=== PATIENT | female | born 1930 | race Caucasian/White ===

== ENCOUNTER 2019-06-24 04:43 | Inpatient (IN) ==
[2019-06-24 05:28] LABS: Appearance Urine Clear (Clear); Bacteria Urine Automated Negative (Negative); Bilirubin Urine Negative (Negative); Blood Urine Trace (Negative); Color Urine Yellow; Glucose Urine UA Negative (Negative); Ketones Urine Negative (Negative); Leukocyte Esterase Urine Negative (Negative); Nitrite Urine Negative (Negative); Protein Urine Negative (Negative); RBC Urine Automated 0-4 /hpf (0-4); Specific Gravity Urine 1.011 (1.000-1.030); Urobilinogen Urine Negative (Negative); pH Urine 6.5 (4.5-7.5)
[2019-06-24 06:07] LABS: Basophils # (auto) 0.01 K/uL (0-0.2); Basophils % (auto) 0.1 %; Hematocrit (blood only) 38.4 % (37-47); Hemoglobin 12.8 g/dL (12.0-16.0); Immature Granulocytes # (auto) 0.05 K/uL (0.00-0.02); Immature Granulocytes % (auto) 0.4 %; Lymphocytes # (auto) 1.08 K/uL (1.2-3.4); Lymphocytes % (auto) 8.1 %; Mean Corpuscular Hemoglobin 29.5 pg (25-34); Mean Corpuscular Hgb Conc 33.3 g/dL (32-36); Mean Corpuscular Volume 88.5 fL (80-100); Mean Platelet Volume 10.9 fL (7.4-10.4); Monocytes # (auto) 0.66 K/uL (0.11-0.59); Monocytes % (auto) 4.9 %; Neutrophils # (auto) 11.59 K/uL (1.4-6.5); Neutrophils % (auto) 86.5 %; Platelet Count 145 K/uL (130-400); RDW Coefficient of Variation 13.4 % (11.5-14.5); Red Blood Count 4.34 M/uL (4.2-5.4); White Blood Count 13.39 K/uL (4.8-10.8)
[2019-06-24 06:19] LABS: INR 1.1 (0.9-1.1); Partial Thromboplastin Ratio 0.8; Partial Thromboplastin Time 22.3 Seconds (21.0-31.0); Prothrombin Time 11.4 Seconds (9.0-12.0)
[2019-06-24 06:32] LABS: Albumin Level 2.9 gm/dl (3.4-5.0); BUN Creatinine Ratio 19.2 (10-20); Calcium 8.9 mg/dl (8.5-10.1); Creatinine Clr Calc Pharmacy 30.7 ml/min; Est GFR (African American) 84.4; Est GFR (Non-African American) 72.8; Potassium 3.6 mmol/L (3.5-5.1)
[2019-06-24 06:35] LABS: Albumin Globulin Ratio 0.8 (0.9-2); Bilirubin,Total 0.9 mg/dl (0.2-1); Globulin 3.6 gm/dl (2.5-4.0); Total Protein 6.5 gm/dl (6.4-8.2)
--- NOTE | 2019-06-24 06:38 | XRay Report ---
XR chest 1V portable CLINICAL HISTORY: Sepsis dyspnea COMPARISON STUDY: 07/05/2015 FINDINGS: Emphysematous change. A 2 parenchymal infiltrate right base. Diaphragms are smooth. No sign ificant cardiac enlargement. Severe degenerative change of the shoulders. IMPRESSION: 1. Small patchy parenchymal infiltrate right base. 2. Stable baseline emphysematous change. The above report was generated using voice recognition software. It may contain grammatical, syntax or spelling errors. Electronically signed by: Farshad Art M.D. 06/24/2019 6:36 AM
[2019-06-24] MEDS ORDERED: cefTRIAXone SODIUM 500 MG in DEXTROSE 5% 50 ML IV STA (06:39)
[2019-06-24] MEDS ORDERED: AZITHROMYCIN 250 MG in DEXTROSE 5% 250 ML IV ONE (06:44)
[2019-06-24] MEDS ORDERED: SODIUM CHLORIDE 0.9% 500 ML IV ONE (07:27)
--- NOTE | 2019-06-24 07:28 | Emergency Department Note ---
Entered by Diane Bolton acting as a scribe for History of Present Illness General Chief complaint: Altered Mental Status Stated complaint: altered mental status, fever Time Seen by Provider: 06/24/19 04:47 Source: family (son; daughter) History of Present Illness Onset (ago): hour(s) 2 Location: head (general) Pain Consistency: + other (episode) Quality: + other (fever and chills) Associated symptoms: + other (positive shivering; positive incontinent of urine); no confusion The patient is a 88 year old female who presents to the Emergency Room with complaints of an episode of fever and chills that began 2 hours prior to arrival, per the patient's son. The patient's son states that he arrived home from work and found the patient shivering and her temperature to be 102.7 degrees. The patient's son states that the patient was also incontinent of urine at this time. Per the patient's son, the patient was unable to communicate with him which is not normal for her. The patient's son states that the patient was last seen at her baseline at 1500 by him. The patient's daughter states that the patient is answering questions currently and is not confused. The patient's son states that the patient was able to eat upon his arrival at home, but states that recently the patient has been eating less. The patient's son denies that the patient was around anyone else that was sick recently. Per the patient's son, the patient gave a urine sample to [facility] one week ago and has not heard anything back. Home Medications Home Medications Medication Instructions Recorded Confirmed Type Calcium Citrate With Vitamin D 1 tab PO DAILY 06/24/19 06/24/19 History acetaminophen [Tylenol Arthritis 650 mg PO Q12H PRN 06/24/19 06/24/19 History Pain] docusate sodium [Stool Softener] 100 mg PO BID 06/24/19 06/24/19 History Allergies Allergy/AdvReac Type Severity Reaction Status Date / Time No Known Allergies Allergy Unverified 06/24/19 05:08 Past Med/Surg History Medical History Constipation (Chronic) Osteoarthritis (Chronic) Surgical History Cholecystitis with cholelithiasis (Chronic) Family History Mother No problems noted. Father No problems noted. Other No pertinent family history in first degree relatives Social History Preferred Language: Kandy Communication Ability: Effective Communication Ability Comment: designated broker ipad does not have this language Communication Tools: Other Counsellors Required: Yes Beliefs That Will Affect Care: Yazidi Current Living Situation: Family Current Living Situation Comment: lives with son Other Information That Helps Us Care for You: No Feels Safe at Home: Yes Safety Concerns: Feels Safe At This Time Smoking Status: Never smoker Hx Alcohol Use: No Hx Substance Use: No Review of Systems See HPI for pertinent positives & negatives. and A total of 10 systems reviewed and were otherwise negative Physical Exam Vital Signs Vital Signs - 24 hr 06/24/19 07:24 06/24/19 08:02 06/24/19 08:28 Pulse Rate [Right Finger] 93 H 88 87 Respiratory Rate 16 18 16 Respiratory Effort / Characteristics Non-Labored Respiratory Depth Normal Blood Pressure [Right Arm] 82/52 L 70/48 L 96/54 L Blood Pressure Mean [Right Arm] 62 55 68 Pulse Oximetry 98 97 100 Oxygen Delivery Method Room Air Room Air Room Air 06/24/19 08:36 06/24/19 09:21 Pulse Rate [Right Finger] 90 86 Respiratory Rate 16 16 Respiratory Effort / Characteristics Respiratory Depth Blood Pressure [Right Arm] 103/59 L 94/53 L Blood Pressure Mean [Right Arm] 73 66 Pulse Oximetry 100 100 Oxygen Delivery Method Room Air Room Air HEENT: Head - normocephalic and atraumatic Pupils are equal, round, and reactive to light. Extraocular eye muscles are intact, and sclera are anicteric. Nose - moist nasal mucosa without discharge. Mouth - moist buccal mucosa. Oropharynx is nonerythematous and there is no tonsillar exudate or edema noted. Neck: Supple; no JVD, nuchal rigidity, cervical lymphadenopathy. Heart: Regular rate and rhythm. There is a normal S1 and S2 with no murmurs, clicks, or gallops appreciated. Lungs: Clear to auscultation bilaterally with no wheezes, rales, or rhonchi. Abdomen: Soft, completely nontender, nondistended, with good bowel sounds. There are no palpable pulsatile masses or hepatosplenomegaly. There is no guarding, rigidity, or rebound noted. Extremities: No evidence of cyanosis, clubbing, or edema. There are easily palpable peripheral pulses. Skin: warm and dry with good turgor and no rashes. Course 0451: Past medical records reviewed. The patient was evaluated in room B2. A complete history and physical exam was performed. A septic protocol was performed. A urinalysis was obtained through catheterization. The patient had a chest x-ray done. 0643: [facility] patient for further evaluation. 0649: I updated the patient's family on all results. Administered Medications Guaifenesin (Mucinex) 600 mg PO Q12 WERNER Stop: 07/24/19 20:59 Last Admin: 06/24/19 20:45 Dose: 600 mg Documented by: [id number] Piperacillin Sod/Tazobactam (Sod 3.375 gm/ Dextrose) 115 mls @ 28.75 mls/hr IV Q8H WERNER; Protocol Stop: 07/01/19 19:59 Last Admin: 06/25/19 04:08 Dose: 28.8 mls/hr Documented by: [id number] Infusion: 06/25/19 00:19 Dose: 0 mls/hr Documented by: [id number] Admin: 06/24/19 20:44 Dose: 28.8 mls/hr Documented by: [id number] Senna/Docusate Sodium (Senokot S) 1 tab PO BID WERNER Stop: 07/24/19 22:59 Last Admin: 06/24/19 23:40 Dose: 1 tab Documented by: [id number] Discontinued Medications Docusate Sodium (Colace) 100 mg PO BID WERNER Stop: 07/24/19 20:59 Last Admin: 06/24/19 20:45 Dose: 100 mg Documented by: [id number] Ceftriaxone Sodium 500 mg/ (Dextrose) 55 mls @ 100 mls/hr IV NOW STA Stop: 06/24/19 07:11 Last Infusion: 06/24/19 08:04 Dose: 0 mls/hr Documented by: [id number] Admin: 06/24/19 07:24 Dose: 100 mls/hr Documented by: [id number] Azithromycin 250 mg/ Dextrose 252.5 mls @ 125 mls/hr IV ONE ONE Stop: 06/24/19 08:45 Last Infusion: 06/24/19 10:07 Dose: 0 mls/hr Documented by: [id number] Admin: 06/24/19 07:58 Dose: 125 mls/hr Documented by: [id number] Sodium Chloride (Nss) 500 mls @ 999 mls/hr IV .Q31M ONE Stop: 06/24/19 07:57 Last Infusion: 06/24/19 08:37 Dose: 0 mls/hr Documented by: [id number] Admin: 06/24/19 08:01 Dose: 999 mls/hr Documented by: [id number] Sodium Chloride (Nss) 500 mls @ 125 mls/hr IV .Q4H WERNER Stop: 07/24/19 07:29 Last Infusion: 06/24/19 21:29 Dose: 0 mls/hr Documented by: [id number] Admin: 06/24/19 20:59 Dose: Not Given Documented by: [id number] Admin: 06/24/19 17:55 Dose: Not Given Documented by: [id number] Admin: 06/24/19 16:14 Dose: 125 mls/hr Documented by: [id number] Infusion: 06/24/19 14:07 Dose: 0 mls/hr Documented by: [id number] Admin: 06/24/19 10:07 Dose: 125 mls/hr Documented by: [id number] Piperacillin Sod/Tazobactam (Sod 3.375 gm/ Dextrose) 115 mls @ 230 mls/hr IV TODAY@1500 WERNER; Protocol Stop: 06/24/19 15:29 Last Infusion: 06/24/19 15:59 Dose: 0 mls/hr Documented by: [id number] Admin: 06/24/19 15:29 Dose: 230 mls/hr Documented by: [id number] Lactulose (Chronulac) 30 gm PO ONE ONE Stop: 06/24/19 23:01 Last Admin: 06/24/19 23:39 Dose: 30 gm Documented by: [id number] Medical Decision Making Differential Diagnosis Differential diagnoses include sepsis, UTI, pneumonia, stroke, and others were considered. Medical Records Attestation: I reviewed the patient's medical records. Home Medications Current Medication List: was personally reviewed by me Laboratory Data Attestation: I reviewed the patient's lab results. Result diagrams: 06/24/19 05:45 06/24/19 06:03 Lab Results 06/24/19 06/24/19 06/24/19 Range/Units 05:15 05:45 05:45 WBC 13.39 H (4.8-10.8) K/uL RBC 4.34 (4.2-5.4) M/uL Hgb 12.8 (12.0-16.0) g/dL Hct 38.4 (37-47) % MCV 88.5 (80-100) fL MCH 29.5 (25-34) pg MCHC 33.3 (32-36) g/dL RDW Std Deviation 44.0 (36.4-46.3) fL RDW Coeff of Candice 13.4 (11.5-14.5) % Plt Count 145 (130-400) K/uL MPV 10.9 H (7.4-10.4) fL Immature Gran % (Auto) 0.4 % Neut % (Auto) 86.5 % Lymph % (Auto) 8.1 % Hitchcock % (Auto) 4.9 % Eos % (Auto) 0.0 % Baso % (Auto) 0.1 % Immature Gran # (Auto) 0.05 H (0.00-0.02) K/uL Neut # (Auto) 11.59 H (1.4-6.5) K/uL Lymph # (Auto) 1.08 L (1.2-3.4) K/uL Hitchcock # (Auto) 0.66 H (0.11-0.59) K/uL Eos # (Auto) 0.00 (0-0.5) K/uL Baso # (Auto) 0.01 (0-0.2) K/uL PT 11.4 (9.0-12.0) Seconds INR 1.1 (0.9-1.1) APTT 22.3 (21.0-31.0) Seconds PTT Ratio 0.8 Sodium (136-145) mmol/L Potassium (3.5-5.1) mmol/L Chloride (98-107) mmol/L Carbon Dioxide (21-32) mmol/L Anion Gap (3-11) BUN (7-18) mg/dl Creatinine (0.6-1.2) mg/dl Est Cr Clr Drug Dosing ml/min Est GFR ( Amer) Est GFR (Non-Af Amer) BUN/Creatinine Ratio (10-20) Glucose (70-99) mg/dl Lactate (0.4-2.0) mmol/L Calcium (8.5-10.1) mg/dl Total Bilirubin (0.2-1) mg/dl AST (15-37) U/L ALT (12-78) U/L Alkaline Phosphatase (45-117) U/L Total Protein (6.4-8.2) gm/dl Albumin (3.4-5.0) gm/dl Globulin (2.5-4.0) gm/dl Albumin/Globulin Ratio (0.9-2) Urine Color Yellow Urine Appearance Clear (Clear) Urine pH 6.5 (4.5-7.5) Ur Specific Williamson 1.011 (1.000-1.030) Urine Protein Negative (Negative) Urine Glucose (UA) Negative (Negative) Urine Ketones Negative (Negative) Urine Blood Trace H (Negative) Urine Nitrite Negative (Negative) Urine Bilirubin Negative (Negative) Urine Urobilinogen Negative (Negative) Ur Leukocyte Esterase Negative (Negative) Urine WBC (Auto) 1-5 (0-5) /hpf Urine RBC (Auto) 0-4 (0-4) /hpf U Hyaline Cast (Auto) 1-5 (0-5) /lpf U Epithel Cells (Auto) 10-20 H (0-5) /lpf Urine Bacteria (Auto) Negative (Negative) 06/24/19 06/24/19 Range/Units 05:52 06:03 WBC (4.8-10.8) K/uL RBC (4.2-5.4) M/uL Hgb (12.0-16.0) g/dL Hct (37-47) % MCV (80-100) fL MCH (25-34) pg MCHC (32-36) g/dL RDW Std Deviation (36.4-46.3) fL RDW Coeff of Candice (11.5-14.5) % Plt Count (130-400) K/uL MPV (7.4-10.4) fL Immature Gran % (Auto) % Neut % (Auto) % Lymph % (Auto) % Hitchcock % (Auto) % Eos % (Auto) % Baso % (Auto) % Immature Gran # (Auto) (0.00-0.02) K/uL Neut # (Auto) (1.4-6.5) K/uL Lymph # (Auto) (1.2-3.4) K/uL Hitchcock # (Auto) (0.11-0.59) K/uL Eos # (Auto) (0-0.5) K/uL Baso # (Auto) (0-0.2) K/uL PT (9.0-12.0) Seconds INR (0.9-1.1) APTT (21.0-31.0) Seconds PTT Ratio Sodium 137 (136-145) mmol/L Potassium 3.6 (3.5-5.1) mmol/L Chloride 105 (98-107) mmol/L Carbon Dioxide 28 (21-32) mmol/L Anion Gap 4.0 (3-11) BUN 14 (7-18) mg/dl Creatinine 0.74 (0.6-1.2) mg/dl Est Cr Clr Drug Dosing 30.7 ml/min Est GFR ( Amer) 84.4 Est GFR (Non-Af Amer) 72.8 BUN/Creatinine Ratio 19.2 (10-20) Glucose 101 H (70-99) mg/dl Lactate 1.8 (0.4-2.0) mmol/L Calcium 8.9 (8.5-10.1) mg/dl Total Bilirubin 0.9 (0.2-1) mg/dl AST 35 (15-37) U/L ALT 20 (12-78) U/L Alkaline Phosphatase 108 (45-117) U/L Total Protein 6.5 (6.4-8.2) gm/dl Albumin 2.9 L (3.4-5.0) gm/dl Globulin 3.6 (2.5-4.0) gm/dl Albumin/Globulin Ratio 0.8 L (0.9-2) Urine Color Urine Appearance (Clear) Urine pH (4.5-7.5) Ur Specific Williamson (1.000-1.030) Urine Protein (Negative) Urine Glucose (UA) (Negative) Urine Ketones (Negative) Urine Blood (Negative) Urine Nitrite (Negative) Urine Bilirubin (Negative) Urine Urobilinogen (Negative) Ur Leukocyte Esterase (Negative) Urine WBC (Auto) (0-5) /hpf Urine RBC (Auto) (0-4) /hpf U Hyaline Cast (Auto) (0-5) /lpf U Epithel Cells (Auto) (0-5) /lpf Urine Bacteria (Auto) (Negative) Imaging Data Radiologist's Impression: Radiology results as stated below per my review and the radiologist's interpretation: XR chest 1V portable CLINICAL HISTORY: Sepsis dyspnea COMPARISON STUDY: 07/05/2015 FINDINGS: Emphysematous change. A 2 parenchymal infiltrate right base. Diaphragms are smooth. No significant cardiac enlargement. Severe degenerative change of the shoulders. IMPRESSION: 1. Small patchy parenchymal infiltrate right base. 2. Stable baseline emphysematous change. The above report was generated using voice recognition software. It may contain grammatical, syntax or spelling errors. Electronically signed by: Farshad Art M.D. 06/24/2019 6:36 AM ECG Data Attestation: I personally reviewed and interpreted this ECG as follows: Indication: tachycardia Rate (beats per minute): 101 Rhythm: sinus tachycardia Findings: no PAC, no PVC, no ST depression, no ST elevation, no acute ischemic change and no ectopy Blood Pressure Blood Pressure Findings: Elevated blood pressure Blood Pressure Disposition: further management by hospitalist [facility] Narrative The patient is a 88 year old female who presents to the Emergency Room with complaints of an episode of fever and chills that began 2 hours prior to arrival, per the patient's son. The patient was incontinent of urine and seemed slightly confused. Upon arrival here in the emergency department, the patient had no altered mental status. She was afebrile. A septic protocol was performed and there was no obvious urinary tract infection. However, there was evidence of a pneumonia. The patient was treated with IV antibiotics. The patient is extremely weak and will require further inpatient care for antibioti cs. Impression & Plan Pneumonia Discharge Plan Visit Data *Final* Discharge Date/Time: 06/24/19 10:08 Chief Complaint: Altered Mental Status Stated Complaint: altered mental status, fever ED Provider: Dipti Cano Discharge Problem: Pneumonia Patient Disposition: Admitted As Inpatient Discharge Instructions Interventions: ED Discharge Assessment Last Done: 06/24/19 10:08 Discharge Problem: Pneumonia Qualifiers: Pneumonia type: due to unspecified organism Laterality: right Lung location: lower lobe of lung Qualified Code(s): J18.1 - Lobar pneumonia, unspecified org anism The scribe's documentation has been prepared under my direction and personally reviewed by me in its entirety. I confirm that the note above accurately reflects all work, treatment, procedures, and medical decision making performed by me.
[2019-06-24] MEDS: SODIUM CHLORIDE 0.9% 500 ML IV SCH ×4 (10:07→20:59)
--- NOTE | 2019-06-24 10:39 | History & Physical Report ---
Date of Service June 24, 2019 Assessment & Plan (1) Sepsis: Met SIRS criteria, due to fever, tachycardia, hypotension, elevated white blood cell count at 13.4K, mental status change, also procalcitonin elevated at 2.07 Fever was not recorded in the ED, however at home it was recorded to be 102.7F Lactate was normal at 1.8 Source is likely pulmonary, as chest x-ray shows patchy opacity at the right base, UA is negative, blood cultures are pending Influenza negative Received IVF and ceftriaxone plus azithromycin in the ED for community-acquired pneumonia coverage Concern for possible aspiration pneumonia, will switch to Zosyn We will have her evaluated by speech therapist, and will take aspiration precautions We will start her on guaifenesin, and pulmonary treatments with ISB We will closely monitor on telemetry in PCU unit Osteoarthritis Patient may need pain meds for osteoarthritis, at home she takes Tylenol, will provide as needed Constipation We will continue her regimen of Dulcolax CODE STATUS: Full code at this time, will discuss further with her son when he is available (daughter mentioned that patient previously stated that she would not want intubation however she did not want to speak for the patient and without the son present) History of Present Illness Chief Complaint: Fever, confusion Primary Care Provider: Alia Orozco MD 88-year-old female with no significant past medical history, besides severe osteoarthritis especially in her shoulders who presents in the ED after being found by her family members confused, and having fever of 102.7F. Patient's daughter is at the bedside, she is a rehabilitation tech, and provides most of the history as patient speaks Kandy. Patient however lives with her son, who found her at home son was confused and feverish. Daughter mentions that patient has been having some urinary incontinence, she was evaluated about a week ago at her outpatient physician, UA and culture were negative at that time. When daughter came patient's mental status was back to baseline and she did not see her confused. She also noticed that patient has been having poor oral intake lately. Patient lives with her son, his and their son, nobody was sick at the household and she denies any sick contacts. In the ED UA was obtained as well as chest x-ray. UA was unrevealing, negative for bacteria, leukoesterase or nitrites. White blood cell count elevated, 13.4K. Blood cultures were obtained. Patient denies any cough or difficulty breathing. However she was found hypotensive in the ED and required fluid resuscitation (received IV NS bolus and then continuous IV NS). EKG showed sinus tachycardia. Chest x-ray was concerning for patchy opacity at the right base. She received IV ceftriaxone and azithromycin in the ED to cover for community-acquired pneumonia. Internal medicine/hospitalist service was contacted for admission. Allergies Allergy/AdvReac Type Severity Reaction Status Date / Time No Known Allergies Allergy Unverified 06/24/19 05:08 Home Medications Home Medications Medication Instructions Recorded Confirmed Type Calcium Citrate With Vitamin D 1 tab PO DAILY 06/24/19 06/24/19 History acetaminophen [Tylenol Arthritis 650 mg PO Q12H PRN 06/24/19 06/24/19 History Pain] docusate sodium [Stool Softener] 100 mg PO BID 06/24/19 06/24/19 History Past Med/Surg History Medical History Constipation (Chronic) Osteoarthritis (Chronic) Surgical History Cholecystitis with cholelithiasis (Chronic) Family History Mother No problems noted. Father No problems noted. Other No pertinent family history in first degree relatives Social History Preferred Language: Kandy Communication Ability: Effective Communication Ability Comment: spring clipper ipad does not have this language Communication Tools: Other Night Auditor Required: Yes Beliefs That Will Affect Care: Denominational Current Living Situation: Family Current Living Situation Comment: lives with son Other Information That Helps Us Care for You: No Feels Safe at Home: Yes Safety Concerns: Feels Safe At This Time Smoking Status: Never smoker Hx Alcohol Use: No Hx Substance Use: No Review of Systems Constitutional: + fever and + weakness Eyes: no eye pain Ear, Nose, Mouth, Throat: + hearing loss; no ear pain, no nasal discharge and no pain with swallowing Respiratory: no cough and no dyspnea Cardiovascular: no chest pain, no palpitations and no edema Gastrointestinal: no abdominal pain, no nausea and no vomiting Genitourinary: + urinary incontinence Musculoskeletal: + back pain (chronic) and + joint pain (chronic) Integumentary: no rash and no erythema Neurologic: + confusion; no abnormal speech Psychiatric: no anhedonia Endocrine: no polydipsia and no polyuria Hematologic / Lymphatic: no easy bleeding and no easy bruising Allergy / Immunological: no urticaria and no rash Physical Exam Physical Exam: Elderly, thin female lying in bed, in no acute distress Eyes: PERRL, conjunctivae normal, anicteric sclerae ENMT: external ear and nose normal, oropharynx normal Neck: Supple Respiratory: normal respiratory effort; no respiratory distress, no labored breathing and no retractions Auscultation: + rhonchi (at R mid lobe/base) Cardiovascular: RRR, no murmur, no edema Vessels: no JVD Chest (Breasts): Chest: normal inspection of chest Gastrointestinal (Abdomen): Inspection/Auscultation: abdomen normal to inspection and normal bowel sounds; abdomen not distended Percussion/Palpation: abdomen soft; abdomen nontender and no guarding Musculoskeletal: Head/Neck/Chest: normocephalic, head atraumatic and neck supple Extremities: extremities normal to inspection Skin: no rashes, warm and dry Neurologic: PERRL, EOMI, accommodation nl, no face palsy, no dysarthria No sensory loss noted Psychiatric: A+Ox3, euthymic affect Lymphatic: no lymphedema and no cervical lymphadenopathy Results & Data Vital Signs (Past 12 Hours) Vital Signs Temp Pulse Pulse Resp BP BP Pulse Ox 06/24/19 10:05 83 16 95/55 L 100 06/24/19 09:21 86 16 94/53 L 100 06/24/19 08:36 90 16 103/59 L 100 06/24/19 08:28 87 16 96/54 L 100 06/24/19 08:02 88 18 70/48 L 97 06/24/19 07:24 93 H 16 82/52 L 98 06/24/19 05:31 99 H 18 129/77 98 06/24/19 05:17 97 06/24/19 04:48 37.3 C 98 H 18 159/107 H 97 Laboratory Results 06/24/19 06/24/19 06/24/19 Range/Units 06:03 05:52 05:45 WBC (4.8-10.8) K/uL RBC (4.2-5.4) M/uL Hgb (12.0-16.0) g/dL Hct (37-47) % MCV (80-100) fL MCH (25-34) pg MCHC (32-36) g/dL RDW Std Deviation (36.4-46.3) fL RDW Coeff of Candice (11.5-14.5) % Plt Count (130-400) K/uL MPV (7.4-10.4) fL Immature Gran % (Auto) % Neut % (Auto) % Lymph % (Auto) % [place] % (Auto) % Eos % (Auto) % Baso % (Auto) % Immature Gran # (Auto) (0.00-0.02) K/uL Neut # (Auto) (1.4-6.5) K/uL Lymph # (Auto) (1.2-3.4) K/uL [place] # (Auto) (0.11-0.59) K/uL Eos # (Auto) (0-0.5) K/uL Baso # (Auto) (0-0.2) K/uL PT 11.4 (9.0-12.0) Seconds INR 1.1 (0.9-1.1) APTT 22.3 (21.0-31.0) Seconds PTT Ratio 0.8 Sodium 137 (136-145) mmol/L Potassium 3.6 (3.5-5.1) mmol/L Chloride 105 (98-107) mmol/L Carbon Dioxide 28 (21-32) mmol/L Anion Gap 4.0 (3-11) BUN 14 (7-18) mg/dl Creatinine 0.74 (0.6-1.2) mg/dl Est Cr Clr Drug Dosing 30.7 ml/min Est GFR ( Amer) 84.4 Est GFR (Non-Af Amer) 72.8 BUN/Creatinine Ratio 19.2 (10-20) Glucose 101 H (70-99) mg/dl Lactate 1.8 (0.4-2.0) mmol/L Calcium 8.9 (8.5-10.1) mg/dl Total Bilirubin 0.9 (0.2-1) mg/dl AST 35 (15-37) U/L ALT 20 (12-78) U/L Alkaline Phosphatase 108 (45-117) U/L Total Protein 6.5 (6.4-8.2) gm/dl Albumin 2.9 L (3.4-5.0) gm/dl Globulin 3.6 (2.5-4.0) gm/dl Albumin/Globulin Ratio 0.8 L (0.9-2) Urine Color Urine Appearance (Clear) Urine pH (4.5-7.5) Ur Specific Union (1.000-1.030) Urine Protein (Negative) Urine Glucose (UA) (Negative) Urine Ketones (Negative) Urine Blood (Negative) Urine Nitrite (Negative) Urine Bilirubin (Negative) Urine Urobilinogen (Negative) Ur Leukocyte Esterase (Negative) Urine WBC (Auto) (0-5) /hpf Urine RBC (Auto) (0-4) /hpf U Hyaline Cast (Auto) (0-5) /lpf U Epithel Cells (Auto) (0-5) /lpf Urine Bacteria (Auto) (Negative) 06/24/19 06/24/19 Range/Units 05:45 05:15 WBC 13.39 H (4.8-10.8) K/uL RBC 4.34 (4.2-5.4) M/uL Hgb 12.8 (12.0-16.0) g/dL Hct 38.4 (37-47) % MCV 88.5 (80-100) fL MCH 29.5 (25-34) pg MCHC 33.3 (32-36) g/dL RDW Std Deviation 44.0 (36.4-46.3) fL RDW Coeff of Candice 13.4 (11.5-14.5) % Plt Count 145 (130-400) K/uL MPV 10.9 H (7.4-10.4) fL Immature Gran % (Auto) 0.4 % Neut % (Auto) 86.5 % Lymph % (Auto) 8.1 % [place] % (Auto) 4.9 % Eos % (Auto) 0.0 % Baso % (Auto) 0.1 % Immature Gran # (Auto) 0.05 H (0.00-0.02) K/uL Neut # (Auto) 11.59 H (1.4-6.5) K/uL Lymph # (Auto) 1.08 L (1.2-3.4) K/uL [place] # (Auto) 0.66 H (0.11-0.59) K/uL Eos # (Auto) 0.00 (0-0.5) K/uL Baso # (Auto) 0.01 (0-0.2) K/uL PT (9.0-12.0) Seconds INR (0.9-1.1) APTT (21.0-31.0) Seconds PTT Ratio Sodium (136-145) mmol/L Potassium (3.5-5.1) mmol/L Chloride (98-107) mmol/L Carbon Dioxide (21-32) mmol/L Anion Gap (3-11) BUN (7-18) mg/dl Creatinine (0.6-1.2) mg/dl Est Cr Clr Drug Dosing ml/min Est GFR ( Amer) Est GFR (Non-Af Amer) BUN/Creatinine Ratio (10-20) Glucose (70-99) mg/dl Lactate (0.4-2.0) mmol/L Calcium (8.5-10.1) mg/dl Total Bilirubin (0.2-1) mg/dl AST (15-37) U/L ALT (12-78) U/L Alkaline Phosphatase (45-117) U/L Total Protein (6.4-8.2) gm/dl Albumin (3.4-5.0) gm/dl Globulin (2.5-4.0) gm/dl Albumin/Globulin Ratio (0.9-2) Urine Color Yellow Urine Appearance Clear (Clear) Urine pH 6.5 (4.5-7.5) Ur Specific Union 1.011 (1.000-1.030) Urine Protein Negative (Negative) Urine Glucose (UA) Negative (Negative) Urine Ketones Negative (Negative) Urine Blood Trace H (Negative) Urine Nitrite Negative (Negative) Urine Bilirubin Negative (Negative) Urine Urobilinogen Negative (Negative) Ur Leukocyte Esterase Negative (Negative) Urine WBC (Auto) 1-5 (0-5) /hpf Urine RBC (Auto) 0-4 (0-4) /hpf U Hyaline Cast (Auto) 1-5 (0-5) /lpf U Epithel Cells (Auto) 10-20 H (0-5) /lpf Urine Bacteria (Auto) Negative (Negative) Diagnostic Findings CXR (06/24/2019) FINDINGS: Emphysematous change. A 2 parenchymal infiltrate right base. Diaphragms are smooth. No significant cardiac enlargement. Severe degenerative change of the shoulders. IMPRESSION: 1. Small patchy parenchymal infiltrate right base. 2. Stable baseline emphysematous change. Medications Administered Home Medications Medication Instructions Recorded Confirmed Calcium Citrate With Vitamin D 1 tab PO DAILY 06/24/19 06/24/19 acetaminophen [Tylenol Arthritis 650 mg PO Q12H PRN 06/24/19 06/24/19 Pain] docusate sodium [Stool Softener] 100 mg PO BID 06/24/19 06/24/19 Code Status & VTE Plan Code Status Full code - will further discuss w/ pt's son when available VTE Prophylaxis Plan VTE Prophylaxis will be ordered: Yes Reason for no VTE drug order: Treatment not indicated
[2019-06-24] MEDS ORDERED: ONDANSETRON INJ 2 MG/ML 2 ML VIAL IV PRN (11:07)
[2019-06-24] MEDS ORDERED: POLYETHYLENE (MIRALAX) 17 GM PACK PO PRN (11:07)
[2019-06-24] MEDS ORDERED: ACETAMINOPHEN 325 MG TAB PO PRN (11:24)
[2019-06-24] MEDS ORDERED: CONSULT PHARMACY STA (14:41)
[2019-06-24] MEDS ORDERED: PIPERACILL/TAZOBAC CONSULT ACTIVE PRN (14:57)
[2019-06-24] MEDS ORDERED: PIPERACILLIN/TAZOBACTAM 3.375 GM in DEXTROSE 5% 100 ML IV SCH (15:00)
[2019-06-24 16:02] LABS: Influenza A virus by PCR Neg for Influ A (Neg); Influenza B virus by PCR Neg for Influ B (Neg)
[2019-06-24] MEDS: PIPERACILLIN/TAZOBACTAM 3.375 GM in DEXTROSE 5% 100 ML IV SCH (20:44)
[2019-06-24] MEDS: guaiFENesin 600 MG TABCR PO SCH (20:45)
[2019-06-24] MEDS ORDERED: DOCUSATE SODIUM 100 MG CAP PO SCH (21:00)
[2019-06-24] MEDS ORDERED: LACTULOSE SYRUP 30 GM/45 ML UDP PO ONE (23:00)
[2019-06-24] MEDS: DOCUSATE SODIUM/SENNA 50/8.6MG TAB PO SCH (23:40)
[2019-06-25] MEDS: PIPERACILLIN/TAZOBACTAM 3.375 GM in DEXTROSE 5% 100 ML IV SCH ×2 (04:08→14:00)
[2019-06-25 07:11] LABS: Basophils # (auto) 0.02 K/uL (0-0.2); Basophils % (auto) 0.2 %; Eosinophils # (auto) 0.08 K/uL (0-0.5); Eosinophils % (auto) 0.7 %; Hematocrit (blood only) 36.2 % (37-47); Hemoglobin 12.4 g/dL (12.0-16.0); Immature Granulocytes # (auto) 0.01 K/uL (0.00-0.02); Immature Granulocytes % (auto) 0.1 %; Lymphocytes # (auto) 2.21 K/uL (1.2-3.4); Lymphocytes % (auto) 20.6 %; Mean Corpuscular Hgb Conc 34.3 g/dL (32-36); Mean Corpuscular Volume 87.4 fL (80-100); Mean Platelet Volume 9.1 fL (7.4-10.4); Monocytes % (auto) 5.6 %; Neutrophils # (auto) 7.83 K/uL (1.4-6.5); Neutrophils % (auto) 72.8 %; Platelet Count 127 K/uL (130-400); RDW Coefficient of Variation 13.8 % (11.5-14.5); RDW Standard Deviation 44.4 fL (36.4-46.3); Red Blood Count 4.14 M/uL (4.2-5.4); White Blood Count 10.75 K/uL (4.8-10.8)
[2019-06-25 07:43] LABS: BUN Creatinine Ratio 14.6 (10-20); Calcium 8.8 mg/dl (8.5-10.1); Creatinine Clr Calc Pharmacy 25.2 ml/min; Est GFR (African American) 66.6; Est GFR (Non-African American) 57.5; Magnesium 2.2 mg/dl (1.8-2.4); Potassium 3.9 mmol/L (3.5-5.1)
--- NOTE | 2019-06-25 07:45 | Hospitalist Progress Note ---
Date of Service June 25, 2019 Assessment & Plan (1) Sepsis: Met SIRS criteria, due to fever, tachycardia, hypotension, elevated white blood cell count at 13.4K, mental status change, also procalcitonin elevated at 2.07 Metabolic encephalopathy in setting of sepsis and pneumonia - now seems resolved Fever was not recorded in the ED, however at home it was recorded to be 102.7F Lactate was normal at 1.8 Source is likely pulmonary, as chest x-ray shows patchy opacity at the right base, UA is negative, blood cultures are pending Influenza negative Received IVF and ceftriaxone plus azithromycin in the ED for community-acquired pneumonia coverage Concern for possible aspiration pneumonia, started Zosyn, pt much improved clinically and WBC decr. to 10k, will switch to Unasyn Evaluated by speech therapist, will take aspiration precautions Cont. guaifenesin, and pulmonary treatments with ISB We will closely monitor on telemetry in PCU unit, plan to downgrade to Med/Surg if cont. to improve Osteoarthritis Patient may need pain meds for osteoarthritis, at home she takes Tylenol, will provide as needed Constipation We will continue her regimen of Dulcolax CODE STATUS: Full code at this time, will discuss further with her son when he is available (daughter mentioned that patient previously stated that she would not want intubation however she did not want to speak for the patient and without the son present) Subjective No acute events overnight, patient is lying in bed, sleepy but easily arousable. Seems comfortable. Difficulty assessing full review of system as patient does not speak Nepali, does not seem that we have her language translating on iPad in the hospital and unfortunately family is not at the bedside at the moment. Tried to call patient's son twice but was unable to reach him, will try again later. Review of Systems Ear, Nose, Mouth, Throat: + hearing loss; no pain with swallowing Musculoskeletal: + back pain (chronic) and + joint pain (chronic) Neurologic: no abnormal speech Unable to fully assess as patient has fluent speech but does not speak Nepali Physical Exam Physical Exam: Thin elderly female lying in bed, appears comfortable, in no acute distress Eyes: PERRL, conjunctivae normal, anicteric sclerae ENMT: external ear and nose normal, oropharynx normal Respiratory: normal respiratory effort; no respiratory distress, no labored breathing and no retractions Auscultation: + rhonchi (at R mid lobe/base) Cardiovascular: RRR, no murmur, no edema Vessels: no JVD Chest (Breasts): Chest: normal inspection of chest Gastrointestinal (Abdomen): Inspection/Auscultation: abdomen normal to inspection and normal bowel sounds; abdomen not distended Percussion/Palpa tion: abdomen soft; abdomen nontender and no guarding Musculoskeletal: Head/Neck/Chest: normocephalic, head atraumatic and neck supple Extremities: extremities normal to inspection Skin: no rashes, warm and dry Neurologic: PERRL, EOMI, accommodation nl, no face palsy, no dysarthria Psychiatric: A+Ox3, euthymic affect Lymphatic: no lymphedema and no cervical lymphadenopathy Results & Data Vital Signs (Past 12 Hours) Vital Signs Temp Pulse Resp BP Pulse Ox 06/25/19 07:21 36.5 C 74 16 158/77 H 99 06/25/19 03:30 36.6 C 72 17 150/80 H 95 06/24/19 23:40 36.6 C 76 17 145/67 H 98 Laboratory Results 06/25/19 06/25/19 06/24/19 Range/Units 07:00 07:00 14:50 WBC 10.75 (4.8-10.8) K/uL RBC 4.14 L (4.2-5.4) M/uL Hgb 12.4 (12.0-16.0) g/dL Hct 36.2 L (37-47) % MCV 87.4 (80-100) fL MCH 30.0 (25-34) pg MCHC 34.3 (32-36) g/dL RDW Std Deviation 44.4 (36.4-46.3) fL RDW Coeff of Candice 13.8 (11.5-14.5) % Plt Count 127 L (130-400) K/uL MPV 9.1 (7.4-10.4) fL Immature Gran % (Auto) 0.1 % Neut % (Auto) 72.8 % Lymph % (Auto) 20.6 % [place] % (Auto) 5.6 % Eos % (Auto) 0.7 % Baso % (Auto) 0.2 % Immature Gran # (Auto) 0.01 (0.00-0.02) K/uL Neut # (Auto) 7.83 H (1.4-6.5) K/uL Lymph # (Auto) 2.21 (1.2-3.4) K/uL [place] # (Auto) 0.60 H (0.11-0.59) K/uL Eos # (Auto) 0.08 (0-0.5) K/uL Baso # (Auto) 0.02 (0-0.2) K/uL Sodium Pending Potassium Pending Chloride Pending Carbon Dioxide Pending Anion Gap Pending BUN Pending Creatinine Pending Est Cr Clr Drug Dosing Pending Est GFR ( Amer) Pending Est GFR (Non-Af Amer) Pending BUN/Creatinine Ratio Pending Glucose Pending Calcium Pending Phosphorus Pending Magnesium Pending Procalcitonin (0-0.5) ng/ml Influenza Type A (PCR) Neg for Influ A (Neg) Influenza Type B (PCR) Neg for Influ B (Neg) 06/24/19 Range/Units 11:13 WBC (4.8-10.8) K/uL RBC (4.2-5.4) M/uL Hgb (12.0-16.0) g/dL Hct (37-47) % MCV (80-100) fL MCH (25-34) pg MCHC (32-36) g/dL RDW Std Deviation (36.4-46.3) fL RDW Coeff of Candice (11.5-14.5) % Plt Count (130-400) K/uL MPV (7.4-10.4) fL Immature Gran % (Auto) % Neut % (Auto) % Lymph % (Auto) % [place] % (Auto) % Eos % (Auto) % Baso % (Auto) % Immature Gran # (Auto) (0.00-0.02) K/uL Neut # (Auto) (1.4-6.5) K/uL Lymph # (Auto) (1.2-3.4) K/uL [place] # (Auto) (0.11-0.59) K/uL Eos # (Auto) (0-0.5) K/uL Baso # (Auto) (0-0.2) K/uL Sodium Potassium Chloride Carbon Dioxide Anion Gap BUN Creatinine Est Cr Clr Drug Dosing Est GFR ( Amer) Est GFR (Non-Af Amer) BUN/Creatinine Ratio Glucose Calcium Phosphorus Magnesium Procalcitonin 2.07 H (0-0.5) ng/ml Influenza Type A (PCR) (Neg) Influenza Type B (PCR) (Neg) Medications Administered Current Inpatient Medications Acetaminophen (Tylenol) 650 mg PO Q12H PRN PRN Reason: ARTHRITIS PAIN Stop: 07/24/19 11:23 Guaifenesin (Mucinex) 600 mg PO Q12 [facility]ER Stop: 07/24/19 20:59 Last Admin: 06/24/19 20:45 Dose: 600 mg Documented by: Piperacillin Sod/Tazobactam (Sod 3.375 gm/ Dextrose) 115 mls @ 28.75 mls/hr IV Q8H [facility]; Protocol Stop: 07/01/19 19:59 Last Admin: 06/25/19 04:08 Dose: 28.8 mls/hr Documented by: Miscellaneous Information (Consult) 1 ea N/A UD PRN PRN Reason: Consult Stop: 07/24/19 14:56 Multivitamins/Minerals (Caltrate Plus) 1 tab PO DAILY [facility] Stop: 07/25/19 08:59 Ondansetron HCl (Zofran) 4 mg IV Q6H PRN PRN Reason: Nausea Stop: 07/24/19 11:06 Polyethylene Glycol (Miralax Powder Packet) 17 gm PO DAILY PRN PRN Reason: Constipation Stop: 07/24/19 11:06 Senna/Docusate Sodium (Senokot S) 1 tab PO BID [facility] Stop: 07/24/19 22:59 Last Admin: 06/24/19 23:40 Dose: 1 tab Documented by:
[2019-06-25] MEDS: guaiFENesin 600 MG TABCR PO SCH ×2 (08:50→20:40)
[2019-06-25] MEDS: DOCUSATE SODIUM/SENNA 50/8.6MG TAB PO SCH ×2 (08:50→20:41)
[2019-06-25] MEDS: CALCIUM 600MG + VIT D 400 IU TAB PO SCH (08:50)
[2019-06-25] MEDS: AMPICILLIN/SULBACTAM SOD 3,000 MG in 0.9 % SODIUM CHLORIDE 100 ML IV SCH (20:41)
[2019-06-26] MEDS ORDERED: FUROSEMIDE 20 MG TAB PO STA (03:47)
[2019-06-26 06:18] LABS: Basophils # (auto) 0.01 K/uL (0-0.2); Basophils % (auto) 0.1 %; Eosinophils # (auto) 0.11 K/uL (0-0.5); Eosinophils % (auto) 1.5 %; Hematocrit (blood only) 38.9 % (37-47); Hemoglobin 13.2 g/dL (12.0-16.0); Immature Granulocytes # (auto) 0.01 K/uL (0.00-0.02); Immature Granulocytes % (auto) 0.1 %; Lymphocytes # (auto) 1.57 K/uL (1.2-3.4); Lymphocytes % (auto) 21.1 %; Mean Corpuscular Hemoglobin 29.9 pg (25-34); Mean Corpuscular Hgb Conc 33.9 g/dL (32-36); Mean Corpuscular Volume 88.2 fL (80-100); Mean Platelet Volume 9.9 fL (7.4-10.4); Monocytes # (auto) 0.37 K/uL (0.11-0.59); Neutrophils # (auto) 5.37 K/uL (1.4-6.5); Neutrophils % (auto) 72.2 %; Platelet Count 141 K/uL (130-400); RDW Coefficient of Variation 13.6 % (11.5-14.5); RDW Standard Deviation 44.4 fL (36.4-46.3); Red Blood Count 4.41 M/uL (4.2-5.4); White Blood Count 7.44 K/uL (4.8-10.8)
[2019-06-26 06:44] LABS: BUN Creatinine Ratio 13.1 (10-20); Calcium 9.4 mg/dl (8.5-10.1); Creatinine Clr Calc Pharmacy 27.4 ml/min; Est GFR (African American) 73.5; Est GFR (Non-African American) 63.4; Phosphorus 3.2 mg/dl (2.5-4.9); Potassium 3.5 mmol/L (3.5-5.1)
--- NOTE | 2019-06-26 07:12 | Hospitalist Progress Note ---
Date of Service June 26, 2019 Assessment & Plan (1) Sepsis: Met SIRS criteria, due to fever, tachycardia, hypotension, elevated white blood cell count at 13.4K, mental status change, also procalcitonin elevated at 2.07 Metabolic encephalopathy in setting of sepsis and pneumonia - now seems resolved Fever was not recorded in the ED, however home Tmax (axillary) reported to be 102.7F Lactate was normal at 1.8 Source is likely pulmonary, as chest x-ray shows patchy opacity at the right b ase, UA is negative, blood cultures - negative Influenza negative Received IVF and ceftriaxone plus azithromycin in the ED for community-acquired pneumonia coverage Concern for possible aspiration pneumonia, started Zosyn, pt much improved clinically and WBC decr. to 10k, switched to Unasyn WBC down to 7k, overall seems to be much improved but still frail/which seems to be her baseline, plan to downgrade care to medical unit and switch to p.o. antibiotics in anticipation of possible discharge tomorrow Evaluated by speech therapist, will take aspiration precautions Cont. guaifenesin, and pulmonary treatments with ISB Ambulatory dysfunction Patient has difficulty ambulating from bed to bathroom, which often results in urinary incontinence Ordered PT/ OT Per son he has difficulty to take her to physical therapy as outpatient, as patient has difficulty ambulating overall and often during the session she needs to use the bathroom which takes about 30 to 45 minutes with his help, would very much prefer home PT/OT Case management following Osteoarthritis Patient may need pain meds for osteoarthritis, at home she takes Tylenol, will provide as needed Constipation We will continue her regimen of Dulcolax CODE STATUS: Full code at this time, will discuss further with her son when he is available (daughter mentioned that patient previously stated that she would not want intubation however she did not want to speak for the patient and without the son present) Subjective Patient was hypertensive overnight, was given 20 mg of Lasix (as per outpatient note it was recently prescribed), otherwise no acute events overnight. Patient is lying in bed, and appears comfortable. Patient's son is present at the bedside, and prefers to translate (translating services found, and offered). He says that patient is not confused and overall seems to be at her baseline. Patient denies any fevers, chills, chest pain, shortness of breath, abdominal pain, nausea or vomiting . Pt's son admits that she has difficulty ambulating and she has therefore troubles getting to the bathroom on her own. She lives with her son, his and their child. They all have bedrooms upstairs and she has difficulty getting down stairs even with his help. She usually has to yell for help and if nobody is around she has to try to get to the bathroom by herself. He admits that they could use more help at home. Also discussed that his mother is at risk for aspiration, plan to reinforce aspiration precautions prior to discharge. I also contacted patient's daughter, Merritt Gallegos, discussed the patient's clinical course and living situation at home. Agreed that patient will need more help at home and plan to take aspiration precautions. Review of Systems Constitutional: + fever and + weakness Ear, Nose, Mouth, Throat: + hearing loss; no pain with swallowing Genitourinary: no urinary incontinence (While in the hospital, patient did not have urinary incontinence) Musculoskeletal: + back pain (chronic) and + joint pain (chronic) Neurologic: + unsteadiness Physical Exam Physical Exam: Thin elderly female, laying in bed, in no acute distress Eyes: PERRL, conjunctivae normal, anicteric sclerae ENMT: external ear and nose normal, oropharynx normal Neck: Supple, no JVD Respiratory: normal respiratory effort; no respiratory distress, no labored breathing and no retractions Auscultation: + rhonchi (at R mid lobe/base) Cardiovascular: RRR, no murmur, no edema Vessels: no JVD Chest (Breasts): Chest: normal inspection of chest Gastrointestinal (Abdomen): Inspection/Auscultation: abdomen normal to inspection and normal bowel sounds; abdomen not distended Percussion/Palpati on: abdomen soft; abdomen nontender and no guarding Musculoskeletal: Head/Neck/Chest: normocephalic, head atraumatic and neck supple Extremities: extremities normal to inspection Skin: no rashes, warm and dry Neurologic: PERRL, EOMI, accommodation nl, no face palsy, no dysarthria Psychiatric: A+Ox3, euthymic affect Lymphatic: no lymphedema and no cervical lymphadenopathy Results & Data Vital Signs (Past 12 Hours) Vital Signs Temp Pulse Pulse Resp BP Pulse Ox 06/26/19 02:59 36.4 C L 78 17 176/91 H 97 06/26/19 00:00 68 06/25/19 23:30 36.5 C 75 17 175/77 H 98 06/25/19 19:31 36.3 C L 79 16 157/91 H 99 Laboratory Results 06/26/19 06/26/19 06/25/19 Range/Units 06:02 06:02 07:00 WBC 7.44 (4.8-10.8) K/uL RBC 4.41 (4.2-5.4) M/uL Hgb 13.2 (12.0-16.0) g/dL Hct 38.9 (37-47) % MCV 88.2 (80-100) fL MCH 29.9 (25-34) pg MCHC 33.9 (32-36) g/dL RDW Std Deviation 44.4 (36.4-46.3) fL RDW Coeff of Candice 13.6 (11.5-14.5) % Plt Count 141 (130-400) K/uL MPV 9.9 (7.4-10.4) fL Immature Gran % (Auto) 0.1 % Neut % (Auto) 72.2 % Lymph % (Auto) 21.1 % [place] % (Auto) 5.0 % Eos % (Auto) 1.5 % Baso % (Auto) 0.1 % Immature Gran # (Auto) 0.01 (0.00-0.02) K/uL Neut # (Auto) 5.37 (1.4-6.5) K/uL Lymph # (Auto) 1.57 (1.2-3.4) K/uL [place] # (Auto) 0.37 (0.11-0.59) K/uL Eos # (Auto) 0.11 (0-0.5) K/uL Baso # (Auto) 0.01 (0-0.2) K/uL Sodium 139 139 (136-145) mmol/L Potassium 3.5 3.9 (3.5-5.1) mmol/L Chloride 103 107 (98-107) mmol/L Carbon Dioxide 30 29 (21-32) mmol/L Anion Gap 6.0 3.0 (3-11) BUN 11 13 (7-18) mg/dl Creatinine 0.83 0.90 (0.6-1.2) mg/dl Est Cr Clr Drug Dosing 27.4 25.2 ml/min Est GFR ( Amer) 73.5 66.6 Est GFR (Non-Af Amer) 63.4 57.5 BUN/Creatinine Ratio 13.1 14.6 (10-20) Glucose 94 93 (70-99) mg/dl Calcium 9.4 8.8 (8.5-10.1) mg/dl Phosphorus 3.2 3.0 (2.5-4.9) mg/dl Magnesium 2.2 (1.8-2.4) mg/dl 06/25/19 Range/Units 07:00 WBC 10.75 (4.8-10.8) K/uL RBC 4.14 L (4.2-5.4) M/uL Hgb 12.4 (12.0-16.0) g/dL Hct 36.2 L (37-47) % MCV 87.4 (80-100) fL MCH 30.0 (25-34) pg MCHC 34.3 (32-36) g/dL RDW Std Deviation 44.4 (36.4-46.3) fL RDW Coeff of Candice 13.8 (11.5-14.5) % Plt Count 127 L (130-400) K/uL MPV 9.1 (7.4-10.4) fL Immature Gran % (Auto) 0.1 % Neut % (Auto) 72.8 % Lymph % (Auto) 20.6 % [place] % (Auto) 5.6 % Eos % (Auto) 0.7 % Baso % (Auto) 0.2 % Immature Gran # (Auto) 0.01 (0.00-0.02) K/uL Neut # (Auto) 7.83 H (1.4-6.5) K/uL Lymph # (Auto) 2.21 (1.2-3.4) K/uL [place] # (Auto) 0.60 H (0.11-0.59) K/uL Eos # (Auto) 0.08 (0-0.5) K/uL Baso # (Auto) 0.02 (0-0.2) K/uL Sodium (136-145) mmol/L Potassium (3.5-5.1) mmol/L Chloride (98-107) mmol/L Carbon Dioxide (21-32) mmol/L Anion Gap (3-11) BUN (7-18) mg/dl Creatinine (0.6-1.2) mg/dl Est Cr Clr Drug Dosing ml/min Est GFR ( Amer) Est GFR (Non-Af Amer) BUN/Creatinine Ratio (10-20) Glucose (70-99) mg/dl Calcium (8.5-10.1) mg/dl Phosphorus (2.5-4.9) mg/dl Magnesium (1.8-2.4) mg/dl Medications Administered Current Inpatient Medications Acetaminophen (Tylenol) 650 mg PO Q12H PRN PRN Reason: ARTHRITIS PAIN Stop: 07/24/19 11:23 Guaifenesin (Mucinex) 600 mg PO Q12 WERNER Stop: 07/24/19 20:59 Last Admin: 06/25/19 20:40 Dose: 600 mg Documented by: Ampicillin Sodium/Sulbactam Sodium 3,000 mg/ Sodium Chloride 108 mls @ 200 mls/hr IV Q12 WERNER; Protocol Stop: 07/02/19 20:59 Last Infusion: 06/25/19 21:15 Dose: Infused Documented by: Multivitamins/Minerals (Caltrate Plus) 1 tab PO DAILY WERNER Stop: 07/25/19 08:59 Last Admin: 06/25/19 08:50 Dose: 1 tab Documented by: Polyethylene Glycol (Miralax Powder Packet) 17 gm PO DAILY PRN PRN Reason: Constipation Stop: 07/24/19 11:06 Senna/Docusate Sodium (Senokot S) 1 tab PO BID WERNER Stop: 07/24/19 22:59 Last Admin: 06/25/19 20:41 Dose: Not Given Documented by:
[2019-06-26] MEDS: guaiFENesin 600 MG TABCR PO SCH ×2 (09:07→20:50)
[2019-06-26] MEDS: DOCUSATE SODIUM/SENNA 50/8.6MG TAB PO SCH ×2 (09:07→20:49)
[2019-06-26] MEDS: AMPICILLIN/SULBACTAM SOD 3,000 MG in 0.9 % SODIUM CHLORIDE 100 ML IV SCH (09:07)
[2019-06-26] MEDS: CALCIUM 600MG + VIT D 400 IU TAB PO SCH (09:07)
[2019-06-26] MEDS ORDERED: FUROSEMIDE 20 MG TAB PO ONE (21:00)
[2019-06-26] MEDS ORDERED: ACETAMINOPHEN 325 MG TAB PO ONE (21:00)
[2019-06-26] MEDS: AMOXICILLIN/CLAVULANATE 500 MG TAB PO SCH (21:15)
[2019-06-27] MEDS: AMOXICILLIN/CLAVULANATE 500 MG TAB PO SCH ×2 (08:37→15:56)
[2019-06-27] MEDS: CALCIUM 600MG + VIT D 400 IU TAB PO SCH (08:37)
[2019-06-27] MEDS: guaiFENesin 600 MG TABCR PO SCH ×2 (08:37→20:20)
[2019-06-27] MEDS: DOCUSATE SODIUM/SENNA 50/8.6MG TAB PO SCH ×2 (08:37→18:57)
--- NOTE | 2019-06-27 23:13 | Hospitalist Progress Note ---
Date of Service June 27, 2019 Assessment & Plan (1) Sepsis: Reported fever and confusion at home. Met criteria for sepsis per current CMS criteria- leukocytosis, tachycardia. Source = pneumonia. Lactate 1.8. Blood cultures obtained and broad spectrum antibiotic coverage with ceftriaxone administered. Received IV NSS for hypotension with improvement. (2) Altered mental status: Reportedly confused at home. Probable encephalopathy secondary to infection. Resolved. (3) Pneumonia: Chest x-ray showed RLL infiltrate. Initially treated with azithromycin + ceftriaxone. Transitioned to IV piperacillin / tazobactam for possible aspiration pneumonia. Seen by PUTTY PATCHER. No overt aspiration appreciated per bedside evaluation. Pt and family did not wish to pursue further testing. Aspiration precautions recommended. Transitioned to oral therapy with amoxicillin / clavulanic acid. (4) DVT prophylaxis: SCD's. Ambulate. (5) Discharge planning issues: Anticipated discharge to home with home health services. Internal Medicine follow-up with Dr. Alia Orozco. Subjective Recheck for multiple problems. Patient seen in their room around 1350. Daughter visiting. Better. No fever. No cough or SOB. No nausea, vomiting, diarrhea. Review of Systems: Constitutional- no fever. Cardiac- no chest pain. Pulmonary- as noted above. GI- as noted above. - no urinary symptoms. Otherwise, as noted above. Physical Exam Constitutional: no acute distress Respiratory: no respiratory distress Auscultation: lungs clear to auscultat ion bilaterally Cardiovascular: Rate/Rhythm: regular rate and regular rhythm Heart Sounds: no gallop, no murmur and no cardiac rub Vessels: no JVD Extremities: no calf tenderness and no edema Gastrointestinal (Abdomen): normal bowel sounds, soft, nontender, no hepatosplenomegaly Skin: no rashes, warm and dry Psychiatric: Orientation: alert Results & Data Vital Signs (Past 12 Hours) Vital Signs Temp Pulse Resp BP Pulse Ox 06/27/19 14:41 36.4 C L 74 16 131/75 96 (1) Pneumonia Laterality: right Lung location: lower lobe of lung Pneumonia type: due to unspecified organism Qualified Code(s): J18.1 - Lobar pneumonia, unspecified organism
[2019-06-28] MEDS: CALCIUM 600MG + VIT D 400 IU TAB PO SCH (08:40)
[2019-06-28] MEDS: guaiFENesin 600 MG TABCR PO SCH (08:40)
[2019-06-28] MEDS: AMOXICILLIN/CLAVULANATE 500 MG TAB PO SCH (08:40)
[2019-06-28] MEDS: DOCUSATE SODIUM/SENNA 50/8.6MG TAB PO SCH (08:40)
--- NOTE | 2019-06-28 11:12 | Hospitalist Progress Note ---
Date of Service June 28, 2019 Assessment & Plan (1) Sepsis: Reported fever and confusion at home. Met criteria for sepsis per current CMS criteria- leukocytosis, tachycardia. Source = pneumonia. Lactate 1.8. Blood cultures obtained and broad spectrum antibiotic coverage with ceftriaxone administered. Received IV NSS for hypotension with improvement. (2) Altered mental status: Reportedly confused at home. Probable encephalopathy secondary to infection. Resolved. (3) Pneumonia: Chest x-ray showed RLL infiltrate. Initially treated with azithromycin + ceftriaxone. Transitioned to IV piperacillin / tazobactam for possible aspiration pneumonia. Seen by TRADE SPECIALIST. No overt aspiration appreciated per bedside evaluation. Pt and family did not wish to pursue further testing. Aspiration precautions recommended. Transitioned to oral therapy with amoxicillin / clavulanic acid. Discharged with Rx to complete 7 full days of antibiotic therapy. Follow-up chest x-ray recommended in about 1 month (4) DVT prophylaxis: SCD's ordered. Ambulated with walker and assistance. (5) Discharge planning issues: Discharge to home with home health services. Internal Medicine follow-up with Dr. Alia Orozco. Subjective Recheck for multiple problems. Patient seen in their room around 1100. Daughter visiting. Doing well. No fever. No cough or SOB. No nausea, vomiting, diarrhea. Anxious to go home. Physical Exam Constitutional: no acute distress Respiratory: no respiratory distress Auscultation: lungs clear to auscultation bilaterally Cardiovascular: Rate/Rhythm: regular rate and regular rhythm Heart Sounds: no gallop, no murmur and no cardiac rub Vessels: no JVD Extremities: no calf tenderness and no edema Gastrointestinal (Abdomen): normal bowel sounds, soft, nontender, no hepatosplenomegaly Skin: no rashes, warm and dry Psychiatric: Orientation: alert Results & Data Vital Signs (Past 12 Hours) Vital Signs Temp Pulse Resp BP Pulse Ox 06/28/19 07:29 36.4 C L 77 20 139/78 96 06/28/19 00:00 36.7 C 82 18 124/64 96 (1) Pneumonia Laterality: right Lung location: lower lobe of lung Pneumonia type: due to unspecified organism Qualified Code(s): J18.1 - Lobar pneumonia, unspecified organism
--- NOTE | 2019-06-28 14:19 | Fluoroscopy Report ---
FL video swallow HISTORY: Dysphagia. Aspiration. r/o aspiration TECHNIQUE: Video fluoroscopic evaluation of swallowing was performed in the AP and lateral projection s by the speech pathology staff. The patient is fed nectar-thick and thin liquid barium, a barium coa negin wafer, and barium pudding. FLUOROSCOPY TIME: 2.3 minutes NUMBER OF FLUOROSCOPIC IMAGES: 301 COMPARISON STUDY: None. FINDINGS: There is normal hyoid excursion and epiglottic deflection. No significant penetration or as piration identified. Swallowing function is within normal limits. Slight esophageal dysmotility IMPRESSION: 1. No aspiration identified. Slight esophageal dysmotility 2. Please see the speech pathologist report for detailed findings and recommendations. The above report was generated using voice recognition software. It may contain grammatical, syntax or spelling errors. Electronically signed by: Farshad Art M.D. 06/28/2019 1:43 PM
--- NOTE | 2019-06-28 22:16 | Discharge Summary ---
Date of Service June 28, 2019 Admission HPI Per Admitting Provider 88-year-old female with no significant past medical history, besides severe osteoarthritis especially in her shoulders who presents in the ED after being found by her family members confused, and having fever of 102.7F. Patient's daughter is at the bedside, she is a air conditioning insulation installer, and provides most of the history as patient speaks Kandy. Patient however lives with her son, who found her at home son was confused and feverish. Daughter mentions that patient has been having some urinary incontinence, she was evaluated about a week ago at her outpatient physician, UA and culture were negative at that time. When daughter came patient's mental status was back to baseline and she did not see her confused. She also noticed that patient has been having poor oral intake lately. Patient lives with her son, his and their son, nobody was sick at the household and she denies any sick contacts. In the ED UA was obtained as well as chest x-ray. UA was unrevealing, negative for bacteria, leukoesterase or nitrites. White blood cell count elevated, 13.4K. Blood cultures were obtained. Patient denies any cough or difficulty breathing. However she was found hypotensive in the ED and required fluid resus citation (received IV NS bolus and then continuous IV NS). EKG showed sinus tachycardia. Chest x-ray was concerning for patchy opacity at the right base. She received IV ceftriaxone and azithromycin in the ED to cover for community- acquired pneumonia. Internal medicine/hospitalist service was contacted for admission. Principal Diagnosis pneumonia RLL, community acquired vs aspiration OTHER ACUTE DIAGNOSES: encephalopathy sepsis Discharge Data Allergies Allergy/AdvReac Type Severity Reaction Status Date / Time No Known Allergies Allergy Unverified 06/24/19 05:08 Consultations 06/24/19 06:43 ED Decision to Admit Stat Ordered Studies 06/28/19 13:30 FL video swallow Routine Hospital Course (1) Sepsis: Reported fever and confusion at home. Met criteria for sepsis per current CMS criteria- leukocytosis, tachycardia. Source = pneumonia. Lactate 1.8. Blood cultures obtained and broad spectrum antibiotic coverage with ceftriaxone administered. Received IV NSS for hypotension with improvement. (2) Altered mental status: Reportedly confused at home. Probable encephalopathy secondary to infection. Resolved. (3) Pneumonia: Chest x-ray showed RLL infiltrate. Initially treated with azithromycin + ceftriaxone. Transitioned to IV piperacillin / tazobactam for possible aspiration pneumonia. Seen by MENTAL HEALTH PROGRAM DIRECTOR. No overt aspiration appreciated per bedside evaluation. Pt and family did not wish to pursue further testing. Aspiration precautions recommended. Transitioned to oral therapy with amoxicillin / clavulanic acid. Discharged with Rx to complete 7 full days of antibiotic therapy. Follow-up chest x-ray recommended in about 1 month (4) DVT prophylaxis: SCD's ordered. Ambulated with walker and assistance. (5) Discharge planning issues: Patient's functional status at baseline (essentially nonambulatory, requires assistance with most ADL's). Lives with her son and family is very supportive. They are not interested in consideration of skilled care. Discharged to home with home health services. Internal Medicine follow-up with Dr. Alia Orozco. Total Time Total Time Spent Total Time Spent (In Minutes): 40 Discharge Plan Discharge Items Patient Disposition: Home - Home Health Services Reason For Visit: pneumonia Discharge Diagnosis: pneumonia Condition on Discharge: Good Activity: Resume your previous activity Activity Comment: Use walker to prevent falls. Non-emergency contact: Primary Care Provider and Hospitalist Call non-emergency contact if: you have any medication questions, your symptoms worsen and your temperature is above 101 Follow-up/Referrals: Alia Orozco MD [Primary Care Provider] - (07/05/2019 2:20 PM Alia Orozco MD General Internal Medicine [facility]) Diet: Regular Addtl Attending Provider Instructions: MEDICATION CHANGES: Take amoxicillin / clavulanic acid (Augmentin) twice a day with food for 3 more days. SUMMARY OF TEST RESULTS: Chest x-ray showed probable pneumonia. RECOMMENDATIONS FOR FOLLOW-UP: Recheck chest x-ray in about 4 weeks. OTHER INSTRUCTIONS: Aspiration precautions as discussed with Speech Therapist. Seek medical attention if you have: * temperature above 101 * chest pain or trouble breathing * abdominal pain, nausea, vomiting * persistent diarrhea, dark stools or bloody stools * any unanswered questions or concerns Call 911 if symptoms are severe. Please take good care of yourself. Call if you have any questions or problems. You can reach a [facility] hospitalist on duty at [facility] 24 hours a day by calling [phone]. My cell # is [phone]. Pending Studies at Discharge: No Stand-Alone Forms: My [facility], Smoking Cessation Medications and DC Order Prescriptions: New amoxicillin-pot clavulanate 500-125 mg Tablet 1 tab PO BIDM Qty: 6 RF: 0 Continued Calcium Citrate With Vitamin D 1 tab PO DAILY RF: 0 docusate sodium [Stool Softener] 100 mg Capsule 100 mg PO BID RF: 0 acetaminophen [Tylenol Arthritis Pain] 650 mg Tablet Extended Release 650 mg PO Q12H PRN (Reason: arthritic pain) RF: 0 furosemide 20 mg tablet 20 mg PO DAILY PRN (Reason: Fluid Retention) RF: 0 Discharge Orders: Discharge Order (Routine); Ordered 06/28/19 Ordered By: Manolo Carrillo Admission Data Admit Date/Time: 06/24/19 09:59 Attending Provider: Manolo Carrillo Admit Provider: Talon Santana Primary Care Provider: Alia Orozco Other Providers: Wan Valerio ; Talon Santana Other Interventions: Discharge Summary Assessment (RN) Last Done: 06/28/19 12:40 DC Date/Time DO NOT enter until pt leaves facility: 06/28/19 15:26
== END 2019-06-28 15:26 | disposition home health service (06) | DRG 871 ==
LOC: ED 04:43 → 2S 09:59 → SUATTDRO 09:59 → 2S 10:08 → 4W 06-26 13:35

== ENCOUNTER 2020-01-15 19:37 | Inpatient (IN) ==
[2020-01-15 21:40] LABS: Albumin Level 2.4 gm/dl (3.4-5.0); BUN Creatinine Ratio 34.1 (10-20); Calcium 9.6 mg/dl (8.5-10.1); Creatinine Clr Calc Pharmacy 26.4 ml/min; Est GFR (African American) 44.9; Est GFR (Non-African American) 38.8; Magnesium 2.6 mg/dl (1.8-2.4); Potassium 4.6 mmol/L (3.5-5.1)
[2020-01-15 21:51] LABS: Albumin Globulin Ratio 0.4 (0.9-2); Bilirubin,Total 0.6 mg/dl (0.2-1); Globulin 5.5 gm/dl (2.5-4.0); Thyroid Stimulating Hormone 5.64 uIu/ml (0.300-4.500); Total Protein 7.9 gm/dl (6.4-8.2); Troponin I 0.016 ng/ml (0-0.045)
--- NOTE | 2020-01-15 21:51 | XRay Report ---
XR chest 1V portable HISTORY: 89 years-old Female weakness acute weakness COMPARISON: Chest radiograph 06/24/2019 TECHNIQUE: Portable AP view of the chest FINDINGS: Hypoinflated lungs. Cardiac silhouette appears mildly enlarged. No pneumothorax. Small left pleural e ffusion with left greater than right bibasilar opacities. Mild chronic interstitial coarsening. Calci fied plaque of the thoracic aortic arch. Advanced degenerative changes with chronic remodeling of the glenohumeral joints. Surgical clips project over the abdominal right upper quadrant. IMPRESSION: 1. Small left pleural effusion with left greater than right bibasilar opacities suggestive of atelect asis or pneumonia. 2. Hypoinflation. ACT 112: Negative or not required by law. The above report was generated using voice recognition software. It may contain grammatical, syntax o r spelling errors. Electronically signed by: Elmer Bolanos M.D. 01/15/2020 9:49 PM
[2020-01-15 22:03] LABS: T4 Free Thyroxine 1.19 ng/dl (0.8-1.6)
[2020-01-15 22:07] LABS: INR 1.1 (0.9-1.1); Prothrombin Time 11.5 Seconds (9.0-12.0)
--- NOTE | 2020-01-15 22:16 | Emergency Department Note ---
History of Present Illness General Chief complaint: Lethargic Time Seen by Provider: 01/15/20 19:50 Source: family Limitations: language barrier and altered mental status History of Present Illness History is severely limited due to a language barrier as well as change in mental status and the patient. We did attempt to use a online journalist but the Kandy plodding machine operator could not understand the patient. I therefore obtained history from the patient's brother who is at the bedside as well as his other brother who is a physician over the telephone. They state that she has had swelling to her legs as well as her abdomen for the past 2 months. She had blood work done yesterday by her primary care physician who stated that there were multiple abnormalities including an elevated white blood cell count. They were concerned about a UTI but were unable to get a urine sample. She also had some derangements in her LFTs which were mildly elevated as well as a low albumin and an elevated BNP. The PCP recommended patient be taken to the emergency department and admitted to the hospital for further work-up. The PCP was concerned about possible ascites or CHF. The patient's son states that she has not complained of any pain including chest pain, belly pain or headache. He denies any fever or cold or cough symptoms. She has no known history of heart disease, lung disease or liver disease. Her son also states that she has been somewhat confused intermittently for the past 3 weeks. She sometimes has garbled speech and is sometimes unintelligible. She is able to speak and answer his questions here. Home Medications Home Medications Medication Instructions Recorded Confirmed Type acetaminophen [Tylenol Arthritis 650 mg PO Q12H PRN 06/24/19 01/15/20 History Pain] furosemide 20 mg PO DAILY PRN 06/28/19 01/15/20 History calcium carbonate-vitamin D3 1 tab PO DAILY 01/15/20 01/15/20 History [Calcium 600 + D(3)] cyanocobalamin (vitamin B-12) 1,000 mcg PO DAILY 01/15/20 01/15/20 History [Vitamin B-12] Allergies Allergy/AdvReac Type Severity Reaction Status Date / Time No Known Allergies Allergy Verified 01/15/20 20:12 Past Med/Surg History Medical History Constipation Osteoarthritis (Chronic) Surgical History Cholecystitis with cholelithiasis (Chronic) Family History Mother No problems noted. Father No problems noted. Other No pertinent family history in first degree relatives Social History Preferred Language: Kandy Communication Ability: Effective Communication Tools: Other Audit Mgr Required: Yes Beliefs That Will Affect Care: Sikh Current Living Situation: Family Current Living Situation Comment: lives with son Feels Safe at Home: Yes Smoking Status: Unknown if ever smoked Hx Alcohol Use: No Hx Substance Use: No Review of Systems See HPI for pertinent positives & negatives. Unobtainable due to cognitive status Physical Exam Vital Signs Vital Signs - 24 hr 01/15/20 19:46 01/15/20 19:47 01/15/20 19:50 Pulse Rate 93 H 93 H 95 H Pulse Rate from SpO2 Sensor 94 H 94 H 94 H Respiratory Rate 14 14 13 Blood Pressure 138/89 Blood Pressure Mean 101 Pulse Oximetry 96 96 96 Oxygen Delivery Method Room Air Room Air Room Air Sepsis Recent Fever Within 48 Hours Sepsis New/Unexplained Change in Mental Status Sepsis Action Taken by Nursing 01/15/20 19:54 01/15/20 20:00 01/15/20 20:01 Pulse Rate 94 H 93 H 94 H Pulse Rate from SpO2 Sensor 93 H 94 H Respiratory Rate 14 13 14 Blood Pressure 138/89 134/84 Blood Pressure Mean 105 93 Pulse Oximetry 96 96 95 Oxygen Delivery Method Room Air Room Air Room Air Sepsis Recent Fever Within 48 Hours No Sepsis New/Unexplained Change in Mental Status No Sepsis Action Taken by Nursing No Action Required 01/15/20 20:10 01/15/20 20:15 01/15/20 20:20 Pulse Rate 94 H 92 H 91 H Pulse Rate from SpO2 Sensor 93 H 92 H 91 H Respiratory Rate 13 15 17 Blood Pressure 138/78 Blood Pressure Mean 92 Pulse Oximetry 95 96 96 Oxygen Delivery Method Room Air Room Air Room Air Sepsis Recent Fever Within 48 Hours Sepsis New/Unexplained Change in Mental Status Sepsis Action Taken by Nursing 01/15/20 20:30 01/15/20 20:31 01/15/20 20:40 Pulse Rate 94 H 94 H 92 H Pulse Rate from SpO2 Sensor 90 94 H 92 H Respiratory Rate 13 13 36 H Blood Pressure 134/94 Blood Pressure Mean 106 Pulse Oximetry 94 94 97 Oxygen Delivery Method Room Air Room Air Room Air Sepsis Recent Fever Within 48 Hours Sepsis New/Unexplained Change in Mental Status Sepsis Action Taken by Nursing 01/15/20 20:50 01/15/20 21:00 01/15/20 21:10 Pulse Rate 92 H 92 H 93 H Pulse Rate from SpO2 Sensor 92 H 92 H 93 H Respiratory Rate 13 13 16 Blood Pressure Blood Pressure Mean Pulse Oximetry 96 97 95 Oxygen Delivery Method Room Air Room Air Room Air Sepsis Recent Fever Within 48 Hours Sepsis New/Unexplained Change in Mental Status Sepsis Action Taken by Nursing 01/15/20 21:20 01/15/20 21:30 01/15/20 21:40 Pulse Rate 93 H 91 H 91 H Pulse Rate from SpO2 Sensor 93 H 92 H 91 H Respiratory Rate 18 13 13 Blood Pressure Blood Pressure Mean Pulse Oximetry 95 96 96 Oxygen Delivery Method Room Air Room Air Room Air Sepsis Recent Fever Within 48 Hours Sepsis New/Unexplained Change in Mental Status Sepsis Action Taken by Nursing 01/15/20 21:50 01/15/20 22:00 01/15/20 22:10 Pulse Rate 93 H 92 H 92 H Pulse Rate from SpO2 Sensor 93 H 92 H 91 H Respiratory Rate 14 12 14 Blood Pressure Blood Pressure Mean Pulse Oximetry 97 96 96 Oxygen Delivery Method Room Air Room Air Room Air Sepsis Recent Fever Within 48 Hours Sepsis New/Unexplained Change in Mental Status Sepsis Action Taken by Nursing 01/15/20 22:18 01/15/20 22:20 01/15/20 22:30 Pulse Rate 92 H 92 H 94 H Pulse Rate from SpO2 Sensor 92 H 92 H 94 H Respiratory Rate 15 14 20 Blood Pressure 148/85 H Blood Pressure Mean 91 Pulse Oximetry 95 96 95 Oxygen Delivery Method Room Air Room Air Room Air Sepsis Recent Fever Within 48 Hours Sepsis New/Unexplained Change in Mental Status Sepsis Action Taken by Nursing 01/15/20 22:31 01/15/20 22:40 01/15/20 23:01 Pulse Rate 92 H 90 90 Pulse Rate from SpO2 Sensor 92 H 90 90 Respiratory Rate 12 13 13 Blood Pressure 221/203 H 124/85 Blood Pressure Mean 217 102 Pulse Oximetry 96 95 95 Oxygen Delivery Method Room Air Room Air Room Air Sepsis Recent Fever Within 48 Hours Sepsis New/Unexplained Change in Mental Status Sepsis Action Taken by Nursing 01/15/20 23:15 01/15/20 23:30 01/15/20 23:59 Pulse Rate 89 90 89 Pulse Rate from SpO2 Sensor 89 90 89 Respiratory Rate 12 16 16 Blood Pressure 132/75 121/72 158/82 H Blood Pressure Mean 84 83 101 Pulse Oximetry 95 95 96 Oxygen Delivery Method Room Air Room Air Room Air Sepsis Recent Fever Within 48 Hours Sepsis New/Unexplained Change in Mental Status Sepsis Action Taken by Nursing 01/16/20 00:00 Pulse Rate 89 Pulse Rate from SpO2 Sensor 89 Respiratory Rate 13 Blood Pressure 150/80 H Blood Pressure Mean 105 Pulse Oximetry 96 Oxygen Delivery Method Room Air Sepsis Recent Fever Within 48 Hours Sepsis New/Unexplained Change in Mental Status Sepsis Action Taken by Nursing Constitutional: Vital signs reviewed. Eyes: Pupils are equal round reactive to light. Conjunctiva are noninjected. ENT: Pharynx is clear without erythema or exudate. Mucous membranes are dry. Neck supple without meningeal signs. Respiratory: Clear to auscultation bilaterally. Breath sounds are equal bilaterally. Cardiovascular: Regular rate and rhythm. No rubs or gallops. GI: Soft, distended abdomen without tenderness. Bowel sounds are present. Musculoskeletal: Bilateral lower extremity edema without tenderness. Integumentary: No cyanosis. or jaundice. Neurological: The patient is awake and alert. No focal deficits. Psychiatric: Unable to assess. Course Administered Medications Sodium Chloride (Nss) 500 mls @ 80 mls/hr IV .[id number] [facility] Stop: 02/14/20 23:29 Last Admin: 01/15/20 23:55 Dose: 80 mls/hr Documented by: [id number] Critical Care Time Critical Care Time: Yes Total Critical Care Time: 40 I have personally spent approximately 40 minutes of critical care time in the direct management of this patient. This includes bedside care, interpretation of diagnostic studies, and testing, discussion with consultants, patient, and family members, and other required patient management activities. These minutes are in excess of all separately billable procedures. Medical Decision Making Differential Diagnosis UTI, pneumonia, sepsis, ICH, CVA, metabolic derangement, encephalopathy, ascites Medical Records Attestation: I reviewed the patient's medical records. I did perform a limited focused review of portions of the patient's old chart on the electronic medical record. The patient has had no recent pertinent visits to this hospital. Home Medications Current Medication List: was personally reviewed by me Laboratory Data Attestation: I reviewed the patient's lab results. Result diagrams: 01/15/20 22:48 01/15/20 21:08 Lab Results 01/15/20 01/15/20 01/15/20 Range/Units 21:08 21:08 21:08 WBC Cancelled RBC Cancelled Hgb Cancelled Hct Cancelled MCV Cancelled MCH Cancelled MCHC Cancelled RDW Std Deviation Cancelled RDW Coeff of Candice Cancelled Plt Count Cancelled MPV Cancelled Immature Gran % (Auto) Cancelled Neut % (Auto) Cancelled Lymph % (Auto) Cancelled [place] % (Auto) Cancelled Eos % (Auto) Cancelled Baso % (Auto) Cancelled Immature Gran # (Auto) Cancelled Neut # (Auto) Cancelled Lymph # (Auto) Cancelled [place] # (Auto) Cancelled Eos # (Auto) Cancelled Baso # (Auto) Cancelled Absolute Nucleated RBC Cancelled Nucleated RBC % (auto) Cancelled Neutrophils % (Manual) Cancelled Band Neutrophils % Cancelled Lymphocytes % (Manual) Cancelled Prolymphocyte % Cancelled Reactive Lymphs % (Man) Cancelled Monocytes % (Manual) Cancelled Eosinophils % (Manual) Cancelled Basophils % (Manual) Cancelled Metamyelocytes % (Man) Cancelled Myelocytes % (Man) Cancelled Promyelocytes % (Man) Cancelled Blast Cells % (Manual) Cancelled Plasma Cell % (Manual) Cancelled Other Cells % Cancelled Nucleated RBC % Cancelled Neutrophils # (Manual) Cancelled Band Neutrophils # Cancelled Total Absolute Neuts Cancelled Lymphocytes # (Manual) Cancelled Prolymphocyte # Cancelled Reactive Lymphs # Cancelled Total Abs Lymphocytes Cancelled Monocytes # (Manual) Cancelled Eosinophils # (Manual) Cancelled Basophils # (Manual) Cancelled Metamyelocytes # (Man) Cancelled Myelocytes # (Manual) Cancelled Promyelocytes # (Man) Cancelled Blast Cells # (Man) Cancelled Plasma Cell # (Manual) Cancelled Other Cells # Cancelled Nucleated RBCs # (Man) Cancelled Hypersegmented Neuts Cancelled Hyposegmented Neuts Cancelled Hypogranular Neuts Cancelled Large Granular Lymphs Cancelled # Lrg Granular Lymphs Cancelled Hairy Cells Cancelled Smudge Cells Cancelled Toxic Granulation Cancelled Toxic Vacuolation Cancelled Dohle Bodies Cancelled Dov Rods Cancelled Platelet Estimate Cancelled Hypogranular Platelets Cancelled Clumped Platelets Cancelled Giant Platelets Cancelled Platelet Satelliting Cancelled RBC Morphology Cancelled Polychromasia Cancelled Hypochromasia Cancelled Poikilocytosis Cancelled Basophilic Stippling Cancelled Anisocytosis Cancelled Microcytosis Cancelled Macrocytosis Cancelled Spherocytes Cancelled Pappenheimer Bodies Cancelled Sickle Cells Cancelled Target Cells Cancelled Tear Drop Cells Cancelled Ovalocytes Cancelled Stomatocytes Cancelled [place] Bodies Cancelled Echinocytes Cancelled Acanthocytes (Spur) Cancelled Rouleaux Cancelled RBC Agglutinates Cancelled Schistocytes Cancelled RBC Morph Comment Cancelled Sezary Cell Cancelled PT (9.0-12.0) Seconds INR (0.9-1.1) Sodium 148 H (136-145) mmol/L Potassium 4.6 (3.5-5.1) mmol/L Chloride 117 H (98-107) mmol/L Carbon Dioxide 23 (21-32) mmol/L Anion Gap 8.0 (3-11) BUN 42 H (7-18) mg/dl Creatinine 1.24 H (0.6-1.2) mg/dl Est Cr Clr Drug Dosing 26.4 ml/min Est GFR ( Amer) 44.9 Est GFR (Non-Af Amer) 38.8 BUN/Creatinine Ratio 34.1 H (10-20) Glucose 124 H (70-99) mg/dl Calcium 9.6 (8.5-10.1) mg/dl Magnesium 2.6 H (1.8-2.4) mg/dl Total Bilirubin 0.6 (0.2-1) mg/dl AST 86 H (15-37) U/L ALT 54 (12-78) U/L Alkaline Phosphatase 266 H (45-117) U/L Ammonia 56.1 H (11-32) umol/L Troponin I 0.016 (0-0.045) ng/ml Total Protein 7.9 (6.4-8.2) gm/dl Albumin 2.4 L (3.4-5.0) gm/dl Globulin 5.5 H (2.5-4.0) gm/dl Albumin/Globulin Ratio 0.4 L (0.9-2) TSH 5.640 H (0.300-4.500) uIu/ml Free T4 1.19 (0.8-1.6) ng/dl Urine Color Urine Appearance (Clear) Urine pH (4.5-7.5) Ur Specific [place] (1.000-1.030) Urine Protein (Negative) Urine Glucose (UA) (Negative) Urine Ketones (Negative) Urine Blood (Negative) Urine Nitrite (Negative) Urine Bilirubin (Negative) Urine Urobilinogen (Negative) Ur Leukocyte Esterase (Negative) 01/15/20 01/15/20 01/15/20 Range/Units 21:25 22:30 22:48 WBC 13.09 H RBC 5.10 Hgb 15.4 Hct 48.0 H MCV 94.1 MCH 30.2 MCHC 32.1 RDW Std Deviation 58.4 H RDW Coeff of Candice 17.0 H Plt Count 117 L MPV 11.1 H Immature Gran % (Auto) 0.2 Neut % (Auto) 69.4 Lymph % (Auto) 22.9 [place] % (Auto) 7.0 Eos % (Auto) 0.3 Baso % (Auto) 0.2 Immature Gran # (Auto) 0.02 Neut # (Auto) 9.09 H Lymph # (Auto) 3.00 [place] # (Auto) 0.91 H Eos # (Auto) 0.04 Baso # (Auto) 0.03 Absolute Nucleated RBC Nucleated RBC % (auto) Neutrophils % (Manual) Band Neutrophils % Lymphocytes % (Manual) Prolymphocyte % Reactive Lymphs % (Man) Monocytes % (Manual) Eosinophils % (Manual) Basophils % (Manual) Metamyelocytes % (Man) Myelocytes % (Man) Promyelocytes % (Man) Blast Cells % (Manual) Plasma Cell % (Manual) Other Cells % Nucleated RBC % Neutrophils # (Manual) Band Neutrophils # Total Absolute Neuts Lymphocytes # (Manual) Prolymphocyte # Reactive Lymphs # Total Abs Lymphocytes Monocytes # (Manual) Eosinophils # (Manual) Basophils # (Manual) Metamyelocytes # (Man) Myelocytes # (Manual) Promyelocytes # (Man) Blast Cells # (Man) Plasma Cell # (Manual) Other Cells # Nucleated RBCs # (Man) Hypersegmented Neuts Hyposegmented Neuts Hypogranular Neuts Large Granular Lymphs # Lrg Granular Lymphs Hairy Cells Smudge Cells Toxic Granulation Toxic Vacuolation Dohle Bodies Dov Rods Platelet Estimate Hypogranular Platelets Clumped Platelets Giant Platelets Platelet Satelliting RBC Morphology Polychromasia Hypochromasia Poikilocytosis Basophilic Stippling Anisocytosis Microcytosis Macrocytosis Spherocytes Pappenheimer Bodies Sickle Cells Target Cells Tear Drop Cells Ovalocytes Stomatocytes [place] Bodies Echinocytes Acanthocytes (Spur) Rouleaux RBC Agglutinates Schistocytes RBC Morph Comment Sezary Cell PT 11.5 (9.0-12.0) Seconds INR 1.1 (0.9-1.1) Sodium (136-145) mmol/L Potassium (3.5-5.1) mmol/L Chloride (98-107) mmol/L Carbon Dioxide (21-32) mmol/L Anion Gap (3-11) BUN (7-18) mg/dl Creatinine (0.6-1.2) mg/dl Est Cr Clr Drug Dosing ml/min Est GFR ( Amer) Est GFR (Non-Af Amer) BUN/Creatinine Ratio (10-20) Glucose (70-99) mg/dl Calcium (8.5-10.1) mg/dl Magnesium (1.8-2.4) mg/dl Total Bilirubin (0.2-1) mg/dl AST (15-37) U/L ALT (12-78) U/L Alkaline Phosphatase (45-117) U/L Ammonia (11-32) umol/L Troponin I (0-0.045) ng/ml Total Protein (6.4-8.2) gm/dl Albumin (3.4-5.0) gm/dl Globulin (2.5-4.0) gm/dl Albumin/Globulin Ratio (0.9-2) TSH (0.300-4.500) uIu/ml Free T4 (0.8-1.6) ng/dl Urine Color Yellow Urine Appearance Clear (Clear) Urine pH 5.0 (4.5-7.5) Ur Specific [place] 1.026 (1.000-1.030) Urine Protein Negative (Negative) Urine Glucose (UA) Negative (Negative) Urine Ketones Negative (Negative) Urine Blood Negative (Negative) Urine Nitrite Negative (Negative) Urine Bilirubin Negative (Negative) Urine Urobilinogen Negative (Negative) Ur Leukocyte Esterase Negative (Negative) Imaging Data Radiologist's Impression: CT HEAD: The paranasal sinuses and mastoid air cells are normally aerated. There is no skull fracture or scalp hematoma. There is a normal gyral pattern of the brain. There is no mass lesion or midline shift. The liao-white matter differentiation is maintained. There is mild periventricular atrophy and white matter low density bilaterally consistent with chronic small vessel disease. There is no evidence of acute large vessel infarct or intracranial hemorrhage. Radiologist: Wilian Haji MD Study ready at 23:48 and initial results transmitted at 00:04 XR chest 1V portable HISTORY: 89 years-old Female weakness acute weakness COMPARISON: Chest radiograph 06/24/2019 TECHNIQUE: Portable AP view of the chest FINDINGS: Hypoinflated lungs. Cardiac silhouette appears mildly enlarged. No pneumothorax. Small left pleural effusion with left greater than right bibasilar opacities. Mild chronic interstitial coarsening. Calcified plaque of the thoracic aortic arch. Advanced degenerative changes with chronic remodeling of the glenohumeral joints. Surgical clips project over the abdominal right upper quadrant. IMPRESSION: 1. Small left pleural effusion with left greater than right bibasilar opacities suggestive of atelectasis or pneumonia. 2. Hypoinflation. ACT 112: Negative or not required by law. The above report was generated using voice recognition software. It may contain grammatical, syntax or spelling errors. ECG Data Attestation: I personally reviewed and interpreted this ECG as follows: Indication: + other (Altered mental status) Rate (beats per minute): 94 Rhythm: + normal sinus ECG Intervals/blocks: no Left bundle branch block ECG ST segments: + repolarization abnormalities (Limited interpretation due to significant artifact.) ECG Findings: no PVCs Blood Pressure Blood Pressure Findings: Elevated blood pressure Blood Pressure Disposition: further management by hospitalist MDM Narrative I did evaluate the patient as noted above. History is very limited as the patient is confused and has a language barrier. We try to use a plodding machine operator but they were unable to understand her. Later I obtained history from the patient's son as well as her other son over the telephone. Her son at the bedside has bee n translating for her. IV access was established. I did place an order for continuous cardiac monitoring. The monitor showed normal sinus rhythm rate of 88. No dysrhythmia. I did order and personally review the patient's 12-lead EKG as described above. Interpretation was limited due to significant artifact but no signs of [place]. Per her son she has not had any complaints of chest pain or shortness of breath. I did order and personally reviewed the images of the patient's chest x-ray as described above. There is a left pleural effusion with possible pneumonia versus atelectasis at both bases. Given her prior history of sepsis due to pneumonia I did go ahead and treat her empirically with IV Zosyn after 2 sets of blood cultures were obtained. I did order a urine analysis. There is no evidence of infection. This was a catheterized specimen. I did order and review the patient's blood work as noted in the electronic medical record. Her white count is 13,000. Platelet count is 117. Her sodium is 148. Creatinine and BUN are slightly elevated. Chloride is elevated as well. TSH is elevated but free T4 is normal. Troponin is negative. LFTs are slightly elevated but her serum ammonia was over 50. I did treat her with lactulose. I did order a CT of the head. I did review the images myself as well as the radiology report as described above. There is no evidence of acute abnormality on CT scanning of the head. I did discuss the test results with the patient's son. I did recommend hospitalization and discussed the case with the hospitalist and casework supervisor. Impression & Plan Acute hepatic encephalopathy, Elevated serum creatinine, Acute hypernatremia, Pleural effusion on left, Bilateral pneumonia, Edema, peripheral, Thrombocytopenia Discharge Plan Visit Data Chief Complaint: Lethargic ED Provider: Randy Butler Discharge Problem: Acute hepatic encephalopathy, Elevated serum creatinine, Acute hypernatremia, Pleural effusion on left, Bilateral pneumonia, Edema, peripheral, Thrombocytopenia Patient Disposition: Being Evaluated by Hospitalist Condition: Good Forms Stand Alone Forms: [facility] Prescriptions Prescriptions: No Action cyanocobalamin (vitamin B-12) [Vitamin B-12] 1,000 mcg Tablet 1,000 mcg PO DAILY RF: 0 calcium carbonate-vitamin D3 [Calcium 600 + D(3)] 600 mg(1,500mg) -200 unit Tablet 1 tab PO DAILY RF: 0 acetaminophen [Tylenol Arthritis Pain] 650 mg Tablet Extended Release 650 mg PO Q12H PRN (Reason: arthritic pain) RF: 0 furosemide 20 mg tablet 20 mg PO DAILY PRN (Reason: Fluid Retention) RF: 0 Referrals Referrals: Orozco,Alia N., MD [Primary Care Provider] - Discharge Problem: Bilateral pneumonia Qualifiers: Pneumonia type: due to unspecified organism Lung location: lower lobe of lung Qualified Code(s): J18.9 - Pneumonia, unspecified organism
[2020-01-15 22:54] LABS: Appearance Urine Clear (Clear); Bilirubin Urine Negative (Negative); Blood Urine Negative (Negative); Color Urine Yellow; Glucose Urine UA Negative (Negative); Ketones Urine Negative (Negative); Leukocyte Esterase Urine Negative (Negative); Nitrite Urine Negative (Negative); Protein Urine Negative (Negative); Specific Gravity Urine 1.026 (1.000-1.030); Urobilinogen Urine Negative (Negative)
[2020-01-15 23:06] LABS: Basophils # (auto) 0.03 K/uL (0-0.2); Basophils % (auto) 0.2 %; Eosinophils # (auto) 0.04 K/uL (0-0.5); Eosinophils % (auto) 0.3 %; Hemoglobin 15.4 g/dL (12.0-16.0); Immature Granulocytes # (auto) 0.02 K/uL (0.00-0.02); Immature Granulocytes % (auto) 0.2 %; Lymphocytes % (auto) 22.9 %; Mean Corpuscular Hemoglobin 30.2 pg (25-34); Mean Corpuscular Hgb Conc 32.1 g/dL (32-36); Mean Corpuscular Volume 94.1 fL (80-100); Mean Platelet Volume 11.1 fL (7.4-10.4); Monocytes # (auto) 0.91 K/uL (0.11-0.59); Neutrophils # (auto) 9.09 K/uL (1.4-6.5); Neutrophils % (auto) 69.4 %; Platelet Count 117 K/uL (130-400); RDW Standard Deviation 58.4 fL (36.4-46.3); White Blood Count 13.09 K/uL (4.8-10.8)
[2020-01-15] MEDS ORDERED: SODIUM CHLORIDE 0.9% 500 ML IV SCH (23:30)
[2020-01-16] MEDS ORDERED: PIPERACILLIN/TAZOBACTAM 4.5 GM/120 ML BAG IV ONE (00:10)
[2020-01-16] MEDS ORDERED: PIPERACILL/TAZOBAC CONSULT ACTIVE PRN (00:10)
[2020-01-16] MEDS ORDERED: LACTULOSE SYRUP 30 GM/45 ML UDP PO STA (00:21)
--- NOTE | 2020-01-16 04:48 | History and Physical Report ---
DATE OF ADMISSION: 01/16/2020 CHIEF COMPLAINT: Lethargy, volume overload. HISTORY OF PRESENT ILLNESS: This is an 89-year-old female with past medical history significant for slow transit constipation, female stress incontinence, primary osteoarthritis involving multiple joints, senile dementia, lives with her son, was brought in because of worsening abdominal distention and also lower extremity edema. The patient is a poor historian. She speaks only [place]. She is not able to answer any questions, but she seems comfortable. Son was able to give the history. As per the son, since last 2-3 months she was having lower extremity edema. She was getting Lasix 2 to 3 times a week and she also had bluish purplish discoloration of the feet on and off, the Lasix did seem to help, but not much. Since about a month ago, he also noticed abdominal distention.She also has dementia and on and off sometimes she does not recognize him, but on the phone she recognizes his sister and other brother, but lately is having some difficulty in talking. Appetite has come down and before she was able to ambulate with some partial assistance, but now frequently requiring full assistance.No fever, no cough, no nausea, no vomiting, no diarrhea. Currently, the patient is hemodynamically stable. ALLERGIES: No known drug allergies. PAST MEDICAL HISTORY: As mentioned above. PAST SURGICAL HISTORY: ERCP for choledocholithiasis, laparoscopic cholecystectomy. MEDICATIONS: The patient is on Tylenol Arthritis Pain 650 mg p.o. q. 12 hours p.r.n., calcium plus vitamin D 1 tablet daily, vitamin B12 1000 mcg daily, Lasix 20 mg daily p.r.n. FAMILY HISTORY: No family history on file. SOCIAL HISTORY: , lives with her son. No smoking, no alcohol, no drug use. REVIEW OF SYMPTOMS: Currently unobtainable from the patient. PHYSICAL EXAMINATION: GENERAL: The patient is old and frail, not in acute distress. VITAL SIGNS: Temperature afebrile, pulse 80, respiratory rate 13, blood pressure 125/72, oxygen 95% on room air. HEENT: No pallor, no icterus. NECK: No neck masses seen. CARDIOVASCULAR: S1, S2 heard, regular rate and rhythm, no murmur, no gallop. RESPIRATORY SYSTEM: Normal AP diameter normal. No accessory muscle use. No wheezing, no crackles. ABDOMEN: Soft, somewhat distended. Bowel sounds present. Nontender. CENTRAL NERVOUS SYSTEM: The patient is not able to answer any questions. EXTREMITIES: Lower extremity +2 edema present with some purple discoloration of the feet. LABORATORY DATA: WBC 13, hemoglobin 15.4, hematocrit 48, platelets 117. PT 11.5, INR 1.1. Sodium 148, potassium 4.6, chloride 117, CO2 23, BUN 42, creatinine 1.2, serum glucose 124, calcium 9.6, magnesium 2.6, total bilirubin 0.6, AST 86, ALT 54, alkaline phosphatase 266. Ammonia 56. Troponin I 0.016. TSH 5.6. Free T4 1.1. Urinalysis negative. Chest x-ray: Small left pleural effusion with left greater than right bibasilar opacity suggestive of atelectasis or pneumonia, hyperinflation. IMAGING: CT of the head, preliminary report, no acute findings. EKG: Normal sinus rhythm, rate 94. No significant change from previous EKG. ASSESSMENT AND PLAN: This is an 89-year-old female who presents with ongoing edema of lower extremity and ascites, and lately getting more confused, ambulatory dysfunction. 1. Lethargy, ambulatory dysfunction, decreased appetite, dementia, some confusion, failure to thrive. Ammonia level was 56. Got a low dose of lactulose in the ER. We will follow repeat ammonia levels. Monitor in the med/surg, tele. 2. Lower extremity edema and ascites. Ammonia 56, AST is 86, ALT 54, alkaline phosphatase of 266. Questionable underlying liver disease. Was using Lasix for the last 2-3 months on and off, not much help as per the son. We will get a CT of the abdomen and pelvis to rule out any liver disease and also get an echocardiogram and follow the results and consult GI for ascites. 3. Acute kidney injury on chronic kidney disease stage III, baseline creatinine 1.1 presented with creatinine of 1.2. Received some fluids in the ER. We will follow repeat labs in a.m. Hold the Lasix for now. 4. Possible pneumonia on chest x-ray and mild leukocytosis. ER physician started Zosyn, which she will continue for now. Follow the cultures. 5. Deep vein thrombosis prophylaxis, sequential compression devices for now. 6. Disposition: Monitor in the med/surg tele. Code status: Ok for CPR but no mechanical ventilation as discussed with the son. PT and OT prior to discharge. Social Service to help with discharge planning. JEAN PAUL
[2020-01-16] MEDS ORDERED: ONDANSETRON INJ 2 MG/ML 2 ML VIAL IV PRN (04:51)
[2020-01-16] MEDS ORDERED: NITROGLYCERIN SL 0.4 MG/TAB TAB SL PRN (04:51)
[2020-01-16] MEDS: PIPERACILLIN/TAZOBACTAM 3.375 GM in DEXTROSE 5% 100 ML IV SCH ×2 (06:32→14:32)
--- NOTE | 2020-01-16 07:09 | CT Scan Report ---
CT OF THE HEAD WITHOUT CONTRAST CLINICAL HISTORY: Altered mental status. Evaluate for cerebrovascular accident. COMPARISON STUDY: No previous studies for comparison. CT DOSE: 614.27 mGy.cm TECHNIQUE: Helical axial images of the head were obtained without IV contrast. Automated exposure con trol was utilized for the study. A dose lowering technique was utilized adhering to the principles o f ALARA. FINDINGS: No acute intracranial hemorrhage, midline shift or mass effect is present. The ventricular system is unremarkable. The basilar cisterns are patent. No extra-axial collections are present. Whit e matter hypodensities favor small vessel disease. There are no findings to suggest acute dural sinus thrombosis or acute territorial infarct. No significant calvarial abnormalities are present. Visuali zed portions of the sinuses and mastoid air cells are clear. IMPRESSION: No acute intracranial findings. ACT 112: Negative or not required by law. Electronically signed by: Thomas Kirby M.D. 01/16/2020 7:08 AM
[2020-01-16] MEDS ORDERED: PERFLUTREN LIPID MICROSPHERE (DEFINITY) IV ONE (07:18)
[2020-01-16 07:55] LABS: Basophils # (auto) 0.03 K/uL (0-0.2); Basophils % (auto) 0.3 %; Eosinophils # (auto) 0.04 K/uL (0-0.5); Eosinophils % (auto) 0.3 %; Hematocrit (blood only) 41.8 % (37-47); Hemoglobin 13.3 g/dL (12.0-16.0); Immature Granulocytes # (auto) 0.03 K/uL (0.00-0.02); Immature Granulocytes % (auto) 0.3 %; Lymphocytes % (auto) 18.8 %; Mean Corpuscular Hemoglobin 29.9 pg (25-34); Mean Corpuscular Hgb Conc 31.8 g/dL (32-36); Mean Corpuscular Volume 93.9 fL (80-100); Monocytes # (auto) 0.92 K/uL (0.11-0.59); Monocytes % (auto) 7.8 %; Neutrophils # (auto) 8.51 K/uL (1.4-6.5); Neutrophils % (auto) 72.5 %; Platelet Count 105 K/uL (130-400); RDW Coefficient of Variation 17.1 % (11.5-14.5); Red Blood Count 4.45 M/uL (4.2-5.4); White Blood Count 11.73 K/uL (4.8-10.8)
[2020-01-16 08:30] LABS: BUN Creatinine Ratio 37.3 (10-20); Calcium 9.1 mg/dl (8.5-10.1); Creatinine Clr Calc Pharmacy 23.7 ml/min; Est GFR (African American) 50.8; Est GFR (Non-African American) 43.8; Magnesium 2.6 mg/dl (1.8-2.4); Potassium 4.3 mmol/L (3.5-5.1)
--- NOTE | 2020-01-16 08:48 | CT Scan Report ---
CT OF THE ABDOMEN AND PELVIS WITHOUT CONTRAST CLINICAL HISTORY: Ascites. Abdominal pain. COMPARISON STUDY: Right upper quadrant ultrasound July 05, 2015. TECHNIQUE: Axial images of the abdomen and pelvis were obtained without IV contrast. Images were revi ewed in the axial, sagittal, and coronal planes. Automated exposure control was utilized for the amanda dy. A dose lowering technique was utilized adhering to the principles of ALARA. FINDINGS: Anasarca is noted. Small bilateral pleural effusions are partially imaged on this examinati on. Note is made of a 7 mm right lower lobe pulmonary nodule on image 23 of 451 and a 5 m left lower lobe nodule on image 46. No pneumatosis, free air or portal venous gas is present. Pneumobilia is not ed. Dilatation of the common bile duct is likely chronic when comparing to prior ultrasound. The comm on bile measures 1.2 cm in caliber. Gallbladder is surgically absent. Moderate ascites is present. No te is made of extensive hepatic hypodensity involves the left hepatic lobe and the majority of the ri ght hepatic lobe. The liver is likely cirrhotic. The size of the spleen is normal. There is no hydron ephrosis. Evaluation of the abdomen and pelvis is suboptimal on this unenhanced examination. There is no evidence for a bowel obstruction. No lymphadenopathy is identified. There are no suspicious osseo us lesions. The caliber of the abdominal aorta is normal. Moderate atherosclerotic plaque is noted. A moderate amount stool within the rectum is present. IMPRESSION: 1. Extensive hypodensity involving the left hepatic lobe and the majority of the right hepatic lobe. Fatty infiltration is favored however a mass could appear similar. A liver protocol CT could be obtai laya for further evaluation. 2. Cirrhosis. Moderate ascites. 3. Anasarca. Small bilateral pleural effusions. 4. Pneumobilia from prior sphincterotomy. Biliary ductal dilatation, likely chronic. 5. A few indeterminate lower lung pulmonary nodules. A chest CT in 6 months to ensure stability is re commended. 6. Moderate amount stool within the rectum. No bowel obstruction. ACT 112: Negative or not required by law. Electronically signed by: Thomas Kirby M.D. 01/16/2020 8:47 AM
[2020-01-16] MEDS: CYANOCOBALAMIN 500 MCG TABLET (VITAMIN B-12) PO SCH (10:00)
--- NOTE | 2020-01-16 10:07 | Gastrointestinal Consultation ---
Date of Consultation January 16, 2020 Assessment & Plan (1) Abdominal pain: 89 year old female admitted w/ lethargy, confusion, fluid overload CTAP w/ anasarca, cirrhosis w/ ascites and indeterminate liver lesion. Unable to perform HPI, ROS due to underlying dementia, language barrier and unable to contact family x 2 attempts - Appreciate cardiology input - Appreciate primary service input - Correct electrolytes - Will need dedicated liver imaging - Contrast enhanced [address] or liver MRI - Would allow correction of sodium and WALT prior to ordering test - Can have diagnostic/therapeutic paracentesis pending correction of electrolytes - US guided paracentesis - If more than 5L removed can have albumin 25% 25G before and after - Send fluids for cytology, cell count, culture, albumin, protein Will follow. Thank you for allowing us to participate in the care of this patient. Please call with any acute changes, questions or concerns. Please see addendum below with additional recommendation from my supervising physician. Present on Admission?: Yes Supervising Physician Co-Signing Physician Notes I have seen and examined the patient and discussed the management with ADELINA Naylor. Minimal history obtainable given dementia, no family present or available via phone. PE notable for mild ascites, no jvd, and agree with pe as per above Further plan of care as per Farida's plan of care. History of Present Illness Reason for Consultation: ascites Requesting Physician: Seth Attending Physician: Asher Ann MD History of Present Illness 89 year old non-faroese speaking female w/ history of slow transit constipation, female stress incontinence, primary osteoarthritis involving multiple joints, senile dementia, lives with her son, was brought in because of worsening abdominal distention and also lower extremity edema. GI asked to evaluate for ascites. Pt was seen. Unable to perform HPI due to language barrier. I tried to call son around 0830. No answer. Did not leave message. I called son again at 1000. No answer. Left message. Per OP records has had worsening lower extremity edema for years. OP PCP had ordered a cardiac workup which showed elevated BNP. An ECHO was ordered but I was unable to find a completed OP ECHO. Admitted through the ED w/ confusion, lethargy, hypernatremia, acute kidney inju ry on chronic kidney disease stage III. CTAP reviewed which showed anasarca, cirrhosis w/ ascites and indeterminate hepatic lesion CTAP Extensive hypodensity involving the left hepatic lobe and the majority of the right hepatic lobe. Fatty infiltration is favored however a mass could appear similar. A liver protocol CT could be obtained for further evaluation. Cirrhosis. Moderate ascites. Anasarca. Small bilateral pleural effusions. Pneumobilia from prior sphincterotomy. Biliary ductal dilatation, likely chronic.. A few indeterminate lower lung pulmonary nodules. A chest CT in 6 months to ensure stability is recommended. Moderate amount stool within the rectum. No bowel obstruction. Allergies Allergy/AdvReac Type Severity Reaction Status Date / Time No Known Allergies Allergy Verified 01/15/20 20:12 Home Medications Home Medications Medication Instructions Recorded Confirmed Type acetaminophen [Tylenol Arthritis 650 mg PO Q12H PRN 06/24/19 01/15/20 History Pain] furosemide 20 mg PO DAILY PRN 06/28/19 01/15/20 History calcium carbonate-vitamin D3 1 tab PO DAILY 01/15/20 01/15/20 History [Calcium 600 + D(3)] cyanocobalamin (vitamin B-12) 1,000 mcg PO DAILY 01/15/20 01/15/20 History [Vitamin B-12] Patient History Medical History Constipation Osteoarthritis (Chronic) Surgical History Cholecystitis with cholelithiasis (Chronic) Family History Mother No problems noted. Father No problems noted. Other No pertinent family history in first degree relatives Social History Preferred Language: Kandy Communication Ability: Impaired Communication Tools: IPad and Other Machine Compositor Required: Yes Beliefs That Will Affect Care: Anglican Current Living Situation: Family Current Living Situation Comment: lives with son and daughter in law Feels Safe at Home: Yes Smoking Status: Unknown if ever smoked Hx Alcohol Use: No Hx Substance Use: No Review of Systems Review of Systems: Unable to assess due to language barrier, underlying dementia Physical Exam Constitutional: no acute distress Neck: trachea midline Respiratory: normal respiratory effort Cardiovascular: Rate/Rhythm: regular rate and regular rhythm Extremities: + edema Gastrointestinal (Abdomen): Percussion/Palpation: abdomen soft and + ascites Skin: no rashes, warm and dry Results & Data ([facility]) Vital Signs (Past 12 Hours) Vital Signs Temp Pulse Pulse Resp BP BP Pulse Ox 01/16/20 07:59 36.6 C 88 16 122/73 97 01/16/20 07:20 88 01/16/20 06:35 92 H 01/16/20 06:02 36.4 C L 95 H 16 95 01/16/20 02:30 90 12 143/80 H 96 01/16/20 02:00 88 13 125/72 95 01/16/20 01:30 88 16 126/68 96 01/16/20 01:00 88 14 147/77 H 95 01/16/20 00:00 89 13 150/80 H 96 01/15/20 23:59 89 16 158/82 H 96 01/15/20 23:30 90 16 121/72 95 01/15/20 23:15 89 12 132/75 95 01/15/20 23:01 90 13 124/85 95 01/15/20 22:40 90 13 95 01/15/20 22:31 92 H 12 221/203 H 96 01/15/20 22:30 94 H 20 95 01/15/20 22:20 92 H 14 96 01/15/20 22:18 92 H 15 148/85 H 95 01/15/20 22:10 92 H 14 96 Laboratory Results 01/16/20 01/16/20 01/16/20 Range/Units 09:37 07:44 07:44 WBC RBC Hgb Hct MCV MCH MCHC RDW Std Deviation RDW Coeff of Candice Plt Count MPV Immature Gran % (Auto) Neut % (Auto) Lymph % (Auto) [place] % (Auto) Eos % (Auto) Baso % (Auto) Immature Gran # (Auto) Neut # (Auto) Lymph # (Auto) [place] # (Auto) Eos # (Auto) Baso # (Auto) Absolute Nucleated RBC Nucleated RBC % (auto) Neutrophils % (Manual) Band Neutrophils % Lymphocytes % (Manual) Prolymphocyte % Reactive Lymphs % (Man) Monocytes % (Manual) Eosinophils % (Manual) Basophils % (Manual) Metamyelocytes % (Man) Myelocytes % (Man) Promyelocytes % (Man) Blast Cells % (Manual) Plasma Cell % (Manual) Other Cells % Nucleated RBC % Neutrophils # (Manual) Band Neutrophils # Total Absolute Neuts Lymphocytes # (Manual) Prolymphocyte # Reactive Lymphs # Total Abs Lymphocytes Monocytes # (Manual) Eosinophils # (Manual) Basophils # (Manual) Metamyelocytes # (Man) Myelocytes # (Manual) Promyelocytes # (Man) Blast Cells # (Man) Plasma Cell # (Manual) Other Cells # Nucleated RBCs # (Man) Hypersegmented Neuts Hyposegmented Neuts Hypogranular Neuts Large Granular Lymphs # Lrg Granular Lymphs Hairy Cells Smudge Cells Toxic Granulation Toxic Vacuolation Dohle Bodies Dov Rods Platelet Estimate Hypogranular Platelets Clumped Platelets Giant Platelets Platelet Satelliting RBC Morphology Polychromasia Hypochromasia Poikilocytosis Basophilic Stippling Anisocytosis Microcytosis Macrocytosis Spherocytes Pappenheimer Bodies Sickle Cells Target Cells Tear Drop Cells Ovalocytes Stomatocytes [place] Bodies Echinocytes Acanthocytes (Spur) Rouleaux RBC Agglutinates Schistocytes RBC Morph Comment Sezary Cell PT (9.0-12.0) Seconds INR (0.9-1.1) Sodium 151 H (136-145) mmol/L Potassium 4.3 (3.5-5.1) mmol/L Chloride 120 H (98-107) mmol/L Carbon Dioxide 23 (21-32) mmol/L Anion Gap 8.0 (3-11) BUN 42 H (7-18) mg/dl Creatinine 1.12 (0.6-1.2) mg/dl Est Cr Clr Drug Dosing 23.7 ml/min Est GFR ( Amer) 50.8 Est GFR (Non-Af Amer) 43.8 BUN/Creatinine Ratio 37.3 H (10-20) Glucose 95 (70-99) mg/dl Osmolality Pending Calcium 9.1 (8.5-10.1) mg/dl Magnesium 2.6 H (1.8-2.4) mg/dl Total Bilirubin (0.2-1) mg/dl AST (15-37) U/L ALT (12-78) U/L Alkaline Phosphatase (45-117) U/L Ammonia 18.6 (11-32) umol/L Troponin I (0-0.045) ng/ml Total Protein (6.4-8.2) gm/dl Albumin (3.4-5.0) gm/dl Globulin (2.5-4.0) gm/dl Albumin/Globulin Ratio (0.9-2) TSH (0.300-4.500) uIu/ml Free T4 (0.8-1.6) ng/dl Urine Color Urine Appearance (Clear) Urine pH (4.5-7.5) Ur Specific [place] (1.000-1.030) Urine Protein (Negative) Urine Glucose (UA) (Negative) Urine Ketones (Negative) Urine Blood (Negative) Urine Nitrite (Negative) Urine Bilirubin (Negative) Urine Urobilinogen (Negative) Ur Leukocyte Esterase (Negative) 01/16/20 01/15/20 01/15/20 Range/Units 07:44 22:48 22:30 WBC 11.73 H 13.09 H RBC 4.45 5.10 Hgb 13.3 15.4 Hct 41.8 48.0 H MCV 93.9 94.1 MCH 29.9 30.2 MCHC 31.8 L 32.1 RDW Std Deviation 58.0 H 58.4 H RDW Coeff of Candice 17.1 H 17.0 H Plt Count 105 L 117 L MPV 11.0 H 11.1 H Immature Gran % (Auto) 0.3 0.2 Neut % (Auto) 72.5 69.4 Lymph % (Auto) 18.8 22.9 [place] % (Auto) 7.8 7.0 Eos % (Auto) 0.3 0.3 Baso % (Auto) 0.3 0.2 Immature Gran # (Auto) 0.03 H 0.02 Neut # (Auto) 8.51 H 9.09 H Lymph # (Auto) 2.20 3.00 [place] # (Auto) 0.92 H 0.91 H Eos # (Auto) 0.04 0.04 Baso # (Auto) 0.03 0.03 Absolute Nucleated RBC Nucleated RBC % (auto) Neutrophils % (Manual) Band Neutrophils % Lymphocytes % (Manual) Prolymphocyte % Reactive Lymphs % (Man) Monocytes % (Manual) Eosinophils % (Manual) Basophils % (Manual) Metamyelocytes % (Man) Myelocytes % (Man) Promyelocytes % (Man) Blast Cells % (Manual) Plasma Cell % (Manual) Other Cells % Nucleated RBC % Neutrophils # (Manual) Band Neutrophils # Total Absolute Neuts Lymphocytes # (Manual) Prolymphocyte # Reactive Lymphs # Total Abs Lymphocytes Monocytes # (Manual) Eosinophils # (Manual) Basophils # (Manual) Metamyelocytes # (Man) Myelocytes # (Manual) Promyelocytes # (Man) Blast Cells # (Man) Plasma Cell # (Manual) Other Cells # Nucleated RBCs # (Man) Hypersegmented Neuts Hyposegmented Neuts Hypogranular Neuts Large Granular Lymphs # Lrg Granular Lymphs Hairy Cells Smudge Cells Toxic Granulation Toxic Vacuolation Dohle Bodies Dov Rods Platelet Estimate Hypogranular Platelets Clumped Platelets Giant Platelets Platelet Satelliting RBC Morphology Polychromasia Hypochromasia Poikilocytosis Basophilic Stippling Anisocytosis Microcytosis Macrocytosis Spherocytes Pappenheimer Bodies Sickle Cells Target Cells Tear Drop Cells Ovalocytes Stomatocytes [place] Bodies Echinocytes Acanthocytes (Spur) Rouleaux RBC Agglutinates Schistocytes RBC Morph Comment Sezary Cell PT (9.0-12.0) Seconds INR (0.9-1.1) Sodium (136-145) mmol/L Potassium (3.5-5.1) mmol/L Chloride (98-107) mmol/L Carbon Dioxide (21-32) mmol/L Anion Gap (3-11) BUN (7-18) mg/dl Creatinine (0.6-1.2) mg/dl Est Cr Clr Drug Dosing ml/min Est GFR ( Amer) Est GFR (Non-Af Amer) BUN/Creatinine Ratio (10-20) Glucose (70-99) mg/dl Osmolality Calcium (8.5-10.1) mg/dl Magnesium (1.8-2.4) mg/dl Total Bilirubin (0.2-1) mg/dl AST (15-37) U/L ALT (12-78) U/L Alkaline Phosphatase (45-117) U/L Ammonia (11-32) umol/L Troponin I (0-0.045) ng/ml Total Protein (6.4-8.2) gm/dl Albumin (3.4-5.0) gm/dl Globulin (2.5-4.0) gm/dl Albumin/Globulin Ratio (0.9-2) TSH (0.300-4.500) uIu/ml Free T4 (0.8-1.6) ng/dl Urine Color Yellow Urine Appearance Clear (Clear) Urine pH 5.0 (4.5-7.5) Ur Specific [place] 1.026 (1.000-1.030) Urine Protein Negative (Negative) Urine Glucose (UA) Negative (Negative) Urine Ketones Negative (Negative) Urine Blood Negative (Negative) Urine Nitrite Negative (Negative) Urine Bilirubin Negative (Negative) Urine Urobilinogen Negative (Negative) Ur Leukocyte Esterase Negative (Negative) 01/15/20 01/15/20 01/15/20 Range/Units 21:25 21:08 21:08 WBC Cancelled RBC Cancelled Hgb Cancelled Hct Cancelled MCV Cancelled MCH Cancelled MCHC Cancelled RDW Std Deviation Cancelled RDW Coeff of Candice Cancelled Plt Count Cancelled MPV Cancelled Immature Gran % (Auto) Cancelled Neut % (Auto) Cancelled Lymph % (Auto) Cancelled [place] % (Auto) Cancelled Eos % (Auto) Cancelled Baso % (Auto) Cancelled Immature Gran # (Auto) Cancelled Neut # (Auto) Cancelled Lymph # (Auto) Cancelled [place] # (Auto) Cancelled Eos # (Auto) Cancelled Baso # (Auto) Cancelled Absolute Nucleated RBC Cancelled Nucleated RBC % (auto) Cancelled Neutrophils % (Manual) Cancelled Band Neutrophils % Cancelled Lymphocytes % (Manual) Cancelled Prolymphocyte % Cancelled Reactive Lymphs % (Man) Cancelled Monocytes % (Manual) Cancelled Eosinophils % (Manual) Cancelled Basophils % (Manual) Cancelled Metamyelocytes % (Man) Cancelled Myelocytes % (Man) Cancelled Promyelocytes % (Man) Cancelled Blast Cells % (Manual) Cancelled Plasma Cell % (Manual) Cancelled Other Cells % Cancelled Nucleated RBC % Cancelled Neutrophils # (Manual) Cancelled Band Neutrophils # Cancelled Total Absolute Neuts Cancelled Lymphocytes # (Manual) Cancelled Prolymphocyte # Cancelled Reactive Lymphs # Cancelled Total Abs Lymphocytes Cancelled Monocytes # (Manual) Cancelled Eosinophils # (Manual) Cancelled Basophils # (Manual) Cancelled Metamyelocytes # (Man) Cancelled Myelocytes # (Manual) Cancelled Promyelocytes # (Man) Cancelled Blast Cells # (Man) Cancelled Plasma Cell # (Manual) Cancelled Other Cells # Cancelled Nucleated RBCs # (Man) Cancelled Hypersegmented Neuts Cancelled Hyposegmented Neuts Cancelled Hypogranular Neuts Cancelled Large Granular Lymphs Cancelled # Lrg Granular Lymphs Cancelled Hairy Cells Cancelled Smudge Cells Cancelled Toxic Granulation Cancelled Toxic Vacuolation Cancelled Dohle Bodies Cancelled Dov Rods Cancelled Platelet Estimate Cancelled Hypogranular Platelets Cancelled Clumped Platelets Cancelled Giant Platelets Cancelled Platelet Satelliting Cancelled RBC Morphology Cancelled Polychromasia Cancelled Hypochromasia Cancelled Poikilocytosis Cancelled Basophilic Stippling Cancelled Anisocytosis Cancelled Microcytosis Cancelled Macrocytosis Cancelled Spherocytes Cancelled Pappenheimer Bodies Cancelled Sickle Cells Cancelled Target Cells Cancelled Tear Drop Cells Cancelled Ovalocytes Cancelled Stomatocytes Cancelled [place] Bodies Cancelled Echinocytes Cancelled Acanthocytes (Spur) Cancelled Rouleaux Cancelled RBC Agglutinates Cancelled Schistocytes Cancelled RBC Morph Comment Cancelled Sezary Cell Cancelled PT 11.5 (9.0-12.0) Seconds INR 1.1 (0.9-1.1) Sodium (136-145) mmol/L Potassium (3.5-5.1) mmol/L Chloride (98-107) mmol/L Carbon Dioxide (21-32) mmol/L Anion Gap (3-11) BUN (7-18) mg/dl Creatinine (0.6-1.2) mg/dl Est Cr Clr Drug Dosing ml/min Est GFR ( Amer) Est GFR (Non-Af Amer) BUN/Creatinine Ratio (10-20) Glucose (70-99) mg/dl Osmolality Calcium (8.5-10.1) mg/dl Magnesium (1.8-2.4) mg/dl Total Bilirubin (0.2-1) mg/dl AST (15-37) U/L ALT (12-78) U/L Alkaline Phosphatase (45-117) U/L Ammonia 56.1 H (11-32) umol/L Troponin I (0-0.045) ng/ml Total Protein (6.4-8.2) gm/dl Albumin (3.4-5.0) gm/dl Globulin (2.5-4.0) gm/dl Albumin/Globulin Ratio (0.9-2) TSH (0.300-4.500) uIu/ml Free T4 (0.8-1.6) ng/dl Urine Color Urine Appearance (Clear) Urine pH (4.5-7.5) Ur Specific [place] (1.000-1.030) Urine Protein (Negative) Urine Glucose (UA) (Negative) Urine Ketones (Negative) Urine Blood (Negative) Urine Nitrite (Negative) Urine Bilirubin (Negative) Urine Urobilinogen (Negative) Ur Leukocyte Esterase (Negative) 01/15/20 Range/Units 21:08 WBC RBC Hgb Hct MCV MCH MCHC RDW Std Deviation RDW Coeff of Candice Plt Count MPV Immature Gran % (Auto) Neut % (Auto) Lymph % (Auto) [place] % (Auto) Eos % (Auto) Baso % (Auto) Immature Gran # (Auto) Neut # (Auto) Lymph # (Auto) [place] # (Auto) Eos # (Auto) Baso # (Auto) Absolute Nucleated RBC Nucleated RBC % (auto) Neutrophils % (Manual) Band Neutrophils % Lymphocytes % (Manual) Prolymphocyte % Reactive Lymphs % (Man) Monocytes % (Manual) Eosinophils % (Manual) Basophils % (Manual) Metamyelocytes % (Man) Myelocytes % (Man) Promyelocytes % (Man) Blast Cells % (Manual) Plasma Cell % (Manual) Other Cells % Nucleated RBC % Neutrophils # (Manual) Band Neutrophils # Total Absolute Neuts Lymphocytes # (Manual) Prolymphocyte # Reactive Lymphs # Total Abs Lymphocytes Monocytes # (Manual) Eosinophils # (Manual) Basophils # (Manual) Metamyelocytes # (Man) Myelocytes # (Manual) Promyelocytes # (Man) Blast Cells # (Man) Plasma Cell # (Manual) Other Cells # Nucleated RBCs # (Man) Hypersegmented Neuts Hyposegmented Neuts Hypogranular Neuts Large Granular Lymphs # Lrg Granular Lymphs Hairy Cells Smudge Cells Toxic Granulation Toxic Vacuolation Dohle Bodies Dov Rods Platelet Estimate Hypogranular Platelets Clumped Platelets Giant Platelets Platelet Satelliting RBC Morphology Polychromasia Hypochromasia Poikilocytosis Basophilic Stippling Anisocytosis Microcytosis Macrocytosis Spherocytes Pappenheimer Bodies Sickle Cells Target Cells Tear Drop Cells Ovalocytes Stomatocytes [place] Bodies Echinocytes Acanthocytes (Spur) Rouleaux RBC Agglutinates Schistocytes RBC Morph Comment Sezary Cell PT (9.0-12.0) Seconds INR (0.9-1.1) Sodium 148 H (136-145) mmol/L Potassium 4.6 (3.5-5.1) mmol/L Chloride 117 H (98-107) mmol/L Carbon Dioxide 23 (21-32) mmol/L Anion Gap 8.0 (3-11) BUN 42 H (7-18) mg/dl Creatinine 1.24 H (0.6-1.2) mg/dl Est Cr Clr Drug Dosing 26.4 ml/min Est GFR ( Amer) 44.9 Est GFR (Non-Af Amer) 38.8 BUN/Creatinine Ratio 34.1 H (10-20) Glucose 124 H (70-99) mg/dl Osmolality Calcium 9.6 (8.5-10.1) mg/dl Magnesium 2.6 H (1.8-2.4) mg/dl Total Bilirubin 0.6 (0.2-1) mg/dl AST 86 H (15-37) U/L ALT 54 (12-78) U/L Alkaline Phosphatase 266 H (45-117) U/L Ammonia (11-32) umol/L Troponin I 0.016 (0-0.045) ng/ml Total Protein 7.9 (6.4-8.2) gm/dl Albumin 2.4 L (3.4-5.0) gm/dl Globulin 5.5 H (2.5-4.0) gm/dl Albumin/Globulin Ratio 0.4 L (0.9-2) TSH 5.640 H (0.300-4.500) uIu/ml Free T4 1.19 (0.8-1.6) ng/dl Urine Color Urine Appearance (Clear) Urine pH (4.5-7.5) Ur Specific [place] (1.000-1.030) Urine Protein (Negative) Urine Glucose (UA) (Negative) Urine Ketones (Negative) Urine Blood (Negative) Urine Nitrite (Negative) Urine Bilirubin (Negative) Urine Urobilinogen (Negative) Ur Leukocyte Esterase (Negative)
--- NOTE | 2020-01-16 14:42 | Electrocardiogram Report ---
Test Reason : Blood Pressure : / mmHG Vent. Rate : 094 BPM Atrial Rate : 094 BPM P-R Int : 196 ms QRS Dur : 060 ms QT Int : 388 ms P-R-T Axes : -01 009 029 degrees QTc Int : 485 ms Normal sinus rhythm Low voltage QRS Nonspecific ST abnormality Abnormal ECG When compared with ECG of 24-JUN-2019 04:51, No significant change was found Confirmed by Ubaldo Green ([id number]) on 01/16/2020 2:41:34 PM Referred By: REFERRED SELF Confirmed By:Ilya Green
--- NOTE | 2020-01-16 18:19 | Hospitalist Progress Note ---
Date of Service January 16, 2020 Assessment & Plan (1) Anasarca: Patient is an 89 yr female who presents with ongoing edema of lower extremity and ascites, and lately getting more confused, ambulatory dysfunction. Anasarca ? Hepatic Encephalopathy Failure to thrive Hepatic cirrhosis/ascites Hepatic lesion: Can not R/O malignancy --CT Head:No acute intracranial findings. --CT ABD:Extensive hypodensity involving the left hepatic lobe and the majority of the right hepatic lobe. Fatty infiltration is favored however a mass could appear similar. A liver protocol CT could be obtained for further evaluation. Cirrhosis. Moderate ascites. Anasarca. Small bilateral pleural effusions. Pneumobilia from prior sphincterotomy. Biliary ductal dilatation, likely chronic. A few indeterminate lower lung pulmonary nodules. A chest CT in 6 months to ensure stability is recommended. Moderate amount stool within the rectum. No bowel obstruction. --ECHO: Mild concentric LVH, ejection fraction 55 to 60%. Grade 1 diastolic dysfunction. No significant valvular pathology. --Ammonia level normalized with lactulose Appreciate input Plan for four-phase CT of the liver MRI, ultrasound-guided paracentesis Serological test pending May need liver biopsy eventually Hypernatremia In setting of Anasarca Check Urine lytes, osmolality Nephrology consulted Monitor sodium levels Acute kidney injury on CKD III Monitor renal function Avoid nephrotoxic agents as able Possible pneumonia on chest x-ray Continue Zosyn Cultures pending DVT Px: SCDs for now Code Status Conditional Code Disposition To be determined Admission and Anticipated Discharge Date Admission Date: January 16, 2020 Subjective Patient is seen and examined at bedside Denies any abdominal pain, nausea, chest pain, shortness of breath Discussed with gastroenterology and patient's family in detail Offers no other complaints Review of Systems Review of Systems: Other Difficult to obtain due to significant hearing loss and language barrier Physical Exam Physical Exam: Physical Exam: Vitals signs as noted above General Appearance:chronic ill, no apparent distress Head: normocephalic, Atraumatic Eyes: normal inspection, EOMI Neck: supple, Trachea midline Respiratory/Chest: Normal breath sounds, CTA, No accessory muscle use Cardiovascular: S1, S2, No murmur Abdomen/GI:Soft, Distended, Non tender, Bowel sounds present Extremities/Musculoskelatal:normal inspection, B/L LE edema Neurologic/Psych:grossly no focal neurological deficits Skin: normal color, warm Results & Data Results & Data ([facility]) Vital Signs (Past 12 Hours) Vital Signs Temp Pulse Pulse Pulse Resp BP Pulse Ox 01/16/20 15:37 36.3 C L 87 18 124/85 98 01/16/20 15:00 84 01/16/20 07:59 36.6 C 88 16 122/73 97 01/16/20 07:20 88 01/16/20 06:35 92 H Laboratory Results Short CBC 01/15/20 01/15/20 01/16/20 Range/Units 21:08 22:48 07:44 WBC Cancelled 13.09 H 11.73 H Hgb Cancelled 15.4 13.3 Hct Cancelled 48.0 H 41.8 Plt Count Cancelled 117 L 105 L BMP 01/15/20 01/16/20 21:08 07:44 Sodium 148 H 151 H Potassium 4.6 4.3 Chloride 117 H 120 H Carbon Dioxide 23 23 BUN 42 H 42 H Creatinine 1.24 H 1.12 Glucose 124 H 95 Calcium 9.6 9.1 Cardiac Enzymes 01/15/20 Range/Units 21:08 Troponin I 0.016 (0-0.045) ng/ml Liver Function 01/15/20 Range/Units 21:08 Total Bilirubin 0.6 (0.2-1) mg/dl AST 86 H (15-37) U/L ALT 54 (12-78) U/L Alkaline Phosphatase 266 H (45-117) U/L Albumin 2.4 L (3.4-5.0) gm/dl Urine 01/15/20 Range/Units 22:30 Urine Color Yellow Urine Appearance Clear (Clear) Urine pH 5.0 (4.5-7.5) Ur Specific [place] 1.026 (1.000-1.030) Urine Protein Negative (Negative) Urine Glucose (UA) Negative (Negative)
--- NOTE | 2020-01-16 19:33 | Nephrology Consultation ---
Date of Consultation January 16, 2020 Assessment & Plan (1) Acute kidney failure: baseline creatinine 0.7 as of may 2019; presenting creatinine 1.2, to 1.1 today. most consistent wtih prerenal process since serum sodium, bun and osms elevated, urine is very concentrated but otherwise bland. despite anasarca, would attempt gentle hydration to prepare for further w/u of liver disease and lesion and to remove electrolyte issues as contributing to lethargy: she has total body overload and intravascular depletion. apart from hypernatremia and hyperchloremia, electrolytes generally acceptable. oliguria status difficult to determine w/o escamilla in this incontinent pt but would not place escamilla at this time as risks may outweigh benefit. -daily bmp -no indication for acute dialysis -work to improve electrolytes, renal failure as below Present on Admission?: Yes (2) Hypernatremia: presenting sodium 148, increased to 151 this am. pt had 500 mL NS in ER. taking only sips; minimal uop episodes >recommend D5W at 80 mL/hr overnight despite anasarca Present on Admission?: Yes (3) Liver cirrhosis: per GI; on lasix as outpt Present on Admission?: Yes (4) Liver lesion: noted on imaging; GI following/ further imaging planned Present on Admission?: Yes History of Present Illness Reason for Consultation: Hypernatremia Requesting Physician: Dr Ann Attending Physician: Asher Ann MD History of Present Illness 89 y/o Kandy speaking F whom I'm asked to see for hypernatremia after she was admitted for management of worsening volume overload and confusion. PMH includes dementia, progressive LE edema x 2-3 mos and progressive ambulatory dysfunction, OA. Allergies Allergy/AdvReac Type Severity Reaction Status Date / Time No Known Allergies Allergy Verified 01/15/20 20:12 Home Medications Home Medications Medication Instructions Recorded Confirmed Type acetaminophen [Tylenol Arthritis 650 mg PO Q12H PRN 06/24/19 01/15/20 History Pain] furosemide 20 mg PO DAILY PRN 06/28/19 01/15/20 History calcium carbonate-vitamin D3 1 tab PO DAILY 01/15/20 01/15/20 History [Calcium 600 + D(3)] cyanocobalamin (vitamin B-12) 1,000 mcg PO DAILY 01/15/20 01/15/20 History [Vitamin B-12] Patient History Medical History (Updated 01/16/20 @ 19:25 by Yaa Gallegos MD, PhD) Constipation Dementia Liver cirrhosis Osteoarthritis (Chronic) Surgical History Cholecystitis with cholelithiasis (Chronic) Family History Mother No problems noted. Father No problems noted. Other No pertinent family history in first degree relatives Social History Preferred Language: Kandy Communication Ability: Impaired Communication Tools: IPad and Other Tree Cutter Required: Yes Beliefs That Will Affect Care: Worship Current Living Situation: Family Current Living Situation Comment: lives with son and daughter in law Feels Safe at Home: Yes Smoking Status: Unknown if ever smoked Hx Alcohol Use: No Hx Substance Use: No Review of Systems Review of Systems: Unobtainable due to cognitive status Physical Exam Constitutional: well developed, + cachectic and + frail appearing; no acute distress opens eyes briefly, does not speak or track ENMT: Nose: + dry nasal mucous membranes Mouth: + edentulous Neck: no nuchal rigidity Respiratory: normal respiratory effort Auscultation: lungs clear to auscultation bilaterally and + diminished lung sounds Cardiovascular: Rate/Rhythm: regular rate and regular rhythm Extremities: + edema (RLE 2+ and 3+ R pedal) Gastrointestinal (Abdomen): Inspection/Auscultation: + abdomen distended and normal bowel sounds Percussion/Palpation: abdomen soft and + ascites (possible fluid wave); abdomen nontender and no guarding Musculoskeletal: no cyanosis or clubbing, extremities motor strength 5/5 Skin: no rashes, warm and dry Neurologic: donahue, lethargic Results & Data Vital Signs (Past 12 Hours) Vital Signs Temp Pulse Pulse Pulse Resp BP Pulse Ox 01/16/20 15:37 36.3 C L 87 18 124/85 98 01/16/20 15:00 84 01/16/20 07:59 36.6 C 88 16 122/73 97 01/16/20 07:20 88 Laboratory Results 01/16/20 07:44 01/16/20 07:[address] abd/pelvis noncon 1. Extensive hypodensity involving the left hepatic lobe and the majority of the right hepatic lobe. Fatty infiltration is favored however a mass could appear similar. A liver protocol CT could be obtained for further evaluation. 2. Cirrhosis. Moderate ascites. 3. Anasarca. Small bilateral pleural effusions. 4. Pneumobilia from prior sphincterotomy. Biliary ductal dilatation, likely chronic. 5. A few indeterminate lower lung pulmonary nodules. A chest CT in 6 months to ensure stability is recommended. 6. Moderate amount stool within the rectum. No bowel obstruction. cxr 1. Small left pleural effusion with left greater than right bibasilar opacities suggestive of atelectasis or pneumonia. 2. Hypoinflation. head ct no acute i-c process (1) Acute kidney failure Acute renal failure type: unspecified Qualified Code(s): N17.9 - Acute kidney failure, unspecified (2) Liver cirrhosis Hepatic cirrhosis type: unspecified hepatic cirrhosis Ascites presence: with ascites Qualified Code(s): K74.60 - Unspecified cirrhosis of liver; R18.8 - Other ascites
[2020-01-16] MEDS: DEXTROSE 5% 1,000 ML IV SCH (19:55)
[2020-01-17] MEDS: PIPERACILLIN/TAZOBACTAM 3.375 GM in DEXTROSE 5% 100 ML IV SCH ×3 (00:12→15:05)
[2020-01-17 06:24] LABS: BUN Creatinine Ratio 30.3 (10-20); Bilirubin Direct 0.4 mg/dl (0-0.2); Calcium 8.5 mg/dl (8.5-10.1); Creatinine Clr Calc Pharmacy 22.5 ml/min; Est GFR (African American) 47.7; Est GFR (Non-African American) 41.1; Potassium 4.5 mmol/L (3.5-5.1)
[2020-01-17 06:35] LABS: Bilirubin,Total 1.1 mg/dl (0.2-1); Ferritin 370.2 ng/ml (8-388); Total Protein 6.8 gm/dl (6.4-8.2)
[2020-01-17 07:21] LABS: Hepatitis B Surface Antigen Neg (Neg)
[2020-01-17 07:50] LABS: Hepatitis C IgG 13Yrs+Old_Rflx Neg (Neg)
[2020-01-17 07:58] LABS: Hematocrit (blood only) 46.1 % (37-47); Hemoglobin 14.6 g/dL (12.0-16.0); Mean Corpuscular Hgb Conc 31.7 g/dL (32-36); Mean Corpuscular Volume 94.7 fL (80-100); Mean Platelet Volume 11.6 fL (7.4-10.4); Platelet Count 105 K/uL (130-400); RDW Coefficient of Variation 17.1 % (11.5-14.5); RDW Standard Deviation 58.6 fL (36.4-46.3); Red Blood Count 4.87 M/uL (4.2-5.4); White Blood Count 10.92 K/uL (4.8-10.8)
[2020-01-17] MEDS: CYANOCOBALAMIN 500 MCG TABLET (VITAMIN B-12) PO SCH (08:30)
[2020-01-17] MEDS: DEXTROSE 5% 1,000 ML IV SCH (08:31)
--- NOTE | 2020-01-17 09:06 | Gastroenterology Progress Note ---
Date of Service January 17, 2020 Assessment & Plan (1) Abdominal pain: 89 year old female admitted w/ lethargy, confusion, fluid overload CTAP w/ anasarca, cirrhosis w/ ascites and indeterminate liver lesion. Unable to perform HPI, ROS due to underlying dementia, language barrier. discussed with family yesteraday who wishes to post-pone paracentesis as she is comfortable. Can arrange CTAP with contrast to better address liver lesion today if patient agrees. - Appreciate primary service input - Correct electrolytes - Will need dedicated liver imaging - Contrast enhanced [address] or liver MRI - Can have diagnostic/therapeutic paracentesis pending correction of electrolytes if family wishes - US guided paracentesis - If more than 5L removed can have albumin 25% 25G before and after - Send fluids for cytology, cell count, culture, albumin, protein Will follow. Thank you for allowing us to participate in the care of this patient. Please call with any acute changes, questions or concerns. Please see addendum below with additional recommendation from my supervising physician. Admission and Anticipated Discharge Date Admission Date: January 16, 2020 Supervising Physician Co-Signing Physician Notes I have seen discussed the management with ADELINA Rondon. PE unchanged. Agree with further plan of care as per Farida's assessment and plan. Awaiting four phase CT given concerns for cirrhosis, and liver lesions. Subjective No family at baseline. Unable to communicate effectively with patient WALT improving Physical Exam Constitutional: + thin Neck: trachea midline Respiratory: normal respiratory effort; no respiratory distress Cardiovascular: Rate/Rhythm: regular rate and regular rhythm Gastrointestinal (Abdomen): Percussion/Palpation: abdomen soft; abdomen nontender Skin: no rashes, warm and dry Results & Data ([facility]) Vital Signs (Past 12 Hours) Vital Signs Temp Pulse Pulse Resp BP BP Pulse Ox 01/17/20 07:58 36 C L 01/17/20 07:32 82 01/17/20 07:14 35.8 C L 84 16 131/88 96 01/17/20 04:00 36.4 C L 87 16 139/85 97 01/16/20 23:59 81 01/16/20 23:00 36.5 C 84 16 138/82 98 Laboratory Results 01/17/20 01/17/20 01/17/20 Range/Units 07:28 05:51 05:51 WBC 10.92 H RBC 4.87 Hgb 14.6 Hct 46.1 MCV 94.7 MCH 30.0 MCHC 31.7 L RDW Std Deviation 58.6 H RDW Coeff of Candice 17.1 H Plt Count 105 L MPV 11.6 H Absolute Nucleated RBC Nucleated RBC % (auto) Platelet Estimate Sodium (136-145) mmol/L Potassium (3.5-5.1) mmol/L Chloride (98-107) mmol/L Carbon Dioxide (21-32) mmol/L Anion Gap (3-11) BUN (7-18) mg/dl Creatinine (0.6-1.2) mg/dl Est Cr Clr Drug Dosing ml/min Est GFR ( Amer) Est GFR (Non-Af Amer) BUN/Creatinine Ratio (10-20) Glucose (70-99) mg/dl Osmolality (280-300) mOsm/kg Calcium (8.5-10.1) mg/dl Iron (35-150) mcg/dl TIBC (250-450) mcg/dl Ferritin (8-388) ng/ml Total Bilirubin (0.2-1) mg/dl Direct Bilirubin (0-0.2) mg/dl AST (15-37) U/L ALT (12-78) U/L Alkaline Phosphatase (45-117) U/L Total Protein (6.4-8.2) gm/dl Albumin (3.4-5.0) gm/dl [id number] Pending Ceruloplasmin Pending ARIS Screen Pending Anti-Mitochondrial Ab Pending Anti-Smooth Muscle Ab Pending Tiss Transglutamin IgA Pending Hepatitis A IgM Ab Pending Hep Bs Antigen Neg (Neg) Hep B Core IgM Ab Pending Hepatitis C Antibody Neg (Neg) 01/17/20 01/17/20 01/16/20 Range/Units 05:51 05:51 09:37 WBC Cancelled RBC Cancelled Hgb Cancelled Hct Cancelled MCV Cancelled MCH Cancelled MCHC Cancelled RDW Std Deviation Cancelled RDW Coeff of Candice Cancelled Plt Count Cancelled MPV Cancelled Absolute Nucleated RBC Cancelled Nucleated RBC % (auto) Cancelled Platelet Estimate Cancelled Sodium 151 H (136-145) mmol/L Potassium 4.5 (3.5-5.1) mmol/L Chloride 118 H (98-107) mmol/L Carbon Dioxide 26 (21-32) mmol/L Anion Gap 7.0 (3-11) BUN 36 H (7-18) mg/dl Creatinine 1.18 (0.6-1.2) mg/dl Est Cr Clr Drug Dosing 22.5 ml/min Est GFR ( Amer) 47.7 Est GFR (Non-Af Amer) 41.1 BUN/Creatinine Ratio 30.3 H (10-20) Glucose 90 (70-99) mg/dl Osmolality 332 H (280-300) mOsm/kg Calcium 8.5 (8.5-10.1) mg/dl Iron 63 (35-150) mcg/dl TIBC 189 L (250-450) mcg/dl Ferritin 370.2 (8-388) ng/ml Total Bilirubin 1.1 H D (0.2-1) mg/dl Direct Bilirubin 0.4 H (0-0.2) mg/dl AST 72 H (15-37) U/L ALT 45 (12-78) U/L Alkaline Phosphatase 217 H (45-117) U/L Total Protein 6.8 (6.4-8.2) gm/dl Albumin 2.0 L (3.4-5.0) gm/dl [id number] Ceruloplasmin ARIS Screen Anti-Mitochondrial Ab Anti-Smooth Muscle Ab Tiss Transglutamin IgA Hepatitis A IgM Ab Hep Bs Antigen (Neg) Hep B Core IgM Ab Hepatitis C Antibody (Neg)
[2020-01-17] MEDS ORDERED: IOVERSOL 100ml IV PRN (10:37)
--- NOTE | 2020-01-17 10:59 | CT Scan Report ---
CT liver wo/w con CLINICAL HISTORY: 89 years-old Female presenting with [address] w/ IV and PO, liver lesion. TECHNIQUE: Multidetector CT of the abdomen was performed before and after the administration of intra venous contrast. IV contrast: 93 mL of Optiray 320. One or more dose lowering techniques were used co nsistent with the principles of ALARA (as low as reasonably achievable), including automatic exposure control, mA or kV adjustment to individual patient size, and/or use of iterative reconstruction. COMPARISON: Noncontrast CT 01/16/2020. CT DOSE (mGy.cm): The estimated cumulative dose is 911.34 mGy.cm. FINDINGS: Aids Nurse topogram: Cholecystectomy clips. Lung bases: Normal heart size. Coronary artery and aortic valve calcification. [id number]-iodcuypy bila teral pleural effusions, which are simple appearing. Extensive dependent passive atelectasis at the l carlene bases. Several pulmonary nodules are evident, suboptimally visualized due to respiratory motion a rtifact at least 5 nodules are evident bilaterally, the largest measuring 5 mm. Liver: Nodular morphology of the liver system with cirrhosis. Heterogeneously and predominantly perip herally enhancing diffuse lesion most focally centered in segments 4 and 8 as well as the lateral seg ments of the left hepatic lobe. The diffuse nature of the abnormality is difficult to measure. This d emonstrates progressive enhancement. Prominent portal venous thrombosis extending into the left intra hepatic branches and extending inferiorly to the portal venous confluence and into the superior most aspect of the superior mesenteric vein. Biliary: Significant pneumobilia possibly indicating an incompetent sphincter of Oddi or prior sphinc terotomy. Mild central intrahepatic biliary duct dilatation may be present. Extra hepatic bile duct i s also mildly dilated diffusely. This may in part relate to a reservoir effect in the post cholecyste ctomy state. Cystic duct with low insertion posteriorly containing gas. Gallbladder surgically absent . Pancreas: Pancreas divisum suggested. Mild diffuse pancreatic ductal dilatation. Underlying parenchym a grossly normal. Spleen: Normal. Trace thrombus may be present in the splenic vein, which is narrowing caliber. Adrenal glands: Normal. Kidneys and ureters: Normal. No hydronephrosis. Bowel: Wall thickening of the right colon and mild diffuse wall thickening of small bowel likely repr esents portal colopathy and portal enterography. Mild gastric wall thickening also evident diffusely. No bowel obstruction. Peritoneal cavity: Moderate volume simple appearing ascites. Severe mesenteric elemental edema. No fr ee intraperitoneal gas. Lymph nodes: No enlarged lymph nodes in the abdomen. Vasculature: Atherosclerosis of the normal caliber abdominal aorta. IVC patent. Abdominal wall: Severe body wall edema diffusely. There is stasis of the abdominis rectus. Musculoskeletal: Degenerative changes of the spine. Osteopenia. No destructive osseous lesion. IMPRESSION: 1. Diffuse progressively enhancing lesion within the medial right hepatic lobe and diffusely involvi ng the left hepatic lobe. In the setting of cirrhosis, findings are most suspicious for either diffus e variant hepatocellular carcinoma versus cholangiocarcinoma. Tissue sampling is warranted. The prese nce of ascites is a relative contraindication to percutaneous biopsy though ascites could potentially be performed prior to biopsy. 2. 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 If anticoagulation is sought, this should be appropriately timed with liver biopsy. 3. Moderate ascites. 4. Pneumobilia and biliary ductal dilatation likely due to sphincterotomy and likely chronic. 5. Bilateral pleural effusions and basilar atelectasis. 6. Multiple solid pulmonary nodules at the lung bases raise concern for metastatic disease. Follow-u p advised. The report will be called/faxed according to standard departmental protocol. ACT 112: Negative or not required by law. Electronically signed by: Hollis Marvin M.D. 01/17/2020 10:58 AM
[2020-01-17] MEDS: cefTRIAXone SODIUM 1,000 MG in DEXTROSE 5% 50 ML IV SCH (15:56)
[2020-01-17] MEDS: DOXYCYCLINE HYCLATE 100 MG in DEXTROSE 5% 100 ML IV SCH (15:59)
--- NOTE | 2020-01-17 16:07 | Ultrasound Report ---
US paracentesis abd w/image CLINICAL HISTORY: 89 years-old Female presenting with concern for malignant ascites cirrhosis liver l esion PVT. COMPARISON: CT from 01/17/2020. PROCEDURE: The procedure and its risks, benefits, and alternatives were discussed with the patient's son as the healthcare decision maker given the patient's mental status and line which barrier. Written informed consent was obtained. A timeout was performed to confirm patient identity. Limited ultrasound of the abdomen was performed to determine a safe needle entry site, and the site w as marker for paracentesis. The right lower quadrant was prepped and draped in the usual aseptic fashion. 1% Lidocaine was used f or local anesthesia. A paracentesis needle-sheath was inserted into the peritoneal space using ultrasound guidance. The ne edle was removed and the sheath was connected to tubing and a vacuum suction device. A total of 2.8 L of cloudy yellow ascites was aspirated. The sheath was removed, and a dressing applied. The patient tolerated the procedure well. No immediate complications. IMPRESSION: Ultrasound-guided diagnostic and therapeutic paracentesis with aspiration of 2.8 L of ascites. ACT 112: Negative or not required by law. Electronically signed by: Hollis Marvin M.D. 01/17/2020 4:05 PM
[2020-01-17 17:09] LABS: Albumin Peritoneal Fluid < 0.6 g/dl
--- NOTE | 2020-01-17 17:23 | Hospitalist Progress Note ---
Date of Service January 17, 2020 Assessment & Plan (1) Anasarca: Patient is an 89 yr female who presents with ongoing edema of lower extremity and ascites, and lately getting more confused, ambulatory dysfunction. Anasarca ? Hepatic Encephalopathy Failure to thrive Hepatic cirrhosis/ascites Hepatic lesion: Can not R/O malignancy --CT Head:No acute intracranial findings. --CT ABD:Extensive hypodensity involving the left hepatic lobe and the majority of the right hepatic lobe. Fatty infiltration is favored however a mass could appear similar. A liver protocol CT could be obtained for further evaluation. Cirrhosis. Moderate ascites. Anasarca. Small bilateral pleural effusions. Pneumobilia from prior sphincterotomy. Biliary ductal dilatation, likely chronic. A few indeterminate lower lung pulmonary nodules. A chest CT in 6 months to ensure stability is recommended. Moderate amount stool within the rectum. No bowel obstruction. --ECHO: Mild concentric LVH, ejection fraction 55 to 60%. Grade 1 diastolic dysfunction. No significant valvular pathology. --Liver CT:Diffuse progressively enhancing lesion within the medial right hepatic lobe and diffusely involving the left hepatic lobe. In the setting of cirrhosis, findings are most suspicious for either diffuse variant hepatoce llular carcinoma versus cholangiocarcinoma. Tissue sampling is warranted. The presence of ascites is a relative contraindication to percutaneous biopsy though ascites could potentially be performed prior to biopsy. 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 If anticoagulation is sought, th is should be appropriately timed with liver biopsy. Moderate ascites. Pneumobilia and biliary ductal dilatation likely due to sphincterotomy and likely chronic. Bilateral pleural effusions and basilar atelectasis. Multiple solid pulmonary nodules at the lung bases raise concern for metastatic disease. Follow-up advised. --Ammonia level normalized with lactulose Appreciate GI Input Serological test pending Diagnostic paracentesis ordered Peritoneal fluid studies/Cx pending May need liver biopsy Hypernatremia In setting of Anasarca Urine lytes, osmolality ordered Appreciate Nephrology Input Monitor sodium levels:151 Started on gentle IV fluids Acute kidney injury on CKD III Monitor renal function Avoid nephrotoxic agents as able stable renal function Possible pneumonia on chest x-ray Zosyn deescalated to Rocephin, doxy Blood Cultures: No growth to date DVT Px: SCDs for now Code Status Conditional Code Disposition To be determined Admission and Anticipated Discharge Date Admission Date: January 16, 2020 Subjective Patient is seen and examined at bedside Denies any abdominal pain, nausea, chest pain, shortness of breath Discussed with gastroenterology and patient's family today CT concerning for hepatic malignancy Plan for diagnostic paracentesis Review of Systems Review of Systems: All systems reviewed & are unremarkable except as noted in HPI & below Physical Exam Physical Exam: Physical Exam: Vitals signs as noted above General Appearance:chronic ill, no apparent distress Head: normocephalic, Atraumatic Eyes: normal inspection, EOMI Neck: supple, Trachea midline Respiratory/Chest: Normal breath sounds, CTA, No accessory muscle use Cardiovascular: S1, S2, No murmur Abdomen/GI:Soft, Distended, Non tender, Bowel sounds present Extremities/Musculoskelatal:normal inspection, B/L LE edema Neurologic/Psych:grossly no focal neurological deficits Skin: normal color, warm Results & Data Results & Data ([facility]) Vital Signs (Past 12 Hours) Vital Signs Temp Pulse Pulse Resp BP BP Pulse Ox 01/17/20 16:00 36.2 C L 93 H 18 133/78 95 01/17/20 11:23 36.2 C L 85 14 118/78 98 01/17/20 07:58 36 C L 01/17/20 07:32 82 01/17/20 07:14 35.8 C L 84 16 131/88 96 Laboratory Results Short CBC 01/17/20 01/17/20 Range/Units 05:51 07:28 WBC Cancelled 10.92 H Hgb Cancelled 14.6 Hct Cancelled 46.1 Plt Count Cancelled 105 L BMP 01/17/20 05:51 Sodium 151 H Potassium 4.5 Chloride 118 H Carbon Dioxide 26 BUN 36 H Creatinine 1.18 Glucose 90 Calcium 8.5 Liver Function 01/17/20 Range/Units 05:51 Total Bilirubin 1.1 H D (0.2-1) mg/dl Direct Bilirubin 0.4 H (0-0.2) mg/dl AST 72 H (15-37) U/L ALT 45 (12-78) U/L Alkaline Phosphatase 217 H (45-117) U/L Albumin 2.0 L (3.4-5.0) gm/dl
[2020-01-17 17:24] LABS: Appearance Peritoneal Fluid CLOUDY; Basophils, Fluid 0 %; Color Peritoneal Fluid PALE YELLOW; Eosinophils, Fluid 0 %; Lymphocytes, Fluid 50 %; Mono,Macrophage,Mesothelial 46 %; Neutrophils, Fluid 4 %; RBC Peritoneal Fluid (A) < 3000 /uL; WBC Peritoneal Fluid (A) 91 /ul (0-300)
--- NOTE | 2020-01-17 18:48 | Nephrology Progress Note ---
Date of Service January 17, 2020 Assessment & Plan (1) Acute kidney failure: baseline creatinine 0.7 as of may 2019; presenting creatinine 1.2, unchanged at 1.1 today. most consistent with prerenal process since serum sodium, bun and osms elevated, urine is very concentrated but otherwise bland. despite anasarca, would attempt gentle hydration to prepare for further w/u of liver disease and lesion and to remove electrolyte issues as contributing to lethargy: she has total body overload and intravascular depletion. apart from unchanged hypernatremia and improving hyperchloremia and BUN, electrolytes generally acceptable. oliguria status difficult to determine w/o escamilla in this incontinent pt but would not place escamilla at this time as risks may outweigh benefit. -daily bmp -work to improve electrolytes, renal failure as below (2) Hypernatremia: presenting sodium 148, increased to 151 5 AM and stuck there. pt had 500 mL NS in ER. taking only sips; minimal uop episodes >continue D5W at 80 mL/hr (recognizing anasarca may soon limit this) (3) Liver cirrhosis: per GI; on lasix as outpt but held now (4) Liver lesion: noted on imaging; GI following/ further imaging planned >> had paracentesis 01/16 (5) Edema of right lower extremity: more prominent edema RLE than LLE >>consider RLE doppler to evaluate for dvt Present on Admission?: Yes Admission and Anticipated Discharge Date Admission Date: January 16, 2020 Subjective paracentesis planned to eval for hepatic malignancy. Review of Systems Review of Systems: Unobtainable due to reduced consciousness Physical Exam Constitutional: well developed, + cachectic, + altered mental status (lethargic) and + frail appearing; no acute distress ENMT: Nose: + dry nasal mucous membranes Mouth: + edentulous Neck: no nuchal rigidity Respiratory: normal respiratory effort Auscultation: lungs clear to auscultation bilaterally and + diminished lung sounds Cardiovascular: Rate/Rhythm: regular rhythm and + tachycardic Extremities: + edema (RLE 2+ and 3+ R pedal and trace on 1+ LLE and L pedal and trace on BLUE) Gastrointestinal (Abdomen): Inspection/Auscultation: + abdomen distended and normal bowel sounds Percussion/Palpation: abdomen soft and + ascites (po ssible fluid wave); abdomen nontender and no guarding Musculoskeletal: no cyanosis or clubbing, extremities motor strength 5/5 Skin: no rashes, warm and dry + skin tightening darkened /dusky feet purplish Results & Data ([facility]) Vital Signs (Past 12 Hours) Vital Signs Temp Pulse Pulse Resp BP BP Pulse Ox 01/17/20 16:00 36.2 C L 93 H 18 133/78 95 01/17/20 11:23 36.2 C L 85 14 118/78 98 01/17/20 07:58 36 C L 01/17/20 07:32 82 01/17/20 07:14 35.8 C L 84 16 131/88 96 Laboratory Results 01/17/20 07:28 01/17/20 05:51 (1) Acute kidney failure Acute renal failure type: unspecified Qualified Code(s): N17.9 - Acute kidney failure, unspecified (2) Liver cirrhosis Hepatic cirrhosis type: unspecified hepatic cirrhosis Ascites presence: with ascites Qualified Code(s): K74.60 - Unspecified cirrhosis of liver; R18.8 - Other ascites
[2020-01-18] MEDS: DEXTROSE 5% 1,000 ML IV SCH (00:47)
[2020-01-18] MEDS: DOXYCYCLINE HYCLATE 100 MG in DEXTROSE 5% 100 ML IV SCH (04:03)
[2020-01-18 06:16] LABS: Hematocrit (blood only) 50.1 % (37-47); Hemoglobin 16.7 g/dL (12.0-16.0); Mean Corpuscular Hgb Conc 33.3 g/dL (32-36); Mean Corpuscular Volume 93.1 fL (80-100); Mean Platelet Volume 11.9 fL (7.4-10.4); Platelet Count 109 K/uL (130-400); RDW Coefficient of Variation 16.8 % (11.5-14.5); Red Blood Count 5.38 M/uL (4.2-5.4); White Blood Count 9.35 K/uL (4.8-10.8)
[2020-01-18 06:55] LABS: Albumin Level 2.1 gm/dl (3.4-5.0); Bilirubin Direct 0.2 mg/dl (0-0.2); Calcium 9.1 mg/dl (8.5-10.1); Creatinine Clr Calc Pharmacy 23.3 ml/min; Est GFR (African American) 49.7; Est GFR (Non-African American) 42.9; Potassium 4.2 mmol/L (3.5-5.1)
[2020-01-18 06:57] LABS: Bilirubin,Total 0.8 mg/dl (0.2-1); Total Protein 7.4 gm/dl (6.4-8.2)
--- NOTE | 2020-01-18 08:07 | Nephrology Progress Note ---
Date of Service January 18, 2020 Assessment & Plan (1) Acute kidney failure: baseline creatinine 0.7 as of may 2019; presenting creatinine 1.2, unchanged at 1.1 today. most consistent with prerenal process which then progressed to ATN since serum sodium, bun and osms elevated, urine is very concentrated but otherwise bland: Did not respond to gentle hydration. she still likely has total body overload and intravascular depletion. apart from unchanged hypernatremia and improving hyperchloremia and BUN, electrolytes generally acceptable. oliguria status difficult to determine w/o escamilla in this incontinent pt but would not place escamilla at this time as risks may outweigh benefit. -daily bmp -avoid nephrotoxins (2) Hypernatremia: presenting sodium 148, increased to 151 01/15 AM and stuck there until this am when she is 141 pt had 500 mL NS in ER. taking only sips; minimal uop episodes >for now will stop D5W (3) Liver cirrhosis: per GI; on lasix as outpt but held now (4) Liver lesion: noted on imaging; GI following/ further imaging planned >> had paracentesis 01/16 (5) Edema of right lower extremity: more prominent edema RLE than LLE >>consider RLE doppler to evaluate for dvt >> + DVT Will sign off; pls call if ? Admission and Anticipated Discharge Date Admission Date: January 16, 2020 Subjective Much more awake and alert today and talking to me. I do not Kandy; nursing states language line functioning; right lower extremity Doppler positive for DVT Review of Systems Review of Systems: Other (Unable to obtain due to language barrier) Physical Exam Constitutional: well developed, + cachectic and + frail appearing; no acute distress ENMT: Nose: + dry nasal mucous membranes Mouth: + edentulous Neck: no nuchal rigidity Respiratory: normal respiratory effort Auscultation: lungs clear to auscultation bilaterally and + diminished lung sounds Cardiovascular: Rate/Rhythm: regular rhythm and + tachycardic Extremities: + edema (RLE 2+ and 3+ R pedal and trace on 1+ LLE and L pedal and trace on BLUE) Gastrointestinal (Abdomen): Inspection/Auscultation: + abdomen distended and normal bowel sounds Percussion/Palpation: abdomen soft and + ascites (possible fluid wave); abdomen nontender and no guarding Musculoskeletal: no cyanosis or clubbing, extremities motor strength 5/5 Skin: no rashes, warm and dry + skin tightening Neurologic: Moves all extremities, fluent speech, no tremor Results & Data ([facility]) Vital Signs (Past 12 Hours) Vital Signs Temp Pulse Pulse Resp BP BP Pulse Ox 01/18/20 07:43 95 H 01/18/20 07:27 36.5 C 64 18 90/59 L 91 01/18/20 03:00 35.8 C L 88 20 128/59 L 93 01/17/20 23:59 95 H 01/17/20 23:00 36.4 C L 104 H 20 125/78 94 Laboratory Results 01/18/20 05:31 01/18/20 05:31 (1) Acute kidney failure Acute renal failure type: unspecified Qualified Code(s): N17.9 - Acute kidney failure, unspecified (2) Liver cirrhosis Ascites presence: with ascites Hepatic cirrhosis type: unspecified hepatic cirrhosis Qualified Code(s): K74.60 - Unspecified cirrhosis of liver; R18.8 - O ther ascites
--- NOTE | 2020-01-18 08:33 | Gastroenterology Progress Note ---
Date of Service January 18, 2020 Assessment & Plan (1) Liver lesion: 89 year old female admitted w/ lethargy, confusion, fluid overload CTAP w/ anasarca, cirrhosis w/ ascites and indeterminate liver lesion. Unable to perform HPI, ROS due to underlying dementia, language barrier. discussed with family yesterday who wishes to post-pone paracentesis as she is comfortable. Can arrange CTAP with contrast to better address liver lesion today if patient agrees. CTAP concerning for hepatic malignancy with PVT, ascites. Discussed with two sons (one a physician at an OSH) who verbalize understanding. They wish for diagnostic paracentesis - to consider liver biopsy pending results of paracentes is - Appreciate primary service input - Correct electrolytes - Liver imaging concerning for hepatic masses w/ PVT - Family hesitant to anticoagulation - Family hesitant to liver biopsy - Can have diagnostic/therapeutic paracentesis pending correction of electrolytes if family wishes - 2L off - No SBP - Culture pending - Cytology pending - SAAG pending Will follow. Thank you for allowing us to participate in the care of this patient. Please call with any acute changes, questions or concerns. Please see addendum below with additional recommendation from my supervising physician. Present on Admission?: Yes (2) Liver cirrhosis: Present on Admission?: Yes Admission and Anticipated Discharge Date Admission Date: January 16, 2020 Supervising Physician Co-Signing Physician Notes I saw and evaluated the patient. She was previously seen by Dr. Romo and given the clinical scenario they wonder about underlying cholangiocarcinoma as a cause of her liver masses and ascites. Presently we are awaiting cytology from a paracentesis performed yesterday. Recommendations Low-sodium diet Await cytology results Consider oncology referral Pending oncology recommendations would consider hospice care given the patient's advanced age and comorbidities Subjective Pt was seen and evaluated. She was sleeping. Awoke to name. Unable to perform ROS, history given language barrier Does not appear to be in any distress Physical Exam Constitutional: + ill appearing and + thin Neck: trachea midline Respiratory: normal respiratory effort Gastrointestinal (Abdomen): normal bowel sounds, soft, nontender, no hepatosplenomegaly Skin: no rashes, warm and dry Results & Data ([facility]) Vital Signs (Past 12 Hours) Vital Signs Temp Pulse Pulse Resp BP BP Pulse Ox 01/18/20 07:43 95 H 01/18/20 07:27 36.5 C 64 18 90/59 L 91 01/18/20 03:00 35.8 C L 88 20 128/59 L 93 01/17/20 23:59 95 H 01/17/20 23:00 36.4 C L 104 H 20 125/78 94 Laboratory Results 01/18/20 01/18/20 01/17/20 Range/Units 05:31 05:31 Unknown WBC 9.35 (4.8-10.8) K/uL RBC 5.38 (4.2-5.4) M/uL Hgb 16.7 H (12.0-16.0) g/dL Hct 50.1 H (37-47) % MCV 93.1 (80-100) fL MCH 31.0 (25-34) pg MCHC 33.3 (32-36) g/dL RDW Std Deviation 57.0 H (36.4-46.3) fL RDW Coeff of Candice 16.8 H (11.5-14.5) % Plt Count 109 L (130-400) K/uL MPV 11.9 H (7.4-10.4) fL Sodium 141 D (136-145) mmol/L Potassium 4.2 (3.5-5.1) mmol/L Chloride 107 (98-107) mmol/L Carbon Dioxide 24 (21-32) mmol/L Anion Gap 10.0 (3-11) BUN 33 H (7-18) mg/dl Creatinine 1.14 (0.6-1.2) mg/dl Est Cr Clr Drug Dosing 23.3 ml/min Est GFR ( Amer) 49.7 Est GFR (Non-Af Amer) 42.9 BUN/Creatinine Ratio 29.0 H (10-20) Glucose 98 (70-99) mg/dl Calcium 9.1 (8.5-10.1) mg/dl Total Bilirubin 0.8 (0.2-1) mg/dl Direct Bilirubin 0.2 (0-0.2) mg/dl AST 96 H (15-37) U/L ALT 51 (12-78) U/L Alkaline Phosphatase 235 H (45-117) U/L Total Protein 7.4 (6.4-8.2) gm/dl Albumin 2.1 L (3.4-5.0) gm/dl Fluid Neutrophils % 4 % Fluid Lymphocytes % 50 % Fluid Eosinophils % 0 % Fluid Basophils % 0 % Fluid Meso/Macro/Ches[place] % 46 % Peritoneal Color PALE YELLOW Peritoneal Appearance CLOUDY Peritoneal WBC 91 (0-300) /ul Peritoneal RBC < 3000 /uL Peritoneal Tot Protein 1.0 g/dl Peritoneal Albumin < 0.6 g/dl (1) Liver cirrhosis Ascites presence: with ascites Hepatic cirrhosis type: unspecified hepatic cirrhosis Qualified Code(s): K74.60 - Unspecified cirrhosis of liver; R18.8 - Other ascites
[2020-01-18] MEDS: CYANOCOBALAMIN 500 MCG TABLET (VITAMIN B-12) PO SCH (08:41)
--- NOTE | 2020-01-18 12:06 | Ultrasound Report ---
RIGHT UPPER EXTREMITY VENOUS DOPPLER HISTORY: Right arm swelling. COMPARISON STUDY: None. FINDINGS: The right internal jugular vein is patent. There is normal flow within the right subclavian vein. There is normal flow and compressibility within the right axillary, basilic, brachial, radial, ulnar, and visualized cephalic veins. IMPRESSION: No DVT within the right upper extremity. ACT 112: Negative or not required by law. Electronically signed by: Juan M Medrano M.D. 01/18/2020 12:04 PM
--- NOTE | 2020-01-18 12:07 | Ultrasound Report ---
BILATERAL LOWER EXTREMITY VENOUS DOPPLER HISTORY: Leg swelling. COMPARISON STUDY: None. FINDINGS: Occlusive DVT involving the right common femoral, superficial femoral, and popliteal veins. There is also thrombus identified within the right greater saphenous vein. Of note, there is a dupli cated right superficial femoral vein. One of these remains patent. No DVT within the left lower extre mity. The calf veins were not well visualized but likely patent. IMPRESSION: 1. Right lower extremity DVT as described above. 2. No DVT within the left lower extremity. ACT 112: Negative or not required by law. Electronically signed by: Juan M Medrano M.D. 01/18/2020 12:06 PM
[2020-01-18] MEDS ORDERED: Heparin IV Standard *NO* Bolus IV SCH (13:12)
[2020-01-18 16:06] LABS: Basophils # (auto) 0.01 K/uL (0-0.2); Basophils % (auto) 0.1 %; Eosinophils # (auto) 0.03 K/uL (0-0.5); Eosinophils % (auto) 0.2 %; Hematocrit (blood only) 42.4 % (37-47); Hemoglobin 13.8 g/dL (12.0-16.0); Immature Granulocytes # (auto) 0.03 K/uL (0.00-0.02); Immature Granulocytes % (auto) 0.2 %; Lymphocytes % (auto) 16.5 %; Mean Corpuscular Hemoglobin 29.6 pg (25-34); Mean Corpuscular Hgb Conc 32.5 g/dL (32-36); Mean Platelet Volume 11.4 fL (7.4-10.4); Monocytes % (auto) 7.4 %; Neutrophils # (auto) 9.14 K/uL (1.4-6.5); Neutrophils % (auto) 75.6 %; Platelet Count 107 K/uL (130-400); RDW Coefficient of Variation 16.6 % (11.5-14.5); RDW Standard Deviation 54.6 fL (36.4-46.3); Red Blood Count 4.66 M/uL (4.2-5.4); White Blood Count 12.11 K/uL (4.8-10.8)
[2020-01-18] MEDS: cefTRIAXone SODIUM 1,000 MG in DEXTROSE 5% 50 ML IV SCH (16:10)
[2020-01-18 16:17] LABS: INR 1.2 (0.9-1.1); Partial Thromboplastin Ratio 0.9; Prothrombin Time 12.7 Seconds (9.0-12.0)
[2020-01-18] MEDS: HEPARIN SODIUM/DEXTROSE 25,000 UNITS/500 ML BAG IV SCH (16:30)
[2020-01-18] MEDS ORDERED: SODIUM CHLORIDE 0.9% 500 ML IV ONE (18:46)
[2020-01-18] MEDS ORDERED: SODIUM CHLORIDE 0.9% 250 ML IV ONE (19:01)
--- NOTE | 2020-01-18 19:12 | Hospitalist Progress Note ---
Date of Service January 18, 2020 Assessment & Plan (1) Anasarca: Patient is an 89 yr female who presents with ongoing edema of lower extremity and ascites, and lately getting more confused, ambulatory dysfunction. Anasarca ? Hepatic Encephalopathy Failure to thrive Hepatic cirrhosis/ascites Hepatic lesion: Can not R/O malignancy --CT Head:No acute intracranial findings. --CT ABD:Extensive hypodensity involving the left hepatic lobe and the majority of the right hepatic lobe. Fatty infiltration is favored however a mass could appear similar. A liver protocol CT could be obtained for further evaluation. Cirrhosis. Moderate ascites. Anasarca. Small bilateral pleural effusions. Pneumobilia from prior sphincterotomy. Biliary ductal dilatation, likely chronic. A few indeterminate lower lung pulmonary nodules. A chest CT in 6 months to ensure stability is recommended. Moderate amount stool within the rectum. No bowel obstruction. --ECHO: Mild concentric LVH, ejection fraction 55 to 60%. Grade 1 diastolic dysfunction. No significant valvular pathology. --Liver CT:Diffuse progressively enhancing lesion within the medial right hepatic lobe and diffusely involving the left hepatic lobe. In the setting of cirrhosis, findings are most suspicious for either diffuse variant hepatoce llular carcinoma versus cholangiocarcinoma. Tissue sampling is warranted. The presence of ascites is a relative contraindication to percutaneous biopsy though ascites could potentially be performed prior to biopsy. 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 If anticoagulation is sought, th is should be appropriately timed with liver biopsy. Moderate ascites. Pneumobilia and biliary ductal dilatation likely due to sphincterotomy and likely chronic. Bilateral pleural effusions and basilar atelectasis. Multiple solid pulmonary nodules at the lung bases raise concern for metastatic disease. Follow-up advised. --Ammonia level normalized with lactulose Appreciate GI Input ARIS, antimitochondrial antibody, anti-smooth muscle antibody, transglutaminase IgA: pending Alpha-1 antitrypsin, ceruloplasmin pending Hep Bs Ag: Negative Hep C Ab:Negative S/P Diagnostic paracentesis Pathology:pending AFP:pending Peritoneal fluid Culture: No growth to date Low-salt diet Oncology consulted for input Family prefers to pursue liver biopsy if necessary Right LE DVT: Portal venous thrombosis LE Venous Doppler: Right lower extremity DVT as described above. No DVT within the left lower extremity. RUE Venous Doppler:No DVT within the right upper extremity. Started on IV heparin Hypernatremia In setting of Anasarca Urine lytes, osmolality ordered Appreciate Nephrology Input Monitor sodium levels:151>> 141 Received gentle IV fluids Acute kidney injury on CKD III Monitor renal function Avoid nephrotoxic agents as able stable renal function Possible pneumonia on chest x-ray Zosyn deescalated to roxi Joseph Blood Cultures: No growth to date Check procalcitonin in a.m. DVT Px: On IV heparin Code Status Conditional Code Disposition To be determined Admission and Anticipated Discharge Date Admission Date: January 16, 2020 Subjective Patient is seen and examined at bedside Limited history Discussed with gastroenterology and patient's family today Had diagnostic paracentesis Sodium levels improved No distress of abdominal exam RLE DVT on venous dopplers Review of Systems Review of Systems: Other Physical Exam Physical Exam: Physical Exam: Vitals signs as noted above General Appearance:chronic ill, no apparent distress Head: normocephalic, Atraumatic Eyes: normal inspection, EOMI Neck: supple, Trachea midline Respiratory/Chest: Normal breath sounds, CTA, No accessory muscle use Cardiovascular: S1, S2, No murmur Abdomen/GI:Soft, Distended, Non tender, Bowel sounds present Extremities/Musculoskelatal:normal inspection, B/L LE edema, RUE edema Neurologic/Psych:grossly no focal neurological deficits Skin: normal color, warm Results & Data Results & Data ([facility]) Vital Signs (Past 12 Hours) Vital Signs Temp Pulse Pulse Resp BP BP Pulse Ox 01/18/20 18:29 36.4 C L 95 H 16 105/55 L 93 01/18/20 15:41 36.5 C 105 H 16 100/60 95 01/18/20 15:20 112 H 01/18/20 07:43 95 H 01/18/20 07:27 36.5 C 64 18 90/59 L 91 Laboratory Results Short CBC 01/18/20 01/18/20 Range/Units 05:31 15:55 WBC 9.35 12.11 H (4.8-10.8) K/uL Hgb 16.7 H 13.8 (12.0-16.0) g/dL Hct 50.1 H 42.4 (37-47) % Plt Count 109 L 107 L (130-400) K/uL BMP 01/18/20 05:31 Sodium 141 D Potassium 4.2 Chloride 107 Carbon Dioxide 24 BUN 33 H Creatinine 1.14 Glucose 98 Calcium 9.1 Liver Function 01/18/20 Range/Units 05:31 Total Bilirubin 0.8 (0.2-1) mg/dl Direct Bilirubin 0.2 (0-0.2) mg/dl AST 96 H (15-37) U/L ALT 51 (12-78) U/L Alkaline Phosphatase 235 H (45-117) U/L Albumin 2.1 L (3.4-5.0) gm/dl
[2020-01-18] MEDS: DOXYCYCLINE HYCLATE 100 MG CAP PO SCH (20:34)
[2020-01-18 23:27] LABS: Partial Thromboplastin Ratio 3.4
[2020-01-19 07:27] LABS: Hematocrit (blood only) 43.2 % (37-47); Hemoglobin 14.4 g/dL (12.0-16.0); Mean Corpuscular Hemoglobin 30.3 pg (25-34); Mean Corpuscular Hgb Conc 33.3 g/dL (32-36); Mean Corpuscular Volume 90.9 fL (80-100); Platelet Count 104 K/uL (130-400); RDW Coefficient of Variation 16.6 % (11.5-14.5); RDW Standard Deviation 54.4 fL (36.4-46.3); Red Blood Count 4.75 M/uL (4.2-5.4); White Blood Count 12.77 K/uL (4.8-10.8)
[2020-01-19 07:46] LABS: Partial Thromboplastin Ratio 3.3
[2020-01-19 07:48] LABS: Partial Thromboplastin Time 91.9 Seconds (21.0-31.0)
[2020-01-19 07:51] LABS: BUN Creatinine Ratio 34.9 (10-20); Calcium 8.6 mg/dl (8.5-10.1); Creatinine Clr Calc Pharmacy 23.7 ml/min; Est GFR (African American) 50.8; Est GFR (Non-African American) 43.8; Potassium 4.7 mmol/L (3.5-5.1)
--- NOTE | 2020-01-19 11:34 | Consultation Report ---
DATE OF CONSULTATION: 01/19/2020 CHIEF COMPLAINT: Fluid with retention with lower extremity swelling in association with a liver mass, portal vein thrombosis, and a right lower extremity DVT. HISTORY OF PRESENT ILLNESS: Limited information is available on this patient because she does not speak Macedonian. She apparently has had progressive lower extremity swelling that prompted her hospitalization. She is elderly and confused. She requires help with the activities of daily living. A CT scan of the abdomen showed a large mass lesion involving both lobes of the liver in association with portal vein thrombosis. A venous Doppler study showed evidence of a right DVT. Anticoagulation has been initiated. An alpha-fetoprotein has been requested. The patient's son would apparently like to have a tissue diagnosis of malignancy, if this can be established. PAST MEDICAL HISTORY: The patient has been confused, and this has been attributed to dementia. PAST SURGICAL HISTORY: Includes an ERCP for cholelithiasis and a laparoscopic cholecystectomy. FAMILY HISTORY: There is no known unusual family history of neoplastic disease or hematologic dyscrasias. SOCIAL HISTORY: The patient is and lives with her son. She does not smoke cigarettes, consume alcohol-containing beverages, or use illicit drugs. She does not speak Macedonian as previously noted. REVIEW OF SYSTEMS: She is not able to respond to questions in Macedonian. There is no indication of chest or cardiac discomfort. She has not complained of abdominal pain or a recent change in her bowel pattern. She has only a limited ability to ambulate because of weakness and debilitation. PHYSICAL EXAMINATION: GENERAL: Frail elderly female in no acute distress. HEAD: No contusion. EYES: No scleral icterus, no conjunctivitis. NOSE: No mucosal inflammation. No unusual discharge. MOUTH: Mucous membranes moist. No gingival ulceration. NECK: Neck veins not distended. Thyroid not palpably enlarged. CHEST: Resonant to percussion. Expiration not prolonged on auscultation. No rales, rhonchi or wheezes. HEART: Rhythm regular. No murmur, gallop or friction rub appreciated. ABDOMEN: Soft with right upper quadrant fullness, some distention. Bowel sounds unremarkable. Nontender. EXTREMITIES: Bilateral lower extremity edema. No joint effusion. NEUROLOGICAL: Cranial nerves intact. Deep tendon reflexes symmetrical. No focal abnormality. SKIN: No dermatitis or palpable subcutaneous nodules. PSYCHIATRIC: Awake, responds to verbal stimuli, unable to understand Macedonian. 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 ASSESSMENT AND PLAN: Investigations that have been initiated may well provide information about the cause of the patient's liver abnormality. A primary hepatocellular carcinoma is a possibility. The alpha-fetoprotein is pending. If this is strikingly elevated, that would be a reasonable diagnosis. She could have metastatic disease to the liver. This could have originated in a distant site such as the colon or the pancreas. The peritoneal fluid cytology might provide helpful information. The patient is elderly and debilitated. She is not a potential candidate for active treatment of an underlying neoplastic disorder, if the presence of this can be confirmed. A liver biopsy could be helpful, but the radiologist might be reluctant to proceed with this because of her ascites. It would be difficult to justify an open surgical biopsy. Anticoagulation is certainly warranted for her thrombotic disease. A DOAC such as Eliquis would be reasonable if she does not manifest blood loss on heparin therapy. There is no evidence of a coagulopathy that might be contributing to the patient's portal vein thrombosis or right lower extremity deep venous thrombosis. In summary, it would be difficult to justify interventions other than anticoagulation and best supportive care. MTDD
--- NOTE | 2020-01-19 12:02 | Electrocardiogram Report ---
Test Reason : Blood Pressure : / mmHG Vent. Rate : 117 BPM Atrial Rate : 117 BPM P-R Int : 152 ms QRS Dur : 062 ms QT Int : 304 ms P-R-T Axes : 032 -09 055 degrees QTc Int : 424 ms Sinus tachycardia Low voltage QRS Abnormal ECG When compared with ECG of 15-JAN-2020 19:54, No significant change was found Confirmed by Gene Lund [id number]) on 01/19/2020 12:02:46 PM Referred By: REFERRED SELF Confirmed By:Gene Lund
[2020-01-19] MEDS: DOXYCYCLINE HYCLATE 100 MG CAP PO SCH ×2 (13:41→20:04)
[2020-01-19] MEDS: CYANOCOBALAMIN 500 MCG TABLET (VITAMIN B-12) PO SCH (13:41)
[2020-01-19 14:57] LABS: Partial Thromboplastin Ratio 3.9
[2020-01-19 15:10] LABS: Partial Thromboplastin Time 108.9 Seconds (21.0-31.0)
[2020-01-19] MEDS: cefTRIAXone SODIUM 1,000 MG in DEXTROSE 5% 50 ML IV SCH (16:03)
--- NOTE | 2020-01-19 20:24 | Hospitalist Progress Note ---
Date of Service January 19, 2020 Assessment & Plan (1) Anasarca: Patient is an 89 yr female who presents with ongoing edema of lower extremity and ascites, and lately getting more confused, ambulatory dysfunction. Anasarca ? Hepatic Encephalopathy Failure to thrive Hepatic cirrhosis/ascites Hepatic lesion: Can not R/O malignancy (HCC Vs Metastatic) --CT Head:No acute intracranial findings. --CT ABD:Extensive hypodensity involving the left hepatic lobe and the majority of the right hepatic lobe. Fatty infiltration is favored however a mass could appear similar. A liver protocol CT could be obtained for further evaluation. Cirrhosis. Moderate ascites. Anasarca. Small bilateral pleural effusions. Pneumobilia from prior sphincterotomy. Biliary ductal dilatation, likely chronic. A few indeterminate lower lung pulmonary nodules. A chest CT in 6 months to ensure stability is recommended. Moderate amount stool within the rectum. No bowel obstruction. --ECHO: Mild concentric LVH, ejection fraction 55 to 60%. Grade 1 diastolic dysfunction. No significant valvular pathology. --Liver CT:Diffuse progressively enhancing lesion within the medial right hepatic lobe and diffusely involving the left hepatic lobe. In the setting of cirrhosis, findings are most suspicious for either diffuse variant hepatocellular carcinoma versus cholangiocarcinoma. Tissue sampling is warranted. The presence of ascites is a relative contraindication to percutaneous biopsy though ascites could potentially be performed prior to biopsy. 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 If anticoagulation is sought, this should be appropriately timed with liver biopsy. Moderate ascites. Pneumobilia and biliary ductal dilatation likely due to sphincterotomy and likely chronic. Bilateral pleural effusions and basilar atelectasis. Multiple solid pulmonary nodules at the lung bases raise concern for metastatic disease. Follow-up advised. --Ammonia level normalized with lactulose Appreciate GI Input ARIS, antimitochondrial antibody, anti-smooth muscle antibody, transglutaminase IgA: pending Alpha-1 antitrypsin, ceruloplasmin pending CEA:3.6 CA 19-9:Pending AFP:pending Hep Bs Ag: Negative Hep C Ab:Negative S/P Diagnostic paracentesis Cytology:pending Peritoneal fluid Culture: No growth to date Low-salt diet Appreciate Oncology Input Given elderly, debilitated, comorbidities--likely not a candidate for treatment for neoplastic disease. Liver biopsy could be limited secondary to ascites. Likely transition to Eliquis as able. Likely will be on supportive care Right LE DVT: Portal venous thrombosis LE Venous Doppler: Right lower extremity DVT as described above. No DVT within the left lower extremity. RUE Venous Doppler:No DVT within the right upper extremity. Continue IV heparin Transition to Eliquis as able. Hypernatremia In setting of Anasarca Urine lytes, osmolality ordered Appreciate Nephrology Input Monitor sodium levels:151>> 141>>139 Received gentle IV fluids Acute kidney injury on CKD III Monitor renal function Avoid nephrotoxic agents as able stable renal function Possible pneumonia on chest x-ray Zosyn deescalated to roxi Joseph Blood Cultures: No growth to date DVT Px: On IV heparin Code Status Conditional Code Disposition To be determined Admission and Anticipated Discharge Date Admission Date: January 16, 2020 Subjective Patient is seen and examined at bedside Limited history Discussed with oncology and patient's family today No distress of abdominal exam on IV heparin No bleeding issues Review of Systems Review of Systems: Other Physical Exam Physical Exam: Physical Exam: Vitals signs as noted above General Appearance:chronic ill, no apparent distress Head: normocephalic, Atraumatic Eyes: normal inspection, EOMI Neck: supple, Trachea midline Respiratory/Chest: Normal breath sounds, CTA, No accessory muscle use Cardiovascular: S1, S2, No murmur Abdomen/GI:Soft, Distended, Non tender, Bowel sounds present Extremities/Musculoskelatal:normal inspection, B/L LE edema, RUE edema Neurologic/Psych:grossly no focal neurological deficits Skin: normal color, warm Results & Data Results & Data ([facility]) Vital Signs (Past 12 Hours) Vital Signs Temp Pulse Pulse Resp BP BP Pulse Ox 01/19/20 19:56 36.7 C 91 H 18 101/58 L 96 01/19/20 17:32 102 H 01/19/20 15:03 36.3 C L 103 H 18 110/68 100 01/19/20 11:17 35.7 C L 102 H 18 94/66 L 99 Laboratory Results Short CBC 01/19/20 Range/Units 07:12 WBC 12.77 H (4.8-10.8) K/uL Hgb 14.4 (12.0-16.0) g/dL Hct 43.2 (37-47) % Plt Count 104 L (130-400) K/uL BMP 01/19/20 07:12 Sodium 139 Potassium 4.7 Chloride 109 H Carbon Dioxide 24 BUN 39 H Creatinine 1.12 Glucose 98 Calcium 8.6
[2020-01-19 23:07] LABS: Partial Thromboplastin Ratio 1.6; Partial Thromboplastin Time 44.1 Seconds (21.0-31.0)
[2020-01-19] MEDS ORDERED: HEPARIN IV BOLUS 2,000 UNITS in SYRINGE 0 ML IV ONE (23:55)
[2020-01-20] MEDS: HEPARIN SODIUM/DEXTROSE 25,000 UNITS/500 ML BAG IV SCH ×2 (05:55→13:27)
[2020-01-20 07:12] LABS: Hemoglobin 13.4 g/dL (12.0-16.0); Mean Corpuscular Hemoglobin 30.6 pg (25-34); Mean Corpuscular Hgb Conc 33.5 g/dL (32-36); Mean Corpuscular Volume 91.3 fL (80-100); Mean Platelet Volume 11.7 fL (7.4-10.4); Platelet Count 121 K/uL (130-400); RDW Coefficient of Variation 16.5 % (11.5-14.5); RDW Standard Deviation 54.3 fL (36.4-46.3); Red Blood Count 4.38 M/uL (4.2-5.4); White Blood Count 11.22 K/uL (4.8-10.8)
[2020-01-20 07:37] LABS: BUN Creatinine Ratio 41.6 (10-20); Creatinine Clr Calc Pharmacy 26.3 ml/min; Est GFR (African American) 57.6; Est GFR (Non-African American) 49.7; Potassium 4.8 mmol/L (3.5-5.1)
[2020-01-20 07:42] LABS: Partial Thromboplastin Time 112.8 Seconds (21.0-31.0)
[2020-01-20] MEDS: DOXYCYCLINE HYCLATE 100 MG CAP PO SCH ×2 (10:10→20:59)
[2020-01-20] MEDS: CYANOCOBALAMIN 500 MCG TABLET (VITAMIN B-12) PO SCH (10:11)
--- NOTE | 2020-01-20 10:47 | Progress Notes ---
DATE: 01/20/2020 CHIEF COMPLAINT: Fluid retention, lethargy, and fatigue associated with large hypodense hepatic lesion, portal vein thrombosis and right lower extremity DVT. SUBJECTIVE: The patient is unable to communicate clearly because of her inability to speak [place]. There is no indication of chest, cardiac, or abdominal discomfort. There is no evidence of bleeding in association with anticoagulation. PHYSICAL EXAMINATION: CHEST: Resonant to percussion. Expiration not prolonged. No rales or rhonchi. HEART: PMI in the fifth intercostal space, midclavicular line. Rhythm regular. No murmur, gallop or friction rub. ABDOMEN: Minimal distention, right upper quadrant fullness. No palpable masses. EXTREMITIES: Bilateral pedal edema, more prominent on the right. IMPRESSION AND PLAN: Needed laboratory studies are pending. It is possible that a very elevated alpha-fetoprotein will be helpful in establishing a diagnosis of hepatocellular carcinoma. The peritoneal fluid cytology is not yet available. The paracentesis fluid was indicative of a transudate, so it is unlikely that malignant cells will be detected. Proceeding with a liver biopsy might be difficult to justify. The patient is not a candidate for active oncology interventions due to her age and comorbid disease processes. Continued anticoagulation and best supportive care can be readily justified. MTDD
[2020-01-20 15:35] LABS: Partial Thromboplastin Ratio 1.8
[2020-01-20 15:36] LABS: Partial Thromboplastin Time 51.5 Seconds (21.0-31.0)
[2020-01-20] MEDS: cefTRIAXone SODIUM 1,000 MG in DEXTROSE 5% 50 ML IV SCH (16:20)
--- NOTE | 2020-01-20 18:26 | Hospitalist Progress Note ---
Date of Service January 20, 2020 Assessment & Plan (1) Anasarca: Patient is an 89 yr female who presents with ongoing edema of lower extremity and ascites, and lately getting more confused, ambulatory dysfunction. Anasarca ? Hepatic Encephalopathy Failure to thrive Hepatic cirrhosis/ascites Hepatic lesion: Can not R/O malignancy (HCC Vs Metastatic) --CT Head:No acute intracranial findings. --CT ABD:Extensive hypodensity involving the left hepatic lobe and the majority of the right hepatic lobe. Fatty infiltration is favored however a mass could appear similar. A liver protocol CT could be obtained for further evaluation. Cirrhosis. Moderate ascites. Anasarca. Small bilateral pleural effusions. Pneumobilia from prior sphincterotomy. Biliary ductal dilatation, likely chronic. A few indeterminate lower lung pulmonary nodules. A chest CT in 6 months to ensure stability is recommended. Moderate amount stool within the rectum. No bowel obstruction. --ECHO: Mild concentric LVH, ejection fraction 55 to 60%. Grade 1 diastolic dysfunction. No significant valvular pathology. --Liver CT:Diffuse progressively enhancing lesion within the medial right hepatic lobe and diffusely involving the left hepatic lobe. In the setting of cirrhosis, findings are most suspicious for either diffuse variant hepatocellular carcinoma versus cholangiocarcinoma. Tissue sampling is warranted. The presence of ascites is a relative contraindication to percutaneous biopsy though ascites could potentially be performed prior to biopsy. 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 If anticoagulation is sought, this should be appropriately timed with liver biopsy. Moderate ascites. Pneumobilia and biliary ductal dilatation likely due to sphincterotomy and likely chronic. Bilateral pleural effusions and basilar atelectasis. Multiple solid pulmonary nodules at the lung bases raise concern for metastatic disease. Follow-up advised. --Ammonia level normalized with lactulose Appreciate GI Input ARIS, antimitochondrial antibody, anti-smooth muscle antibody, transglutaminase IgA: pending Alpha-1 antitrypsin, ceruloplasmin pending CEA:3.6 CA 19-9:Pending CA-125:pending AFP:pending Hep Bs Ag: Negative Hep C Ab:Negative S/P Diagnostic paracentesis Cytology:pending Peritoneal fluid Culture: No growth to date Ascitic fluid Transudative Low-salt diet Appreciate Oncology Input Given elderly, debilitated, comorbidities--likely not a candidate for treatment for neoplastic disease. Liver biopsy planned on Tuesday Likely transition to Eliquis as able Right LE DVT: Portal venous thrombosis LE Venous Doppler: Right lower extremity DVT as described above. No DVT within the left lower extremity. RUE Venous Doppler:No DVT within the right upper extremity. Continue IV heparin Transition to Eliquis as able. Hypernatremia In setting of Anasarca Urine lytes, osmolality ordered Appreciate Nephrology Input Monitor sodium levels:151>> 141>>139 Received gentle IV fluids Acute kidney injury on CKD III--Resolved Monitor renal function Avoid nephrotoxic agents as able stable renal function Possible pneumonia on chest x-ray Zosyn deescalated to Roceproxi carey Blood Cultures: No growth to date Recheck Procalcitonin in AM DVT Px: On IV heparin Code Status Conditional Code Disposition To be determined Admission and Anticipated Discharge Date Admission Date: January 16, 2020 Subjective Patient is seen and examined at bedside Limited history Discussed with patient's family at bedside on IV heparin No bleeding issues Cytology, Tumor makers still pending Planned for liver biopsy on Tuesday Review of Systems Review of Systems: All systems reviewed & are unremarkable except as noted in HPI & below Physical Exam Physical Exam: Physical Exam: Vitals signs as noted above General Appearance:chronic ill, no apparent distress Head: normocephalic, Atraumatic Eyes: normal inspection, EOMI Neck: supple, Trachea midline Respiratory/Chest: Normal breath sounds, CTA, No accessory muscle use Cardiovascular: S1, S2, No murmur Abdomen/GI:Soft, Distended, Non tender, Bowel sounds present Extremities/Musculoskelatal:normal inspection, B/L LE edema, RUE edema Neurologic/Psych:grossly no focal neurological deficits Skin: normal color, warm Results & Data Results & Data ([facility]) Vital Signs (Past 12 Hours) Vital Signs Temp Pulse Pulse Resp BP Pulse Ox 01/20/20 16:00 96 H 01/20/20 15:37 35.7 C L 98 H 18 100/67 98 01/20/20 11:29 35.5 C L 99 H 18 95/64 L 98 01/20/20 07:55 103 H 01/20/20 07:22 36.0 C L 101 H 18 105/72 98 Laboratory Results Short CBC 01/20/20 Range/Units 06:14 WBC 11.22 H (4.8-10.8) K/uL Hgb 13.4 (12.0-16.0) g/dL Hct 40.0 (37-47) % Plt Count 121 L (130-400) K/uL BMP 01/20/20 06:14 Sodium 139 Potassium 4.8 Chloride 108 H Carbon Dioxide 24 BUN 42 H Creatinine 1.01 Glucose 85 Calcium 8.0 L
[2020-01-21 05:43] LABS: Hematocrit (blood only) 42.1 % (37-47); Hemoglobin 13.9 g/dL (12.0-16.0); Mean Corpuscular Hemoglobin 30.2 pg (25-34); Mean Corpuscular Volume 91.3 fL (80-100); Mean Platelet Volume 11.3 fL (7.4-10.4); Platelet Count 130 K/uL (130-400); RDW Coefficient of Variation 16.7 % (11.5-14.5); RDW Standard Deviation 54.4 fL (36.4-46.3); Red Blood Count 4.61 M/uL (4.2-5.4); White Blood Count 11.49 K/uL (4.8-10.8)
[2020-01-21 06:09] LABS: Partial Thromboplastin Ratio 1.9
[2020-01-21 06:18] LABS: Partial Thromboplastin Time 53.8 Seconds (21.0-31.0)
[2020-01-21] MEDS: CYANOCOBALAMIN 500 MCG TABLET (VITAMIN B-12) PO SCH (09:56)
[2020-01-21] MEDS: DOXYCYCLINE HYCLATE 100 MG CAP PO SCH ×2 (09:56→21:16)
[2020-01-21] MEDS: HEPARIN SODIUM/DEXTROSE 25,000 UNITS/500 ML BAG IV SCH (13:44)
--- NOTE | 2020-01-21 15:55 | Hospitalist Progress Note ---
Date of Service January 21, 2020 Assessment & Plan (1) Anasarca: Patient is an 89 yr female who presents with ongoing edema of lower extremity and ascites, and lately getting more confused, ambulatory dysfunction. Anasarca ? Hepatic Encephalopathy Failure to thrive Hepatic cirrhosis/ascites Hepatic lesion: Can not R/O malignancy (HCC Vs Metastatic) --CT Head:No acute intracranial findings. --CT ABD:Extensive hypodensity involving the left hepatic lobe and the majority of the right hepatic lobe. Fatty infiltration is favored however a mass could appear similar. A liver protocol CT could be obtained for further evaluation. Cirrhosis. Moderate ascites. Anasarca. Small bilateral pleural effusions. Pneumobilia from prior sphincterotomy. Biliary ductal dilatation, likely chronic. A few indeterminate lower lung pulmonary nodules. A chest CT in 6 months to ensure stability is recommended. Moderate amount stool within the rectum. No bowel obstruction. --ECHO: Mild concentric LVH, ejection fraction 55 to 60%. Grade 1 diastolic dysfunction. No significant valvular pathology. --Liver CT:Diffuse progressively enhancing lesion within the medial right hepatic lobe and diffusely involving the left hepatic lobe. In the setting of cirrhosis, findings are most suspicious for either diffuse variant hepatocellular carcinoma versus cholangiocarcinoma. Tissue sampling is warranted. The presence of ascites is a relative contraindication to percutaneous biopsy though ascites could potentially be performed prior to biopsy. 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 If anticoagulation is sought, this should be appropriately timed with liver biopsy. Moderate ascites. Pneumobilia and biliary ductal dilatation likely due to sphincterotomy and likely chronic. Bilateral pleural effusions and basilar atelectasis. Multiple solid pulmonary nodules at the lung bases raise concern for metastatic disease. Follow-up advised. --Ammonia level normalized with lactulose Appreciate GI Input ARIS, antimitochondrial antibody, anti-smooth muscle antibody, transglutaminase IgA: pending Alpha-1 antitrypsin, ceruloplasmin pending CEA:3.6 CA 19-9:Pending CA-125:pending AFP:pending Hep Bs Ag: Negative Hep C Ab:Negative S/P Diagnostic paracentesis Cytology:pending Peritoneal fluid Culture: No growth to date Ascitic fluid Transudative Low-salt diet Appreciate Oncology Input Given elderly, debilitated, comorbidities--likely not a candidate for treatment for neoplastic disease. Liver biopsy planned for tomorrow Likely transition to Eliquis eventually Plan to hold IV heparin at least 4 hours prior to liver biopsy Right LE DVT: Portal venous thrombosis LE Venous Doppler: Right lower extremity DVT as described above. No DVT within the left lower extremity. RUE Venous Doppler:No DVT within the right upper extremity. Continue IV heparin Transition to Eliquis as able. Hypernatremia In setting of Anasarca Urine lytes, osmolality ordered Appreciate Nephrology Input Monitor sodium levels:151>> 141>>139 Received gentle IV fluids Acute kidney injury on CKD III--Resolved Monitor renal function Avoid nephrotoxic agents as able stable renal function Possible pneumonia on chest x-ray Zosyn deescalated to Seaneproxi carey Blood Cultures: No growth to date Procalcitonin trending down DVT Px: On IV heparin Code Status Conditional Code Disposition To be determined Admission and Anticipated Discharge Date Admission Date: January 16, 2020 Subjective Patient is seen and examined at bedside Limited history No distress on exam on IV heparin Cytology, Tumor makers still pending Planned for liver biopsy Tomorrow Procalcitonin trending down Extremity swelling slightly better Review of Systems Review of Systems: All systems reviewed & are unremarkable except as noted in HPI & below Physical Exam Physical Exam: Physical Exam: Vitals signs as noted above General Appearance:chronic ill, no apparent distress Head: normocephalic, Atraumatic Eyes: normal inspection, EOMI Neck: supple, Trachea midline Respiratory/Chest: Normal breath sounds, CTA, No accessory muscle use Cardiovascular: S1, S2, No murmur Abdomen/GI:Soft, Distended, Non tender, Bowel sounds present Extremities/Musculoskelatal:normal inspection, B/L LE edema, RUE edema Neurologic/Psych:grossly no focal neurological deficits Skin: normal color, warm Results & Data Results & Data ([facility]) Vital Signs (Past 12 Hours) Vital Signs Temp Pulse Pulse Resp BP Pulse Ox 01/21/20 11:40 36.5 C 107 H 16 101/68 92 01/21/20 07:48 36.6 C 104 H 16 108/74 99 01/21/20 07:02 111 H 01/21/20 04:00 36.9 C 105 H 18 108/68 95 Laboratory Results Short CBC 01/21/20 Range/Units 05:23 WBC 11.49 H (4.8-10.8) K/uL Hgb 13.9 (12.0-16.0) g/dL Hct 42.1 (37-47) % Plt Count 130 (130-400) K/uL
[2020-01-21] MEDS: cefTRIAXone SODIUM 1,000 MG in DEXTROSE 5% 50 ML IV SCH (16:05)
[2020-01-22 07:29] LABS: Hematocrit (blood only) 41.7 % (37-47); Hemoglobin 13.8 g/dL (12.0-16.0); Mean Corpuscular Hemoglobin 30.3 pg (25-34); Mean Corpuscular Hgb Conc 33.1 g/dL (32-36); Mean Corpuscular Volume 91.4 fL (80-100); Platelet Count 159 K/uL (130-400); RDW Coefficient of Variation 16.7 % (11.5-14.5); RDW Standard Deviation 54.4 fL (36.4-46.3); Red Blood Count 4.56 M/uL (4.2-5.4); White Blood Count 11.96 K/uL (4.8-10.8)
[2020-01-22 07:39] LABS: INR 1.2 (0.9-1.1); Partial Thromboplastin Ratio 1.1; Partial Thromboplastin Time 31.9 Seconds (21.0-31.0); Prothrombin Time 12.1 Seconds (9.0-12.0)
[2020-01-22] MEDS: DOXYCYCLINE HYCLATE 100 MG CAP PO SCH ×2 (09:05→20:44)
[2020-01-22] MEDS: CYANOCOBALAMIN 500 MCG TABLET (VITAMIN B-12) PO SCH (09:05)
[2020-01-22 12:55] LABS: AFP Tumor Marker Serum 2.7 ng/mL
[2020-01-22] MEDS: HEPARIN SODIUM/DEXTROSE 25,000 UNITS/500 ML BAG IV SCH ×2 (15:35→19:09)
[2020-01-22] MEDS: cefTRIAXone SODIUM 1,000 MG in DEXTROSE 5% 50 ML IV SCH (16:57)
--- NOTE | 2020-01-22 17:05 | Hospitalist Progress Note ---
Date of Service January 22, 2020 Assessment & Plan (1) Anasarca: Patient is an 89 yr female who presents with ongoing edema of lower extremity and ascites, and lately getting more confused, ambulatory dysfunction. Anasarca ? Hepatic Encephalopathy Failure to thrive Hepatic cirrhosis/ascites on CT Hepatic lesions: Can not R/O malignancy (HCC Vs Metastatic) --CT Head:No acute intracranial findings. --CT ABD:Extensive hypodensity involving the left hepatic lobe and the majority of the right hepatic lobe. Fatty infiltration is favored however a mass could appear similar. A liver protocol CT could be obtained for further evaluation. Cirrhosis. Moderate ascites. Anasarca. Small bilateral pleural effusions. Pneumobilia from prior sphincterotomy. Biliary ductal dilatation, likely chronic. A few indeterminate lower lung pulmonary nodules. A chest CT in 6 months to ensure stability is recommended. Moderate amount stool within the rectum. No bowel obstruction. --ECHO: Mild concentric LVH, ejection fraction 55 to 60%. Grade 1 diastolic dysfunction. No significant valvular pathology. --Liver CT:Diffuse progressively enhancing lesion within the medial right hepatic lobe and diffusely involving the left hepatic lobe. In the setting of cirrhosis, findings are most suspicious for either diffuse variant hepatocellular carcinoma versus cholangiocarcinoma. Tissue sampling is warranted. The presence of ascites is a relative contraindication to percutaneous biopsy though ascites could potentially be performed prior to biopsy. 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 If anticoagulation is sought, this should be appropriately timed with liver biopsy. Moderate ascites. Pneumobilia and biliary ductal dilatation likely due to sphincterotomy and likely chronic. Bilateral pleural effusions and basilar atelectasis. Multiple solid pulmonary nodules at the lung bases raise concern for metastatic disease. Follow-up advised. --Ammonia level normalized with lactulose Appreciate GI Input ARIS, antimitochondrial antibody, anti-smooth muscle antibody, transglutaminase IgA: pending Alpha-1 antitrypsin, ceruloplasmin pending CEA:3.6 CA 19-9:Pending CA-125:pending AFP:pending Hep Bs Ag: Negative Hep C Ab:Negative S/P Diagnostic paracentesis Cytology: No malignant cells seen. Chronic inflammatory cells, histiocytes and mesothelial cells. Peritoneal fluid Culture: No growth to date Ascitic fluid Transudative Low-salt diet Appreciate Oncology Input Given elderly, debilitated, comorbidities--likely not a candidate for treatment for neoplastic disease Currently on IV heparin Likely transition to Eliquis eventually Family prefers to proceed with Liver biopsy if Tumor markers are negative Right LE DVT: Portal venous thrombosis LE Venous Doppler: Right lower extremity DVT as described above. No DVT within the left lower extremity. RUE Venous Doppler:No DVT within the right upper extremity. Continue IV heparin Transition to Eliquis as able. Hypernatremia In setting of Anasarca Urine lytes, osmolality ordered Appreciate Nephrology Input Monitor sodium levels:151>> 141>>139 Received gentle IV fluids Acute kidney injury on CKD III--Resolved Monitor renal function Avoid nephrotoxic agents as able stable renal function Possible pneumonia on chest x-ray Zosyn deescalated to roxi Joseph Blood Cultures: No growth to date Procalcitonin trending down DVT Px: On IV heparin Code Status Conditional Code Disposition To be determined Admission and Anticipated Discharge Date Admission Date: January 16, 2020 Subjective Patient is seen and examined at bedside Limited history Planned for Liver Biopsy today, but family preferred to hold of until AFP results. Resume IV heparin Cytology is negative for Malignant cells Tumor makers pending Extremity swelling improved Review of Systems Review of Systems: Other Physical Exam Physical Exam: Physical Exam: Vitals signs as noted above General Appearance:chronic ill, no apparent distress Head: normocephalic, Atraumatic Eyes: normal inspection, EOMI Neck: supple, Trachea midline Respiratory/Chest: Normal breath sounds, CTA, No accessory muscle use Cardiovascular: S1, S2, No murmur Abdomen/GI:Soft, Distended, Non tender, Bowel sounds present Extremities/Musculoskelatal:normal inspection, B/L LE edema, RUE edema Neurologic/Psych:grossly no focal neurological deficits Skin: normal color, warm Results & Data Results & Data ([facility]) Vital Signs (Past 12 Hours) Vital Signs Temp Pulse Pulse Resp BP Pulse Ox 01/22/20 16:09 36.6 C 103 H 20 107/58 L 93 01/22/20 12:16 35.9 C L 100 H 20 91/58 L 98 01/22/20 07:39 36.3 C L 104 H 18 115/78 99 01/22/20 07:25 102 H Laboratory Results Short CBC 01/22/20 Range/Units 06:46 WBC 11.96 H (4.8-10.8) K/uL Hgb 13.8 (12.0-16.0) g/dL Hct 41.7 (37-47) % Plt Count 159 (130-400) K/uL
[2020-01-22 18:06] LABS: Partial Thromboplastin Ratio 1.1; Partial Thromboplastin Time 31.7 Seconds (21.0-31.0)
[2020-01-22] MEDS ORDERED: HEPARIN IV BOLUS 4,000 UNITS in SYRINGE 0 ML IV ONE (19:00)
[2020-01-23 01:24] LABS: Alpha 1 Antitrypsin 189 mg/dL (83-199); Anti Nuclear Antibody Screen NEGATIVE (NEGATIVE); Ceruloplasmin 34 mg/dL (18-53); Hepatitis A Antibody IgM REACTIVE (NON-REACTIVE); Hepatitis B Core Antibody IgM NON-REACTIVE (NON-REACTIVE); Smooth Muscle Antibody POSITIVE (NEGATIVE); Transglutaminase, Tissue IgA 2 U/mL
[2020-01-23 01:35] LABS: Partial Thromboplastin Ratio 1.7
[2020-01-23 01:36] LABS: Partial Thromboplastin Time 46.4 Seconds (21.0-31.0)
[2020-01-23 06:29] LABS: Hematocrit (blood only) 40.8 % (37-47); Hemoglobin 13.7 g/dL (12.0-16.0); Mean Corpuscular Hemoglobin 30.4 pg (25-34); Mean Corpuscular Hgb Conc 33.6 g/dL (32-36); Mean Corpuscular Volume 90.5 fL (80-100); Mean Platelet Volume 11.1 fL (7.4-10.4); Platelet Count 166 K/uL (130-400); RDW Coefficient of Variation 16.7 % (11.5-14.5); Red Blood Count 4.51 M/uL (4.2-5.4); White Blood Count 13.01 K/uL (4.8-10.8)
[2020-01-23 06:55] LABS: Partial Thromboplastin Ratio 1.7
[2020-01-23 06:57] LABS: BUN Creatinine Ratio 58.2 (10-20); Calcium 7.8 mg/dl (8.5-10.1); Est GFR (African American) 59.7; Est GFR (Non-African American) 51.5; Potassium 5.3 mmol/L (3.5-5.1)
[2020-01-23 07:16] LABS: Partial Thromboplastin Time 46.1 Seconds (21.0-31.0)
[2020-01-23] MEDS: DOXYCYCLINE HYCLATE 100 MG CAP PO SCH ×2 (09:12→20:16)
[2020-01-23] MEDS: CYANOCOBALAMIN 500 MCG TABLET (VITAMIN B-12) PO SCH (09:12)
--- NOTE | 2020-01-23 14:42 | Hospitalist Progress Note ---
Date of Service January 23, 2020 Assessment & Plan (1) Anasarca: Patient is an 89 yr female who presents with ongoing edema of lower extremity and ascites, and lately getting more confused, ambulatory dysfunction. Symptoms have been going on for the last 2 to 3 months and getting worse more recently No history of cirrhosis of liver Anasarca Failure to thrive 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 Grade 1 diastolic dysfunction. No significant valvular pathology. Hepatic lesions suggestive of cirrhosis/malignancy CT of the abdomen and pelvis and CT of the liver:Diffuse progressively enhancing lesion within the medial right hepatic lobe and diffusely involving the left hepatic lobe Tumor markers including AFP, CA 199, acetic fluid malignancy, CEA are negative Ca1 25 is high at 460-we will ask for ultrasound of the pelvis to document any ovarian/adnexal CT did show nodules in the lung which showed suggestive of metastatic disease to Appreciate GI Input ARIS, antimitochondrial antibody, anti-smooth muscle antibody, transglutaminase IgA: pending Alpha-1 antitrypsin, ceruloplasmin pending S/P Diagnostic paracentesis Cytology: No malignant cells seen. Chronic inflammatory cells, histiocytes and mesothelial cells. Peritoneal fluid Culture: No growth to date Ascitic fluid Transudative Low-salt diet Appreciate Oncology Input Given elderly, debilitated, comorbidities--likely not a candidate for treatment for neoplastic disease Currently on IV heparin Likely transition to Eliquis eventually Family prefers to proceed with Liver biopsy if Tumor markers are negative Metabolic encephalopathy Could be secondary to hepatic encephalopathy Condition improved Remains pleasantly confused Right LE DVT: Portal venous thrombosis LE Venous Doppler: Right lower extremity DVT as described above. No DVT within the left lower extremity. RUE Venous Doppler:No DVT within the right upper extremity. Continue IV heparin Transition to Eliquis as able. Hypernatremia In setting of Anasarca Urine lytes, osmolality ordered Appreciate Nephrology Input Monitor sodium levels:151>> 141>>139 Received gentle IV fluids Sodium level is 133 as of 01/23/2020 Acute kidney injury on CKD III--Resolved Monitor renal function Avoid nephrotoxic agents as able stable renal function Possible pneumonia on chest x-ray Zosyn deescalated to Rocephin, doxy Blood Cultures: No growth to date Procalcitonin trending down Will finish oral doxycycline for about 7 days DVT Px: On IV heparin Code Status Conditional Code Disposition To be determined Discussed with the son in detail-if the tumor markers are negative for any malignancy will like to have liver biopsy for a definitive diagnosis. Admission and Anticipated Discharge Date Admission Date: January 16, 2020 Subjective The patient was seen and examined in medical telemetry unit She was seen in presence of her son Remains very weak and lethargic but denies any acute distress Review of Systems Review of Systems: Unobtainable due to mental health condition Physical Exam Physical Exam: Lying in bed without any acute distress Constitutional: + ill appearing and + thin; no acute distress Eyes: PERRL, conjunctivae normal, anicteric sclerae ENMT: external ear and nose normal, oropharynx normal Neck: trachea midline, no thyromegaly Respiratory: normal respiratory effort; no respiratory distress Auscultation: lungs clear to auscultation bilaterally Cardiovascular: Rate/Rhythm: regular rate and regular rhythm Heart Sounds: no murmur Extremities: + edema (Bilateral leg edema of 1-2+) Gastrointestinal (Abdomen): Inspection/Auscultation: + abdomen distended and normal bowel sounds Percussion/Palpation: abdomen soft; abdomen nontender, no hepatomegaly and no splenomegaly Musculoskeletal: No acute arthritis involving any joints Neurologic: moves all extremities; no focal motor deficits Remains extremely weak and lethargic Lymphatic: no cervical or axillary lymphadenopathy Results & Data Results & Data ([facility]) Vital Signs (Past 12 Hours) Vital Signs Temp Pulse Pulse Resp BP Pulse Ox 01/23/20 11:26 36.4 C L 101 H 18 109/73 96 01/23/20 07:41 36.4 C L 103 H 16 113/76 100 01/23/20 07:13 102 H 01/23/20 04:28 36.3 C L 106 H 18 117/69 100 Laboratory Results Short CBC 01/23/20 Range/Units 05:58 WBC 13.01 H (4.8-10.8) K/uL Hgb 13.7 (12.0-16.0) g/dL Hct 40.8 (37-47) % Plt Count 166 (130-400) K/uL BMP 01/23/20 05:58 Sodium 133 L Potassium 5.3 H Chloride 103 Carbon Dioxide 24 BUN 57 H Creatinine 0.98 Glucose 98 Calcium 7.8 L Medications Administered Current Inpatient Medications Cyanocobalamin (Vitamin B-12) 1,000 mcg PO DAILY [facility] Stop: 02/15/20 08:59 Last Admin: 01/23/20 09:12 Dose: 1,000 mcg Documented by: Doxycycline Hyclate (Vibramycin) 100 mg PO BID [facility]; Protocol Stop: 01/24/20 20:59 Last Admin: 01/23/20 09:12 Dose: 100 mg Documented by: Heparin Sodium/Dextrose (Heparin Sodium/Dextrose) 25,000 units in 500 mls @ 14 mls/hr IV .Q24H [facility]; Protocol Stop: 02/17/20 13:14 Last Titration: 01/23/20 08:36 Dose: 700 units/hr, 14 mls/hr Documented by: Nitroglycerin (Nitrostat) 0.4 mg SL UD PRN PRN Reason: Chest Pain Stop: 02/15/20 04:50 Ondansetron HCl (Zofran) 4 mg IV Q6H PRN PRN Reason: Nausea Stop: 02/15/20 04:50
--- NOTE | 2020-01-23 14:52 | Ultrasound Report ---
US pelvic limited HISTORY: 89 years-old Female R/O Ovarian mass 2 bilateral pelvic pain COMPARISON: CT abdomen and pelvis 01/16/2020 TECHNIQUE: Multiple real-time sonographic images of the deep pelvic structures were obtained transabd ominally assessing grayscale appearance and color flow FINDINGS: Abdominal pelvic ascites. Retroflexed uterus measures 4.7 x 2.3 x 3.5 cm. Endometrium measures 4 mm i n thickness, upper limits of normal for postmenopausal patient. Calcified uterine vessels are noted a long the periphery. No myometrial mass lesion identified. Ovaries are not diagnostically visualized. IMPRESSION: 1. Age-appropriate changes of the uterus and endometrium. No myometrial mass lesion identified. 2. Nonvisualization of the ovaries. 3. Abdominal pelvic ascites. ACT 112: Negative or not required by law. The above report was generated using voice recognition software. It may contain grammatical, syntax o r spelling errors. Electronically signed by: Elmer Bolanos M.D. 01/23/2020 2:51 PM
[2020-01-24 06:43] LABS: Albumin Level 1.5 gm/dl (3.4-5.0); BUN Creatinine Ratio 60.2 (10-20); Calcium 7.8 mg/dl (8.5-10.1); Creatinine Clr Calc Pharmacy 31.3 ml/min; Est GFR (African American) 62.8; Est GFR (Non-African American) 54.2; Magnesium 2.2 mg/dl (1.8-2.4); Potassium 5.3 mmol/L (3.5-5.1)
[2020-01-24 06:46] LABS: Albumin Globulin Ratio 0.3 (0.9-2); Bilirubin,Total 0.6 mg/dl (0.2-1); Globulin 4.7 gm/dl (2.5-4.0); Phosphorus 4.1 mg/dl (2.5-4.9); Total Protein 6.2 gm/dl (6.4-8.2)
[2020-01-24 07:15] LABS: Basophils # (auto) 0.02 K/uL (0-0.2); Basophils % (auto) 0.1 %; Eosinophils # (auto) 0.14 K/uL (0-0.5); Hematocrit (blood only) 39.4 % (37-47); Hemoglobin 13.1 g/dL (12.0-16.0); Immature Granulocytes # (auto) 0.03 K/uL (0.00-0.02); Immature Granulocytes % (auto) 0.2 %; Lymphocytes # (auto) 2.75 K/uL (1.2-3.4); Mean Corpuscular Hemoglobin 30.1 pg (25-34); Mean Corpuscular Hgb Conc 33.2 g/dL (32-36); Mean Corpuscular Volume 90.6 fL (80-100); Mean Platelet Volume 10.5 fL (7.4-10.4); Neutrophils # (auto) 9.71 K/uL (1.4-6.5); Neutrophils % (auto) 70.7 %; Platelet Count 165 K/uL (130-400); RDW Coefficient of Variation 16.8 % (11.5-14.5); RDW Standard Deviation 54.5 fL (36.4-46.3); Red Blood Count 4.35 M/uL (4.2-5.4); White Blood Count 13.75 K/uL (4.8-10.8)
[2020-01-24 07:37] LABS: Partial Thromboplastin Ratio 2.9
[2020-01-24 07:40] LABS: Partial Thromboplastin Time 79.8 Seconds (21.0-31.0)
[2020-01-24] MEDS: CYANOCOBALAMIN 500 MCG TABLET (VITAMIN B-12) PO SCH (10:47)
[2020-01-24] MEDS: DOXYCYCLINE HYCLATE 100 MG CAP PO SCH (10:48)
[2020-01-24 13:51] LABS: Smooth Muscle Ab Titer 1:20 titer (<1:20)
[2020-01-24 14:27] LABS: Partial Thromboplastin Ratio 3.6
[2020-01-24 14:33] LABS: Partial Thromboplastin Time 100.9 Seconds (21.0-31.0)
--- NOTE | 2020-01-24 14:59 | Hospitalist Progress Note ---
Date of Service January 24, 2020 Assessment & Plan (1) Anasarca: Patient is an 89 yr female who presents with ongoing edema of lower extremity and ascites, and lately getting more confused, ambulatory dysfunction. Symptoms have been going on for the last 2 to 3 months and getting worse more recently No history of cirrhosis of liver Hepatic lesions suggestive of cirrhosis/malignancy CT of the abdomen and pelvis and CT of the liver:Diffuse progressively enhancing lesion within the medial right hepatic lobe and diffusely involving the left hepatic lobe Tumor markers including AFP, CA 199, acetic fluid malignancy, CEA are negative Ca1 25 is high at 460-we will ask for ultrasound of the pelvis to document any ovarian/adnexal CT did show nodules in the lung which showed suggestive of metastatic disease to Appreciate GI Input ARIS, antimitochondrial antibody, anti-smooth muscle antibody, transglutaminase IgA: pending Alpha-1 antitrypsin, ceruloplasmin pending S/P Diagnostic paracentesis Cytology: No malignant cells seen. Chronic inflammatory cells, histiocytes and mesothelial cells. 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 Grade 1 diastolic dysfunction. No significant valvular pathology. The sciatic fluid has reaccumulated Will likely need another paracentesis before discharge and periodically thereafter Metabolic encephalopathy Could be secondary to hepatic encephalopathy Condition improved Remains pleasantly confused Right LE DVT: Portal venous thrombosis LE Venous Doppler: Right lower extremity DVT as described above. No DVT within the left lower extremity. RUE Venous Doppler:No DVT within the right upper extremity. Continue IV heparin Transition to Eliquis as able. Hypernatremia In setting of Anasarca Urine lytes, osmolality ordered Appreciate Nephrology Input Monitor sodium levels:151>> 141>>139 Received gentle IV fluids Sodium level is 133 as of 01/23/2020 Acute kidney injury on CKD III--Resolved Monitor renal function Avoid nephrotoxic agents as able stable renal function Possible pneumonia on chest x-ray Saskia deescalated to roxi Joseph Blood Cultures: No growth to date Procalcitonin trending down Will finish oral doxycycline for about 7 days DVT Px: On IV heparin Code Status Conditional Code Disposition To be determined Palliative care consultation Discharged with home hospice Admission and Anticipated Discharge Date Admission Date: January 16, 2020 Subjective The patient was seen and examined in medical telemetry unit She was seen in presence of her son Remains very weak and lethargic but denies any acute distress 01/24/2020 The patient was seen and examined in medical floor in presence of son She remains stable and very weak and lethargic Denies any acute symptoms Review of Systems Review of Systems: Difficult to obtain due to significant hearing loss and language barrier Physical Exam Physical Exam: Lying in bed without any acute distress Constitutional: + ill appearing and + thin; no acute distress Eyes: PERRL, conjunctivae normal, anicteric sclerae ENMT: external ear and nose normal, oropharynx normal Neck: trachea midline, no thyromegaly Respiratory: normal respiratory effort; no respiratory distress Auscultation: lungs clear to auscultation bilaterally Cardiovascular: Rate/Rhythm: regular rate and regular rhythm Heart Sounds: no murmur Extremities: + edema (Bilateral leg edema of 1-2+) Gastrointestinal (Abdomen): Inspection/Auscultation: + abdomen distended and normal bowel sounds Percussion/Palpation: + abdomen tender and abdomen soft; no hepatomegaly and no splenomegaly Musculoskeletal: No acute arthritis in any joints Neurologic: moves all extremities; no focal motor deficits Pleasantly confused Lymphatic: no cervical or axillary lymphadenopathy Results & Data Results & Data ([facility]) Vital Signs (Past 12 Hours) Vital Signs Temp Pulse Pulse Pulse Pulse Resp BP 01/24/20 11:27 36.3 C L 92 H 16 01/24/20 08:00 95 H 01/24/20 07:44 36.3 C L 97 H 16 L 96/55 L 01/24/20 04:57 36.4 C L 106 H 20 119/82 01/24/20 04:43 99 H BP Pulse Ox 01/24/20 11:27 95/67 L 99 01/24/20 08:00 01/24/20 07:44 01/24/20 04:57 92 05/28/20 04:43 Laboratory Results Short CBC 01/24/20 Range/Units 07:00 WBC 13.75 H (4.8-10.8) K/uL Hgb 13.1 (12.0-16.0) g/dL Hct 39.4 (37-47) % Plt Count 165 (130-400) K/uL BMP 01/24/20 05:38 Sodium 133 L Potassium 5.3 H Chloride 105 Carbon Dioxide 21 BUN 56 H Creatinine 0.94 Glucose 87 Calcium 7.8 L Liver Function 01/24/20 Range/Units 05:38 Total Bilirubin 0.6 (0.2-1) mg/dl AST 71 H (15-37) U/L ALT 40 (12-78) U/L Alkaline Phosphatase 223 H (45-117) U/L Albumin 1.5 L (3.4-5.0) gm/dl Medications Administered Current Inpatient Medications Cyanocobalamin (Vitamin B-12) 1,000 mcg PO DAILY [facility] Stop: 02/15/20 08:59 Last Admin: 01/24/20 10:47 Dose: 1,000 mcg Documented by: Doxycycline Hyclate (Vibramycin) 100 mg PO BID [facility]; Protocol Stop: 01/24/20 20:59 Last Admin: 01/24/20 10:48 Dose: 100 mg Documented by: Heparin Sodium/Dextrose (Heparin Sodium/Dextrose) 25,000 units in 500 mls @ 0 mls/hr IV .Q0M [facility]; Protocol Stop: 02/17/20 13:14 Last Titration: 01/24/20 14:35 Dose: 0 units/hr, 0 mls/hr Documented by: Nitroglycerin (Nitrostat) 0.4 mg SL UD PRN PRN Reason: Chest Pain Stop: 02/15/20 04:50 Ondansetron HCl (Zofran) 4 mg IV Q6H PRN PRN Reason: Nausea Stop: 02/15/20 04:50
[2020-01-24] MEDS: HEPARIN SODIUM/DEXTROSE 25,000 UNITS/500 ML BAG IV SCH (15:42)
[2020-01-24] MEDS: FUROSEMIDE 40 MG TAB PO SCH (17:34)
[2020-01-24 22:11] LABS: Partial Thromboplastin Ratio 3.4
[2020-01-24 22:20] LABS: Partial Thromboplastin Time 93.7 Seconds (21.0-31.0)
[2020-01-24] MEDS: LACTULOSE SYRUP 20 GM/30 ML UDC PO SCH (22:28)
[2020-01-24] MEDS: SODIUM CHLORIDE 0.9% 1000ML 1,000 ML IV SCH (23:35)
[2020-01-25 04:57] LABS: Partial Thromboplastin Ratio 4.2
[2020-01-25 05:09] LABS: Partial Thromboplastin Time 115.9 Seconds (21.0-31.0)
[2020-01-25] MEDS: LACTULOSE SYRUP 20 GM/30 ML UDC PO SCH ×2 (08:02→21:43)
[2020-01-25] MEDS: SPIRONOLACTONE 12.5 MG TAB PO SCH (08:03)
[2020-01-25] MEDS: FUROSEMIDE 40 MG TAB PO SCH (08:03)
[2020-01-25] MEDS: CYANOCOBALAMIN 500 MCG TABLET (VITAMIN B-12) PO SCH (08:03)
--- NOTE | 2020-01-25 09:18 | Palliative Care Consultation ---
Date of Consultation January 25, 2020 Assessment & Plan (1) Goals of care, counseling/discussion: -89 year old female patient with PMH slow transit constipation, female stress incontinence, primary osteoarthritis involving multiple joints, senile dementia, and others, presented to the hospital with worsening abdominal distention and lower extremity edema. Patient lives with her son, Adelfo, and he reported that patient's dementia has been worsening, she had been taking Lasix for 2-3 weeks for LE edema, poor appetite recently. In ED, ammonia 56, AST is 86, ALT 54, alkaline phosphatase of 266. CXR with possible pneumonia. CT abd/pelvis obtained-- possible liver mass, ascites, small bilateral pleural effusions, anasarca. Liver CT obtained-- lesion within the medial right hepatic lobe and diffusely involving the left hepatic lobe, cirrhosis, portal venous thrombosis with involvement of the superior most aspect of the SMV and involvement of the left intrahepatic portal veins. Biopsy was of course recommended. Heme/onc was consulted-- stated of course this could be hepatocellular carcinoma, but could be mets from another distant site-- need biopsy for definitive diagnosis but given patient's poor performance status she is not a candidate for systemic therapy. AFP and CA 19-9 negative. CA 125 was 490-- pelvic ultrasound negative other than the known ascites. Patient had paracentesis on 01/16 with removal of 2.8L fluid. After much discussion and bedside visits with family, the decision was made to not pursue further biopsy and to take patient home with hospice care. Palliative care is consulted. -Patient to be seen by palliative MD this afternoon. She is not oriented to have discussion about goals of scare. -Called and spoke with patient's son Adelfo. He and his brother share POA, I believe. Adelfo confirms that kimani lives with him and will continue to live with him after hospitalization. He is in agreement with home hospice care and no further workup such as biopsy. -Adelfo's brother, Butch, is at the bedside this morning. Adelfo states that he can make all arrangements for hospice and choose agency. I did ask case assistant to go and speak with Butch to get home hospice set up. -Any further recommendations from palliative MD below. Patient may need another paracentesis for comfort prior to discharge based on her exam-- will defer to primary service. -PLease contact us with any further questions/concerns. (2) Liver lesion: (3) Liver cirrhosis: Ascites presence: with ascites Hepatic cirrhosis type: unspecified hepatic cirrhosis Qualified Code(s): K74.60 - Unspecified cirrhosis of liver; R18.8 - Other ascites (4) Anasarca: Supervising Physician Co-Signing Physician Notes Chart reviewed, patient seen and examined. No family at bedside. Collaborated with ADELINA Guadalupe. Patient appears comfortable at rest, is arousable to voice. Did asked patient if she was having pain and she responded no-not sure patient understands [place], may understand some. PE: Patient thin and cachectic NAD HEENT: EOMI, hearing appears normal Respirations: Clear breath sounds bilaterally, unlabored CV: Regular rate, 3+ lower extremity edema Abdomen: Soft, nontender, positive ascites Neuro: Easily aroused Agree with above note, assessment and plan as per ADELINA Guadalupe. Will continue to follow peripherally and assist family with any decision making should her condition change. History of Present Illness Attending Physician: Radha Johnson MD History of Present Illness This 89 year old female patient with PMH slow transit constipation, female stress incontinence, primary osteoarthritis involving multiple joints, senile dementia, and others, presented to the hospital with worsening abdominal distention and lower extremity edema. Patient lives with her son, Adelfo, and he reported that patient's dementia has been worsening, she had been taking Lasix for 2-3 weeks for LE edema, poor appetite recently. In ED, ammonia 56, AST is 86, ALT 54, alkaline phosphatase of 266. CXR with possible pneumonia. CT abd/pelvis obtained-- possible liver mass, ascites, small bilateral pleural effusions, anasarca. Liver CT obtained-- lesion within the medial right hepatic lobe and diffusely involving the left hepatic lobe, cirrhosis, portal venous thrombosis with involvement of the superior most aspect of the SMV and involvement of the left intrahepatic portal veins. Biopsy was of course recommended. Heme/onc was consulted-- stated of course this could be hepatocellular carcinoma, but could be mets from another distant site-- need biopsy for definitive diagnosis but given patient's poor performance status she is not a candidate for systemic therapy. AFP and CA 19-9 negative. CA 125 was 490-- pelvic ultrasound negative other than the known ascites. Patient had paracentesis on 01/16 with removal of 2.8L fluid. After much discussion and bedside visits with family, the decision was made to not pursue further biopsy and to take patient home with hospice care. Palliative care is consulted. Thank you kindly for this consult. Palliative care team will follow as needed. Allergies Allergy/AdvReac Type Severity Reaction Status Date / Time No Known Allergies Allergy Verified 01/15/20 20:12 Home Medications Home Medications Medication Instructions Recorded Confirmed Type acetaminophen [Tylenol Arthritis 650 mg PO Q12H PRN 06/24/19 01/15/20 History Pain] furosemide 20 mg PO DAILY PRN 06/28/19 01/15/20 History calcium carbonate-vitamin D3 1 tab PO DAILY 01/15/20 01/15/20 History [Calcium 600 + D(3)] cyanocobalamin (vitamin B-12) 1,000 mcg PO DAILY 01/15/20 01/15/20 History [Vitamin B-12] Patient History Medical History (Updated 01/25/20 @ 09:18 by ADELINA Keith) Constipation Dementia Liver cirrhosis Osteoarthritis (Chronic) Surgical History Cholecystitis with cholelithiasis (Chronic) Family History Mother No problems noted. Father No problems noted. 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 Beliefs That Will Affect Care: [employer] Current Living Situation: Family Current Living Situation Comment: lives with son and daughter in law Feels Safe at Home: Yes Smoking Status: Unknown if ever smoked Hx Alcohol Use: No Hx Substance Use: No Results & Data Vital Signs (Past 12 Hours) Vital Signs Temp Pulse Pulse Pulse Resp BP BP 01/25/20 07:12 36.6 C 72 16 100/65 01/25/20 05:23 86 01/25/20 03:57 36.0 C L 82 22 101/70 01/24/20 23:00 36.0 C L 87 20 91/63 L Pulse Ox 01/25/20 07:12 98 01/25/20 05:23 01/25/20 03:57 94 01/24/20 23:00 99 Coding Level of Care Code 91164 Inpt Consult Level 3 Diagnoses Goals of care, counseling/discussion Z71.89 Liver lesion K76.9 Liver cirrhosis K74.60; R18.8 Ascites presence: with ascites Hepatic cirrhosis type: unspecified hepatic cirrhosis Anasarca R60.1 Time Spent (min) 70 Time Spent Midlevel A total of 70 minutes spent by this HOSPICE AIDE in reviewing chart, speaking with atte nding and palliative physicians, case management, and patient's family regarding patient's condition, goals, plan and hospice.
[2020-01-25 12:39] LABS: Partial Thromboplastin Ratio 2.5
[2020-01-25 12:52] LABS: Partial Thromboplastin Time 69.4 Seconds (21.0-31.0)
--- NOTE | 2020-01-25 14:28 | Hospitalist Progress Note ---
Date of Service January 25, 2020 Assessment & Plan (1) Anasarca: Patient is an 89 yr female who presents with ongoing edema of lower extremity and ascites, and lately getting more confused, ambulatory dysfunction. Symptoms have been going on for the last 2 to 3 months and getting worse more recently No history of cirrhosis of liver Hepatic lesions suggestive of cirrhosis/malignancy CT of the abdomen and pelvis and CT of the liver:Diffuse progressively enhancing lesion within the medial right hepatic lobe and diffusely involving the left hepatic lobe Tumor markers including AFP, CA 199, acetic fluid malignancy, CEA are negative Ca1 25 is high at 460-we will ask for ultrasound of the pelvis to document any ovarian/adnexal CT did show nodules in the lung which showed suggestive of metastatic disease to Appreciate GI Input ARIS, antimitochondrial antibody, anti-smooth muscle antibody, transglutaminase IgA: pending Alpha-1 antitrypsin, ceruloplasmin pending S/P Diagnostic paracentesis Cytology: No malignant cells seen. Chronic inflammatory cells, histiocytes and mesothelial cells. Peritoneal fluid Culture: No growth to date Ascitic fluid Transudative Low-salt diet Appreciate Oncology Input Given elderly, debilitated, comorbidities--likely not a candidate for treatment for neoplastic disease Currently on IV heparin Likely transition to Eliquis eventually Has had a long discussion with the family members mainly her son Been not going to pursue any biopsy for now After discussion with the other family members the son decided for palliative care and hospice care at home from here Palliative consultation has been requested-appreciate input and recommendation Likely to be discharged on Tuesday Anasarca Failure to thrive 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 Grade 1 diastolic dysfunction. No significant valvular pathology. The sciatic fluid has reaccumulated Will likely need another paracentesis before discharge and periodically thereafter Started with a small dose of Lasix and Spironolactone Lactulose to induce diarrhea Will monitor creatinine electrolytes Clinically better today Metabolic encephalopathy Could be secondary to hepatic encephalopathy Condition improved Remains pleasantly confused Right LE DVT: Portal venous thrombosis LE Venous Doppler: Right lower extremity DVT as described above. No DVT within the left lower extremity. RUE Venous Doppler:No DVT within the right upper extremity. Continue IV heparin Transition to Eliquis as able. Hypernatremia In setting of Anasarca Urine lytes, osmolality ordered Appreciate Nephrology Input Monitor sodium levels:151>> 141>>139 Received gentle IV fluids Sodium level is 133 as of 01/23/2020 Acute kidney injury on CKD III--Resolved Monitor renal function Avoid nephrotoxic agents as able stable renal function Possible pneumonia on chest x-ray Saskia deescalated to roxi Joseph Blood Cultures: No growth to date Procalcitonin trending down Will finish oral doxycycline for about 7 days DVT Px: On IV heparin Code Status Conditional Code Disposition To be determined Palliative care consultation Discharged with home hospice Admission and Anticipated Discharge Date Admission Date: January 16, 2020 Subjective The patient was seen and examined in medical telemetry unit She was seen in presence of her son Remains very weak and lethargic but denies any acute distress 01/24/2020 The patient was seen and examined in medical floor in presence of son She remains stable and very weak and lethargic Denies any acute symptoms 01/25/2020 The patient was seen and examined in medical telemetry unit in presence of her son According to the son she has been feeling a little better She denies any acute pain or any acute distress Review of Systems Review of Systems: Difficult to obtain due to significant hearing loss and language barrier Physical Exam Physical Exam: Lying in bed without any acute distress Constitutional: + ill appearing and + thin; no acute distress Eyes: PERRL, conjunctivae normal, anicteric sclerae ENMT: external ear and nose normal, oropharynx normal Neck: trachea midline, no thyromegaly Respiratory: normal respiratory effort; no respiratory distress Auscultation: + diminished lung sounds and + crackles (Minimal bibasilar crackles) Cardiovascular: Rate/Rhythm: regular rate and regular rhythm Heart Sounds: no murmur Extremities: + edema (Bilateral leg edema of 1-2+) Gastrointestinal (Abdomen): Inspection/Auscultation: + abdomen distended and normal bowel sounds Percussion/Palpation: + abdomen tender, abdomen soft and + ascites; no hepatomegaly and no splenomegaly Musculoskeletal: No acute arthritis in any joints Neurologic: moves all extremities; no focal motor deficits Remains pleasantly confused as per the son Lymphatic: no cervical or axillary lymphadenopathy Results & Data Results & Data ([facility]) Vital Signs (Past 12 Hours) Vital Signs Temp Pulse Pulse Pulse Resp BP BP 01/25/20 11:46 93 H 01/25/20 11:28 36.4 C L 79 18 113/69 01/25/20 07:12 36.6 C 72 16 100/65 01/25/20 05:23 86 01/25/20 03:57 36.0 C L 82 22 101/70 Pulse Ox 01/25/20 11:46 01/25/20 11:28 01/25/20 07:12 98 01/25/20 05:23 01/25/20 03:57 94 Medications Administered Current Inpatient Medications Cyanocobalamin (Vitamin B-12) 1,000 mcg PO DAILY [facility] Stop: 02/15/20 08:59 Last Admin: 01/25/20 08:03 Dose: 1,000 mcg Documented by: Furosemide (Lasix) 40 mg PO QAM [facility] Stop: 02/23/20 16:44 Last Admin: 01/25/20 08:03 Dose: 40 mg Documented by: Heparin Sodium/Dextrose (Heparin Sodium/Dextrose) 25,000 units in 500 mls @ 4 mls/hr IV .Q24H [facility]; Protocol Stop: 02/17/20 13:14 Last Titration: 01/25/20 13:01 Dose: 200 units/hr, 4 mls/hr Documented by: Sodium Chloride (Nss 1000ml) 1,000 mls @ 15 mls/hr IV .Q24H [facility] Stop: 02/23/20 22:29 Last Admin: 01/24/20 23:35 Dose: 15 mls/hr Documented by: Lactulose (Chronulac) 20 gm PO BID [facility] Stop: 02/23/20 20:59 Last Admin: 01/25/20 08:02 Dose: 20 gm Documented by: Nitroglycerin (Nitrostat) 0.4 mg SL UD PRN PRN Reason: Chest Pain Stop: 02/15/20 04:50 Ondansetron HCl (Zofran) 4 mg IV Q6H PRN PRN Reason: Nausea Stop: 02/15/20 04:50 Spironolactone (Aldactone) 12.5 mg PO DAILY [facility] Stop: 02/24/20 08:59 Last Admin: 01/25/20 08:03 Dose: 12.5 mg Documented by:
[2020-01-25] MEDS ORDERED: SODIUM CHLORIDE 0.9% 500 ML IV ONE (16:30)
[2020-01-25 19:38] LABS: Partial Thromboplastin Ratio 1.9
[2020-01-25 20:25] LABS: Partial Thromboplastin Time 52.1 Seconds (21.0-31.0)
[2020-01-26] MEDS ORDERED: Nursing to Pharmacy Communication ONE ×2 (00:02→11:29)
[2020-01-26] MEDS: HEPARIN SODIUM/DEXTROSE 25,000 UNITS/500 ML BAG IV SCH (00:21)
[2020-01-26] MEDS: SPIRONOLACTONE 12.5 MG TAB PO SCH (07:38)
[2020-01-26] MEDS: CYANOCOBALAMIN 500 MCG TABLET (VITAMIN B-12) PO SCH (07:38)
[2020-01-26] MEDS: FUROSEMIDE 40 MG TAB PO SCH (07:38)
[2020-01-26] MEDS: LACTULOSE SYRUP 20 GM/30 ML UDC PO SCH ×2 (07:38→21:40)
[2020-01-26 08:38] LABS: Basophils # (auto) 0.02 K/uL (0-0.2); Basophils % (auto) 0.1 %; Eosinophils # (auto) 0.05 K/uL (0-0.5); Eosinophils % (auto) 0.3 %; Hematocrit (blood only) 39.2 % (37-47); Immature Granulocytes # (auto) 0.02 K/uL (0.00-0.02); Immature Granulocytes % (auto) 0.1 %; Lymphocytes # (auto) 2.74 K/uL (1.2-3.4); Lymphocytes % (auto) 18.7 %; Mean Corpuscular Hgb Conc 33.2 g/dL (32-36); Mean Corpuscular Volume 90.5 fL (80-100); Mean Platelet Volume 10.3 fL (7.4-10.4); Monocytes # (auto) 0.91 K/uL (0.11-0.59); Monocytes % (auto) 6.2 %; Neutrophils # (auto) 10.92 K/uL (1.4-6.5); Neutrophils % (auto) 74.6 %; Platelet Count 171 K/uL (130-400); RDW Standard Deviation 55.9 fL (36.4-46.3); Red Blood Count 4.33 M/uL (4.2-5.4); White Blood Count 14.66 K/uL (4.8-10.8)
[2020-01-26 08:50] LABS: Partial Thromboplastin Ratio 1.2; Partial Thromboplastin Time 32.8 Seconds (21.0-31.0)
[2020-01-26 09:13] LABS: Albumin Level 1.5 gm/dl (3.4-5.0); BUN Creatinine Ratio 66.5 (10-20); Calcium 8.1 mg/dl (8.5-10.1); Creatinine Clr Calc Pharmacy 28.8 ml/min; Est GFR (African American) 56.9; Est GFR (Non-African American) 49.1; Potassium 4.8 mmol/L (3.5-5.1)
[2020-01-26 09:16] LABS: Albumin Globulin Ratio 0.3 (0.9-2); Bilirubin,Total 0.5 mg/dl (0.2-1); Globulin 4.5 gm/dl (2.5-4.0)
[2020-01-26] MEDS: SODIUM CHLORIDE 0.9% 1000ML 1,000 ML IV SCH (09:30)
[2020-01-26] MEDS: APIXABAN 2.5 MG TAB PO SCH ×2 (12:33→21:39)
--- NOTE | 2020-01-26 12:54 | Hospitalist Progress Note ---
Date of Service January 26, 2020 Assessment & Plan (1) Anasarca: Patient is an 89 yr female who presents with ongoing edema of lower extremity and ascites, and lately getting more confused, ambulatory dysfunction. Symptoms have been going on for the last 2 to 3 months and getting worse more recently No history of cirrhosis of liver Hepatic lesions suggestive of cirrhosis/malignancy CT of the abdomen and pelvis and CT of the liver:Diffuse progressively enhancing lesion within the medial right hepatic lobe and diffusely involving the left hepatic lobe Tumor markers including AFP, CA 199, acetic fluid malignancy, CEA are negative Ca1 25 is high at 460-we will ask for ultrasound of the pelvis to document any ovarian/adnexal CT did show nodules in the lung which showed suggestive of metastatic disease to Appreciate GI Input ARIS, antimitochondrial antibody, anti-smooth muscle antibody, transglutaminase IgA: pending Alpha-1 antitrypsin, ceruloplasmin pending S/P Diagnostic paracentesis Cytology: No malignant cells seen. Chronic inflammatory cells, histiocytes and mesothelial cells. Peritoneal fluid Culture: No growth to date Ascitic fluid Transudative Low-salt diet Appreciate Oncology Input Given elderly, debilitated, comorbidities--likely not a candidate for treatment for neoplastic disease Currently on IV heparin Likely transition to Eliquis eventually Has had a long discussion with the family members mainly her son Been not going to pursue any biopsy for now After discussion with the other family members the son decided for palliative care and hospice care at home from here Palliative consultation has been requested-appreciate input and recommendation Likely to be discharged on Tuesday Anasarca Failure to thrive 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 Grade 1 diastolic dysfunction. No significant valvular pathology. The sciatic fluid has reaccumulated Will likely need another paracentesis before discharge and periodically thereafter Started with a small dose of Lasix and Spironolactone Lactulose to induce diarrhea Clinically much better Kidney function and electrolytes remain unremarkable We will continue Lasix and his prolactin Metabolic encephalopathy Could be secondary to hepatic encephalopathy Condition improved Remains pleasantly confused Right LE DVT: Portal venous thrombosis LE Venous Doppler: Right lower extremity DVT as described above. No DVT within the left lower extremity. RUE Venous Doppler:No DVT within the right upper extremity. Continue IV heparin Transition to Eliquis as able. Eliquis 2.5 mg twice daily has been started Hypernatremia In setting of Anasarca Urine lytes, osmolality ordered Appreciate Nephrology Input Monitor sodium levels:151>> 141>>139 Received gentle IV fluids Sodium level is 133 as of 01/23/2020 Acute kidney injury on CKD III--Resolved Monitor renal function Avoid nephrotoxic agents as able stable renal function Possible pneumonia on chest x-ray Saskia deescalated to roxi Joseph Blood Cultures: No growth to date Procalcitonin trending down Will finish oral doxycycline for about 7 days Doxycycline has been discontinued DVT Px: On IV heparin Code Status Conditional Code Disposition To be determined Palliative care consultation Discharged with home hospice-likely on Tuesday Admission and Anticipated Discharge Date Admission Date: January 16, 2020 Subjective The patient was seen and examined in medical telemetry unit She was seen in presence of her son Remains very weak and lethargic but denies any acute distress 01/24/2020 The patient was seen and examined in medical floor in presence of son She remains stable and very weak and lethargic Denies any acute symptoms 01/25/2020 The patient was seen and examined in medical telemetry unit in presence of her son According to the son she has been feeling a little better She denies any acute pain or any acute distress 01/26/2020 Patient was seen and examined in medical telemetry unit in presence of the daughter She looks much better today feels generally weak but denies any acute distress Blood pressure seems to be better as of this morning, systolic being more than 100 Review of Systems Review of Systems: Difficult to obtain due to significant hearing loss and language barrier Physical Exam Physical Exam: Lying in bed without any acute distress Constitutional: + ill appearing and + thin; no acute distress Eyes: PERRL, conjunctivae normal, anicteric sclerae ENMT: external ear and nose normal, oropharynx normal Neck: trachea midline, no thyromegaly Respiratory: normal respiratory effort and + respiratory distress (Minimal shortness of breath at rest) Auscultation: + diminished lung sounds and + crackles (Minimal bibasilar crackles) Cardiovascular: Rate/Rhythm: regular rate and regular rhythm Heart Sounds: no murmur Extremities: + edema (Bilateral leg edema of 1-2+) Gastrointestinal (Abdomen): Inspection/Auscultation: + abdomen distended and normal bowel sounds Percussion/Palpation: + abdomen tender, abdomen soft and + ascites; no hepatomegaly and no splenomegaly Musculoskeletal: No acute arthritis involving any joints Neurologic: moves all extremities; no focal motor deficits Pleasantly confused Lymphatic: no cervical or axillary lymphadenopathy Results & Data Results & Data ([facility]) Vital Signs (Past 12 Hours) Vital Signs Temp Pulse Pulse Resp BP BP Pulse Ox 01/26/20 11:51 36.4 C L 97 H 17 102/72 99 01/26/20 05:34 36.0 C L 94 H 20 92/49 L 100 01/26/20 01:00 80 Laboratory Results Short CBC 01/26/20 Range/Units 08:25 WBC 14.66 H (4.8-10.8) K/uL Hgb 13.0 (12.0-16.0) g/dL Hct 39.2 (37-47) % Plt Count 171 (130-400) K/uL BMP 01/26/20 08:25 Sodium 135 L Potassium 4.8 Chloride 107 Carbon Dioxide 23 BUN 68 H Creatinine 1.02 Glucose 79 Calcium 8.1 L Liver Function 01/26/20 Range/Units 08:25 Total Bilirubin 0.5 (0.2-1) mg/dl AST 70 H (15-37) U/L ALT 41 (12-78) U/L Alkaline Phosphatase 209 H (45-117) U/L Albumin 1.5 L (3.4-5.0) gm/dl Medications Administered Current Inpatient Medications Apixaban (Eliquis) 2.5 mg PO BID [facility] Stop: 02/25/20 11:59 Last Admin: 01/26/20 12:33 Dose: 2.5 mg Documented by: Cyanocobalamin (Vitamin B-12) 1,000 mcg PO DAILY [facility] Stop: 02/15/20 08:59 Last Admin: 01/26/20 07:38 Dose: 1,000 mcg Documented by: Furosemide (Lasix) 40 mg PO QAM [facility] Stop: 02/23/20 16:44 Last Admin: 01/26/20 07:38 Dose: 40 mg Documented by: Sodium Chloride (Nss 1000ml) 1,000 mls @ 15 mls/hr IV .Q24H [facility] Stop: 02/23/20 22:29 Last Admin: 01/26/20 09:30 Dose: 15 mls/hr Documented by: Lactulose (Chronulac) 20 gm PO BID [facility] Stop: 02/23/20 20:59 Last Admin: 01/26/20 07:38 Dose: 20 gm Documented by: Nitroglycerin (Nitrostat) 0.4 mg SL UD PRN PRN Reason: Chest Pain Stop: 02/15/20 04:50 Ondansetron HCl (Zofran) 4 mg IV Q6H PRN PRN Reason: Nausea Stop: 02/15/20 04:50 Spironolactone (Aldactone) 12.5 mg PO DAILY [facility] Stop: 02/24/20 08:59 Last Admin: 01/26/20 07:38 Dose: 12.5 mg Documented by:
[2020-01-27] MEDS: FUROSEMIDE 40 MG TAB PO SCH (08:44)
[2020-01-27] MEDS: CYANOCOBALAMIN 500 MCG TABLET (VITAMIN B-12) PO SCH (08:44)
[2020-01-27] MEDS: SPIRONOLACTONE 12.5 MG TAB PO SCH (08:44)
[2020-01-27] MEDS: APIXABAN 2.5 MG TAB PO SCH ×2 (08:44→20:36)
[2020-01-27] MEDS: LACTULOSE SYRUP 20 GM/30 ML UDC PO SCH ×2 (08:45→20:36)
--- NOTE | 2020-01-27 09:48 | XRay Report ---
XR chest 1V portable CLINICAL HISTORY: chf dyspnea COMPARISON STUDY: 01/15/2020 FINDINGS: Minimal parenchymal infiltrative change left base improved from the prior study. Improved p ulmonary vasculature. Severe degenerative change of the shoulders bilaterally considered unchanged. IMPRESSION: Improved exam from the prior study. Minimal residual infiltrative change left lung base. ACT 112: Negative or not required by law. The above report was generated using voice recognition software. It may contain grammatical, syntax or spelling errors. Electronically signed by: Farshad Art M.D. 01/27/2020 9:46 AM
--- NOTE | 2020-01-27 11:23 | Hospitalist Progress Note ---
Date of Service January 27, 2020 Assessment & Plan (1) Anasarca: Patient is an 89 yr female who presents with ongoing edema of lower extremity and ascites, and lately getting more confused, ambulatory dysfunction. Symptoms have been going on for the last 2 to 3 months and getting worse more recently No history of cirrhosis of liver Hepatic lesions suggestive of cirrhosis/malignancy CT of the abdomen and pelvis and CT of the liver:Diffuse progressively enhancing lesion within the medial right hepatic lobe and diffusely involving the left hepatic lobe Tumor markers including AFP, CA 199, acetic fluid malignancy, CEA are negative Ca1 25 is high at 460-we will ask for ultrasound of the pelvis to document any ovarian/adnexal CT did show nodules in the lung which showed suggestive of metastatic disease to Appreciate GI Input ARIS, antimitochondrial antibody, anti-smooth muscle antibody, transglutaminase IgA: pending Alpha-1 antitrypsin, ceruloplasmin pending S/P Diagnostic paracentesis Cytology: No malignant cells seen. Chronic inflammatory cells, histiocytes and mesothelial cells. Peritoneal fluid Culture: No growth to date Ascitic fluid Transudative Low-salt diet Appreciate Oncology Input Given elderly, debilitated, comorbidities--likely not a candidate for treatment for neoplastic disease Currently on IV heparin Likely transition to Eliquis eventually Has had a long discussion with the family members mainly her son Been not going to pursue any biopsy for now After discussion with the other family members the son decided for palliative care and hospice care at home from here Palliative consultation has been requested-appreciate input and recommendation Remains stable without any acute distress Likely discharge tomorrow with hospice care at home Anasarca Failure to thrive 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 Grade 1 diastolic dysfunction. No significant valvular pathology. The sciatic fluid has reaccumulated Will likely need another paracentesis before discharge and periodically thereafter Started with a small dose of Lasix and Spironolactone Lactulose to induce diarrhea Clinically much better Kidney function and electrolytes remain unremarkable We will continue Lasix and his Spironolactone Has been tolerating Lasix and spironolactone Will have another paracentesis tomorrow and PRP Metabolic encephalopathy Could be secondary to hepatic encephalopathy Condition improved Remains pleasantly confused Seems to be at her baseline Right LE DVT: Portal venous thrombosis LE Venous Doppler: Right lower extremity DVT as described above. No DVT within the left lower extremity. RUE Venous Doppler:No DVT within the right upper extremity. Continue IV heparin Transition to Eliquis as able. Eliquis 2.5 mg twice daily has been started We will discuss with family physician Dr. Mars about Eliquis on discharge Hypernatremia In setting of Anasarca Urine lytes, osmolality ordered Appreciate Nephrology Input Monitor sodium levels:151>> 141>>139 Received gentle IV fluids Sodium level is 133 as of 01/23/2020 Acute kidney injury on CKD III--Resolved Monitor renal function Avoid nephrotoxic agents as able stable renal function Possible pneumonia on chest x-ray Zosyn deescalated to Rocephinshravany Blood Cultures: No growth to date Procalcitonin trending down Will finish oral doxycycline for about 7 days Doxycycline has been discontinued Chest x-ray is unremarkable DVT Px: On IV heparin Code Status Conditional Code Disposition To be determined Palliative care consultation Discharged with home hospice-likely on Tuesday Admission and Anticipated Discharge Date Admission Date: January 16, 2020 Subjective The patient was seen and examined in medical telemetry unit She was seen in presence of her son Remains very weak and lethargic but denies any acute distress 01/24/2020 The patient was seen and examined in medical floor in presence of son She remains stable and very weak and lethargic Denies any acute symptoms 01/25/2020 The patient was seen and examined in medical telemetry unit in presence of her son According to the son she has been feeling a little better She denies any acute pain or any acute distress 01/26/2020 Patient was seen and examined in medical telemetry unit in presence of the daughter She looks much better today feels generally weak but denies any acute distress Blood pressure seems to be better as of this morning, systolic being more than 100 01/27/2020 The patient was seen and examined in the medical floor in presence of her daughter She remains stable without any acute distress Generally very weak and lethargic Review of Systems Review of Systems: Difficult to obtain due to significant hearing loss and language barrier Physical Exam Physical Exam: Lying in bed without any acute distress Constitutional: + ill appearing and + thin; no acute distress Eyes: PERRL, conjunctivae normal, anicteric sclerae ENMT: external ear and nose normal, oropharynx normal Neck: trachea midline, no thyromegaly Respiratory: normal respiratory effort; no respiratory distress (Minimal shortness of breath at rest) Auscultation: + diminished lung sounds and + crackles (Minimal bibasilar crackles) Cardiovascular: Rate/Rhythm: regular rate and regular rhythm Heart Sounds: no murmur Extremities: + edema (Bilateral leg edema of 1-2+) Gastrointestinal (Abdomen): Inspection/Auscultation: + abdomen distended and normal bowel sounds Percussion/Palpation: + abdomen tender, abdomen soft and + ascites; no hepatomegaly and no splenomegaly Musculoskeletal: No acute arthritis involving any joints Neurologic: moves all extremities; no focal motor deficits Extremely tired and lethargic. Lymphatic: no cervical or axillary lymphadenopathy Results & Data Results & Data ([facility]) Vital Signs (Past 12 Hours) Vital Signs Temp Pulse Pulse Resp BP BP Pulse Ox 01/27/20 08:14 36.3 C L 99 H 18 126/70 97 01/27/20 07:37 96 H 01/27/20 04:45 36.3 C L 99 H 17 98/52 L 100 01/27/20 00:15 99 H Medications Administered Current Inpatient Medications Apixaban (Eliquis) 2.5 mg PO BID [facility] Stop: 02/25/20 11:59 Last Admin: 01/27/20 08:44 Dose: 2.5 mg Documented by: Cyanocobalamin (Vitamin B-12) 1,000 mcg PO DAILY [facility] Stop: 02/15/20 08:59 Last Admin: 01/27/20 08:44 Dose: 1,000 mcg Documented by: Furosemide (Lasix) 40 mg PO QAM [facility] Stop: 02/23/20 16:44 Last Admin: 01/27/20 08:44 Dose: 40 mg Documented by: Lactulose (Chronulac) 20 gm PO BID [facility] Stop: 02/23/20 20:59 Last Admin: 01/27/20 08:45 Dose: 20 gm Documented by: Nitroglycerin (Nitrostat) 0.4 mg SL UD PRN PRN Reason: Chest Pain Stop: 02/15/20 04:50 Ondansetron HCl (Zofran) 4 mg IV Q6H PRN PRN Reason: Nausea Stop: 02/15/20 04:50 Spironolactone (Aldactone) 12.5 mg PO DAILY [facility] Stop: 02/24/20 08:59 Last Admin: 01/27/20 08:44 Dose: 12.5 mg Documented by:
[2020-01-28 07:20] LABS: Basophils # (auto) 0.02 K/uL (0-0.2); Basophils % (auto) 0.2 %; Eosinophils # (auto) 0.04 K/uL (0-0.5); Eosinophils % (auto) 0.4 %; Hematocrit (blood only) 39.6 % (37-47); Hemoglobin 13.2 g/dL (12.0-16.0); Immature Granulocytes # (auto) 0.02 K/uL (0.00-0.02); Immature Granulocytes % (auto) 0.2 %; Lymphocytes # (auto) 2.03 K/uL (1.2-3.4); Lymphocytes % (auto) 18.4 %; Mean Corpuscular Hemoglobin 30.4 pg (25-34); Mean Corpuscular Hgb Conc 33.3 g/dL (32-36); Mean Corpuscular Volume 91.2 fL (80-100); Mean Platelet Volume 11.3 fL (7.4-10.4); Monocytes # (auto) 0.67 K/uL (0.11-0.59); Monocytes % (auto) 6.1 %; Neutrophils # (auto) 8.23 K/uL (1.4-6.5); Neutrophils % (auto) 74.7 %; Platelet Count 146 K/uL (130-400); RDW Coefficient of Variation 17.1 % (11.5-14.5); RDW Standard Deviation 56.9 fL (36.4-46.3); Red Blood Count 4.34 M/uL (4.2-5.4); White Blood Count 11.01 K/uL (4.8-10.8)
[2020-01-28 07:54] LABS: Albumin Level 1.5 gm/dl (3.4-5.0); BUN Creatinine Ratio 63.2 (10-20); Calcium 8.6 mg/dl (8.5-10.1); Creatinine Clr Calc Pharmacy 25.3 ml/min; Est GFR (African American) 49.7; Est GFR (Non-African American) 42.9; Magnesium 2.4 mg/dl (1.8-2.4); Potassium 5.1 mmol/L (3.5-5.1)
[2020-01-28 07:57] LABS: Albumin Globulin Ratio 0.3 (0.9-2); Bilirubin,Total 0.6 mg/dl (0.2-1); Globulin 4.3 gm/dl (2.5-4.0); Phosphorus 4.2 mg/dl (2.5-4.9); Total Protein 5.8 gm/dl (6.4-8.2)
[2020-01-28] MEDS: APIXABAN 2.5 MG TAB PO SCH (08:25)
[2020-01-28] MEDS: CYANOCOBALAMIN 500 MCG TABLET (VITAMIN B-12) PO SCH (08:26)
[2020-01-28] MEDS: SPIRONOLACTONE 12.5 MG TAB PO SCH (08:26)
[2020-01-28] MEDS: FUROSEMIDE 40 MG TAB PO SCH (08:27)
[2020-01-28] MEDS: LACTULOSE SYRUP 20 GM/30 ML UDC PO SCH (08:27)
[2020-01-28] MEDS: ALBUMIN 25% 50 ML IV SCH ×2 (12:50→14:12)
--- NOTE | 2020-01-28 13:16 | Hospitalist Progress Note ---
Date of Service January 28, 2020 Assessment & Plan (1) Anasarca: Patient is an 89 yr female who presents with ongoing edema of lower extremity and ascites, and lately getting more confused, ambulatory dysfunction. Symptoms have been going on for the last 2 to 3 months and getting worse more recently No history of cirrhosis of liver Hepatic lesions suggestive of cirrhosis/malignancy CT of the abdomen and pelvis and CT of the liver:Diffuse progressively enhancing lesion within the medial right hepatic lobe and diffusely involving the left hepatic lobe Tumor markers including AFP, CA 199, acetic fluid malignancy, CEA are negative Ca1 25 is high at 460-we will ask for ultrasound of the pelvis to document any ovarian/adnexal CT did show nodules in the lung which showed suggestive of metastatic disease to Appreciate GI Input ARIS, antimitochondrial antibody, anti-smooth muscle antibody, transglutaminase IgA: pending Alpha-1 antitrypsin, ceruloplasmin pending S/P Diagnostic paracentesis Cytology: No malignant cells seen. Chronic inflammatory cells, histiocytes and mesothelial cells. Peritoneal fluid Culture: No growth to date Ascitic fluid Transudative Low-salt diet Appreciate Oncology Input Given elderly, debilitated, comorbidities--likely not a candidate for treatment for neoplastic disease Currently on IV heparin Likely transition to Eliquis eventually Has had a long discussion with the family members mainly her son Been not going to pursue any biopsy for now After discussion with the other family members the son decided for palliative care and hospice care at home from here Palliative consultation has been requested-appreciate input and recommendation No acute symptoms from the hepatic lesion Anasarca Failure to thrive 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 Grade 1 diastolic dysfunction. No significant valvular pathology. The sciatic fluid has reaccumulated Will likely need another paracentesis before discharge and periodically thereafter Started with a small dose of Lasix and Spironolactone Lactulose to induce diarrhea Clinically much better Kidney function and electrolytes remain unremarkable We will continue Lasix and his Spironolactone Has been tolerating Lasix and spironolactone Will have another paracentesis tomorrow and PRP Will have paracentesis this afternoon She will receive albumin 25 g of 25% IV Discharged home this afternoon with home hospice Metabolic encephalopathy Could be secondary to hepatic encephalopathy Condition improved Remains pleasantly confused Seems to be at her baseline Clinically improved a lot Right LE DVT: Portal venous thrombosis LE Venous Doppler: Right lower extremity DVT as described above. No DVT within the left lower extremity. RUE Venous Doppler:No DVT within the right upper extremity. Continue IV heparin Transition to Eliquis as able. Eliquis 2.5 mg twice daily has been started We will continue Eliquis 2.5 mg twice daily Hypernatremia In setting of Anasarca Urine lytes, osmolality ordered Appreciate Nephrology Input Monitor sodium levels:151>> 141>>139 Received gentle IV fluids Sodium level is 133 as of 01/23/2020 Sodium level is normal at 138 Acute kidney injury on CKD III--Resolved Monitor renal function Avoid nephrotoxic agents as able stable renal function Possible pneumonia on chest x-ray Saskia deescalated to roxi Joseph Blood Cultures: No growth to date Procalcitonin trending down Will finish oral doxycycline for about 7 days Doxycycline has been discontinued Repeat chest x-ray is unremarkable DVT Px: On IV heparin Code Status Conditional Code Disposition To be determined Palliative care consultation We will discharge this afternoon with hospice care at home Admission and Anticipated Discharge Date Admission Date: January 16, 2020 Subjective The patient was seen and examined in medical telemetry unit She was seen in presence of her son Remains very weak and lethargic but denies any acute distress 01/24/2020 The patient was seen and examined in medical floor in presence of son She remains stable and very weak and lethargic Denies any acute symptoms 01/25/2020 The patient was seen and examined in medical telemetry unit in presence of her son According to the son she has been feeling a little better She denies any acute pain or any acute distress 01/26/2020 Patient was seen and examined in medical telemetry unit in presence of the daughter She looks much better today feels generally weak but denies any acute distress Blood pressure seems to be better as of this morning, systolic being more than 100 01/27/2020 The patient was seen and examined in the medical floor in presence of her daughter She remains stable without any acute distress Generally very weak and lethargic 01/28/2020 The patient was seen and examined in medical floor in the presence of the daughter She has been feeling a lot better without any acute distress at rest She is trying to communicate with family members and has been trying to eat something Review of Systems Review of Systems: Difficult to obtain due to significant hearing loss and language barrier Physical Exam Physical Exam: Lying in bed without any acute distress Constitutional: + ill appearing and + thin; no acute distress Eyes: PERRL, conjunctivae normal, anicteric sclerae ENMT: external ear and nose normal, oropharynx normal Neck: trachea midline, no thyromegaly Respiratory: normal respiratory effort; no respiratory distress (Minimal alycia rtness of breath at rest) Auscultation: lungs clear to auscultation bilaterally; no diminished lung sounds and no crackles (Minimal bibasilar crackles) Cardiovascular: Rate/Rhythm: regular rate and regular rhythm Heart Sounds: no murmur Extremities: + edema (Bilateral leg edema of 1-2+-much improved) Gastrointestinal (Abdomen): Inspection/Auscultation: + abdomen distended and normal bowel sounds Percussion/Palpation: + abdomen tender, abdomen soft and + ascites; no hepatomegaly and no splenomegaly Musculoskeletal: No acute arthritis involving any joints Neurologic: moves all extremities; no focal motor deficits Generally weak and lethargic .pleasantly confused Lymphatic: no cervical or axillary lymphadenopathy Results & Data Results & Data ([facility]) Vital Signs (Past 12 Hours) Vital Signs Temp Pulse Resp BP Pulse Ox 01/28/20 11:22 35.8 C L 95 H 20 90/60 L 98 01/28/20 07:55 36.4 C L 82 20 109/77 90 01/28/20 04:00 36.3 C L 96 H 18 130/81 100 Laboratory Results Short CBC 01/28/20 Range/Units 06:43 WBC 11.01 H (4.8-10.8) K/uL Hgb 13.2 (12.0-16.0) g/dL Hct 39.6 (37-47) % Plt Count 146 (130-400) K/uL BMP 01/28/20 06:43 Sodium 138 Potassium 5.1 Chloride 110 H Carbon Dioxide 21 BUN 72 H Creatinine 1.14 Glucose 81 Calcium 8.6 Liver Function 01/28/20 Range/Units 06:43 Total Bilirubin 0.6 (0.2-1) mg/dl AST 66 H (15-37) U/L ALT 38 (12-78) U/L Alkaline Phosphatase 190 H (45-117) U/L Albumin 1.5 L (3.4-5.0) gm/dl Medications Administered Current Inpatient Medications Apixaban (Eliquis) 2.5 mg PO BID [facility] Stop: 02/25/20 11:59 Last Admin: 01/28/20 08:25 Dose: 2.5 mg Documented by: Cyanocobalamin (Vitamin B-12) 1,000 mcg PO DAILY [facility] Stop: 02/15/20 08:59 Last Admin: 01/28/20 08:26 Dose: 1,000 mcg Documented by: Furosemide (Lasix) 40 mg PO QAM [facility] Stop: 02/23/20 16:44 Last Admin: 01/28/20 08:27 Dose: 40 mg Documented by: Albumin Human (Albumin 25%) 50 mls @ 50 mls/hr IV Q1H [facility] Stop: 01/28/20 13:59 Last Admin: 01/28/20 12:50 Dose: 50 mls/hr Documented by: Lactulose (Chronulac) 20 gm PO BID [facility] Stop: 02/23/20 20:59 Last Admin: 01/28/20 08:27 Dose: 20 gm Documented by: Nitroglycerin (Nitrostat) 0.4 mg SL UD PRN PRN Reason: Chest Pain Stop: 02/15/20 04:50 Ondansetron HCl (Zofran) 4 mg IV Q6H PRN PRN Reason: Nausea Stop: 02/15/20 04:50 Spironolactone (Aldactone) 12.5 mg PO DAILY [facility] Stop: 02/24/20 08:59 Last Admin: 01/28/20 08:26 Dose: 12.5 mg Documented by:
--- NOTE | 2020-01-28 15:01 | Ultrasound Report ---
PARACENTESIS UNDER ULTRASOUND GUIDANCE CLINICAL HISTORY: Abdominal ascites. COMPARISON STUDY: Abdominal CT dated 01/17/2020. PROCEDURE: The risks, benefits, and alternatives to the procedure were discussed with the patient who voiced understanding. Written informed consent was obtained. Following real-time ultrasound localiza tion of a suitable pocket of fluid in the right lower quadrant, the abdomen was prepped and draped in the usual sterile fashion. The skin and soft tissues were anesthetized with 1% lidocaine. The sheath ed paracentesis needle was inserted and approximately 2 liters of straw-colored ascitic fluid was rem moose by vacuum suction. The procedure was well tolerated and without immediate complication. The geneva ent left the department in satisfactory condition. IMPRESSION: Successful ultrasound-guided paracentesis with removal of approximately 2 liters of ascit ic fluid. ACT 112: Negative or not required by law. Electronically signed by: Sheng Bojorquez M.D. 01/28/2020 3:00 PM
--- NOTE | 2020-01-29 08:26 | Discharge Summary ---
Date of Service January 29, 2020 Admission HPI Per Admitting Provider DICTATED BY: Torey Mclain MD DATE OF ADMISSION: 01/16/2020 CHIEF COMPLAINT: Lethargy, volume overload. HISTORY OF PRESENT ILLNESS: This is an 89-year-old female with past medical history significant for slow transit constipation, female stress incontinence, primary osteoarthritis involving multiple joints, senile dementia, lives with her son, was brought in because of worsening abdominal distention and also lower extremity edema. The patient is a poor historian. She speaks only Kandy. She is not able to answer any questions, but she seems comfortable. Son was able to give the history. As per the son, since last 2-3 months she was having lower extremity edema. She was getting Lasix 2 to 3 times a week and she also had bluish purplish discoloration of the feet on and off, the Lasix did seem to help, but not much. Since about a month ago, he also noticed abdominal distention.She also has dementia and on and off sometimes she does not recognize him, but on the phone she recognizes his sister and other brother, but lately is having some difficulty in talking. Appetite has come down and before she was able to ambulate with some partial assistance, but now frequently requiring full assistance.No fever, no cough, no nausea, no vomiting, no diarrhea. Currently, the patient is hemodynamically stable. Admission Exam Per Admitting Provider GENERAL: The patient is old and frail, not in acute distress. VITAL SIGNS: Temperature afebrile, pulse 80, respiratory rate 13, blood pressure 125/72, oxygen 95% on room air. HEENT: No pallor, no icterus. NECK: No neck masses seen. CARDIOVASCULAR: S1, S2 heard, regular rate and rhythm, no murmur, no gallop. RESPIRATORY SYSTEM: Normal AP diameter normal. No accessory muscle use. No wheezing, no crackles. ABDOMEN: Soft, somewhat distended. Bowel sounds present. Nontender. CENTRAL NERVOUS SYSTEM: The patient is not able to answer any questions. EXTREMITIES: Lower extremity +2 edema present with some purple discoloration of the feet. Principal Diagnosis Anasarca, secondary to cirrhosis of the liver and possible complication with hepatocellular carcinoma, right leg DVT Discharge Exam Constitutional + ill appearing and + thin; no acute distress Eyes PERRL, conjunctivae normal, anicteric sclerae ENMT external ear and nose normal, oropharynx normal Neck trachea midline, no thyromegaly Respiratory normal respiratory effort; no respiratory distress (Minimal shortness of breath at rest) Auscultation: lungs clear to auscultation bilaterally; no diminished lung sounds and no crackles (Minimal bibasilar crackles) Cardiovascular Rate/Rhythm: regular rate and regular rhythm Heart Sounds: no murmur Extremities: + edema (Bilateral leg edema of 1-2+-much improved) Gastrointestinal (Abdomen) Inspection/Auscultation: + abdomen distended and normal bowel sounds Percussion/Palpation: + abdomen tender, abdomen soft and + ascites; no hepatomegaly and no splenomegaly Neurologic moves all extremities; no focal motor deficits Lymphatic no cervical or axillary lymphadenopathy Discharge Data Allergies Allergy/AdvReac Type Severity Reaction Status Date / Time No Known Allergies Allergy Verified 01/15/20 20:12 Consultations 01/16/20 00:08 ED Decision to Admit Stat 01/16/20 04:51 Consult Case Management - Discharge Planning Routine 01/16/20 08:00 Consult Gastroenterology Routine 01/16/20 09:15 Consult Nephrology Routine 01/18/20 14:21 Consult Oncology Routine 01/24/20 09:41 Consult Palliative Care Routine Ordered Studies 01/15/20 22:11 CT head/brain wo con Urgent 01/16/20 04:51 CT abd pelvis wo con Urgent 01/17/20 10:15 CT liver wo/w con Routine 01/17/20 12:43 US paracentesis abd w/image Routine 01/18/20 08:22 US venous doppler LE BI Stat 01/18/20 08:57 US venous doppler UE RT Routine 01/23/20 13:33 US pelvic limited Routine 01/28/20 13:00 US paracentesis abd w/image Routine Hospital Course (1) Anasarca: Patient is an 89 yr female who presents with ongoing edema of lower extremity and ascites, and lately getting more confused, ambulatory dysfunction. Symptoms have been going on for the last 2 to 3 months and getting worse more recently No history of cirrhosis of liver Hepatic lesions suggestive of cirrhosis/malignancy CT of the abdomen and pelvis and CT of the liver:Diffuse progressively enhancing lesion within the medial right hepatic lobe and diffusely involving the left hepatic lobe Tumor markers including AFP, CA 199, acetic fluid malignancy, CEA are negative Ca1 25 is high at 460-we will ask for ultrasound of the pelvis to document any ovarian/adnexal CT did show nodules in the lung which showed suggestive of metastatic disease to Appreciate GI Input ARIS, antimitochondrial antibody, anti-smooth muscle antibody, transglutaminase IgA: pending Alpha-1 antitrypsin, ceruloplasmin pending S/P Diagnostic paracentesis Cytology: No malignant cells seen. Chronic inflammatory cells, histiocytes and mesothelial cells. Peritoneal fluid Culture: No growth to date Ascitic fluid Transudative Low-salt diet Appreciate Oncology Input Given elderly, debilitated, comorbidities--likely not a candidate for treatment for neoplastic disease Currently on IV heparin Likely transition to Eliquis eventually Has had a long discussion with the family members mainly her son Been not going to pursue any biopsy for now After discussion with the other family members the son decided for palliative care and hospice care at home from here Palliative consultation has been requested-appreciate input and recommendation No acute symptoms from the hepatic lesion Anasarca Failure to thrive 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 Grade 1 diastolic dysfunction. No significant valvular pathology. The sciatic fluid has reaccumulated Will likely need another paracentesis before discharge and periodically thereafter Started with a small dose of Lasix and Spironolactone Lactulose to induce diarrhea Clinically much better Kidney function and electrolytes remain unremarkable We will continue Lasix and his Spironolactone Has been tolerating Lasix and spironolactone Will have another paracentesis tomorrow and PRP Will have paracentesis this afternoon She will receive albumin 25 g of 25% IV Discharged home this afternoon with home hospice Metabolic encephalopathy Could be secondary to hepatic encephalopathy Condition improved Remains pleasantly confused Seems to be at her baseline Clinically improved a lot Right LE DVT: Portal venous thrombosis LE Venous Doppler: Right lower extremity DVT as described above. No DVT within the left lower extremity. RUE Venous Doppler:No DVT within the right upper extremity. Continue IV heparin Transition to Eliquis as able. Eliquis 2.5 mg twice daily has been started We will continue Eliquis 2.5 mg twice daily Hypernatremia In setting of Anasarca Urine lytes, osmolality ordered Appreciate Nephrology Input Monitor sodium levels:151>> 141>>139 Received gentle IV fluids Sodium level is 133 as of 01/23/2020 Sodium level is normal at 138 Acute kidney injury on CKD III--Resolved Monitor renal function Avoid nephrotoxic agents as able stable renal function Possible pneumonia on chest x-ray Saskia deescalated to roxi Joseph Blood Cultures: No growth to date Procalcitonin trending down Will finish oral doxycycline for about 7 days Doxycycline has been discontinued Repeat chest x-ray is unremarkable DVT Px: On IV heparin Code Status Conditional Code Disposition To be determined Palliative care consultation We will discharge this afternoon with hospice care at home Total Time Total Time Spent Total Time Spent (In Minutes): 35 minutes Total Time Includes: Examination of the Patient, Discharge Planning, Medication Reconciliation and Communication With Other Providers Discharge Plan Discharge Items Patient Disposition: Hospice - Home Reason For Visit: LETHARGIC Discharge Diagnosis: Anasarca, secondary to cirrhosis of the liver and possible complication with hepatocellular carcinoma, right leg DVT Condition on Discharge: Fair Activity: As commented below Activity Comment: Needs assistance in ADL S Non-emergency contact: Primary Care Provider Call non-emergency contact if: you have any medication questions and your symptoms worsen Follow-up/Referrals: Alia Orozco MD [Primary Care Provider] - 02/04/20 11:00 am (02/04/2020 11:00 AM Provider Anusha Paul MD Department General Internal Medicine [facility] Further appointments with PCP and other providers will depend on hospice care ) Diet: Low Sodium (2gm) and Vegetarian (Lacto-Ovo) Fluids: 1500ml (6 cups) Diet Texture: Pureed (blended smooth) Addtl Attending Provider Instructions: Please take precaution to avoid falls Pending Studies at Discharge: No Stand-Alone Forms: My [facility] Medications and DC Order Prescriptions: New furosemide 40 mg Tablet 40 mg PO QAM 30 Days Qty: 30 RF: 0 spironolactone 25 mg Tablet 12.5 mg PO DAILY 30 Days Qty: 15 RF: 0 lactulose 20 gram/30 mL Solution 20 gm PO BID PRN (Reason: constipation) 10 Days Qty: 600 RF: 0 Eliquis 2.5 mg Tablet 2.5 mg PO BID 30 Days Qty: 60 RF: 0 Continued cyanocobalamin (vitamin B-12) [Vitamin B-12] 1,000 mcg Tablet 1,000 mcg PO DAILY RF: 0 calcium carbonate-vitamin D3 [Calcium 600 + D(3)] 600 mg(1,500mg) -200 unit Tablet 1 tab PO DAILY RF: 0 acetaminophen [Tylenol Arthritis Pain] 650 mg Tablet Extended Release 650 mg PO Q12H PRN (Reason: arthritic pain) RF: 0 Discontinued furosemide 20 mg tablet 20 mg PO DAILY PRN (Reason: Fluid Retention) RF: 0 Discharge Orders: Discharge Order (Routine); Ordered 01/28/20 Ordered By: Radha Johnson Admission Data Admit Date/Time: 01/16/20 02:24 Attending Provider: Radha Johnson Admit Provider: Torey Mclain Primary Care Provider: Alia Orozco Other Providers: Torey Mclain ; Karen Padilla ; Jie Horner ; Satya Redd ; Estrella García ; Last Handy ; Geovanna Dickens ; Isis Mars ; Karen Pisano ; Portillo Duke ; Jeremi Marroquin ; Farida Little ; Edwina Cintron ; [place] ; Sasha Romo ; Josué Foster ; Yaa Gallegos ; Tyson Vogel V. ; Amber Rollins ; Darby Vazquez ; Abner Burden ; [facility] ; Asher Ann ; Isabella Kenyon Other Interventions: Discharge Summary Assessment (RN) Last Done: 01/28/20 15:32 DC Date/Time DO NOT enter until pt leaves facility: 01/28/20 15:45
== END 2020-01-28 15:45 | disposition hospice, home (50) | DRG 441 ==
LOC: ED 19:37 → 2N 01-16 02:24 → SUATTDRO 01-16 02:24 → 2N 01-16 03:43

== ENCOUNTER 2020-02-13 13:42 | Inpatient (IN) ==
[2020-02-13] MEDS ORDERED: SODIUM CHLORIDE 0.9% 500 ML IV SCH (15:00)
--- NOTE | 2020-02-13 15:00 | Emergency Department Note ---
Impression & Plan Acute dehydration, Thrombocytopenia, Hypernatremia, Acute kidney injury ED Provider Note NAME: ALFREDO LEMUS AGE: 89 SEX: F : 1930 ARRIVES VIA: Walk-In INFORMANT: Patient, the patient's daughter ED PROVIDER(S): Portillo Parikh DO CHIEF COMPLAINT: Weakness HPI: The patient is an 89-year-old female who presented to the emergency department with her daughter for an evaluation of generalized weakness. The patient's daughter gives the history. The patient arrived at the emergency department via triage. The patient's daughter is also a physician. She states that her mother's health has been deteriorating recently. She has had worsening weakness and decreased p.o. intake. Recently she was diagnosed with cirrhosis. The etiology is not completely clear although the patient has had a history of paracentesis in the past. The patient was sent home on hospice. The patient's daughter was concerned because they felt they were not doing much for her mother. The patient has started to take a little bit more by mouth eating and drinking over the last few days. This is improved her symptoms but overall she still has significant generalized weakness and decreased p.o. intake. The patient has not been complaining of any abdominal pain or vomiting. She does have generalized arthritis and her daughter notices that she does have some pain when she is being moved around. She has had no recent falls. She is not been complaining of chest pain. ROS: See above HPI for pertinent positives & negatives. A total of 10 systems reviewed and were otherwise negative. PAST MEDICAL HISTORY: See Below PAST SURGICAL HISTORY: See Below FAMILY HISTORY: See Below SOCIAL HISTORY: See Below HOME MEDICATIONS: See Below ALLERGIES: See Below VITALS: See Below PHYSICAL EXAMINATION: GENERAL: The patient is listless but responds to verbal commands slowly and appropriately. She does not appear to be in pain or uncomfortable. EYES: The conjunctivae are clear. There is no discharge noted. EARS, NOSE, MOUTH AND THROAT: The nose is without any evidence of any deformity. Mucous membranes are moist. NECK: The neck is nontender and supple. RESPIRATORY: Shallow respirations were noted. There are diminished breath sounds in the left lung field. There is no retractions or tachypnea appreciated. CARDIOVASCULAR: Regular rate and rhythm noted there no murmurs rubs or gallops normal S1 normal S2. GASTROINTESTINAL: The abdomen is soft and mildly distended. There is no guarding or rigidity. MUSCULOSKELETAL/EXTREMITIES: There is no evidence of gross deformity full range of motion is noted in the hips and shoulders. SKIN: There is no obvious evidence of any rash. Skin is warm and dry. Pedal edema was noted bilaterally. NEUROLOGIC: The patient follows commands slowly. Strength is diminished bi laterally. There is no facial droop appreciated. MEDICAL DECISION MAKING: The patient is an 89-year-old female who presented to the emergency department for an evaluation of generalized weakness. The patient has a history of recently diagnosed cirrhosis. Her health is been failing over the last few months according to her daughter. The patient's history and physical exam appear to be consistent with generalized weakness and poor intake. The patient was treated with IV fluids in the emergency department. I discussed the patient's laboratory and radiographic studies with the patient as well as her daughter. Because of the findings I also discussed this case with the on-call [facility] group. They have agreed to evaluate the patient in the emergency department for further management and disposition. Triage Nursing notes reviewed. Prior medical records reviewed. Additional history is obtained from the patient's daughter. Vital Signs: reviewed and remarkable for hypotension. Differential diagnosis: Infection, dehydration, metabolic abnormality, hypo/hyperglycemia, electrolyte disturbance, anemia, hypoxia, cardiac sources, intracerebral event, toxicologic, neurologic, as well as other pathologies. ER treatment provided: See below Diagnostics interpreted by me: ECG: EKG was obtained in the emergency department. My interpretation is normal sinus rhythm at 96 bpm. Low voltage was noted throughout. Poor R wave progression was noted. This was compared to a tracing from January 18, 2020. No significant changes were noted. Cardiac Monitoring: An order was placed for continuous cardiac monitoring. The monitor shows a rate of 89 with sinus rhythm. Laboratory studies: As stated above and show below. Imaging studies: See below Consultation(s): 1650: I discussed this case with Jeaneth who is on-call for the [facility] group. They have agreed to evaluate the patient in the emergency department for further management and disposition. Past Med/Surg History Medical History Constipation Dementia Liver cirrhosis Osteoarthritis (Chronic) Surgical History Cholecystitis with cholelithiasis (Chronic) Family History Mother No problems noted. Father No problems noted. Other No pertinent family history in first degree relatives Social History Preferred Language: Kandy Communication Ability: Unable Communication Tools: Other Hooker Operator Required: Yes Beliefs That Will Affect Care: [facility] Current Living Situation: Family Current Living Situation Comment: lives with son and daughter in law Feels Safe at Home: Yes Smoking Status: Never smoker Hx Alcohol Use: No Hx Substance Use: No Allergies Allergies Allergy/AdvReac Type Severity Reaction Status Date / Time No Known Allergies Allergy Verified 02/13/20 14:58 Home Meds Home Medications Medication Instructions Recorded Confirmed acetaminophen [Tylenol Arthritis 650 mg PO Q12H PRN 06/24/19 02/13/20 Pain] calcium carbonate-vitamin D3 1 tab PO DAILY 01/15/20 02/13/20 [Calcium 600 + D(3)] cyanocobalamin (vitamin B-12) 1,000 mcg PO DAILY 01/15/20 02/13/20 [Vitamin B-12] lactulose 30 ml PO BID PRN 02/13/20 02/13/20 mirtazapine 7.5 mg PO HS 02/13/20 02/13/20 Previous Rx's Medication Instructions Recorded apixaban [Eliquis] 2.5 mg PO BID 30 Days #60 tab 01/28/20 furosemide 40 mg PO QAM 30 Days #30 tab 01/28/20 spironolactone 12.5 mg PO DAILY 30 Days #15 tab 01/28/20 Results & Data (ED) Vital Signs Vital Signs - 24 hr 02/13/20 14:01 02/13/20 15:15 02/13/20 15:20 Temperature 36.7 C Temperature Source Oral Pulse Rate 103 H 97 H 98 H Pulse Rhythm Regular Pulse Strength Normal Respiratory Rate 20 22 20 Respiratory Effort / Characteristics Non-Labored Spontaneous Respiratory Depth Normal Respiratory Pattern Regular Blood Pressure 81/65 L 111/67 Blood Pressure Mean 70 84 Pulse Oximetry 94 Oxygen Delivery Method Room Air Sepsis Recent Fever Within 48 Hours No Sepsis Action Taken by Nursing No Action Required 02/13/20 15:30 02/13/20 15:31 02/13/20 15:45 Temperature Temperature Source Pulse Rate 97 H 95 H 91 H Pulse Rhythm Pulse Strength Respiratory Rate 24 24 16 Respiratory Effort / Characteristics Respiratory Depth Respiratory Pattern Blood Pressure 112/74 119/74 Blood Pressure Mean 82 80 Pulse Oximetry 95 Oxygen Delivery Method Room Air Sepsis Recent Fever Within 48 Hours Sepsis Action Taken by Nursing 02/13/20 16:00 02/13/20 16:15 02/13/20 16:30 Temperature Temperature Source Pulse Rate 90 91 H 91 H Pulse Rhythm Pulse Strength Respiratory Rate 14 14 14 Respiratory Effort / Characteristics Respiratory Depth Respiratory Pattern Blood Pressure 106/71 112/71 99/67 L Blood Pressure Mean 86 98 83 Pulse Oximetry Oxygen Delivery Method Sepsis Recent Fever Within 48 Hours Sepsis Action Taken by Nursing 02/13/20 16:45 Temperature Temperature Source Pulse Rate 88 Pulse Rhythm Pulse Strength Respiratory Rate 17 Respiratory Effort / Characteristics Respiratory Depth Respiratory Pattern Blood Pressure Blood Pressure Mean Pulse Oximetry Oxygen Delivery Method Sepsis Recent Fever Within 48 Hours Sepsis Action Taken by Assisted Medications Current Medication List: was personally reviewed by me Laboratory Data Attestation: I reviewed the patient's lab results. Result diagrams: 02/13/20 15:38 02/13/20 15:38 Lab Results 02/13/20 02/13/20 02/13/20 Range/Units 15:32 15:32 15:38 WBC 11.51 H (4.8-10.8) K/uL RBC 5.53 H (4.2-5.4) M/uL Hgb 17.0 H (12.0-16.0) g/dL Hct 55.2 H (37-47) % MCV 99.8 (80-100) fL MCH 30.7 (25-34) pg MCHC 30.8 L (32-36) g/dL RDW Std Deviation 72.1 H (36.4-46.3) fL RDW Coeff of Candice 20.3 H (11.5-14.5) % Plt Count 74 L (130-400) K/uL MPV 12.4 H (7.4-10.4) fL Immature Gran % (Auto) 0.2 % Neut % (Auto) 73.5 % Lymph % (Auto) 21.9 % [place] % (Auto) 3.7 % Eos % (Auto) 0.4 % Baso % (Auto) 0.3 % Immature Gran # (Auto) 0.02 (0.00-0.02) K/uL Neut # (Auto) 8.46 H (1.4-6.5) K/uL Lymph # (Auto) 2.52 (1.2-3.4) K/uL [place] # (Auto) 0.43 (0.11-0.59) K/uL Eos # (Auto) 0.05 (0-0.5) K/uL Baso # (Auto) 0.03 (0-0.2) K/uL Platelet Estimate Decreased L (Normal) Polychromasia 1+ ESR 3 (0-21) mm/hr PT (9.0-12.0) Seconds INR (0.9-1.1) APTT (21.0-31.0) Seconds PTT Ratio Sodium (136-145) mmol/L Potassium (3.5-5.1) mmol/L Chloride (98-107) mmol/L Carbon Dioxide (21-32) mmol/L Anion Gap (3-11) BUN (7-18) mg/dl Creatinine (0.6-1.2) mg/dl Est Cr Clr Drug Dosing Est GFR ( Amer) Est GFR (Non-Af Amer) BUN/Creatinine Ratio (10-20) Glucose (70-99) mg/dl Calcium (8.5-10.1) mg/dl Magnesium (1.8-2.4) mg/dl Total Bilirubin (0.2-1) mg/dl AST (15-37) U/L ALT (12-78) U/L Alkaline Phosphatase (45-117) U/L Ammonia (11-32) umol/L Troponin I (0-0.045) ng/ml C-Reactive Protein 4.45 H (0-0.29) mg/dl Total Protein (6.4-8.2) gm/dl Albumin (3.4-5.0) gm/dl Globulin (2.5-4.0) gm/dl Albumin/Globulin Ratio (0.9-2) TSH (0.300-4.500) uIu/ml Free T4 (0.8-1.6) ng/dl 02/13/20 02/13/20 02/13/20 Range/Units 15:38 15:38 15:38 WBC (4.8-10.8) K/uL RBC (4.2-5.4) M/uL Hgb (12.0-16.0) g/dL Hct (37-47) % MCV (80-100) fL MCH (25-34) pg MCHC (32-36) g/dL RDW Std Deviation (36.4-46.3) fL RDW Coeff of Candice (11.5-14.5) % Plt Count (130-400) K/uL MPV (7.4-10.4) fL Immature Gran % (Auto) % Neut % (Auto) % Lymph % (Auto) % [place] % (Auto) % Eos % (Auto) % Baso % (Auto) % Immature Gran # (Auto) (0.00-0.02) K/uL Neut # (Auto) (1.4-6.5) K/uL Lymph # (Auto) (1.2-3.4) K/uL [place] # (Auto) (0.11-0.59) K/uL Eos # (Auto) (0-0.5) K/uL Baso # (Auto) (0-0.2) K/uL Platelet Estimate (Normal) Polychromasia ESR (0-21) mm/hr PT 12.8 H (9.0-12.0) Seconds INR 1.2 H (0.9-1.1) APTT 26.0 (21.0-31.0) Seconds PTT Ratio 0.9 Sodium 158 H* (136-145) mmol/L Potassium 5.1 (3.5-5.1) mmol/L Chloride 128 H (98-107) mmol/L Carbon Dioxide 22 (21-32) mmol/L Anion Gap 8.0 (3-11) BUN 72 H (7-18) mg/dl Creatinine 2.63 H (0.6-1.2) mg/dl Est Cr Clr Drug Dosing Not Reportable Est GFR ( Amer) 18.1 Est GFR (Non-Af Amer) 15.6 BUN/Creatinine Ratio 27.2 H (10-20) Glucose 139 H (70-99) mg/dl Calcium 9.0 (8.5-10.1) mg/dl Magnesium 3.5 H (1.8-2.4) mg/dl Total Bilirubin 0.9 (0.2-1) mg/dl AST 173 H (15-37) U/L ALT 102 H (12-78) U/L Alkaline Phosphatase 581 H (45-117) U/L Ammonia 33.0 H (11-32) umol/L Troponin I 0.021 (0-0.045) ng/ml C-Reactive Protein (0-0.29) mg/dl Total Protein 7.4 (6.4-8.2) gm/dl Albumin 1.9 L (3.4-5.0) gm/dl Globulin 5.5 H (2.5-4.0) gm/dl Albumin/Globulin Ratio 0.3 L (0.9-2) TSH 9.000 H (0.300-4.500) uIu/ml Free T4 0.93 (0.8-1.6) ng/dl Administered Medications Sodium Chloride (Nss 1000ml) 1,000 mls @ 999 mls/hr IV .Q1H1M ONE Stop: 02/13/20 17:23 Last Admin: 02/13/20 16:31 Dose: 999 mls/hr Documented by: [id number] Discontinued Medications Sodium Chloride (Nss) 500 mls @ 999 mls/hr IV .Q31M WERNER Stop: 02/13/20 15:30 Last Infusion: 02/13/20 15:54 Dose: 0 mls/hr Documented by: [id number] Admin: 02/13/20 15:22 Dose: 999 mls/hr Documented by: [id number] Imaging Data Radiologist's Impression: XR chest 1V portable CLINICAL HISTORY: weakness dyspnea COMPARISON STUDY: 01/27/2020 FINDINGS: Minimal parenchymal infiltrate left lung base. Lungs otherwise appear clear. There is a component of mild emphysematous change. There are severe degenerative changes of the shoulders bilaterally. IMPRESSION: Minimal parenchymal infiltrate/atelectasis left base. ACT 112: Negative or not required by law. The above report was generated using voice recognition software. It may contain grammatical, syntax or spelling errors. Electronically signed by: Farshad Art M.D. 02/13/2020 3:08 PM Dictated: 02/13/20 1506 Transcribed: 02/13/20 1506 Blood Pressure Blood Pressure Findings: Low blood pressure Blood Pressure Disposition: further management by hospitalist Discharge Plan Visit Data Chief Complaint: Weakness Stated Complaint: WEAKNESS, NOT EATING ED Provider: Portillo Parikh Discharge Problem: Acute dehydration, Thrombocytopenia, Hypernatremia, Acute kidney injury Patient Disposition: Being Evaluated by Hospitalist Condition: Good Forms Stand Alone Forms: My [facility] Prescriptions Prescriptions: No Action cyanocobalamin (vitamin B-12) [Vitamin B-12] 1,000 mcg Tablet 1,000 mcg PO DAILY RF: 0 calcium carbonate-vitamin D3 [Calcium 600 + D(3)] 600 mg(1,500mg) -200 unit Tablet 1 tab PO DAILY RF: 0 furosemide 40 mg Tablet 40 mg PO QAM 30 Days Qty: 30 RF: 0 spironolactone 25 mg Tablet 12.5 mg PO DAILY 30 Days Qty: 15 RF: 0 Eliquis 2.5 mg Tablet 2.5 mg PO BID 30 Days Qty: 60 RF: 0 acetaminophen [Tylenol Arthritis Pain] 650 mg Tablet Extended Release 650 mg PO Q12H PRN (Reason: arthritic pain) RF: 0 mirtazapine 15 mg tablet 7.5 mg PO HS RF: 0 lactulose 10 gram/15 mL solution 30 ml PO BID PRN (Reason: Constipation) RF: 0 Referrals Referrals: Alia Orozco MD [Primary Care Provider] -
--- NOTE | 2020-02-13 15:09 | XRay Report ---
XR chest 1V portable CLINICAL HISTORY: weakness dyspnea COMPARISON STUDY: 01/27/2020 FINDINGS: Minimal parenchymal infiltrate left lung base. Lungs otherwise appear clear. There is a com ponent of mild emphysematous change. There are severe degenerative changes of the shoulders bilateral ly. IMPRESSION: Minimal parenchymal infiltrate/atelectasis left base. ACT 112: Negative or not required by law. The above report was generated using voice recognition software. It may contain grammatical, syntax or spelling errors. Electronically signed by: Farshad Art M.D. 02/13/2020 3:08 PM
[2020-02-13 15:58] LABS: INR 1.2 (0.9-1.1); Partial Thromboplastin Ratio 0.9; Prothrombin Time 12.8 Seconds (9.0-12.0)
[2020-02-13 16:10] LABS: Basophils # (auto) 0.03 K/uL (0-0.2); Basophils % (auto) 0.3 %; Eosinophils # (auto) 0.05 K/uL (0-0.5); Eosinophils % (auto) 0.4 %; Hematocrit (blood only) 55.2 % (37-47); Immature Granulocytes # (auto) 0.02 K/uL (0.00-0.02); Immature Granulocytes % (auto) 0.2 %; Lymphocytes # (auto) 2.52 K/uL (1.2-3.4); Lymphocytes % (auto) 21.9 %; Mean Corpuscular Hemoglobin 30.7 pg (25-34); Mean Corpuscular Hgb Conc 30.8 g/dL (32-36); Mean Corpuscular Volume 99.8 fL (80-100); Mean Platelet Volume 12.4 fL (7.4-10.4); Monocytes # (auto) 0.43 K/uL (0.11-0.59); Monocytes % (auto) 3.7 %; Neutrophils # (auto) 8.46 K/uL (1.4-6.5); Neutrophils % (auto) 73.5 %; Platelet Count 74 K/uL (130-400); Platelet Estimate Decreased (Normal); Polychromasia 1+; RDW Coefficient of Variation 20.3 % (11.5-14.5); RDW Standard Deviation 72.1 fL (36.4-46.3); Red Blood Count 5.53 M/uL (4.2-5.4); White Blood Count 11.51 K/uL (4.8-10.8)
[2020-02-13 16:16] LABS: Alanine Aminotransferase 102 U/L (12-78); Albumin Globulin Ratio 0.3 (0.9-2); Albumin Level 1.9 gm/dl (3.4-5.0); Alkaline Phosphatase 581 U/L (45-117); Aspartate Aminotransferase 173 U/L (15-37); BUN Creatinine Ratio 27.2 (10-20); Bilirubin,Total 0.9 mg/dl (0.2-1); Blood Urea Nitrogen 72 mg/dl (7-18); Carbon Dioxide 22 mmol/L (21-32); Chloride 128 mmol/L (98-107); Est GFR (African American) 18.1; Est GFR (Non-African American) 15.6; Globulin 5.5 gm/dl (2.5-4.0); Glucose 139 mg/dl (70-99); Magnesium 3.5 mg/dl (1.8-2.4); Potassium 5.1 mmol/L (3.5-5.1); Sodium 158 mmol/L (136-145); Total Protein 7.4 gm/dl (6.4-8.2); Troponin I 0.021 ng/ml (0-0.045)
[2020-02-13] MEDS ORDERED: SODIUM CHLORIDE 0.9% 1000ML 1,000 ML IV ONE (16:23)
[2020-02-13 16:49] LABS: T4 Free Thyroxine 0.93 ng/dl (0.8-1.6)
--- NOTE | 2020-02-13 17:08 | History & Physical Report ---
Date of Service February 13, 2020 Assessment & Plan (1) Hypernatremia: Hypernatremia Hyperchloremia Sodium levels : 158 Likely due to dehydration from poor oral fluid intake Had hyponatremia during last admission as well Started on D5 water at 60 mL/h Monitor sodium levels every 6 hours Consulted nephrology Mental status at baseline as per patient's son Acute kidney injury on CKD III Likely prerenal Baseline creatinine ~1 Cr:2.63 Hold diuretics Continue IV fluids Avoid nephrotoxic agents as able Check renal ultrasound to rule out any obstruction Nephrology consulted Mild Leukocytosis CXR: Minimal parenchymal infiltrate/atelectasis left base. Also noted residual left lung base infiltrate during prior admission No known history of cough, shortness of breath Patient completed antibiotic course 2 weeks ago. If patient develops any signs of infection, low threshold to start antibiotics Thrombocytopenia INR:1.2 Likely due to liver disease No bleeding issues Monitor CBC Transaminitis H/O Hepatic lesions suggestive of cirrhosis Extensive work-up done during prior admission, GI evaluated as well Liver biopsy was deferred during prior admission as patient transition to hospice service No aggressive/invasive management--patient's son is aware of the condition Check Liver USD Monitor LFTs Consider GI eval if needed Hypermagnesemia Likely due to WALT Monitor H/O Right LE DVT H/O Portal venous thrombosis Continue Eliquis Elevated TSH Normal Free T4 ? Subclinical hypothyroidism Will need recheck of thyroid function tests as outpatient DVT Px: Eliquis Code Status DNI/DNR As per my discussion with patient's son Disposition: PT/OT prior to discharge Patient clinically deteriorates, patient family to reconsider transitioning back to hospice again. History of Present Illness Chief Complaint: Abnormal labs Primary Care Provider: Alia Orozco MD Patient is an 83-year-old female with history of DVT, portal vein thrombosis, hyponatremia, CKD III, slow transit constipation, stress incontinence, osteoarthritis, dementia and other problems who was recently admitted at [facility] for evaluation of hepatic lesions, anasarca, DVT, WALT and was discharged on hospice services presents with history of generalized weakness, abnormal labs. Most of the history is obtained from patient's son, ER physician and old records. History is limited secondary to patient's dementia, hearing impairment. Patient's son informs that patient was actually doing better since last 3 days but was noted to have abnormal labs by her PCP and was informed to go to ED for further evaluation. Patient's son states that patient is no longer on hospice services and would like noninvasive treatment. He admits that patient has been eating okay but has very poor oral intake of fluids. He denies any change in mental status. Leg swelling self markedly improved since last hospitalization. Denies any history of chest pain, SOB, dizziness, cough, fever, chills, headache, change in vision, nausea, vomiting, abdominal pain, diarrhea, dysuria, recent travel, sick contact. Allergies Allergy/AdvReac Type Severity Reaction Status Date / Time No Known Allergies Allergy Verified 02/13/20 14:58 Home Medications Home Medications Medication Instructions Recorded Confirmed Type acetaminophen [Tylenol Arthritis 650 mg PO Q12H PRN 06/24/19 02/13/20 History Pain] calcium carbonate-vitamin D3 1 tab PO DAILY 01/15/20 02/13/20 History [Calcium 600 + D(3)] cyanocobalamin (vitamin B-12) 1,000 mcg PO DAILY 01/15/20 02/13/20 History [Vitamin B-12] apixaban [Eliquis] 2.5 mg PO BID 30 Days #60 tab 01/28/20 02/13/20 Rx furosemide 40 mg PO QAM 30 Days #30 tab 01/28/20 02/13/20 Rx spironolactone 12.5 mg PO DAILY 30 Days #15 tab 01/28/20 02/13/20 Rx lactulose 30 ml PO BID PRN 02/13/20 02/13/20 History mirtazapine 7.5 mg PO HS 02/13/20 02/13/20 History Past Med/Surg History Medical History Constipation Dementia Liver cirrhosis Osteoarthritis (Chronic) Surgical History Cholecystitis with cholelithiasis (Chronic) Family History Mother No problems noted. Father No problems noted. Other No pertinent family history in first degree relatives Social History Preferred Language: Kandy Communication Ability: Unable Communication Tools: Other [employer] M Supervisor Required: Yes Beliefs That Will Affect Care: Adventism Current Living Situation: Family Current Living Situation Comment: lives with son and daughter in law Other Information That Helps Us Care for You: No Feels Safe at Home: Yes Smoking Status: Never smoker Hx Alcohol Use: No Hx Substance Use: No Review of Systems Review of Systems: Unobtainable due to cognitive status Physical Exam Physical Exam: Physical Exam: Vitals signs as noted above General Appearance: Thin, frail, chronically appearing, no apparent distress Head: normocephalic, Atraumatic Eyes: normal inspection, EOMI Neck: supple, Trachea midline Respiratory/Chest: Decreased breath sounds, CTA, No accessory muscle use Cardiovascular: S1, S2, No murmur Abdomen/GI:Soft, Non tender, distended, Bowel sounds present Extremities/Musculoskelatal:normal inspection, Trace pedal edema Neurologic/Psych:Alert, awake, grossly no focal neurological deficits Skin: normal color, warm Results & Data Results & Data ([facility]) Vital Signs (Past 12 Hours) Vital Signs Temp Pulse Resp BP Pulse Ox 02/13/20 16:45 88 17 02/13/20 16:30 91 H 14 99/67 L 02/13/20 16:15 91 H 14 112/71 02/13/20 16:00 90 14 106/71 02/13/20 15:45 91 H 16 119/74 95 02/13/20 15:31 95 H 24 02/13/20 15:30 97 H 24 112/74 02/13/20 15:20 98 H 20 02/13/20 15:15 97 H 22 111/67 02/13/20 14:01 36.7 C 103 H 20 81/65 L 94 Laboratory Results Short CBC 02/13/20 Range/Units 15:38 WBC 11.51 H (4.8-10.8) K/uL Hgb 17.0 H (12.0-16.0) g/dL Hct 55.2 H (37-47) % Plt Count 74 L (130-400) K/uL BMP 02/13/20 15:38 Sodium 158 H* Potassium 5.1 Chloride 128 H Carbon Dioxide 22 BUN 72 H Creatinine 2.63 H Glucose 139 H Calcium 9.0 Cardiac Enzymes 02/13/20 Range/Units 15:38 Troponin I 0.021 (0-0.045) ng/ml Liver Function 02/13/20 Range/Units 15:38 Total Bilirubin 0.9 (0.2-1) mg/dl AST 173 H (15-37) U/L ALT 102 H (12-78) U/L Alkaline Phosphatase 581 H (45-117) U/L Albumin 1.9 L (3.4-5.0) gm/dl Diagnostic Findings CXR:Minimal parenchymal infiltrate/atelectasis left base Medications Administered Home Medications Medication Instructions Recorded Confirmed acetaminophen [Tylenol Arthritis 650 mg PO Q12H PRN 06/24/19 02/13/20 Pain] calcium carbonate-vitamin D3 1 tab PO DAILY 01/15/20 02/13/20 [Calcium 600 + D(3)] cyanocobalamin (vitamin B-12) 1,000 mcg PO DAILY 01/15/20 02/13/20 [Vitamin B-12] lactulose 30 ml PO BID PRN 02/13/20 02/13/20 mirtazapine 7.5 mg PO HS 02/13/20 02/13/20 Previous Rx's Medication Instructions Recorded apixaban [Eliquis] 2.5 mg PO BID 30 Days #60 tab 01/28/20 furosemide 40 mg PO QAM 30 Days #30 tab 01/28/20 spironolactone 12.5 mg PO DAILY 30 Days #15 tab 01/28/20 ECG Additional Comments: EKG: Sinus rhythm with PVCs, QTC 472
[2020-02-13] MEDS ORDERED: LACTULOSE SYRUP 20 GM/30 ML UDC PO PRN (20:09)
[2020-02-13] MEDS: DEXTROSE 5% 1,000 ML IV SCH (20:23)
[2020-02-13] MEDS: MIRTAZAPINE TAB 15 MG TAB PO SCH (20:28)
[2020-02-13] MEDS: APIXABAN 2.5 MG TAB PO SCH (20:28)
[2020-02-14 06:22] LABS: Hematocrit (blood only) 40.9 % (37-47); Hemoglobin 12.6 g/dL (12.0-16.0); Mean Corpuscular Hemoglobin 30.1 pg (25-34); Mean Corpuscular Hgb Conc 30.8 g/dL (32-36); Mean Corpuscular Volume 97.8 fL (80-100); Mean Platelet Volume 12.1 fL (7.4-10.4); Platelet Count 75 K/uL (130-400); RDW Coefficient of Variation 19.7 % (11.5-14.5); RDW Standard Deviation 69.9 fL (36.4-46.3); Red Blood Count 4.18 M/uL (4.2-5.4); White Blood Count 12.14 K/uL (4.8-10.8)
[2020-02-14 06:42] LABS: Basophils # (auto) 0.03 K/uL (0-0.2); Basophils % (auto) 0.2 %; Echinocytes 1+; Eosinophils # (auto) 0.08 K/uL (0-0.5); Eosinophils % (auto) 0.7 %; Immature Granulocytes # (auto) 0.02 K/uL (0.00-0.02); Immature Granulocytes % (auto) 0.2 %; Lymphocytes # (auto) 2.93 K/uL (1.2-3.4); Lymphocytes % (auto) 24.1 %; Monocytes # (auto) 0.67 K/uL (0.11-0.59); Monocytes % (auto) 5.5 %; Neutrophils # (auto) 8.41 K/uL (1.4-6.5); Neutrophils % (auto) 69.3 %
[2020-02-14 06:49] LABS: Alanine Aminotransferase 80 U/L (12-78); Albumin Level 1.6 gm/dl (3.4-5.0); Aspartate Aminotransferase 119 U/L (15-37); BUN Creatinine Ratio 28.8 (10-20); Blood Urea Nitrogen 68 mg/dl (7-18); Calcium 8.4 mg/dl (8.5-10.1); Carbon Dioxide 23 mmol/L (21-32); Chloride 126 mmol/L (98-107); Est GFR (African American) 20.6; Est GFR (Non-African American) 17.8; Glucose 171 mg/dl (70-99); Magnesium 2.9 mg/dl (1.8-2.4); Sodium 155 mmol/L (136-145)
[2020-02-14 06:56] LABS: Albumin Globulin Ratio 0.4 (0.9-2); Alkaline Phosphatase 467 U/L (45-117); Bilirubin,Total 0.7 mg/dl (0.2-1); Globulin 4.4 gm/dl (2.5-4.0)
--- NOTE | 2020-02-14 07:14 | Ultrasound Report ---
ULTRASOUND KIDNEYS AND BLADDER CLINICAL HISTORY: Acute renal insufficiency. COMPARISON STUDY: Abdominal CT dated 01/17/2020 TECHNIQUE: Real-time, grayscale, and color flow sonography of the kidneys and bladder is performed. I mages are reviewed in the transverse and longitudinal planes. FINDINGS: Kidneys: The kidneys are atrophic and echogenic indicating medical renal disease. The right kidney me asures 7.7 x 3.4 x 4.4 cm and the left kidney measures 8.3 x 3.5 x 5.5 cm. There is no hydronephrosi s. No shadowing renal calculi are identified. There is no sonographic evidence of contour deforming r enal mass lesion. No perinephric fluid is identified. Bladder: The bladder wall appears thickened. Bilateral ureteral jets were seen. Abdomen and pelvis: The liver is cirrhotic in morphology. There is a small to moderate volume of abdo minopelvic ascites. The endometrium is thickened for age measuring up to 1.8 cm. IMPRESSION: 1. The kidneys are atrophic and echogenic consistent with medical renal disease. 2. There is no hydronephrosis. 3. The bladder wall appears thickened. 4. Cirrhosis and ascites. 5. The endometrium is thickened for age measuring up to 1.8 cm. Nonemergent gynecology follow-up is r ecommended as endometrial neoplasm would be impossible to exclude. ACT 112: Negative or not required by law. Electronically signed by: Sheng Bojorquez M.D. 02/14/2020 7:13 AM
--- NOTE | 2020-02-14 07:50 | Ultrasound Report ---
US liver CLINICAL HISTORY: Transaminitis COMPARISON STUDY: Right upper quadrant ultrasound July 05, 2015. CT of the abdomen January 17, 2020. FINDINGS: There is no biliary ductal dilatation status post cholecystectomy. The common bile duct rené sures 5 mm in caliber. The liver is markedly heterogeneous. Multiple hepatic masses are better depict ed on prior CT. The liver may also be cirrhotic. No flow is identified within the main portal vein. T hrombus within the main portal vein was shown on CT of January 16, 2018. Moderate ascites is noted. The p ancreatic body is normal. The head and tail are obscured. There is no right hydronephrosis. IMPRESSION: 1. Markedly heterogeneous liver suggestive of numerous hepatic masses, as shown on prior CT. Suspecte d cirrhosis. 2. Portal vein thrombosis, as shown on prior CT. 3. Moderate ascites. ACT 112: Negative or not required by law. Electronically signed by: Thomas Kirby M.D. 02/14/2020 7:49 AM
[2020-02-14] MEDS: APIXABAN 2.5 MG TAB PO SCH ×3 (08:25→21:49)
[2020-02-14] MEDS: CALCIUM 600MG + VIT D 400 IU TAB PO SCH (08:25)
[2020-02-14] MEDS: CYANOCOBALAMIN 500 MCG TABLET (VITAMIN B-12) PO SCH (08:25)
[2020-02-14] MEDS: DEXTROSE 5% 1,000 ML IV SCH ×2 (09:17→23:00)
--- NOTE | 2020-02-14 12:21 | Nephrology Consultation ---
Date of Consultation February 14, 2020 Assessment & Plan (1) Acute kidney injury: baselin creatinin e0.9-1.1 as recently as 01/27. presenting creatinine on 02/12 2.6; improving now to 2.4 this am w/ gentle iv fluid resuscitation -f/u recheck -continue current IVF -cont nephrotoxin avoidance; would cont to hold diuretics for now Present on Admission?: Yes (2) Hypernatremia: improving -cont D5W at 80 ml/hr and await repeat labs -this is a direct result of dehydration and given her dementia /clinical status is likely to recur: recommend continued goals of care discussion; marily challenging in setting of obligate diuretics for ESLD Present on Admission?: Yes (3) Liver lesion: per primary service; not for invasive work up; w/ ESLD/ascites -hold diuretics for now Present on Admission?: Yes (4) Goals of care, counseling/discussion: hypernatremia likely to recur for this pt; recommend continued goals of care discussions w/ pt family. pt clinically challenging b/c chronic vol OL from liver disease/ascites but also with hypernatremia from poor fluid intake. we were able to correct fluid/vol status before but this will be constant proje ct and may get to point where cannot be balanced clinically. Present on Admission?: Yes History of Present Illness Reason for Consultation: hypernatremia, WALT Requesting Physician: Dr Ann Attending Physician: Leda Witt, History of Present Illness 89 y/o F whom I'm asked to see for WALT and hypernatremia was admitted last evening for same. She was recently admitted here 01/15-01/28 for volume overload and worsening ambulatory dysfunction with hypernatremia> found on that admission to have presumptive liver CA w/ portal vein thrombosis and RLE DVT. She was d/c home on hospice but per admission paperwork pt is no longer on hospice and is for noninvasive care. Other past medical history includes dementia, chronic constipation. She was on lasix 40 mg daily and spironolactone 12.5 mg daily prior to admission. She had reportedly been eating okay prior to admission but with minimal fluid intake. She was started on D5 water at 80 mL hourly for presenting sodium of 158. Sodium peaked at 161 late last evening. It was down to 155 by this morning with recheck lab pending. Allergies Allergy/AdvReac Type Severity Reaction Status Date / Time No Known Allergies Allergy Verified 02/13/20 14:58 Home Medications Home Medications Medication Instructions Recorded Confirmed Type acetaminophen [Tylenol Arthritis 650 mg PO Q12H PRN 06/24/19 02/13/20 History Pain] calcium carbonate-vitamin D3 1 tab PO DAILY 01/15/20 02/13/20 History [Calcium 600 + D(3)] cyanocobalamin (vitamin B-12) 1,000 mcg PO DAILY 01/15/20 02/13/20 History [Vitamin B-12] apixaban [Eliquis] 2.5 mg PO BID 30 Days #60 tab 01/28/20 02/13/20 Rx furosemide 40 mg PO QAM 30 Days #30 tab 01/28/20 02/13/20 Rx spironolactone 12.5 mg PO DAILY 30 Days #15 tab 01/28/20 02/13/20 Rx lactulose 30 ml PO BID PRN 02/13/20 02/13/20 History mirtazapine 7.5 mg PO HS 02/13/20 02/13/20 History Patient History Medical History Constipation Dementia Liver cirrhosis Osteoarthritis (Chronic) Surgical History Cholecystitis with cholelithiasis (Chronic) Family History Mother No problems noted. Father No problems noted. Other No pertinent family history in first degree relatives Social History Preferred Language: Kandy Communication Ability: Unable Communication Tools: Other [employer] Compliance Coordinator Required: Yes Beliefs That Will Affect Care: Restoration Current Living Situation: Family Current Living Situation Comment: lives with son and daughter in law Other Information That Helps Us Care for You: No Feels Safe at Home: Yes Smoking Status: Never smoker Hx Alcohol Use: No Hx Substance Use: No Review of Systems Review of Systems: Unobtainable due to cognitive status Physical Exam Constitutional: well developed, + cachectic and + frail appearing lying flat on RA, not interactive Eyes: EOM intact bilaterally ENMT: Ears: no external ear abnormality Nose: no external nose abnormality Mouth: + dry oral mucous membranes Neck: no nuchal rigidity Respiratory: normal respiratory effort; no respiratory distress Auscultation: + diminished lung sounds Cardiovascular: Rate/Rhythm: regular rate Extremities: + edema (2+ BLE) Gastrointestinal (Abdomen): Inspection/Auscultation: + abdomen distended and normal bowel sounds Percussion/Palpation: abdomen soft; abdomen nontender Musculoskeletal: donahue Skin: no rashes, warm and dry + turgor decreased Neurologic: + confused and + obtunded Speech / Cognition: + expressive aphasia Results & Data Vital Signs (Past 12 Hours) Vital Signs Temp Pulse Pulse Resp BP Pulse Ox 02/14/20 12:05 36.5 C 84 17 108/71 97 02/14/20 08:25 85 02/14/20 07:59 36.3 C L 82 17 109/78 02/14/20 04:00 88 02/14/20 03:50 36 C L 105 H 18 95/63 L 94 Laboratory Results 02/14/20 05:55 02/14/20 05:55 Diagnostic Findings renal u/s 1. The kidneys are atrophic and echogenic consistent with medical renal disease. 2. There is no hydronephrosis. 3. The bladder wall appears thickened. 4. Cirrhosis and ascites. 5. The endometrium is thickened for age measuring up to 1.8 cm. Nonemergent gynecology follow-up is recommended as endometrial neoplasm would be impossible to exclude. liver u/s 1. Markedly heterogeneous liver suggestive of numerous hepatic masses, as shown on prior CT. Suspected cirrhosis. 2. Portal vein thrombosis, as shown on prior CT. 3. Moderate ascites. cxr Minimal parenchymal infiltrate/atelectasis left base.
[2020-02-14 13:03] LABS: BUN Creatinine Ratio 28.9 (10-20); Blood Urea Nitrogen 68 mg/dl (7-18); Calcium 8.2 mg/dl (8.5-10.1); Carbon Dioxide 23 mmol/L (21-32); Chloride 126 mmol/L (98-107); Est GFR (African American) 20.7; Est GFR (Non-African American) 17.9; Glucose 122 mg/dl (70-99); Magnesium 3.1 mg/dl (1.8-2.4); Phosphorus 3.5 mg/dl (2.5-4.9); Sodium 155 mmol/L (136-145)
[2020-02-14 13:05] LABS: Hematocrit (blood only) 42.3 % (37-47); Hemoglobin 13.2 g/dL (12.0-16.0); Mean Corpuscular Hemoglobin 30.8 pg (25-34); Mean Corpuscular Hgb Conc 31.2 g/dL (32-36); Mean Corpuscular Volume 98.6 fL (80-100); Mean Platelet Volume 12.3 fL (7.4-10.4); Platelet Count 71 K/uL (130-400); RDW Coefficient of Variation 19.8 % (11.5-14.5); RDW Standard Deviation 70.8 fL (36.4-46.3); Red Blood Count 4.29 M/uL (4.2-5.4)
--- NOTE | 2020-02-14 15:47 | Hospitalist Progress Note ---
Date of Service February 14, 2020 Assessment & Plan (1) Acute metabolic encephalopathy: I cannot truly assess her mental status without a in flight refueling operator as she speaks Tricia and cannot understand me. Despite going back to the room a couple of times, her son was not at bedside. Presumed encephalopathy 2/2 hypernatremia and acute renal failure. See plan below. (2) Hypernatremia: Increased rate of free water today and got her Na down to 150. She is frail and has cirrhosis with the tendency to be fluid overloaded, so will turn the rate back down to 80 mls/hr overnight and reassess Na in am. This is likely secondary to severe dehydration as there is also evidence of hemoconcentration and acute kidney failure. Suspect new diuretics started one month ago played a role here, however, this was likely furthered by her frail state and poor PO intake of free water in the last few days when she had become weak and confused. (3) Acute dehydration: Improving with IVF. H/H has come into more normal range. Cont with IVF. Patient was able to eat with her son today (4) Acute kidney injury: Slightly improved. Cont rehydration efforts. Appreciate Nephrology inv olvement. (5) Liver cirrhosis: Present without jaundice or evidence of decompensation. She is s/p paracentesis with 2L off at the beginning of this month (2 weeks ago). Evidently was admitted with anasarca one month ago and was started on Lasix/spironolactone at discharge. There is a small amount of ascites seen on us imaging this admission, however, there is no fever, abdominal pain, elevated bilirubin, or other indication of SBP at this point, and there is a clear different reason for her encephalopathy and weakness. No diuretics recommended at this point, but may be reconsidered as outpatient again if she improves. If her labs reflect improvement but there is no clinical improvement, will consider SBP higher in the differential, however, also in consideration is that the family preferred to not be aggressive with known liver nodules. May not want further paracenteses. Will discuss further with them and continue to monitor her progress closely. (6) Thrombocytopenia: 2/2 liver disease. No bleeding present. 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 Liver us yesterday revealed persistent PVT. I have some concern about her Eliquis with this level of platelets, however, she has no bleeding and platelet level appears stable. Will discuss this further with Hematology for recommendations and with her family. (7) Transaminitis: etiologies include but not limited to recent bout of hepatitis A infection, injury to her cirrhotic liver with recent metabolic insults (ischemic hepatic injury), or PVT presence. (8) Severe protein-calorie malnutrition: Nutrition consult. Appreciate hospital administration allowing the exception to have her son at bedside 21/03 to help with feeding her and with translation. 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 On Eliquis. (10) Discharge planning issues: The patient came in on Hospice which was revoked for the admission to the hospital. Case management is involved and spoke with family who is asking about removing hospice care at home. Palliative care consult requested to help guide family with their care of this patient, who would clearly has a very poor prognosis. DNR Dispo-uncertain at this time but will likely be here through the weekend. Leda Witt DO [facility] Hospitalist Admission and Anticipated Discharge Date Admission Date: February 13, 2020 Subjective elderly female on hospice when coming into hospital developed confusion and weakness at home. Workup revealed hypernatremia and acute kidney injury with clear dehydration present on labwork. She was on D5W overnight at 80cc/hr, however, sodium was trended throughout the day today and was not improving, so the fluids were increased to 125cc/hr from approx 12p to 7p. When sodium started trending down she began to stir more. I advocated for family to be with her at bedside, specifically her son who cares for her, as she speaks Tricia, and is too weak to translate by phone. Our team was also unable to translate using a video in flight refueling operator last month. And she is hard of hearing. Having her son here today helped her eat some food with significant prompting that she would not have otherwise been able to do. Because of the language barrier and ill state, I cannot communicate with her to obtain a ROS. Review of Systems Review of Systems: Other (language barrier, [id number] and patient is very ill) Physical Exam Physical Exam: CONSTITUTIONAL: thin, frail, vitals as above, generally ill- appearing with some possible distress. Staring off with mouth open and moaning on occasion, especially when moved as if in pain. EYES: pupils are round and equal bilaterally, difficult to assess reaction to light S lids are shut rather tight and she is frail with sunken in eyes. normal conjunctivae, no scleral icterus ENT: external ear and nose normal, mucous membranes are dry. RESPIRATORY: clear to auscultation bilaterally-limited exam as patient moaning in pain, no crackles, rales or wheezes, normal respiratory effort CARDIOVASCULAR: regular rate and rhythm, S1 and 2 heard without murmurs, gallops or rubs, no JVD, 2+ pitting edema on her feet bilaterally that doesn't extend past her ankle. She has an appearance to her lower legs as if she has had multiple issues with swelling of the skin. GASTROINTESTINAL: soft, nontender, nondistended. MUSCULOSKELETAL: very weak and appears physically deconditioned, cannot examine strength 2/2 altered mental state SKIN: warm and dry NEUROLOGIC: appears altered, she is unresponsive to me when i try to examine her except to moan as if in discomfort, lethargic, cannot perform DTRs as she is resistant to my moving her extremities much at all PSYCHIATRIC: somnolent, appears confused. Results & Data Results & Data ([facility]) Vital Signs (Past 12 Hours) Vital Signs Temp Pulse Pulse Resp BP Pulse Ox 02/14/20 12:05 36.5 C 84 17 108/71 97 02/14/20 08:25 85 02/14/20 07:59 36.3 C L 82 17 109/78 02/14/20 04:00 88 02/14/20 03:50 36 C L 105 H 18 95/63 L 94 Laboratory Results Short CBC 02/13/20 02/14/20 02/14/20 Range/Units 15:38 05:55 12:09 WBC 11.51 H 12.14 H 12.80 H (4.8-10.8) K/uL Hgb 17.0 H 12.6 D 13.2 (12.0-16.0) g/dL Hct 55.2 H 40.9 42.3 (37-47) % Plt Count 74 L 75 L 71 L (130-400) K/uL BMP 02/13/20 02/13/20 02/14/20 15:38 20:41 02:36 Sodium 158 H* 161 H* 161 H* Potassium 5.1 Chloride 128 H Carbon Dioxide 22 BUN 72 H Creatinine 2.63 H Glucose 139 H Calcium 9.0 02/14/20 02/14/20 05:55 12:09 Sodium 155 H 155 H Potassium 4.0 D 4.0 Chloride 126 H 126 H Carbon Dioxide 23 23 BUN 68 H 68 H Creatinine 2.36 H 2.35 H Glucose 171 H 122 H Calcium 8.4 L 8.2 L Cardiac Enzymes 02/13/20 Range/Units 15:38 Troponin I 0.021 (0-0.045) ng/ml Liver Function 02/13/20 02/14/20 Range/Units 15:38 05:55 Total Bilirubin 0.9 0.7 (0.2-1) mg/dl AST 173 H 119 H (15-37) U/L ALT 102 H 80 H (12-78) U/L Alkaline Phosphatase 581 H 467 H (45-117) U/L Albumin 1.9 L 1.6 L (3.4-5.0) gm/dl Medications Administered Current Inpatient Medications Acetaminophen (Tylenol) 650 mg PO Q4H PRN PRN Reason: Pain or Fever Stop: 03/14/20 20:07 Apixaban (Eliquis) 2.5 mg PO BID WERNER Stop: 03/14/20 20:59 Last Admin: 02/14/20 08:25 Dose: Not Given Documented by: Cyanocobalamin (Vitamin B-12) 1,000 mcg PO DAILY WERNER Stop: 03/15/20 08:59 Last Admin: 02/14/20 08:25 Dose: Not Given Documented by: Dextrose (D5w) 1,000 mls @ 125 mls/hr IV .Q8H WERNER Stop: 03/14/20 20:07 Last Infusion: 02/14/20 13:25 Dose: 125 mls/hr Documented by: Lactulose (Chronulac) 20 gm PO BID PRN PRN Reason: Constipation Stop: 03/14/20 20:08 Mirtazapine (Remeron) 7.5 mg PO HS WERNER Stop: 03/14/20 20:59 Last Admin: 02/13/20 20:28 Dose: Not Given Documented by: Multivitamins/Minerals (Caltrate Plus) 1 tab PO DAILY WERNER Stop: 03/15/20 08:59 Last Admin: 02/14/20 08:25 Dose: Not Given Documented by: (1) Liver cirrhosis Ascites presence: with ascites Hepatic cirrhosis type: unspecified hepatic cirrhosis Qualified Code(s): K74.60 - Unspecified cirrhosis of liver; R18.8 - Other ascites
--- NOTE | 2020-02-14 17:01 | Electrocardiogram Report ---
Test Reason : Blood Pressure : / mmHG Vent. Rate : 096 BPM Atrial Rate : 096 BPM P-R Int : 122 ms QRS Dur : 076 ms QT Int : 374 ms P-R-T Axes : 002 008 045 degrees QTc Int : 472 ms Sinus rhythm Low voltage QRS Abnormal ECG Confirmed by Ubaldo Green ([id number]) on 02/14/2020 5:01:29 PM Referred By: REFERRED SELF Confirmed By:Ilya Green
[2020-02-14 17:21] LABS: Appearance Urine Turbid (Clear); Bacteria Urine Automated Negative (Negative); Bilirubin Urine Negative (Negative); Blood Urine 1+ (Negative); Color Urine Dark Yellow; Epithelial Cell Urine Auto >30 /lpf (0-5); Glucose Urine UA Negative (Negative); Ketones Urine Negative (Negative); Leukocyte Esterase Urine Trace (Negative); Nitrite Urine Negative (Negative); Protein Urine Negative (Negative); RBC Urine Automated 0-4 /hpf (0-4); Specific Gravity Urine 1.021 (1.000-1.030); Urobilinogen Urine Negative (Negative)
[2020-02-14 18:58] LABS: BUN Creatinine Ratio 28.1 (10-20); Blood Urea Nitrogen 67 mg/dl (7-18); Calcium 7.8 mg/dl (8.5-10.1); Carbon Dioxide 22 mmol/L (21-32); Chloride 121 mmol/L (98-107); Est GFR (African American) 20.3; Est GFR (Non-African American) 17.5; Glucose 217 mg/dl (70-99); Potassium 4.1 mmol/L (3.5-5.1); Sodium 150 mmol/L (136-145)
[2020-02-14] MEDS: MIRTAZAPINE TAB 15 MG TAB PO SCH ×2 (20:10→21:48)
[2020-02-14] MEDS: ACETAMINOPHEN 325 MG TAB PO PRN (21:48)
[2020-02-15] MEDS ORDERED: ALBUMIN 25% 50 ML IV ONE (06:30)
[2020-02-15 06:31] LABS: Hematocrit (blood only) 41.5 % (37-47); Hemoglobin 13.2 g/dL (12.0-16.0); Mean Corpuscular Hemoglobin 30.6 pg (25-34); Mean Corpuscular Hgb Conc 31.8 g/dL (32-36); Mean Corpuscular Volume 96.3 fL (80-100); RDW Coefficient of Variation 19.2 % (11.5-14.5); RDW Standard Deviation 67.5 fL (36.4-46.3); Red Blood Count 4.31 M/uL (4.2-5.4); White Blood Count 9.61 K/uL (4.8-10.8)
[2020-02-15 06:41] LABS: Mean Platelet Volume 11.5 fL (7.4-10.4); Platelet Count 65 K/uL (130-400)
[2020-02-15 06:55] LABS: BUN Creatinine Ratio 25.8 (10-20); Blood Urea Nitrogen 61 mg/dl (7-18); Carbon Dioxide 21 mmol/L (21-32); Chloride 120 mmol/L (98-107); Est GFR (African American) 20.4; Est GFR (Non-African American) 17.6; Glucose 105 mg/dl (70-99); Potassium 4.2 mmol/L (3.5-5.1); Sodium 149 mmol/L (136-145)
[2020-02-15] MEDS: DEXTROSE 5% 1,000 ML IV SCH (08:40)
--- NOTE | 2020-02-15 10:09 | Hospitalist Progress Note ---
Date of Service February 15, 2020 Assessment & Plan (1) Acute metabolic encephalopathy: resolved per family who has been having discussions with her in [facility] and state she is at her baseline mental status. (2) Hypernatremia: Improved to 147 with the free water. Cont to prompt her to eat and drink to stay hydrated. Turned fluids off this afternoon. Pulmonary congestion on CXR-possibly a result of IVF +/- albumin given overnight. Would avoid diuretics except in the situation where she develops respiratory distress or hypoxia. In that case, may give Lasix 10mg IV in albumin 25% 12.5gm IV (amanda can misc this special dosage to give minimal insult in setting of hypotension and pulmonary congestion with ESLD and third spacing. (3) Acute dehydration: Improved, son at bedside and prompting her to eat and stay hydrated. (4) Acute kidney injury: 2/2 dehydration. Escamilla was removed and replaced 2/2 concern for possible obstruction of Escamilla (bladder scan was 600 despite [address] being in [address]). Escamilla was removed and patient did not urinate spontaneously, scan still revealed 600cc fluid. REplaced escamilla and minimal UOP. It is most likely the 600cc of fluid is actually measuring free pelvic or ascitic fluid/third spacing. Would leave escamilla in place at this point. (5) Liver cirrhosis: Present without jaundice or evidence of decompensation. She is s/p paracentesis with 2L off at the beginning of this month (2 weeks ago). Evidently was admitted with anasarca one month ago and was started on Lasix/spi ronolactone at discharge. There is a small amount of ascites seen on us imaging this admission, however, there is no fever, abdominal pain, elevated bilirubin, or other indication of SBP at this point, and there is a clear different reason for her encephalopathy and weakness. Increased ascites and third spacing present today after rehydration efforts. Patient is a palliative care patient, however, at this time the family wants to try to treat her. I will continue to work with them on goals of care over the weekend as the patient's prognosis is clearly poor. I spoke with the daughter about this today and she verbalized understanding. (6) Thrombocytopenia: 2/2 liver disease. No bleeding present. 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 Liver us yesterday revealed persistent PVT. I have some concern about her Eliquis with this level of platelets, however, she has no bleeding and platelet level appears stable. Will discuss this further with Hematology for recommendations and with her family. (7) Transaminitis: etiologies include but not limited to recent bout of hepatitis A infection, injury to her cirrhotic liver with recent metabolic insults (ischemic hepatic injury), or PVT presence. Cont to trend (8) Severe protein-calorie malnutrition: Nutrition consult. Appreciate hospital administration allowing the exception to have her son at bedside 21/03 to help with feeding her and with translation. 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 On Eliquis. (10) Discharge planning issues: The patient came in on Hospice which was revoked for the admission to the hospital. Per palliative care physician, it would be better for her to leave without Hospice and put Home Health in place instead. Emiliano continue to work with the family on goals of care. DNR Dispo-uncertain at this time but will likely be here through the weekend. Leda [facility] and Anticipated Discharge Date Admission Date: February 13, 2020 Subjective The patient is more alert this morning Daughter is at bedside and we discussed the situation Family is still pro-Hospice, they would just like more options available such as the ability to give IVF at home Per daughter translation, patient states she is doing better and son is able to feed her well Review of Systems Review of Systems: Other (limited ROS as we are translating through daughter and patient is very ill and not that conversational ) Physical Exam 2 Physical Exam: CONSTITUTIONAL: thin, frail, vitals as above, generally ill- appearing with some possible distress. Staring off with mouth open and moaning on occasion, especially when moved as if in pain. EYES: pupils are round and equal bilaterally, no scleral icterus ENT: external ear and nose normal, mucous membranes are dry RESPIRATORY: clear to auscultation bilaterally-limited exam as patient moaning in pain, no crackles, rales or wheezes, normal respiratory effort CARDIOVASCULAR: regular rate and rhythm, S1 and 2 heard without murmurs, bauer ps or rubs, no JVD, 2+ pitting edema on her feet bilaterally that doesn't extend past her ankle. She has an appearance to her lower legs as if she has had multiple issues with swelling of the skin. GASTROINTESTINAL: soft, nontender, nondistended. MUSCULOSKELETAL: very weak and appears physically deconditioned, cannot examine strength 2/2 altered mental state, bedbound SKIN: warm and dry NEUROLOGIC: appears altered, she is unresponsive to me when i try to examine her except to moan as if in discomfort, lethargic, cannot perform DTRs as she is resistant to my moving her extremities much at all PSYCHIATRIC: somnolent, appears confused. Results & Data Results & Data ([facility]) Vital Signs (Past 12 Hours) Vital Signs Temp Pulse Pulse Resp BP Pulse Ox 02/15/20 07:56 36.5 C 94 H 17 99/67 L 02/15/20 06:39 82 96/66 L 02/15/20 04:00 36.6 C 53 L 18 88/57 L 96 02/15/20 02:00 100 H 02/14/20 23:00 36.6 C 103 H 18 91/64 L 97 Laboratory Results Short CBC 02/14/20 02/15/20 Range/Units 12:09 06:15 WBC 12.80 H 9.61 (4.8-10.8) K/uL Hgb 13.2 13.2 (12.0-16.0) g/dL Hct 42.3 41.5 (37-47) % Plt Count 71 L 65 L (130-400) K/uL BMP 02/14/20 02/14/20 02/15/20 12:09 18:23 06:15 Sodium 155 H 150 H 149 H Potassium 4.0 4.1 4.2 Chloride 126 H 121 H 120 H Carbon Dioxide 23 22 21 BUN 68 H 67 H 61 H Creatinine 2.35 H 2.39 H 2.38 H Glucose 122 H 217 H 105 H Calcium 8.2 L 7.8 L 8.0 L Urine 02/14/20 Range/Units 17:00 Urine Color Dark Yellow Urine Appearance Turbid A (Clear) Urine pH 5.0 (4.5-7.5) Ur Specific [place] 1.021 (1.000-1.030) Urine Protein Negative (Negative) Urine Glucose (UA) Negative (Negative) Medications Administered Current Inpatient Medications Acetaminophen (Tylenol) 650 mg PO Q4H PRN PRN Reason: Pain or Fever Stop: 03/14/20 20:07 Last Admin: 02/14/20 21:48 Dose: 650 mg Documented by: Apixaban (Eliquis) 2.5 mg PO BID WERNER Stop: 03/14/20 20:59 Last Admin: 02/14/20 21:49 Dose: 2.5 mg Documented by: Cyanocobalamin (Vitamin B-12) 1,000 mcg PO DAILY WERNER Stop: 03/15/20 08:59 Last Admin: 02/14/20 08:25 Dose: Not Given Documented by: Dextrose (D5w) 1,000 mls @ 125 mls/hr IV .Q8H EWRNER Stop: 03/14/20 20:07 Last Admin: 02/15/20 08:40 Dose: 125 mls/hr Documented by: Lactulose (Chronulac) 20 gm PO BID PRN PRN Reason: Constipation Stop: 03/14/20 20:08 Mirtazapine (Remeron) 7.5 mg PO HS WERNER Stop: 03/14/20 20:59 Last Admin: 02/14/20 21:48 Dose: 7.5 mg Documented by: Multivitamins/Minerals (Caltrate Plus) 1 tab PO DAILY WERNER Stop: 03/15/20 08:59 Last Admin: 02/14/20 08:25 Dose: Not Given Documented by: (1) Liver cirrhosis Ascites presence: with ascites Hepatic cirrhosis type: unspecified hepatic cirrhosis Qualified Code(s): K74.60 - Unspecified cirrhosis of liver; R18.8 - Other ascites
[2020-02-15] MEDS: CYANOCOBALAMIN 500 MCG TABLET (VITAMIN B-12) PO SCH (10:21)
[2020-02-15] MEDS: CALCIUM 600MG + VIT D 400 IU TAB PO SCH (10:21)
[2020-02-15] MEDS: APIXABAN 2.5 MG TAB PO SCH ×2 (10:21→20:11)
--- NOTE | 2020-02-15 11:36 | Nephrology Progress Note ---
Date of Service February 15, 2020 Assessment & Plan (1) Acute kidney injury: baselin creatinine 0.9-1.1 as recently as 01/27. presenting creatinine on 02/12 2.6; improving now plateaued since February 13 again at 2.4 this am w/ gentle iv fluid resuscitation -f/u recheck -continue current IVF -cont nephrotoxin avoidance; would cont to hold diuretics for now (2) Hypernatremia: improving to 149 this morning -cont D5W at 125 ml/hr and await repeat labs --low threshold to cut fluid rate back to 80 mL hourly once sodium normalizes if not before -this is a direct result of dehydration and given her dementia /clinical status is likely to recur: recommend continued goals of care discussion; marily challenging in setting of obligate diuretics for ESLD; I did discuss these points with her daughter who is a local mold polisher; daughter denies her mother has advanced dementia but does endorse a degree of cognitive impairment (3) Liver lesion: per primary service; not for invasive work up; w/ ESLD/ascites -hold diuretics for now (4) Goals of care, counseling/discussion: hypernatremia likely to recur for this pt; recommend continued goals of care discussions w/ pt family. pt clinically challenging b/c chronic vol OL from liver disease/ascites but also with hypernatremia from poor fluid intake. we were able to correct fluid/vol status before but this will be constant project and may get to point where cannot be balanced clinically. Again I did discuss this with Ms. Gallegos's daughter Admission and Anticipated Discharge Date Admission Date: February 13, 2020 Subjective Seen on rounds this morning at approximately 0900. Daughter at bedside. Patient opens her eyes briefly during evaluation at times. She cooperates with exam maneuvers, for example by inhaling deeply on request; however otherwise does not participate in the evaluation today Review of Systems Review of Systems: Unobtainable due to reduced consciousness Physical Exam Constitutional: well developed, + cachectic and + frail appearing Lethargic, on room air, moans with gentlest repositioning of her arms for lung exam Eyes: EOM intact bilaterally ENMT: Ears: no external ear abnormality Nose: no external nose abnormality Mouth: + dry oral mucous membranes Neck: no nuchal rigidity Respiratory: normal respiratory effort; no respiratory distress Auscultation: + diminished lung sounds (On anterior exam) Cardiovascular: Rate/Rhythm: regular rate Extremities: + edema (2+ bilateral pedal edema; trace pretibial bilaterally) Gastrointestinal (Abdomen): Inspection/Auscultation: + abdomen distended and normal bowel sounds Percussion/Palpation: abdomen soft; abdomen nontender Musculoskeletal: proFound generalized weakness Skin: no rashes, warm and dry + turgor decreased Neurologic: + confused and + obtunded Speech / Cognition: + expressive aphasia Genitourinary: Adamson present with ample light yellow urine Results & Data [facility]) Vital Signs (Past 12 Hours) Vital Signs Temp Pulse Pulse Resp BP Pulse Ox 02/15/20 07:56 36.5 C 94 H 17 99/67 L 02/15/20 07:40 95 H 02/15/20 06:39 82 96/66 L 02/15/20 04:00 36.6 C 53 L 18 88/57 L 96 02/15/20 02:00 100 H Laboratory Results 02/15/20 06:15 02/15/20 06:15
--- NOTE | 2020-02-15 14:08 | Palliative Care Consultation ---
Date of Consultation February 15, 2020 Assessment & Plan (1) Goals of care, counseling/discussion: - Briefly patient is an 89 year old female patient with PMH slow transit constipation, female stress incontinence, primary osteoarthritis involving multiple joints, senile dementia, and others, presented to the hospital in December with worsening abdominal distention and lower extremity edema. CT scan at that time showed liver masses, ascites with anasarca. Liver CT showed lesion within the medial right hepatic lobe and diffusely involving the left hepatic lobe, cirrhosis, portal vein thrombosis with involvement of the superior mesenteric vein there was also involvement of the intrahepatic portal veins. Biopsy was recommended, but family did not want aggressive treatment. Patient's CA 125 was elevated at 490, CA 19-9 and AFP were negative. Patient had a distended, tense abdomen and underwent paracentesis on 01/16 with removal of 2.8 L. Patient was discharged on 01/27 with hospice. Patient lives with her son, Adelfo. Family was concerned regarding patient's poor p.o. intake, had lab work done which showed a critical elevated sodium of 158. - There were secondhand reports that the hospice agency refused to do IV fluids or taps-spoke with son Adelfo -who reported they never asked, they just assumed that that would not be in her plan of care. Patient has been receiving IV hydration since admission has received a total of 4 L of IV fluid, her urine output so far has only been 40 cc. Patient is taking sips p.o. Her sodium has improved to 149. Patient's BUNs/creatinine was 72/2.63 on admission, on labs drawn today was 61/2.38. Patient is having increased lower extremity edema. -Conversation with patient's son, Adelfo, - they do not want aggressive treatment, but they do want to treat things that provide comfort as well as issues that are easily reversed. Discussed at length patient's current issues with cirrhosis and poor p.o. intake. Patient will improve with IV fluids, she will then return home and if she does not take enough PO fluids she will be in the same situation she was 2 days ago. As she is hydrated her lower extremity edema and ascites increases. -Discussed home health, home palliative services as well as home hospice-at this point home health or home palliative are more in line with families goals of care, they will need continued education regarding her disease process. And may at some time request hospice care. (2) Acute dehydration: Due to poor p.o. intake. Discussed at length with son regarding continued vicious cycle of poor p.o. intake requiring IV hydration which increases her edema and ascites. (3) Liver lesion: Family refuses further invasive procedures (4) Liver cirrhosis: Contributing to her edema and ascites Hepatic cirrhosis type: unspecified hepatic cirrhosis Ascites presence: with ascites Qualified Code(s): K74.60 - Unspecified cirrhosis of liver; R18.8 - Other ascites (5) Edema, peripheral: Increased lower extremity edema with IV hydration History of Present Illness Reason for Consultation: Address goals of care Requesting Physician: Dr. Leda Witt Attending Physician: eLda Witt, History of Present Illness Patient known to our service from her previous admission in December. - Briefly patient is an 89 year old female patient with PMH slow transit constipation, female stress incontinence, primary osteoarthritis involving multiple joints, senile dementia, and others, presented to the hospital in December with worsening abdominal distention and lower extremity edema. CT scan at that time showed liver masses, ascites with anasarca. Liver CT showed lesion within the medial right hepatic lobe and diffusely involving the left hepatic lobe, cirrhosis, portal vein thrombosis with involvement of the superior mesenteric vein there was also involvement of the intrahepatic portal veins. Biopsy was recommended, but family did not want aggressive treatment. Patient's CA 125 was elevated at 490, CA 19-9 and AFP were negative. Patient had a distended, tense abdomen and underwent paracentesis on 01/16 with removal of 2.8 L. Patient was discharged on 01/27 with hospice. Patient lives with her son, Adelfo. Family was concerned regarding patient's poor p.o. intake, had lab work done which showed a critical elevated sodium of 158. - There were secondhand reports that the hospice agency refused to do IV fluids or taps-spoke with son Adelfo -who reported they never asked, they just assumed that that would not be in her plan of care. Patient has been receiving IV hydration since admission has received a total of 4 L of IV fluid, her urine output so far has only been 40 cc. Patient is taking sips p.o. Her sodium has improved to 149. Patient's BUNs/creatinine was 72/2.63 on admission, on labs drawn today was 61/2.38. Patient is having increased lower extremity edema. -Conversation with patient's son, Adelfo, - they do not want aggressive treatment, but they do want to treat things that provide comfort as well as issues that are easily reversed. Discussed at length patient's current issues with cirrhosis and poor p.o. intake. Patient will improve with IV fluids, she will then return home and if she does not take enough PO fluids she will be in the same situation she was 2 days ago. As she is hydrated her lower extremity edema and ascites increases. -Discussed home health, home palliative services as well as home hospice-at this point home health or home palliative are more in line with families goals of care, they will need continued education regarding her disease process. And may at some time request hospice care. Allergies Allergy/AdvReac Type Severity Reaction Status Date / Time No Known Allergies Allergy Verified 02/13/20 14:58 Home Medications Home Medications Medication Instructions Recorded Confirmed Type acetaminophen [Tylenol Arthritis 650 mg PO Q12H PRN 06/24/19 02/13/20 History Pain] calcium carbonate-vitamin D3 1 tab PO DAILY 01/15/20 02/13/20 History [Calcium 600 + D(3)] cyanocobalamin (vitamin B-12) 1,000 mcg PO DAILY 01/15/20 02/13/20 History [Vitamin B-12] apixaban [Eliquis] 2.5 mg PO BID 30 Days #60 tab 01/28/20 02/13/20 Rx furosemide 40 mg PO QAM 30 Days #30 tab 01/28/20 02/13/20 Rx spironolactone 12.5 mg PO DAILY 30 Days #15 tab 01/28/20 02/13/20 Rx lactulose 30 ml PO BID PRN 02/13/20 02/13/20 History mirtazapine 7.5 mg PO HS 02/13/20 02/13/20 History Patient History Medical History Constipation Dementia Liver cirrhosis Osteoarthritis (Chronic) Surgical History Cholecystitis with cholelithiasis (Chronic) Family History Mother No problems noted. Father No problems noted. Other No pertinent family history in first degree relatives Social History Preferred Language: Kandy Communication Ability: Impaired Communication Tools: Other Lighting Director Required: Yes Beliefs That Will Affect Care: Spiritism Current Living Situation: Family Current Living Situation Comment: lives with son and daughter in law Other Information That Helps Us Care for You: No Feels Safe at Home: Yes Smoking Status: Never smoker Hx Alcohol Use: No Hx Substance Use: No Review of Systems Review of Systems: Unobtainable due to cognitive status Physical Exam Physical Exam: PE: Patient arousable by voice and touch, no acute distress HEENT: EOMI, hearing appears to be within normal limits Respirations: Unlabored CV: Regular rate, 2 plus pitting edema to the level of the knees Abdomen: Soft, positive ascites, mild discomfort with palpation Neuro: Unable to assess due to language barrier. Results & Data Vital Signs (Past 12 Hours) Vital Signs Temp Pulse Pulse Resp BP Pulse Ox 02/15/20 07:56 97.7 F 94 H 17 99/67 L 02/15/20 07:40 95 H 02/15/20 06:39 82 96/66 L 02/15/20 04:00 97.9 F 53 L 18 88/57 L 96 PG Care Time/CCT Total # of Minutes Spent Total Time Spent with Patient: Total time spent 70 minutes with greater than 50% of time spent at bedside assessing patient's current status as well as discussing is greater than 50% in coordination of care (as documented) at patient's floor/unit and/or counseling patient: Coding Level of Care Code 37628 Inpt Consult Level 3 Diagnoses Goals of care, counseling/discussion Z71.89 Acute dehydration E86.0 Liver lesion K76.9 Liver cirrhosis K74.60; R18.8 Hepatic cirrhosis type: unspecified hepatic cirrhosis Ascites presence: with ascites Edema, peripheral R60.9 Time Spent (min) 70
[2020-02-15 15:25] LABS: BUN Creatinine Ratio 27.7 (10-20); Calcium 7.8 mg/dl (8.5-10.1); Creatinine Clr Calc Pharmacy 11.6 ml/min; Est GFR (African American) 19.4; Est GFR (Non-African American) 16.8; Potassium 4.2 mmol/L (3.5-5.1)
--- NOTE | 2020-02-15 17:00 | XRay Report ---
XR chest 1V portable CLINICAL HISTORY: concern for vol overload dyspnea COMPARISON STUDY: 02/13/2020 FINDINGS: Slight interstitial and bronchovascular prominence throughout both hemithoraces. Mid upper lungs are considered clear. Severe degenerative change of the shoulders consider pre-existing. IMPRESSION: Developing interstitial pulmonary vascular congestion ACT 112: Negative or not required by law. The above report was generated using voice recognition software. It may contain grammatical, syntax or spelling errors. Electronically signed by: Farshad Art M.D. 02/15/2020 4:59 PM
[2020-02-15] MEDS: MIRTAZAPINE TAB 15 MG TAB PO SCH (20:11)
[2020-02-16] MEDS ORDERED: ALBUMIN 25% 50 ML IV ONE ×3 (00:21→21:10)
[2020-02-16 08:25] LABS: Basophils # (auto) 0.02 K/uL (0-0.2); Basophils % (auto) 0.2 %; Eosinophils # (auto) 0.08 K/uL (0-0.5); Eosinophils % (auto) 0.6 %; Hematocrit (blood only) 37.8 % (37-47); Hemoglobin 11.9 g/dL (12.0-16.0); Immature Granulocytes # (auto) 0.04 K/uL (0.00-0.02); Immature Granulocytes % (auto) 0.3 %; Lymphocytes % (auto) 35.3 %; Mean Corpuscular Hemoglobin 30.1 pg (25-34); Mean Corpuscular Hgb Conc 31.5 g/dL (32-36); Mean Corpuscular Volume 95.5 fL (80-100); Mean Platelet Volume 12.4 fL (7.4-10.4); Monocytes # (auto) 0.74 K/uL (0.11-0.59); Monocytes % (auto) 5.7 %; Neutrophils # (auto) 7.54 K/uL (1.4-6.5); Neutrophils % (auto) 57.9 %; Platelet Count 83 K/uL (130-400); Red Blood Count 3.96 M/uL (4.2-5.4); White Blood Count 13.02 K/uL (4.8-10.8)
[2020-02-16 08:28] LABS: BUN Creatinine Ratio 25.2 (10-20); Creatinine Clr Calc Pharmacy 11.2 ml/min; Est GFR (African American) 18.5; Potassium 4.3 mmol/L (3.5-5.1)
[2020-02-16] MEDS: CALCIUM 600MG + VIT D 400 IU TAB PO SCH (11:17)
[2020-02-16] MEDS: APIXABAN 2.5 MG TAB PO SCH (11:17)
[2020-02-16] MEDS: CYANOCOBALAMIN 500 MCG TABLET (VITAMIN B-12) PO SCH (11:18)
--- NOTE | 2020-02-16 11:42 | Hospitalist Progress Note ---
Date of Service February 16, 2020 Assessment & Plan (1) Hypernatremia: resolved. Mentating at baseline per family. Cont to encourage PO intake and avoid diuretics if possible. (2) Acute dehydration: resolved. (3) Acute kidney injury: 2/2 dehydration, which is improved, however, renal failure is persistent. Likely related to ATN, and may not recover for several days to weeks. (4) Liver cirrhosis: Family OK with paracentesis for diagnostic/therapeutic purposes. She is notably thrombocytopenic and not bleeding. She is on Eliquis and after further peripheral discussion with hematology about the case, would not bridge her with heparin in the setting of her thrombocytopenia. Would need to hold Eliquis for 48 hours prior to procedure. Will wait for family to let me know their thoughts on paracentesis and will start holding AC now in preparation for possible para on Tuesday/ with radiology here. (5) Thrombocytopenia: 2/2 liver disease. No bleeding present. 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 Liver us this admission revealed persistent PVT. (6) Transaminitis: etiologies include but not limited to recent bout of hepatitis A infection, injury to her cirrhotic liver with recent metabolic insults (ischemic hepatic injury), or PVT presence. Improved with trend. (7) Severe protein-calorie malnutrition: Nutrition consult. Appreciate hospital administration allowing the exception to have her son at bedside 21/03 to help with feeding her and with translation. 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 On Eliquis. (9) Discharge planning issues: The patient came in on Hospice which was revoked for the admission to the hospital. Per palliative care physician, it would be better for her to leave without Hospice and put Home Health in place instead. Family agrees and will plan to transition to this at time of discharge. DNR Dispo-will likely be here through the weekend in order to get a palliative paracentesis on Tue/ prior to discharge. Leda Witt DO [facility] Hospitalist Admission and Anticipated Discharge Date Admission Date: February 13, 2020 Subjective alert but frail no family present so ROS cannot be obtained without translation She is still tolerating PO I spoke with both son, Savita, and daughter about where they want to go from here. We discussed the need for paracentesis, which is not overt at this time, but there is clearly ascites present. We discussed the fact that she is anticoagulated on Eliquis and would need to be off this for at least 48 hours and bridged with heparin (with frequent sticks for PTT monitoring) during this time 2/2 known PVT and DVT. Additionally, in the future, bridging with Lovenox would be difficult unless her kidney function improved. Discussed case with Nephro Skin exam performed with nurses and there is no evidence of breakdown. Review of Systems Review of Systems: Other (could not obtain as translation not present. ) Physical Exam Physical Exam: CONSTITUTIONAL: thin, frail, vitals as above, generally ill- appearing EYES: pupils are round and equal bilaterally, no scleral icterus ENT: external ear and nose normal, mucous membranes are dry RESPIRATORY: clear to auscultation bilaterally-limited as she is moaning and unable to follow instructions to take deep breaths, no crackles, rales or wheezes, normal respiratory effort CARDIOVASCULAR: regular rate and rhythm, S1 and 2 heard without murmurs, gallops or rubs, no JVD, 2+ pitting edema that has progressed today to mid lopez bilaterally. She has an appearance to her lower legs as if she has had multiple issues with swelling of the skin. GASTROINTESTINAL: soft, nontender, nondistended. MUSCULOSKELETAL: very weak and appears physically deconditioned, cannot examine strength 2/2 altered mental state, bedbound SKIN: warm and dry NEUROLOGIC: no gross focal deficits, however, exam is very limited 2/2 language barrier and illness PSYCHIATRIC: somnolent Results & Data Results & Data ([facility]) Vital Signs (Past 12 Hours) Vital Signs Temp Pulse Pulse Resp BP BP Pulse Ox 02/16/20 11:25 36.1 C L 91 H 18 87/60 L 100 02/16/20 08:55 89 02/16/20 07:33 35.9 C L 89 18 97/66 L 100 02/16/20 04:01 36.3 C L 89 18 80/61 L 100 02/16/20 01:03 94 H 02/16/20 00:25 100 Laboratory Results Short CBC 02/16/20 Range/Units 07:47 WBC 13.02 H (4.8-10.8) K/uL Hgb 11.9 L (12.0-16.0) g/dL Hct 37.8 (37-47) % Plt Count 83 L (130-400) K/uL BMP 02/15/20 02/16/20 14:35 07:47 Sodium 147 H 143 Potassium 4.2 4.3 Chloride 117 H 117 H Carbon Dioxide 21 19 L BUN 69 H 65 H Creatinine 2.48 H 2.58 H Glucose 111 H 79 Calcium 7.8 L 8.0 L Medications Administered Current Inpatient Medications Acetaminophen (Tylenol) 650 mg PO Q4H PRN PRN Reason: Pain or Fever Stop: 03/14/20 20:07 Last Admin: 02/14/20 21:48 Dose: 650 mg Documented by: Apixaban (Eliquis) 2.5 mg PO BID [facility] Stop: 03/14/20 20:59 Last Admin: 02/16/20 11:17 Dose: 2.5 mg Documented by: Cyanocobalamin (Vitamin B-12) 1,000 mcg PO DAILY [facility] Stop: 03/15/20 08:59 Last Admin: 02/16/20 11:18 Dose: 1,000 mcg Documented by: Lactulose (Chronulac) 20 gm PO BID PRN PRN Reason: Constipation Stop: 03/14/20 20:08 Mirtazapine (Remeron) 7.5 mg PO HS [facility] Stop: 03/14/20 20:59 Last Admin: 02/15/20 20:11 Dose: 7.5 mg Documented by: Multivitamins/Minerals (Caltrate Plus) 1 tab PO DAILY [facility] Stop: 03/15/20 08:59 Last Admin: 02/16/20 11:17 Dose: 1 tab Documented by: (1) Liver cirrhosis Ascites presence: with ascites Hepatic cirrhosis type: unspecified hepatic cirrhosis Qualified Code(s): K74.60 - Unspecified cirrhosis of liver; R18.8 - Other ascites
[2020-02-16] MEDS: ACETAMINOPHEN 325 MG TAB PO PRN (17:46)
--- NOTE | 2020-02-16 19:58 | Communication Note ---
Date of Service: February 16, 2020 Made aware by RN around 7:30 PM of patient SBP in the 40s. Hypothermic episodes in a.m. Patient without complaints as usual. Baseline lethargy as per RN. A.m. labs noted WBC 13 (from 9.6 yesterday) Hemoglobin 11.9 (from 13.2 yesterday) CO2 19 (from 21 yesterday) PPE : Obtunded Abdominal distention without overt tenderness RECTAL : Lax anal sphincter, dark stool, heme positive AP Hypotension Worsening kidney dysfunction ? Hepatorenal syndrome Multifactorial : UGIB, history of cirrhosis Sepsis (possible sources : UTI, SBP) IV albumin IV PPI IV Ceftriaxone for SBP prophylaxis for GI bleed in cirrhotic patient. Continue to hold NOAC Serial H&H, transfuse PRBC if hemoglobin less than 7 and or for symptomatic anemia GI consult for UGI B if patient family agreeable. Blood cultures, check lactic acid, check UA Patient son (Dr. Spencer Gallegos) updated of developments and is in agreement with plan of care.
[2020-02-16] MEDS ORDERED: PANTOPRAZOLE BOLUS/DRIP 1 EA IV STA (20:11)
[2020-02-16] MEDS ORDERED: PANTOprazole 80 MG in DEXTROSE 5% 100 ML IV ONE (20:30)
[2020-02-16] MEDS ORDERED: cefTRIAXone SODIUM 1,000 MG in DEXTROSE 5% 25 ML IV SCH (20:30)
[2020-02-16 20:38] LABS: Mean Corpuscular Hgb Conc 32.2 g/dL (32-36)
[2020-02-16 20:45] LABS: Hematocrit (blood only) 40.4 % (37-47); Mean Corpuscular Hemoglobin 30.3 pg (25-34); Mean Corpuscular Volume 94.2 fL (80-100); RDW Coefficient of Variation 19.2 % (11.5-14.5); RDW Standard Deviation 64.2 fL (36.4-46.3); Red Blood Count 4.29 M/uL (4.2-5.4); White Blood Count 10.64 K/uL (4.8-10.8)
[2020-02-16 20:48] LABS: INR 1.3 (0.9-1.1); Prothrombin Time 13.7 Seconds (9.0-12.0)
[2020-02-16 20:59] LABS: Albumin Level 1.9 gm/dl (3.4-5.0); BUN Creatinine Ratio 23.8 (10-20); Calcium 8.2 mg/dl (8.5-10.1); Creatinine Clr Calc Pharmacy 10.1 ml/min; Est GFR (African American) 16.4; Est GFR (Non-African American) 14.1; Magnesium 2.8 mg/dl (1.8-2.4); Potassium 4.7 mmol/L (3.5-5.1)
[2020-02-16 21:01] LABS: Albumin Globulin Ratio 0.5 (0.9-2); Bilirubin,Total 1.1 mg/dl (0.2-1); Globulin 4.2 gm/dl (2.5-4.0); Total Protein 6.1 gm/dl (6.4-8.2)
[2020-02-16 21:21] LABS: Mean Platelet Volume 11.7 fL (7.4-10.4); Platelet Count 81 K/uL (130-400)
[2020-02-16 21:22] LABS: ALC (manual) 3.43 K/uL (1.2-3.4); ANC (manual) 6.84 K/uL (1.4-6.5); Echinocytes 2+; Eosinophils % (manual) 0.9 %; Lymphocytes # (manual) 1.48 K/uL (1.2-3.4); Lymphocytes % (manual) 13.9 %; Monocytes # (manual) 0.28 K/uL (0.11-0.59); Monocytes % (manual) 2.6 %; Neutrophils # (manual) 6.84 K/uL (1.4-6.5); Neutrophils % (manual) 64.3 %; Reactive Lymphocytes # (manual) 1.95 K/uL; Reactive Lymphocytes % (manual) 18.3 %
[2020-02-16] MEDS: PANTOprazole 40 MG in DEXTROSE 5% 100 ML IV SCH (21:50)
[2020-02-16] MEDS: MIRTAZAPINE TAB 15 MG TAB PO SCH (21:54)
[2020-02-16] MEDS: ALBUMIN 25% 50 ML IV SCH (23:43)
[2020-02-17 02:13] LABS: Hematocrit (blood only) 33.1 % (37-47); Hemoglobin 10.5 g/dL (12.0-16.0); Mean Corpuscular Hemoglobin 29.9 pg (25-34); Mean Corpuscular Hgb Conc 31.7 g/dL (32-36); Mean Corpuscular Volume 94.3 fL (80-100); RDW Coefficient of Variation 19.1 % (11.5-14.5); RDW Standard Deviation 64.1 fL (36.4-46.3); Red Blood Count 3.51 M/uL (4.2-5.4)
[2020-02-17 02:29] LABS: Est GFR (African American) 16.1; Est GFR (Non-African American) 13.9; Potassium 4.4 mmol/L (3.5-5.1)
[2020-02-17 02:31] LABS: Mean Platelet Volume 11.7 fL (7.4-10.4); Platelet Count 67 K/uL (130-400)
[2020-02-17 02:32] LABS: Basophils # (auto) 0.01 K/uL (0-0.2); Basophils % (auto) 0.1 %; Eosinophils # (auto) 0.04 K/uL (0-0.5); Eosinophils % (auto) 0.5 %; Immature Granulocytes # (auto) 0.01 K/uL (0.00-0.02); Immature Granulocytes % (auto) 0.1 %; Lymphocytes # (auto) 2.08 K/uL (1.2-3.4); Monocytes # (auto) 0.39 K/uL (0.11-0.59); Monocytes % (auto) 4.9 %; Neutrophils # (auto) 5.47 K/uL (1.4-6.5); Neutrophils % (auto) 68.4 %; RBC Morphology Unremarkable
[2020-02-17] MEDS: PANTOprazole 40 MG in DEXTROSE 5% 100 ML IV SCH ×4 (03:06→16:27)
[2020-02-17] MEDS ORDERED: ALBUMIN 25% 50 ML IV ONE (03:09)
[2020-02-17 03:13] LABS: Appearance Urine Cloudy (Clear); Bilirubin Urine Negative (Negative); Blood Urine 3+ (Negative); Color Urine Yellow; Glucose Urine UA Negative (Negative); Ketones Urine Negative (Negative); Leukocyte Esterase Urine 3+ (Negative); Nitrite Urine Negative (Negative); Protein Urine Trace (Negative); Specific Gravity Urine 1.013 (1.000-1.030); Urobilinogen Urine Negative (Negative)
[2020-02-17 03:29] LABS: RBC Urine Automated >30 /hpf (0-4); WBC Urine Automated >30 /hpf (0-5)
[2020-02-17 03:30] LABS: Bacteria Urine Automated 1+ (Negative)
[2020-02-17] MEDS: ALBUMIN 25% 50 ML IV SCH (05:27)
[2020-02-17] MEDS: CALCIUM 600MG + VIT D 400 IU TAB PO SCH (07:32)
[2020-02-17] MEDS: CYANOCOBALAMIN 500 MCG TABLET (VITAMIN B-12) PO SCH (07:32)
[2020-02-17 08:03] LABS: Hematocrit (blood only) 33.2 % (37-47); Hemoglobin 10.6 g/dL (12.0-16.0)
[2020-02-17 08:31] LABS: BUN Creatinine Ratio 25.9 (10-20); Calcium 8.3 mg/dl (8.5-10.1); Creatinine Clr Calc Pharmacy 10.1 ml/min; Est GFR (African American) 16.4; Est GFR (Non-African American) 14.1; Potassium 4.3 mmol/L (3.5-5.1)
[2020-02-17 08:34] LABS: Albumin Globulin Ratio 1.1 (0.9-2); Bilirubin,Total 1.1 mg/dl (0.2-1); Globulin 2.8 gm/dl (2.5-4.0); Total Protein 5.8 gm/dl (6.4-8.2)
--- NOTE | 2020-02-17 11:12 | Communication Note ---
Date of Service: February 17, 2020 Clarification of pt's renal failure: her creatinine has been plateau'd in mid 2's since admission in the setting of significant anasarca from her liver di sease and cancer. Her previous creatinine as recently as 01/27 was about 1.0, so this creatinine in the mid 2's represents new/worsened renal function. her admission urine testing on 02/12 had granular casts, pathognomonic for ATN, tx of which is supportive. Ms Gallegos has very challenging volume issues: she is total body overloaded but intravascularly depleted. Ischemic ATN, from progression of prerenal disease, is at work in this patient who was d/c on 01/28 with new rxs of spironolactone and lasix and lactulose as well as with unchanged chronic anorexia due most likely to advanced dementia and advancing cancer. Her renal disease is quite severe given her body habitus and muscle mass; she has been oliguric since admission. Again her renal function is unchanged since admission and is consistent with ATN. We would expect HRS to be progressive not stable to this degree. Hepatorenal syndrome is a diagnosis of exclusion and does not apply here since we already have a very clear pathology at work. I am concerned that if we were to start 48 hrs of albumin infusions (part of the work up for HRS) that this will worsen her fluid status further, which is not to say albumin infusion to treat symptomatic hypotension might not in certain situations be indicated. I consider this patient's condition unfortunately to be terminal and fully expect her renal function to worsen, which would not change the current diagnosis. Today's urinalysis (a catheterized specimen) has as expected very active sediment (though no granular casts): this again goes against dx of HRS, particularly the marked microhematuria.
[2020-02-17] MEDS: ACETAMINOPHEN 325 MG TAB PO PRN ×2 (11:56→16:28)
[2020-02-17 15:02] LABS: Hematocrit (blood only) 35.1 % (37-47); Hemoglobin 11.6 g/dL (12.0-16.0)
--- NOTE | 2020-02-17 16:12 | Gastrointestinal Consultation ---
Date of Consultation February 17, 2020 Assessment & Plan (1) Ascites: (2) Liver cirrhosis: decompensated with ascites; unlikely to be an OLT candidate given her advanced age. was just recently on hospice. discussed palliative options for management of ascites with the daughter who understood. no overt GI bleeding at this time, also discussed the risks/benefits of endoscopic evaluation with daughter, we both agreed to defer endoscopy at this time. Recs: --therapeutic paracentesis tomorrow with supplementary albumin as needed --supportive care trend H/H daily rest as per primary team Thank you for allowing me to participate in the care of this patient. History of Present Illness Attending Physician: Leda Witt, 83-year-old female with history of DVT, portal vein thrombosis, hyponatremia, CKD III, slow transit constipation, stress incontinence, osteoarthritis, dementia and other problems who was recently admitted at [facility] for evaluation of hepatic lesions, anasarca, DVT, WALT and was discharged on hospice services presents with history of generalized weakness, abnormal labs. GI consulted for cirrhosis with ascites. She developed kidney injury from suspected ATN due to hypotensive event and has been having issues with recurrent ascites, most recent paracentesis January 28 2020. I spoke with the daughter who is a physician and also relayed to me that patient is on AC. labs reviewed. Allergies Allergy/AdvReac Type Severity Reaction Status Date / Time No Known Allergies Allergy Verified 02/13/20 14:58 Home Medications Home Medications Medication Instructions Recorded Confirmed Type acetaminophen [Tylenol Arthritis 650 mg PO Q12H PRN 06/24/19 02/13/20 History Pain] calcium carbonate-vitamin D3 1 tab PO DAILY 01/15/20 02/13/20 History [Calcium 600 + D(3)] cyanocobalamin (vitamin B-12) 1,000 mcg PO DAILY 01/15/20 02/13/20 History [Vitamin B-12] apixaban [Eliquis] 2.5 mg PO BID 30 Days #60 tab 01/28/20 02/13/20 Rx furosemide 40 mg PO QAM 30 Days #30 tab 01/28/20 02/13/20 Rx spironolactone 12.5 mg PO DAILY 30 Days #15 tab 01/28/20 02/13/20 Rx lactulose 30 ml PO BID PRN 06/17/20 06/17/20 History mirtazapine 7.5 mg PO HS 02/13/20 02/13/20 History Patient History Medical History Constipation Dementia Liver cirrhosis Osteoarthritis (Chronic) Surgical History Cholecystitis with cholelithiasis (Chronic) Family History Mother No problems noted. Father No problems noted. 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 Beliefs That Will Affect Care: Anabaptist Current Living Situation: Family Current Living Situation Comment: lives with son and daughter in law Other Information That Helps Us Care for You: No Feels Safe at Home: Yes Smoking Status: Never smoker Hx Alcohol Use: No Hx Substance Use: No Review of Systems Constitutional: no fever, no chills and no weight loss Eyes: as per Subjective / HPI Ear, Nose, Mouth, Throat: as per Subjective / HPI Respiratory: no dyspnea and no dyspnea on exertion Cardiovascular: no chest pain and no palpitations Gastrointestinal: as per Subjective / HPI Musculoskeletal: no joint pain and no swelling Integumentary: no rash and no lesions Neurologic: no numbness and no paresthesia Psychiatric: no depression and no anxiety Endocrine: no fatigue Hematologic / Lymphatic: no easy bleeding and no easy bruising Physical Exam Constitutional: WD/WN, vitals as above Eyes: EOM intact bilaterally Neck: normal visual inspection Respiratory: normal respiratory effort, lungs clear to auscultation Cardiovascular: RRR, no murmur, no edema Gastrointestinal (Abdomen): Inspection/Auscultation: abdomen normal to inspection; abdomen not distended Percussion/Palpation: abdomen soft; abdomen nontender and no hepatosplenomegaly Musculoskeletal: Extremities: no cyanosis Gait: normal gait Skin: no rashes, warm and dry Neurologic: moves all extremities Psychiatric: A+Ox3, euthymic affect Results & Data ([facility]) Vital Signs (Past 12 Hours) Vital Signs Temp Pulse Pulse Resp BP Pulse Ox 02/17/20 15:18 89 18 84/55 L 100 02/17/20 11:39 36.0 C L 84 18 98/63 L 100 02/17/20 08:00 79 02/17/20 07:25 79 02/17/20 07:00 36 C L 80 18 94/56 L 100 02/17/20 05:11 83 PG Care Time/CCT Total # of Minutes Spent Total Time Spent with Patient: Total time spent is greater than 50% in coordination of care (as documented) at patient's floor/unit and/or counseling patient: Coding Level of Care Code 32408 Initial Inpt Care Lvl 3 Diagnoses Ascites R18.8 Liver cirrhosis K74.60; R18.8 Hepatic cirrhosis type: unspecified hepatic cirrhosis Ascites presence: with ascites (1) Liver cirrhosis Hepatic cirrhosis type: unspecified hepatic cirrhosis Ascites presence: with ascites Qualified Code(s): K74.60 - Unspecified cirrhosis of liver; R18.8 - Other ascites
--- NOTE | 2020-02-17 17:03 | Hospitalist Progress Note ---
Date of Service February 17, 2020 Assessment & Plan (1) Hypernatremia: resolved. Mentating at baseline per family. Cont to encourage PO intake and avoid diuretics if possible. (2) Acute dehydration: resolved. (3) Acute kidney injury: 2/2 dehydration, which is improved, however, renal failure is persistent. Likely related to ATN, and may not recover for several days to weeks. (4) Liver cirrhosis: Family requesting paracentesis for diagnostic/therapeutic purposes prior to discharge. She is notably thrombocytopenic and not bleeding. Ceftriaxone was stopped. PPI was stopped per GI recommendations. This is in line with a more palliative approach consistent with family wishes. No endoscopy would be entertained. She is on Eliquis and after further peripheral discussion with hematology about the case, would not bridge her with heparin in the setting of her thrombocytopenia. Would need to hold Eliquis at least 48 hours prior to procedure. (5) Thrombocytopenia: 2/2 liver disease. No bleeding present. 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 Liver us this admission revealed persistent PVT. (6) Transaminitis: etiologies include but not limited to recent bout of hepatitis A infection , injury to her cirrhotic liver with recent metabolic insults (ischemic hepatic injury), or PVT presence. Improved with trend. (7) Severe protein-calorie malnutrition: Nutrition consult. Appreciate hospital administration allowing the exception to have her son at bedside 21/03 to help with feeding her and with translation. 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 On Eliquis. (9) Discharge planning issues: The patient came in on Hospice which was revoked for the admission to the hospital. Per palliative care physician, it would be better for her to leave without Hospice and put Home Health in place instead. Family agrees and will plan to transition to this at time of discharge. With repsect to the general approach to treatment, however, we are still taking a more palliative approach. DNR Dispo-to home after paracentesis can be completed. Leda Witt DO [facility] Hospitalist Admission and Anticipated Discharge Date Admission Date: February 13, 2020 Subjective unchanged appearance she denies pain in abdomen per translation she is eating with her son who is assisting her she had a small formed brown BM this afternoon per nursing staff Review of Systems Review of Systems: Other (ROS negative as given through son's translation at bedside today.) Physical Exam Physical Exam: CONSTITUTIONAL: thin, vitals as above, generally frail and weak EYES: pupils are round and equal bilaterally, no scleral icterus ENT: external ear and nose normal, mucous membranes are moist, dentures in place RESPIRATORY: clear to auscultation bilaterally, normal respiratory effort CARDIOVASCULAR: regular rate and rhythm, S1 and 2 heard without murmurs, gallops or rubs, no JVD, some peripheral edema present in bilat LEs GASTROINTESTINAL: soft, nontender, nondistended. MUSCULOSKELETAL: very weak and appears physically deconditioned, bedbound and cannot move independently. SKIN: warm and dry NEUROLOGIC: no gross focal deficits, however, exam is very limited 2/2 language barrier and illness PSYCHIATRIC: fatigued Results & Data Results & Data ([facility]) Vital Signs (Past 12 Hours) Vital Signs Temp Pulse Pulse Resp BP Pulse Ox 02/17/20 15:18 89 18 84/55 L 100 02/17/20 11:39 36.0 C L 84 18 98/63 L 100 02/17/20 08:00 79 02/17/20 07:25 79 02/17/20 07:00 36 C L 80 18 94/56 L 100 02/17/20 05:11 83 Laboratory Results Short CBC 02/16/20 02/17/20 02/17/20 Range/Units 20:28 02:03 07:51 WBC 10.64 8.00 (4.8-10.8) K/uL Hgb 13.0 10.5 L 10.6 L (12.0-16.0) g/dL Hct 40.4 33.1 L 33.2 L (37-47) % Plt Count 81 L 67 L (130-400) K/uL 02/17/20 Range/Units 14:33 WBC (4.8-10.8) K/uL Hgb 11.6 L (12.0-16.0) g/dL Hct 35.1 L (37-47) % Plt Count (130-400) K/uL BMP 02/16/20 02/17/20 02/17/20 20:28 02:03 07:51 Sodium 143 143 141 Potassium 4.7 4.4 4.3 Chloride 116 H 114 H 114 H Carbon Dioxide 20 L 20 L 19 L BUN 68 H 76 H 74 H Creatinine 2.86 H 2.90 H 2.86 H Glucose 82 119 H 84 Calcium 8.2 L 8.0 L 8.3 L Liver Function 02/16/20 02/17/20 Range/Units 20:28 07:51 Total Bilirubin 1.1 H 1.1 H (0.2-1) mg/dl AST 154 H 104 H (15-37) U/L ALT 82 H 58 (12-78) U/L Alkaline Phosphatase 402 H 293 H (45-117) U/L Albumin 1.9 L 3.0 L (3.4-5.0) gm/dl Urine 02/17/20 Range/Units 02:50 Urine Color Yellow Urine Appearance Cloudy A (Clear) Urine pH 5.0 (4.5-7.5) Ur Specific [place] 1.013 (1.000-1.030) Urine Protein Trace H (Negative) Urine Glucose (UA) Negative (Negative) Medications Administered Current Inpatient Medications Acetaminophen (Tylenol) 650 mg PO Q4H PRN PRN Reason: Pain or Fever Stop: 03/14/20 20:07 Last Admin: 02/17/20 16:28 Dose: 650 mg Documented by: Apixaban (Eliquis) 2.5 mg PO BID [facility] Stop: 03/14/20 20:59 Last Admin: 02/16/20 11:17 Dose: 2.5 mg Documented by: Cyanocobalamin (Vitamin B-12) 1,000 mcg PO DAILY [facility] Stop: 03/15/20 08:59 Last Admin: 02/17/20 07:32 Dose: Not Given Documented by: Sodium Chloride (Nss 1000ml) 1,000 mls @ 80 mls/hr IV .[id number] [facility] Stop: 02/18/20 17:59 Lactulose (Chronulac) 20 gm PO BID PRN PRN Reason: Constipation Stop: 03/14/20 20:08 Mirtazapine (Remeron) 7.5 mg PO HS [facility] Stop: 03/14/20 20:59 Last Admin: 02/16/20 21:54 Dose: Not Given Documented by: Multivitamins/Minerals (Caltrate Plus) 1 tab PO DAILY [facility] Stop: 03/15/20 08:59 Last Admin: 02/17/20 07:32 Dose: Not Given Documented by: (1) Liver cirrhosis Ascites presence: with ascites Hepatic cirrhosis type: unspecified hepatic cirrhosis Qualified Code(s): K74.60 - Unspecified cirrhosis of liver; R18.8 - Other ascites
[2020-02-17] MEDS: SODIUM CHLORIDE 0.9% 1000ML 1,000 ML IV SCH (17:42)
[2020-02-17] MEDS: MIRTAZAPINE TAB 15 MG TAB PO SCH (20:42)
[2020-02-18] MEDS: SODIUM CHLORIDE 0.9% 1000ML 1,000 ML IV SCH (05:54)
[2020-02-18 08:09] LABS: Hemoglobin 13.1 g/dL (12.0-16.0); Mean Corpuscular Hemoglobin 30.7 pg (25-34); Mean Corpuscular Hgb Conc 32.8 g/dL (32-36); Mean Corpuscular Volume 93.7 fL (80-100); RDW Coefficient of Variation 19.2 % (11.5-14.5); RDW Standard Deviation 64.2 fL (36.4-46.3); Red Blood Count 4.27 M/uL (4.2-5.4); White Blood Count 13.41 K/uL (4.8-10.8)
[2020-02-18 08:24] LABS: Mean Platelet Volume 11.7 fL (7.4-10.4); Platelet Count 92 K/uL (130-400)
[2020-02-18 08:48] LABS: BUN Creatinine Ratio 23.2 (10-20); Calcium 8.1 mg/dl (8.5-10.1); Creatinine Clr Calc Pharmacy 9.5 ml/min; Est GFR (African American) 14.9; Est GFR (Non-African American) 12.8; Phosphorus 4.5 mg/dl (2.5-4.9)
[2020-02-18 10:13] LABS: Potassium 4.6 mmol/L (3.5-5.1)
[2020-02-18 10:18] LABS: Magnesium 2.9 mg/dl (1.8-2.4)
--- NOTE | 2020-02-18 11:00 | Gastroenterology Progress Note ---
Date of Service February 18, 2020 Assessment & Plan (1) Liver cirrhosis: (2) Ascites: Pt is a 89 y/o female w cirrhosis complicated by ascites development, admitted for generalized weakness and electrolyte imbalance. Goals of care palliative. GI consulted for ? GI bleed. However no tal s/s of this and H/H stable. She had been on Eliquis. This is held for 2 days now. Plan for palliative u/s guided paracentesis by Radiology tomorrow. GI to sign off; pls recall prn Admission and Anticipated Discharge Date Admission Date: February 13, 2020 Supervising Physician Co-Signing Physician Notes Attending attestation I have seen, examined this patient, and agree with the findings and above by our mid-level provider ADELINA Abraham, with the following additions: - Plan for palliative tap tomorrow - agree with hospice at d/c Subjective Pt sleeping, daughter at bedside. Pt isn't answering when name called or following commands. Review of Systems Review of Systems: Unobtainable due to cognitive status Physical Exam Constitutional: + thin, well groomed and comfortable ENMT: external ear and nose normal, oropharynx normal Respiratory: no respiratory distress and does not use accessory muscles Auscultation: + diminished lung sounds Cardiovascular: RRR, no murmur, no edema Gastrointestinal (Abdomen): normal bowel sounds, soft, nontender, no hepatosplenomegaly Skin: no rashes, warm and dry no jaundice Psychiatric: No answering to name called or following commands. Eyes closed, appears sleeping Lymphatic: no lymphedema Results & Data ([facility]) Vital Signs (Past 12 Hours) Vital Signs Temp Pulse Resp BP BP Pulse Ox 02/18/20 07:26 36.3 C L 91 H 20 104/63 100 02/18/20 04:00 35.9 C L 80 20 134/72 100 02/17/20 23:00 36.2 C L 89 20 104/65 100 (1) Liver cirrhosis Ascites presence: with ascites Hepatic cirrhosis type: unspecified hepatic cirrhosis Qualified Code(s): K74.60 - Unspecified cirrhosis of liver; R18.8 - Other ascites
[2020-02-18] MEDS: ACETAMINOPHEN 325 MG TAB PO PRN (11:54)
[2020-02-18] MEDS: CYANOCOBALAMIN 500 MCG TABLET (VITAMIN B-12) PO SCH (11:54)
[2020-02-18] MEDS: CALCIUM 600MG + VIT D 400 IU TAB PO SCH (11:54)
--- NOTE | 2020-02-18 20:40 | Hospitalist Progress Note ---
Date of Service February 18, 2020 Assessment & Plan (1) ATN (acute tubular necrosis): 2/2 dehydration, which is improved, however, renal failure is persistent. Likely related to ATN, and may not recover for several days to weeks. Did give a trial of normal saline for 24 hours, however, there is too much third spacing on exam today and this was stopped. (2) Physical deconditioning: The patient is immobile and bedridden. She relies 100% on caregivers to adjust and reposition her body in the bed and she is a significant risk for skin breakdown and sensory compromise. The patient has to be repositioned at least every two hours, and again is dependent on caregivers for this. Additionally, with her extreme weakness, she is at higher risk for aspiration and would benefit from an adjustible semi-electric hospital bed where the head of bed can be raised. (3) Severe protein-calorie malnutrition: cont diet as tolerated. Cont mirtazapine for appetite stimulation. (4) Weakness: as above (5) Hypernatremia: resolved. Mentating at baseline per family. Cont to encourage PO intake and avoid diuretics if possible. (6) Acute dehydration: resolved. (7) Liver cirrhosis: Family requesting paracentesis for diagnostic/therapeutic purposes prior to discharge. She is notably thrombocytopenic and not bleeding. No endoscopy would be entertained. She is on Eliquis and after further peripheral discussion with hematology about the case, would not bridge her with heparin in the setting of her thrombocytopenia. Would need to hold Eliquis at least 48 hours prior to procedure. Discussed with radiology and plan for this in am. (8) Thrombocytopenia: Improved. 2/2 liver disease. No bleeding present. 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 Liver us this admission revealed persistent PVT. (9) Transaminitis: etiologies include but not limited to recent bout of hepatitis A infection, injury to her cirrhotic liver with recent metabolic insults (ischemic hepatic injury), or PVT presence. Improved with trend. (10) DVT (deep venous thrombosis): Pt has both active PVT and DVT of RLE. On Eliquis. (11) Discharge planning issues: The patient came in on Hospice which was revoked for the admission to the hospital. Per palliative care physician, it would be better for her to leave without Hospice and put Home Health in place instead. Family agrees and will plan to transition to this at time of discharge. With repsect to the general approach to treatment, however, we are still taking a more palliative approach. DNR Dispo-to home after paracentesis can be completed. [facility]eda [facility] and Anticipated Discharge Date Admission Date: February 13, 2020 Subjective Spoke with daughter at bedside who states the patient denies pain and swelling or discomfort in her abdomen. she is feeling better overall. Daughter was requesting paracentesis today so that she can get her home sooner. Explained the need to wait one more day. She verbalized understanding. I reiterated with her my understanding that we are taking a more palliative approach to mom's care at this point, and she said she needed to discuss this further with her brothers. Review of Systems Review of Systems: Other (per translation through daughter patient is feeling well and no acute issues today. ) Physical Exam Physical Exam: CONSTITUTIONAL: thin, vitals as above, generally frail and weak EYES: pupils are round and equal bilaterally, no scleral icterus ENT: external ear and nose normal, mucous membranes are moist, dentures in place RESPIRATORY: clear to auscultation bilaterally, normal respiratory effort CARDIOVASCULAR: regular rate and rhythm, S1 and 2 heard without murmurs, gallops or rubs, no JVD, some peripheral edema present in bilat LEs up to mid shins. GASTROINTESTINAL: soft, nontender, nondistended. MUSCULOSKELETAL: very weak and appears physically deconditioned, bedbound and cannot move independently. SKIN: warm and dry, general swelling noted. Noted R hand swelling acutely related to recent peripheral IV infiltration. NEUROLOGIC: no gross focal deficits, however, exam is very limited 2/2 language barrier and illness PSYCHIATRIC: fatigued Results & Data Results & Data ([facility]) Vital Signs (Past 12 Hours) Vital Signs Temp Pulse Resp BP Pulse Ox 02/18/20 15:45 36.7 C 93 H 16 111/71 100 02/18/20 12:22 36.3 C L 93 H 18 85/56 L 98 Laboratory Results Short CBC 02/18/20 Range/Units 07:59 WBC 13.41 H (4.8-10.8) K/uL Hgb 13.1 (12.0-16.0) g/dL Hct 40.0 (37-47) % Plt Count 92 L (130-400) K/uL BMP 02/18/20 02/18/20 07:59 09:03 Sodium 141 Potassium 4.6 Chloride 113 H Carbon Dioxide 18 L BUN 72 H Creatinine 3.09 H Glucose 82 Calcium 8.1 L Medications Administered Current Inpatient Medications Acetaminophen (Tylenol) 650 mg PO Q4H PRN PRN Reason: Pain or Fever Stop: 03/14/20 20:07 Last Admin: 02/18/20 11:54 Dose: 650 mg Documented by: Apixaban (Eliquis) 2.5 mg PO BID [facility] Stop: 03/14/20 20:59 Last Admin: 02/16/20 11:17 Dose: 2.5 mg Documented by: Cyanocobalamin (Vitamin B-12) 1,000 mcg PO DAILY [facility] Stop: 03/15/20 08:59 Last Admin: 02/18/20 11:54 Dose: 1,000 mcg Documented by: Lactulose (Chronulac) 20 gm PO BID PRN PRN Reason: Constipation Stop: 03/14/20 20:08 Mirtazapine (Remeron) 7.5 mg PO HS [facility] Stop: 03/14/20 20:59 Last Admin: 02/17/20 20:42 Dose: Not Given Documented by: Multivitamins/Minerals (Caltrate Plus) 1 tab PO DAILY [facility] Stop: 03/15/20 08:59 Last Admin: 02/18/20 11:54 Dose: 1 tab Documented by: (1) Liver cirrhosis Ascites presence: with ascites Hepatic cirrhosis type: unspecified hepatic cirrhosis Qualified Code(s): K74.60 - Unspecified cirrhosis of liver; R18.8 - Other ascites
[2020-02-18] MEDS: MIRTAZAPINE TAB 15 MG TAB PO SCH (21:38)
[2020-02-19 05:27] LABS: Hematocrit (blood only) 39.2 % (37-47); Hemoglobin 12.5 g/dL (12.0-16.0); Mean Corpuscular Hemoglobin 29.9 pg (25-34); Mean Corpuscular Hgb Conc 31.9 g/dL (32-36); Mean Corpuscular Volume 93.8 fL (80-100); Mean Platelet Volume 11.2 fL (7.4-10.4); Platelet Count 101 K/uL (130-400); RDW Standard Deviation 63.5 fL (36.4-46.3); Red Blood Count 4.18 M/uL (4.2-5.4); White Blood Count 11.58 K/uL (4.8-10.8)
[2020-02-19 05:59] LABS: BUN Creatinine Ratio 25.1 (10-20); Calcium 7.8 mg/dl (8.5-10.1); Creatinine Clr Calc Pharmacy 8.7 ml/min; Est GFR (African American) 13.6; Est GFR (Non-African American) 11.7; Potassium 5.1 mmol/L (3.5-5.1)
[2020-02-19] MEDS: CALCIUM 600MG + VIT D 400 IU TAB PO SCH (08:53)
[2020-02-19] MEDS: CYANOCOBALAMIN 500 MCG TABLET (VITAMIN B-12) PO SCH (08:54)
--- NOTE | 2020-02-19 11:35 | Hospitalist Progress Note ---
Date of Service February 19, 2020 Assessment & Plan (1) ATN (acute tubular necrosis): 2/2 dehydration, which is improved, however, renal failure is persistent. Likely related to ATN, and may not recover for several days to weeks. Did give a trial of normal saline for 24 hours, and this was stopped when creatinine didn't recover (and continues to worsen) and she developed third spacing of fluid which is better today. (2) Physical deconditioning: The patient is immobile and bedridden. She relies 100% on caregivers to adjust and reposition her body in the bed and she is a significant risk for skin breakdown and sensory compromise. The patient has to be repositioned at least every two hours, and again is dependent on caregivers for this. Additionally, with her extreme weakness, she is at higher risk for aspiration and would benefit from an adjustible semi-electric hospital bed where the head of bed can be raised. (3) Severe protein-calorie malnutrition: cont diet as tolerated. Cont mirtazapine for appetite stimulation. (4) Weakness: as above (5) Hypernatremia: resolved. Mentating at baseline per family. Cont to encourage PO intake and avoid diuretics if possible. (6) Acute dehydration: resolved. (7) Liver cirrhosis: Family requesting paracentesis for diagnostic/therapeutic purposes prior to discharge. She is notably thrombocytopenic and not bleeding. PATIENT DECLINED PROCEDURE TODAY. No endoscopy would be entertained. Will restart Eliquis now. (8) Thrombocytopenia: Improved. 2/2 liver disease. No bleeding present. 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 Liver us this admission revealed persistent PVT. (9) Transaminitis: etiologies include but not limited to recent bout of hepatitis A infection, injury to her cirrhotic liver with recent metabolic insults (ischemic hepatic injury), or PVT presence. Improved with trend. (10) DVT (deep venous thrombosis): Pt has both active PVT and DVT of RLE. On Eliquis. (11) Discharge planning issues: The patient came in on Hospice which was revoked for the admission to the hospital. Per palliative care physician, it would be better for her to leave without Hospice and put Home Health in place instead. Family agrees and will plan to transition to this at time of discharge. With respect to the general approach to treatment, however, we are still taking a more palliative approach. DNR Dispo-to home in am once we have final Nephrology recommendations. Leda Witt DO [facility] Hospitalist Admission and Anticipated Discharge Date Admission Date: February 13, 2020 Subjective The patient continues to appear weak and frail She went down for the paracentesis today and declined the procedure Daughter states she wants to be more aggressive with medications asked Nehro back to the table for CKD discussion and follow-up recs. Asked Palliative Care to come back by and see the patient's family again. Review of Systems Review of Systems: All systems reviewed & are unremarkable except as noted in Subjective Physical Exam Physical Exam: CONSTITUTIONAL: thin, vitals as above, generally frail and weak EYES: pupils are round and equal bilaterally, no scleral icterus ENT: external ear and nose normal, mucous membranes are moist, dentures in place RESPIRATORY: clear to auscultation bilaterally, normal respiratory effort CARDIOVASCULAR: regular rate and rhythm, S1 and 2 heard without murmurs, gallops or rubs, no JVD, some peripheral edema present in bilat LEs up to mid shins. GASTROINTESTINAL: soft, nontender, nondistended. MUSCULOSKELETAL: very weak and appears physically deconditioned, bedbound and cannot move independently. SKIN: warm and dry, general swelling noted. Noted resolution of R hand swell ing. NEUROLOGIC: no gross focal deficits, however, exam is very limited 2/2 language barrier and illness PSYCHIATRIC: fatigued Results & Data Results & Data ([facility]) Vital Signs (Past 12 Hours) Vital Signs Temp Pulse Resp BP BP Pulse Ox 02/19/20 07:58 36.4 C L 55 L 18 87/62 L 93 02/19/20 01:29 101/65 Laboratory Results Short CBC 02/19/20 Range/Units 05:06 WBC 11.58 H (4.8-10.8) K/uL Hgb 12.5 (12.0-16.0) g/dL Hct 39.2 (37-47) % Plt Count 101 L (130-400) K/uL BMP 02/19/20 05:06 Sodium 142 Potassium 5.1 Chloride 115 H Carbon Dioxide 18 L BUN 84 H Creatinine 3.34 H Glucose 94 Calcium 7.8 L Medications Administered Current Inpatient Medications Acetaminophen (Tylenol) 650 mg PO Q4H PRN PRN Reason: Pain or Fever Stop: 03/14/20 20:07 Last Admin: 02/18/20 11:54 Dose: 650 mg Documented by: Apixaban (Eliquis) 2.5 mg PO BID [facility] Stop: 03/14/20 20:59 Last Admin: 02/16/20 11:17 Dose: 2.5 mg Documented by: Cyanocobalamin (Vitamin B-12) 1,000 mcg PO DAILY [facility] Stop: 03/15/20 08:59 Last Admin: 02/19/20 08:54 Dose: 1,000 mcg Documented by: Lactulose (Chronulac) 20 gm PO BID PRN PRN Reason: Constipation Stop: 03/14/20 20:08 Mirtazapine (Remeron) 7.5 mg PO HS [facility] Stop: 03/14/20 20:59 Last Admin: 02/18/20 21:38 Dose: Not Given Documented by: Multivitamins/Minerals (Caltrate Plus) 1 tab PO DAILY [facility] Stop: 03/15/20 08:59 Last Admin: 02/19/20 08:53 Dose: 1 tab Documented by: (1) Liver cirrhosis Ascites presence: with ascites Hepatic cirrhosis type: unspecified hepatic cirrhosis Qualified Code(s): K74.60 - Unspecified cirrhosis of liver; R18.8 - Other ascites
--- NOTE | 2020-02-19 12:53 | Progress Notes ---
DATE: 02/19/2020 NEPHROLOGY PROGRESS NOTE SUBJECTIVE: The patient is not interactive or talking. History was constructed mainly from the chart. She is, however, alert with eyes open briefly and she is moaning. OBJECTIVE: VITAL SIGNS: Blood pressure is 87/62, pulse rate 55, temperature 36.4, 93% on room air. HEENT: Mucous membranes moist. NECK: Supple. No jugular venous distention. CHEST: Bilaterally decreased breath sounds, poor inspiratory effort limiting the quality of the exam. CARDIOVASCULAR: S1, S2 regular. ABDOMEN: Distended with ascites. EXTREMITIES: Show 2-3+ edema bilaterally. NEUROLOGIC: She did talk a little bit, but did not follow command or answer the questions, eyes open briefly. LABORATORY TESTS: From this morning reviewed. Sodium 142, potassium 5.1, chloride 115, CO2 of 18, BUN 84, creatinine 3.34, calcium 7.8, magnesium 2.9. ASSESSMENT AND PLAN: Acute kidney injury: Baseline creatinine is about 1 as recently as 01/27. Current creatinine is significantly higher than her baseline and this morning laboratories showed 3.34. Creatinine is still trending up, which is not a good sign. Etiology of acute renal failure is acute tubular necrosis in the setting of liver cirrhosis. She has already had multiple rounds of albumin as well as saline, but the creatinine did not really improve and I agree with stopping the normal saline. Blood pressure is running significantly low and we can use midodrine 5 mg 3 times a day to see if it makes any difference with the blood pressure. She will not be a candidate for chronic maintenance or acute dialysis given her extensive severe comorbid disease with advanced age. Case was discussed with primary team JEAN PAUL
--- NOTE | 2020-02-19 15:09 | Palliative Care Progress Note ---
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 CT scan at that time showed liver masses, ascites with anasarca. Liver CT showed lesion within the medial right hepatic lobe and diffusely involving the left hepatic lobe, cirrhosis, portal vein thrombosis with involvement of the superior mesenteric vein there was also involvement of the intrahepatic portal veins. Biopsy was recommended, but family did not want aggressive treatment. Patient's CA 125 was elevated at 490, CA 19-9 and AFP were negative. Patient had a distended, tense abdomen and underwent paracentesis on 01/16 with removal of 2.8 L. Patient was discharged on 01/27 with hospice. Patient lives with her son, Adelfo. Family was concerned regarding patient's poor p.o. intake, had lab work done which showed a critical elevated sodium of 158. - There were secondhand reports that the hospice agency refused to do IV fluids or taps-spoke with son Adelfo -who reported they never asked, they just assumed that that would not be in her plan of care. Patient has been receiving IV hydration since admission has received a total of 4 L of IV fluid, her urine output so far has only been 40 cc. Patient is taking sips p.o. Her sodium has improved to 149. Patient's BUNs/creatinine was 72/2.63 on admission, on labs drawn today was 61/2.38. Patient is having increased lower extremity edema. -Conversation with patient's daughter,Merritt- they plan to follow-up as an outpatient and discuss dialysis with other family members if it is needed. Discussed at length patient's current issues with cirrhosis and poor p.o. intake. Patient will improve with IV fluids, but as she is hydrated her lower extremity edema and ascites increases. -Discussed home health, home palliative services as well as home hospice-at this point home health or home palliative are more in line with families goals of care, they will need continued education regarding her disease process. And may at some time request hospice care. (2) Acute dehydration: Due to poor p.o. intake. Discussed at length with daughter regarding continued vicious cycle of poor p.o. intake requiring IV hydration which increases her edema and ascites. (3) Liver lesion: Family refuses further invasive procedures (4) Liver cirrhosis: Contributing to her edema and ascites (5) Edema, peripheral: Increased lower extremity edema with IV hydration Subjective Patient seen and examined. No family at bedside. Collaborated with attending physician Dr. Witt Patient awake, appears comfortable at rest. Per Dr. Witt, patient refused paracentesis earlier today, patient's daughter was present at bedside when she refused. Spoke with patient's daughter, who is also a kinesiology internship, Merritt -[phone] at the request of her brother, Rei. Family plans to discuss possibility of dialysis after patient returns home. Will have follow-up after discharge. Patient started on midodrine for hypotension. Review of Systems Review of Systems: Other Unable to obtain due to language barrier, translation services have not been able to understand patient, no family present to translate. Physical Exam Physical Exam: PE: NAD at rest HEENT: Hearing appears within normal limits Respirations: Unlabored, clear breath sounds, adequate saturations on room air CV: Bradycardia, positive lower extremity edema Abdomen: Soft, distended-not tense, nontender to light palpation Results & Data Vital Signs (Past 12 Hours) Vital Signs Temp Pulse Resp BP Pulse Ox 02/19/20 07:58 97.5 F L 55 L 18 87/62 L 93 PG Care Time/CCT Total # of Minutes Spent Total Time Spent with Patient: Total time spent 35 minutes with greater than 50% of the time spent at bedside assessing patient's current level of comfort and discussing goals of care with family and attending physician Coding Level of Care Code 67686 Subseq Hosp Care Lvl 3 Diagnoses Goals of care, counseling/discussion Z71.89 Acute dehydration E86.0 Liver lesion K76.9 Liver cirrhosis K74.60; R18.8 Hepatic cirrhosis type: unspecified hepatic cirrhosis Ascites presence: with ascites Edema, peripheral R60.9 Time Spent (min) 35 (1) Liver cirrhosis Hepatic cirrhosis type: unspecified hepatic cirrhosis Ascites presence: with ascites Qualified Code(s): K74.60 - Unspecified cirrhosis of liver; R18.8 - Other ascites
[2020-02-19] MEDS: MIDODRINE HCL 2.5 MG TAB PO SCH (17:38)
[2020-02-19] MEDS: MIRTAZAPINE TAB 15 MG TAB PO SCH ×2 (20:24→20:28)
[2020-02-20] MEDS: MIDODRINE HCL 2.5 MG TAB PO SCH ×3 (09:10→17:32)
[2020-02-20] MEDS: CYANOCOBALAMIN 500 MCG TABLET (VITAMIN B-12) PO SCH (09:10)
[2020-02-20] MEDS: CALCIUM 600MG + VIT D 400 IU TAB PO SCH (09:10)
[2020-02-20] MEDS: APIXABAN 2.5 MG TAB PO SCH ×2 (12:58→21:50)
--- NOTE | 2020-02-20 21:29 | Hospitalist Progress Note ---
Date of Service February 20, 2020 Assessment & Plan (1) Acute kidney injury: Serum creatinine at time of admission was 2.63. Underlying CKD with baseline creatinine around 1.0. Nephrology consulted. Diuretics held. Renal US demonstrated cortical thinning consistent with chronic renal disease, n o obstruction. Thought to have acute tubular necrosis. Received IV fluids, albumin, midodrine. Creatinine = 3.34 on 02/18. Oliguric with fluid overload. Renal prognosis concerning. [place] not be a candidate for hemodialysis due to functional status and co- morbidities. (2) Hypernatremia: Serum sodium at time of admission was 155. Received free water with IV fluids. Serum sodium 02/18 = 142. Follow. (3) Acute metabolic encephalopathy: Worsening confusion. Acute metabolic encephalopathy, multifactorial. (4) Liver cirrhosis: Cirrhosis of liver with associated portal hypertension and ascites. (5) Liver lesion: Hepatic lesions worrisome for malignancy- could be hepatocellular or metastatic. [place] that risks of biopsy outweigh the benefits. (6) Ascites: Paracentesis performed 01/17/20. Ascites re-accumulated. Patient declined palliative paracentesis during this hospital stay. (7) Portal vein thrombosis: Continue apixaban. (8) Severe protein-calorie malnutrition: Nutritional supplements as tolerated. (9) DVT (deep venous thrombosis): Acute DVT right lower extremity diagnosed by venous duplex 01/18/20. Continue Rx with apixaban. (10) DVT prophylaxis: Continue apixaban. (11) Do not resuscitate status: As documented. (12) Discharge planning issues: Discharge planning in progress. Probable discharge to home with palliative home health services. Internal Medicine follow-up with Dr. Alia Orozco. Redd Emanuel visited this evening and given update. Hope to coordinate conference call with family tomorrow to give updates and determine discharge goals. Admission and Anticipated Discharge Date Admission Date: February 13, 2020 Subjective Recheck for multiple problems. Patient seen in their room around 1600. Weak. Confused. Poor PO intake. Review of Systems: Unable to obtain due to language barrier and confusion. Pt unable to use on-line translation service. Son visiting later and pt had no specific complaints. Physical Exam Constitutional: + ill appearing; no acute distress Eyes: + anicteric sclerae Respiratory: no respiratory distress Auscultation: lungs clear to auscultation bilaterally Cardiovascular: Rate/Rhythm: regular rate and regular rhythm Heart Sounds: no gallop Vessels: no JVD Extremities: + edema (2+ pretibial); no calf tenderness Gastrointestinal (Abdomen): Inspection/Auscultation: + abdomen distended Percussion/Palpation: abdomen soft; abdomen nontender Musculoskeletal: Extremities: no cyanosis Skin: no rashes, warm and dry Psychiatric: Orientation: + not alert and + not oriented x 3 Genitourinary: + bladder abnormality (Adamson catheter) Results & Data Results & Data ([facility]) Vital Signs (Past 12 Hours) Vital Signs Temp Pulse Resp BP Pulse Ox 02/20/20 15:07 36.5 C 90 16 108/84 91 Laboratory Results 02/19/20 05:06 02/19/20 05:06 (1) Liver cirrhosis Hepatic cirrhosis type: unspecified hepatic cirrhosis Ascites presence: with ascites Qualified Code(s): K74.60 - Unspecified cirrhosis of liver; R18.8 - Other ascites
[2020-02-20] MEDS: MIRTAZAPINE TAB 15 MG TAB PO SCH (21:50)
[2020-02-21 08:35] LABS: BUN Creatinine Ratio 22.3 (10-20); Calcium 8.3 mg/dl (8.5-10.1); Creatinine Clr Calc Pharmacy 7.8 ml/min; Est GFR (African American) 11.8; Est GFR (Non-African American) 10.2; Potassium 5.2 mmol/L (3.5-5.1)
[2020-02-21] MEDS: CYANOCOBALAMIN 500 MCG TABLET (VITAMIN B-12) PO SCH (09:34)
[2020-02-21] MEDS: MIDODRINE HCL 2.5 MG TAB PO SCH ×3 (09:34→18:41)
[2020-02-21] MEDS: APIXABAN 2.5 MG TAB PO SCH (09:34)
[2020-02-21] MEDS: CALCIUM 600MG + VIT D 400 IU TAB PO SCH (09:34)
--- NOTE | 2020-02-21 13:26 | Hospitalist Progress Note ---
Date of Service February 21, 2020 Assessment & Plan (1) Acute kidney injury: Serum creatinine at time of admission was 2.63. Underlying CKD with baseline creatinine around 1.0. Nephrology consulted. Diuretics held. Renal US demonstrated cortical thinning consistent with chronic renal disease, n o obstruction. Thought to have acute tubular necrosis. Received IV fluids, albumin, midodrine. Creatinine today = 3.75. Oliguric with fluid overload. Renal prognosis concerning. [place] not be a candidate for hemodialysis due to functional status and co- morbidities. (2) Hypernatremia: Serum sodium at time of admission was 155. Received free water with IV fluids. Serum sodium today = 139. (3) Acute metabolic encephalopathy: Worsening confusion. Acute metabolic encephalopathy, multifactorial- hypernatremia, renal failure. (4) Liver cirrhosis: Cirrhosis of liver with associated portal hypertension and ascites. (5) Liver lesion: Hepatic lesions worrisome for malignancy- could be hepatocellular or metastatic. [place] that risks of biopsy outweigh the benefits. (6) Ascites: Paracentesis performed 01/17/20. Ascites re-accumulated. Patient declined palliative paracentesis during this hospital stay. (7) Portal vein thrombosis: Received apixaban. Apixaban will be stopped due to increased risk and transition back to hospice ca re. (8) Severe protein-calorie malnutrition: Nutritional supplements as tolerated. (9) DVT (deep venous thrombosis): Received apixaban. Apixaban will be stopped due to increased risk and transition back to hospice care. (10) DVT prophylaxis: Received apixaban. Apixaban will be stopped due to increased risk and transition back to hospice care. (11) Do not resuscitate status: As documented. (12) Discharge planning issues: Spoke with daughter Merritt at bedside and son Spencer, both physicians. Progressive decline with acute / worsening renal failure. Underlying cirrhosis and suspected malignancy. Not a candidate for hemodialysis due to poor functional status and com orbidities. Actively dying; prognosis probably less than 1 week. The patient will be more comfortable at home in her own environment. They agree that hospice care should be resumed. Discharge to home with resumption of hospice care. Internal Medicine follow-up with Dr. Alia Orozco. Redd Emanuel visited this afternoon and given update. Admission and Anticipated Discharge Date Admission Date: February 13, 2020 Subjective Recheck for multiple problems. Patient seen in their room around 0940. Weak. Confused. Poor PO intake. Low urine output. Daughter at bedside. Review of Systems: Unable to obtain due to pt's condition. Physical Exam Constitutional: + ill appearing; no acute distress Eyes: + anicteric sclerae Respiratory: no respiratory distress Auscultation: lungs clear to auscultation bilaterally Cardiovascular: Rate/Rhythm: regular rate and regular rhythm Heart Sounds: no gallop Vessels: no JVD Extremities: + edema (2+ pretibial); no calf tenderness Gastrointestinal (Abdomen): Inspection/Auscultation: + abdomen distended Percussion/Palpation: abdomen soft; abdomen nontender Musculoskeletal: Extremities: no cyanosis Psychiatric: Orientation: + not alert and + not oriented x 3 Genitourinary: + bladder abnormality (Adamson catheter) Results & Data Results & Data ([facility]) Vital Signs (Past 12 Hours) Vital Signs Temp Pulse Resp BP Pulse Ox 02/21/20 07:12 35.9 C L 80 16 109/65 100 Laboratory Results 02/19/20 05:06 02/21/20 07:32 (1) Liver cirrhosis Hepatic cirrhosis type: unspecified hepatic cirrhosis Ascites presence: with ascites Qualified Code(s): K74.60 - Unspecified cirrhosis of liver; R18.8 - Other ascites
--- NOTE | 2020-02-22 09:12 | Discharge Summary ---
Date of Service Date of Admission: 02/13/20 Date of Discharge: 02/21/20 Admission HPI Per Admitting Provider Patient is an 83-year-old female with history of DVT, portal vein thrombosis, hyponatremia, CKD III, slow transit constipation, stress incontinence, osteoarthritis, dementia and other problems who was recently admitted at [facility] for evaluation of hepatic lesions, anasarca, DVT, WALT and was discharged on hospice services presents with history of generalized weakness, abnormal labs. Most of the history is obtained from patient's son, ER physician and old records. History is limited secondary to patient's dementia, hearing impairment. Patient's son informs that patient was actually doing better since last 3 days but was noted to have abnormal labs by her PCP and was informed to go to ED for further evaluation. Patient's son states that patient is no longer on hospice services and would like noninvasive treatment. He admits that patient has been eating okay but has very poor oral intake of fluids. He denies any change in mental status. Leg swelling self markedly improved since last hospitalization. Denies any history of chest pain, SOB, dizziness, cough, fever, chills, headache, change in vision, nausea, vomiting, abdominal pain, diarrhea, dysuria, recent travel, sick contact. Principal Diagnosis acute kidney injury / oliguric renal failure - acute tubular necrosis vs hepatorenal syndrome OTHER ACUTE DIAGNOSES: hypernatremia metabolic encephalopathy Discharge Data Allergies Allergy/AdvReac Type Severity Reaction Status Date / Time No Known Allergies Allergy Verified 02/13/20 14:58 Consultations 02/13/20 16:52 ED Decision to Admit Stat 02/13/20 20:08 Consult Case Management - Discharge Planning Routine Consult Nephrology Routine 02/15/20 06:12 Consult Palliative Care Routine 02/17/20 02:35 Consult Gastroenterology Routine Ordered Studies 02/13/20 20:08 US liver Routine US renal/blad retro comp Routine Hospital Course (1) Acute kidney injury: Serum creatinine at time of admission was 2.63. Underlying CKD with baseline creatinine around 1.0. Nephrology consulted. Diuretics held. Renal US demonstrated cortical thinning consistent with chronic renal disease, no obstruction. Thought to have acute tubular necrosis vs hepatorenal syndrome. Received IV fluids, albumin, midodrine. Creatinine day of discharge was 3.75. Oliguric with fluid overload. Renal prognosis very concerning- rising creatinine with very low urine output. Not a candidate for hemodialysis due to poor functional status and co- morbidities. (2) Hypernatremia: Serum sodium at time of admission was 155. Received free water with IV fluids. Serum sodium day of discharge was 139. (3) Acute metabolic encephalopathy: Worsening confusion. Acute metabolic encephalopathy, multifactorial- hypernatremia, renal failure. (4) Liver cirrhosis: Cirrhosis of liver with associated portal hypertension and ascites. (5) Liver lesion: Hepatic lesions worrisome for malignancy- could be hepatocellular or metastatic. [place] that risks of biopsy outweigh the benefits. (6) Ascites: Paracentesis performed 01/17/20. Ascites re-accumulated. Patient declined palliative paracentesis during this hospital stay. (7) Portal vein thrombosis: Received apixaban. Apixaban stopped due to increased risk and transition back to hospice care. (8) Severe protein-calorie malnutrition: Nutritional supplements as tolerated. (9) DVT (deep venous thrombosis): Received apixaban. Apixaban stopped due to increased risk and transition back to hospice care. (10) DVT prophylaxis: Received apixaban. (11) Do not resuscitate status: As documented. (12) Discharge planning issues: Spoke with daughter Merritt at bedside and son Spencer, both physicians. Progressive decline with acute / worsening renal failure. Underlying cirrhosis and suspected malignancy. Not a candidate for hemodialysis due to poor functional status and comorbidities. Actively dying; prognosis probably less than 1 week. The patient will be more comfortable at home in her own environment. They agree that hospice care should be resumed. Discharged to home with resumption of hospice care. Internal Medicine follow-up with Dr. Alia Orozco. Total Time Total Time Spent Total Time Spent (In Minutes): 45 Discharge Plan Discharge Items Patient Disposition: Hospice - Home Reason For Visit: kidney failure Discharge Diagnosis: kidney failure Condition on Discharge: Serious Activity: As commented below Activity Comment: as tolerated with help Non-emergency contact: Primary Care Provider Call non-emergency contact if: you have any medication questions and your pain is not controlled Follow-up/Referrals: Alia Orozco MD [Primary Care Provider] - None ( ) Diet: Regular Addtl Attending Provider Instructions: RECOMMENDATIONS FOR FOLLOW-UP: Hospice care at home. OTHER INSTRUCTIONS: Call hospice team if pain not well controlled or other concerns. Please take good care of yourself. Call if you have any questions or problems. You can reach a [facility] hospitalist on duty at [facility] 24 hours a day by calling [phone]. My cell # is [phone]. Pending Studies at Discharge: No Stand-Alone Forms: My [facility] Medications and DC Order Prescriptions: Continued acetaminophen [Tylenol Arthritis Pain] 650 mg Tablet Extended Release 650 mg PO Q12H PRN (Reason: arthritic pain) RF: 0 mirtazapine 15 mg tablet 7.5 mg PO HS RF: 0 morphine concentrate 100 mg/5 mL (20 mg/mL) solution 5 mg PO Q2H PRN (Reason: pain or shortness of breath) RF: 0 acetaminophen 650 mg suppository 625 mg DE Q4H PRN (Reason: mild pain or fever) RF: 0 hyoscyamine sulfate 0.125 mg tablet 0.125 mg sublingual Q4H PRN (Reason: terminal secretions) RF: 0 lorazepam 1 mg tablet 2 mg PO UD PRN (Reason: Seizures) RF: 0 lorazepam 1 mg tablet 0.5 mg PO Q4H PRN (Reason: restlessness, insomnia) RF: 0 haloperidol lactate 2 mg/mL concentrate 1 mg PO Q4H PRN (Reason: nausea, vomiting, agitation) RF: 0 lactulose 20 gram/30 mL solution 30 ml PO BID PRN (Reason: Constipation) RF: 0 Discontinued cyanocobalamin (vitamin B-12) [Vitamin B-12] 1,000 mcg Tablet 1,000 mcg PO DAILY RF: 0 calcium carbonate-vitamin D3 [Calcium 600 + D(3)] 600 mg(1,500mg) -200 unit Tablet 1 tab PO DAILY RF: 0 furosemide 40 mg Tablet 40 mg PO QAM 30 Days Qty: 30 RF: 0 spironolactone 25 mg Tablet 12.5 mg PO DAILY 30 Days Qty: 15 RF: 0 Eliquis 2.5 mg Tablet 2.5 mg PO BID 30 Days Qty: 60 RF: 0 Discharge Orders: Discharge Order (Routine); Ordered 02/21/20 Ordered By: Manolo Carrillo Admission Data Admit Date/Time: 02/13/20 18:31 Attending Provider: Manolo Carrillo Admit Provider: Asher Ann Primary Care Provider: Alia Orozco Other Providers: [facility] ; Asher Ann ; Yaa Gallegos ; Isabella Kenyon ; Karen Padilla ; Jie Horner ; Satya Redd ; Estrella García ; Last Handy ; Geovanna Dickens ; Isis Mars ; Karen Pisano ; Portillo Duke ; Jeremi Marroquin ; Farida Little ; Edwina Cintron ; [place] ; Sasha Romo ; Josué Foster ; Leda Witt Other Interventions: Discharge Summary Assessment (RN) Last Done: 02/21/20 13:57 DC Date/Time DO NOT enter until pt leaves facility: 02/21/20 21:05
== END 2020-02-21 21:05 | disposition hospice, home (50) | DRG 682 ==
LOC: ED 13:42 → 2W 18:31 → SUATTDRO 18:31 → 2W 19:02 → 3N 02-18 22:11